=== PATIENT | male | born 1990 | race African-American/Black ===

== ENCOUNTER 2021-04-12 15:28 | Inpatient (IN) | payer MEDICAID ==
[~2021-04-12] VITALS: Ht 182.9 cm; Wt 77.6 kg
[2021-04-12 18:19] LABS: Basophils # (auto) 0.1 10 ^3/uL (0-0.2); Basophils % (auto) 1.3 % (0.0-2.0); Eosinophils # (auto) 0 10 ^3/uL (0-0.8); Eosinophils % (auto) 0.5 % (0.0-7.0); Hematocrit 35.6 % (41.0-53.0); Hemoglobin 11.5 g/dL (13.5-17.5); Lymphocytes # (auto) 0.5 10 ^3/uL (0.4-5.4); Lymphocytes % (auto) 9.1 % (10.0-50.0); Mean Corpuscular Hemoglobin 26.3 pg (28.0-32.0); Mean Corpuscular Hgb Conc. 32.3 g/dL (32.0-36.0); Mean Corpuscular Volume 81.3 fL (80.0-100.0); Monocytes # (auto) 0.3 10 ^3/uL (0-1.3); Monocytes % (auto) 5.3 % (0.0-12.0); Neutrophils # (auto) 4.4 10 ^3/uL (1.6-8.6); Neutrophils % (auto) 83.8 % (37.0-80.0); Nucleated Red Blood Cells % 0.2 %; Red Blood Cells 4.38 10^6/uL (4.5-5.90); Red Cell Distribution Width 19.1 % (11.8-14.3); White Blood Cell 5.2 10^3/uL (4.4-10.8)
[2021-04-12 18:34] LABS: Chloride 92 mmol/L (98-107); Potassium 5.2 mmol/L (3.5-5.1); Sodium 131 mmol/L (136-145)
[2021-04-12 18:40] LABS: Alanine Aminotransferase 14 U/L (16-61); Albumin 3.9 g/dL (3.4-5.0); Alkaline Phosphatase 420 U/L (45-117); Anion Gap 8 (5-15); Aspartate Aminotransferase 17 U/L (15-37); BUN/Creatinine Ratio 4.3; Bilirubin, Total 0.7 mg/dL (0.2-1.0); Blood Urea Nitrogen 20 mg/dL (7-18); Calcium 10.3 mg/dL (8.5-10.1); Carbon Dioxide 31 mmol/L (21-32); GFR African American 19 mL/min; GFR Non-African American 16 mL/min; Glucose 126 mg/dL (74-106); Magnesium 2.8 mg/dL (1.6-2.6)
[2021-04-12] MEDS ORDERED: MORPHINE SULFATE INJECTION 2 MG/ML SYRG IV PRN (21:15)
[2021-04-12] MEDS ORDERED: NITROGLYCERIN 0.4 MG SL TAB SL PRN (21:15)
[2021-04-12] MEDS ORDERED: DEXTROSE (50%) 50ML SYRG IV SCH (21:15)
[2021-04-12] MEDS: ACCU-CHEK COMFORT CURVE STRIP VI SCH (22:15)
[2021-04-12] MEDS: InsuLIN REG 1unit/0.01ml Soln (100units/ml) SC SCH (22:19)
[2021-04-12] MEDS: MORPHINE SULFATE INJECTION 2 MG/ML SYRG IV PRN (23:00)
[2021-04-12] MEDS: ONDANSETRON HCL 4 MG/2 ML VIAL IV PRN (23:00)
[2021-04-12] MEDS: HEPARIN SODIUM (PORCINE) 5000 UNITS/ML 1ML VIAL SC SCH (23:22)
[2021-04-13 05:03] LABS: Basophils # (auto) 0.1 10 ^3/uL (0-0.2); Hemoglobin 10.3 g/dL (13.5-17.5); Neutrophils # (auto) 2.8 10 ^3/uL (1.6-8.6)
[2021-04-13 05:05] LABS: Eosinophils # (auto) 0.1 10 ^3/uL (0-0.8); Eosinophils % (auto) 1.3 % (0.0-7.0); Hematocrit 31.2 % (41.0-53.0); Lymphocytes % (auto) 22.1 % (10.0-50.0); Mean Corpuscular Hemoglobin 26.4 pg (28.0-32.0); Mean Corpuscular Hgb Conc. 32.9 g/dL (32.0-36.0); Mean Corpuscular Volume 80.3 fL (80.0-100.0); Monocytes # (auto) 0.5 10 ^3/uL (0-1.3); Monocytes % (auto) 11.7 % (0.0-12.0); Neutrophils % (auto) 61.9 % (37.0-80.0); Nucleated Red Blood Cells % 0.1 %; Red Blood Cells 3.89 10^6/uL (4.5-5.90); Red Cell Distribution Width 18.9 % (11.8-14.3); White Blood Cell 4.6 10^3/uL (4.4-10.8)
[2021-04-13 05:21] LABS: Albumin 2.9 g/dL (3.4-5.0); Calcium 8.3 mg/dL (8.5-10.1); Potassium 4.9 mmol/L (3.5-5.1)
[2021-04-13 05:25] LABS: BUN/Creatinine Ratio 4.7; Bilirubin, Total 0.5 mg/dL (0.2-1.0); Total Protein 7.8 g/dL (6.4-8.2)
[2021-04-13] MEDS: HEPARIN SODIUM (PORCINE) 5000 UNITS/ML 1ML VIAL SC SCH ×3 (06:06→22:07)
[2021-04-13] MEDS ORDERED: ALPRAZolam 0.25 MG TAB PO PRN (06:30)
[2021-04-13] MEDS ORDERED: diphenhdrAMINE HCL 50 MG/1 ML VL ONE (06:39)
[2021-04-13] MEDS: ACCU-CHEK COMFORT CURVE STRIP VI SCH ×4 (06:45→22:06)
[2021-04-13] MEDS: InsuLIN REG 1unit/0.01ml Soln (100units/ml) SC SCH ×4 (06:45→22:00)
[2021-04-13] MEDS: diphenhdrAMINE HCL 50 MG/1 ML VL IV PRN ×3 (07:00→23:35)
[2021-04-13] MEDS ORDERED: SERT50TA19 PO (10:46)
[2021-04-13] MEDS ORDERED: ALPR0.25 PO (10:46)
[2021-04-13] MEDS ORDERED: HYDR-4072 PO (10:46)
[2021-04-13] MEDS ORDERED: NIFE20CA PO (10:46)
[2021-04-13] MEDS ORDERED: B-COTAB10 OR (10:46)
[2021-04-13] MEDS ORDERED: CARV25TA55 PO (10:46)
[2021-04-13] MEDS ORDERED: CLON-818 PO (10:46)
[2021-04-13] MEDS: cloNIDine HCL 0.1 MG TAB PO SCH ×2 (11:02→21:58)
[2021-04-13] MEDS: CARVEDILOL 12.5 MG TAB PO SCH ×2 (11:03→21:59)
[2021-04-13] MEDS: NIFEdipine ER 30 MG TAB PO SCH (11:03)
[2021-04-13] MEDS: ONDANSETRON HCL 4 MG/2 ML VIAL IV PRN (11:04)
[2021-04-13] MEDS: MORPHINE SULFATE INJECTION 2 MG/ML SYRG IV PRN ×2 (11:05→20:19)
[2021-04-13 13:00] VITALS: BP 166/101
[2021-04-13 15:10] VITALS: BP 108/57
[2021-04-13 17:00] VITALS: BP 123/74
[2021-04-13] MEDS ORDERED: hydrALAZINE HCL 20 MG/ML VL IV PRN (17:15)
[2021-04-13] MEDS ORDERED: NIFE1TAB31 PO (18:08)
[2021-04-13] MEDS ORDERED: CAR125T PO (18:08)
[2021-04-13] MEDS ORDERED: CLON0.1T PO (18:08)
[2021-04-13] MEDS ORDERED: HYDR10TA26 PO (18:08)
[2021-04-13] MEDS ORDERED: POLYETHYLENE GLYCOL 17 GM PWDR PO ONE (21:30)
[2021-04-13] MEDS: DOCUSATE SOD 100 MG CAP PO SCH (21:58)
[2021-04-13 22:00] VITALS: BP 135/85
[2021-04-14 05:00] VITALS: BP 140/89
[2021-04-14] MEDS: MORPHINE SULFATE INJECTION 2 MG/ML SYRG IV PRN ×2 (05:43→13:08)
[2021-04-14] MEDS: DOCUSATE SOD 100 MG CAP PO SCH ×2 (05:43→14:00)
[2021-04-14] MEDS: HEPARIN SODIUM (PORCINE) 5000 UNITS/ML 1ML VIAL SC SCH ×2 (05:44→14:00)
[2021-04-14] MEDS: ACCU-CHEK COMFORT CURVE STRIP VI SCH ×2 (05:55→11:20)
[2021-04-14] MEDS: InsuLIN REG 1unit/0.01ml Soln (100units/ml) SC SCH ×2 (05:57→11:20)
[2021-04-14] MEDS ORDERED: SODIUM CHL 0.9% 1000 ML BAG XX ONE (07:00)
[2021-04-14 09:03] VITALS: BP 150/97
[2021-04-14] MEDS: diphenhdrAMINE HCL 50 MG/1 ML VL IV PRN (09:59)
[2021-04-14] MEDS ORDERED: DOCU-94 PO (11:53)
[2021-04-14] MEDS: NIFEdipine ER 30 MG TAB PO SCH (11:55)
[2021-04-14] MEDS: cloNIDine HCL 0.1 MG TAB PO SCH (11:56)
[2021-04-14] MEDS: CARVEDILOL 12.5 MG TAB PO SCH (11:56)
[2021-04-14 13:00] VITALS: BP 177/114
[2021-04-14 13:15] VITALS: BP 181/118
== END 2021-04-14 16:20 | disposition home or self-care (01) | DRG 199 ==
LOC: EDBD 15:28 → ER 15:28 → TELE 21:02 → TELE-WESTW 04-13 08:36
PROVIDERS: ADMIT Hospitalist; ATTEND Hospitalist
PROC: 5A1D70Z Performance of Urinary Filtration, Intermittent, Less than 6 Hours Per Day (ICD-10-PCS; principal; 2021-04-14)
DX: I16.0 Hypertensive urgency (principal); G93.40 Encephalopathy, unspecified; N18.6 End stage renal disease; S32.599A Other specified fracture of unspecified pubis, initial encounter for closed fracture; D63.1 Anemia in chronic kidney disease; E11.22 Type 2 diabetes mellitus with diabetic chronic kidney disease; I12.0 Hypertensive chronic kidney disease with stage 5 chronic kidney disease or end stage renal disease; F41.9 Anxiety disorder, unspecified; F32.9 Major depressive disorder, single episode, unspecified; E21.2 Other hyperparathyroidism; F17.210 Nicotine dependence, cigarettes, uncomplicated; Z20.822 Contact with and (suspected) exposure to COVID-19; K59.00 Constipation, unspecified; Z83.3 Family history of diabetes mellitus; Z99.2 Dependence on renal dialysis; Z91.81 History of falling; Z88.8 Allergy status to other drugs, medicaments and biological substances
CPT/HCPCS: 36415; 70450; 71045; 74176; 80053; 82962; 83735; 84484; 85025; 87081; 87426; 90935; 93005; 96365; 96375; 99291; G0378; J1815; J2405

== ENCOUNTER 2021-07-26 13:01 | Inpatient (IN) | payer MEDICAID ==
[~2021-07-26] VITALS: Ht 182.9 cm; Wt 76.5 kg
[~2021-07-26 13:01] MED LIST: ALPR0.25 PO; B-COTAB10 OR; CAR125T PO; CLON0.1T PO; DOCU-94 PO; GABA800T87; HYDR-4072 PO; HYDR10TA26 PO; INSUPOW; LISI-708; NIFE1TAB31 PO; SERT50TA19 PO
[2021-07-26] MEDS ORDERED: ONDANSETRON HCL 4 MG/2 ML VIAL IV ONE ×2 (14:00→22:45)
[2021-07-26 14:05] LABS: Basophils # (auto) 0 10 ^3/uL (0-0.2); Basophils % (auto) 0.9 % (0.0-2.0); Eosinophils # (auto) 0.1 10 ^3/uL (0-0.8); Hemoglobin 11.5 g/dL (13.5-17.5); Lymphocytes # (auto) 0.5 10 ^3/uL (0.4-5.4); Lymphocytes % (auto) 10.5 % (10.0-50.0); Mean Corpuscular Hemoglobin 26.5 pg (28.0-32.0); Mean Corpuscular Hgb Conc. 32.8 g/dL (32.0-36.0); Mean Corpuscular Volume 80.9 fL (80.0-100.0); Monocytes # (auto) 0.4 10 ^3/uL (0-1.3); Monocytes % (auto) 6.9 % (0.0-12.0); Neutrophils # (auto) 4.1 10 ^3/uL (1.6-8.6); Neutrophils % (auto) 80.7 % (37.0-80.0); Nucleated Red Blood Cells % 0.2 %; Red Blood Cells 4.33 10^6/uL (4.5-5.90); White Blood Cell 5.1 10^3/uL (4.4-10.8)
[2021-07-26] MEDS ORDERED: HYDROmorphone HCL 2 MG/ML VL IV ONE (14:15)
[2021-07-26 14:18] LABS: Potassium 3.6 mmol/L (3.5-5.1)
[2021-07-26 14:23] LABS: Albumin 3.4 g/dL (3.4-5.0); BUN/Creatinine Ratio 6.1; Calcium 9.1 mg/dL (8.5-10.1); Total Protein 9.5 g/dL (6.4-8.2)
[2021-07-26 15:26] LABS: Bilirubin, Total 0.6 mg/dL (0.2-1.0)
[2021-07-26] MEDS: METOCLOPRAMIDE HCL 5MG/ml INJ 2ml VIAL IV ONE ×2 (16:50→17:10)
[2021-07-26] MEDS ORDERED: ACETAMINOPHEN 325 MG TAB PO PRN (22:45)
[2021-07-26] MEDS ORDERED: SODIUM CHLORIDE 0.9% 1,000 ML IV ONE (22:45)
[2021-07-26] MEDS: MORPHINE SULFATE INJECTION 2 MG/ML SYRG IV PRN (23:06)
[2021-07-26] MEDS: HYDROcodone-ACET 5/325MG TAB PO PRN (23:07)
[2021-07-27] MEDS: PANTOPRAZOLE 40 MG/10 ML VIAL INJ IV SCH ×2 (00:07→09:42)
[2021-07-27] MEDS: MORPHINE SULFATE INJECTION 2 MG/ML SYRG IV PRN ×2 (07:56→20:06)
[2021-07-27 08:27] LABS: Potassium 3.9 mmol/L (3.5-5.1)
[2021-07-27 08:30] LABS: BUN/Creatinine Ratio 6.4
[2021-07-27] MEDS ORDERED: diphenhdrAMINE HCL 25 MG CAP PO PRN (10:30)
[2021-07-27] MEDS ORDERED: DEXTROSE (50%) 50ML SYRG IV PRN (10:30)
[2021-07-27] MEDS: ONDANSETRON HCL 4 MG/2 ML VIAL IV PRN (10:40)
[2021-07-27] MEDS: ACCU-CHEK COMFORT CURVE STRIP VI SCH ×3 (11:19→22:00)
[2021-07-27] MEDS: InsuLIN REG 1unit/0.01ml Soln (100units/ml) SC SCH ×3 (11:20→22:00)
[2021-07-27] MEDS: HYDROcodone-ACET 5/325MG TAB PO PRN (13:22)
[2021-07-28] MEDS ORDERED: diphenhdrAMINE HCL 50 MG/1 ML VL IV ONE (02:45)
[2021-07-28] MEDS: ACCU-CHEK COMFORT CURVE STRIP VI SCH ×4 (06:54→21:26)
[2021-07-28] MEDS: InsuLIN REG 1unit/0.01ml Soln (100units/ml) SC SCH ×4 (06:55→21:26)
[2021-07-28 08:38] VITALS: BP_SYST 113; BP_SYST 169; BP_DIAS 81; BP_DIAS 86
[2021-07-28] MEDS: PANTOPRAZOLE 40 MG/10 ML VIAL INJ IV SCH (09:32)
[2021-07-28] MEDS: HYDROcodone-ACET 5/325MG TAB PO PRN ×2 (12:09→20:29)
[2021-07-28 12:43] VITALS: BP 170/98
[2021-07-28] MEDS: MORPHINE SULFATE INJECTION 2 MG/ML SYRG IV PRN (15:56)
[2021-07-28] MEDS: hydrALAZINE HCL 10 MG TAB PO PRN (17:28)
[2021-07-28 17:30] VITALS: BP 199/67
[2021-07-28] MEDS: ONDANSETRON HCL 4 MG/2 ML VIAL IV PRN (20:28)
[2021-07-28 22:00] VITALS: BP 188/77
[2021-07-29] MEDS: MORPHINE SULFATE INJECTION 2 MG/ML SYRG IV PRN (00:57)
[2021-07-29 05:00] VITALS: BP 139/90
[2021-07-29] MEDS: ACCU-CHEK COMFORT CURVE STRIP VI SCH ×4 (06:16→22:13)
[2021-07-29] MEDS: InsuLIN REG 1unit/0.01ml Soln (100units/ml) SC SCH ×4 (06:16→22:12)
[2021-07-29 07:44] LABS: Potassium 4.8 mmol/L (3.5-5.1)
[2021-07-29 07:51] LABS: Basophils # (auto) 0.2 10 ^3/uL (0-0.2); Basophils % (auto) 3.8 % (0.0-2.0); Eosinophils # (auto) 0.1 10 ^3/uL (0-0.8); Eosinophils % (auto) 2.3 % (0.0-7.0); Hematocrit 31.9 % (41.0-53.0); Hemoglobin 10.4 g/dL (13.5-17.5); Lymphocytes # (auto) 0.8 10 ^3/uL (0.4-5.4); Lymphocytes % (auto) 20.4 % (10.0-50.0); Mean Corpuscular Hemoglobin 26.1 pg (28.0-32.0); Mean Corpuscular Hgb Conc. 32.6 g/dL (32.0-36.0); Mean Corpuscular Volume 80.1 fL (80.0-100.0); Monocytes # (auto) 0.4 10 ^3/uL (0-1.3); Monocytes % (auto) 10.5 % (0.0-12.0); Neutrophils # (auto) 2.5 10 ^3/uL (1.6-8.6); Nucleated Red Blood Cells % 0.1 %; Red Blood Cells 3.99 10^6/uL (4.5-5.90); Red Cell Distribution Width 16.8 % (11.8-14.3)
[2021-07-29 08:06] LABS: BUN/Creatinine Ratio 6.1; Calcium 7.8 mg/dL (8.5-10.1); Magnesium 3.9 mg/dL (1.6-2.6)
[2021-07-29 09:48] VITALS: BP 148/91
[2021-07-29] MEDS: PANTOPRAZOLE 40 MG/10 ML VIAL INJ IV SCH (10:06)
[2021-07-29] MEDS: HYDROcodone-ACET 5/325MG TAB PO PRN ×2 (11:02→12:11)
[2021-07-29 14:14] VITALS: BP 145/104
[2021-07-29] MEDS ORDERED: diphenhdrAMINE HCL 50 MG/1 ML VL ONE (14:37)
[2021-07-29] MEDS ORDERED: SODIUM CHL 0.9% 1000 ML BAG XX ONE (14:45)
[2021-07-29] MEDS ORDERED: diphenhdrAMINE HCL 50 MG/1 ML VL IV ONE (14:45)
[2021-07-29 17:05] VITALS: BP 140/89
[2021-07-29 21:43] VITALS: BP 150/87
[2021-07-30] MEDS: HYDROcodone-ACET 5/325MG TAB PO PRN ×2 (04:33→10:55)
[2021-07-30] MEDS: ACCU-CHEK COMFORT CURVE STRIP VI SCH ×2 (04:38→11:05)
[2021-07-30] MEDS: InsuLIN REG 1unit/0.01ml Soln (100units/ml) SC SCH ×2 (04:38→11:05)
[2021-07-30 05:00] VITALS: BP 158/81
[2021-07-30] MEDS: hydrALAZINE HCL 10 MG TAB PO PRN (07:56)
[2021-07-30 08:00] VITALS: BP 157/104
[2021-07-30 09:00] VITALS: BP 157/104
[2021-07-30] MEDS: PANTOPRAZOLE 40 MG/10 ML VIAL INJ IV SCH (10:00)
[2021-07-30] MEDS ORDERED: ONDANSETRON ODT 4 MG TAB PO PRN (11:00)
== END 2021-07-30 15:31 | disposition home health service (06) | DRG 251 ==
LOC: ER 13:01 → EDBD 13:01 → TELE 22:44 → TELE-WESTW 07-27 18:01 → OBSVTOIN 07-28 11:24
PROVIDERS: ADMIT Internal Medicine; ATTEND Internal Medicine
PROC: 5A1D70Z Performance of Urinary Filtration, Intermittent, Less than 6 Hours Per Day (ICD-10-PCS; principal; 2021-07-29)
DX: R10.9 Unspecified abdominal pain (principal); I12.0 Hypertensive chronic kidney disease with stage 5 chronic kidney disease or end stage renal disease; D63.1 Anemia in chronic kidney disease; E11.22 Type 2 diabetes mellitus with diabetic chronic kidney disease; N18.6 End stage renal disease; F12.90 Cannabis use, unspecified, uncomplicated; Z20.822 Contact with and (suspected) exposure to COVID-19; F17.210 Nicotine dependence, cigarettes, uncomplicated; M25.552 Pain in left hip; W18.39XA Other fall on same level, initial encounter; G89.4 Chronic pain syndrome; M89.8X9 Other specified disorders of bone, unspecified site; Z83.3 Family history of diabetes mellitus; Z89.411 Acquired absence of right great toe; Z88.5 Allergy status to narcotic agent; Z99.2 Dependence on renal dialysis; Z91.018 Allergy to other foods; Y93.89 Activity, other specified; Y92.89 Other specified places as the place of occurrence of the external cause; Y99.8 Other external cause status; Z87.81 Personal history of (healed) traumatic fracture
CPT/HCPCS: 36415; 71045; 73502; 73700; 74176; 80048; 80053; 82962; 83690; 83735; 83880; 84484; 85025; 87426; 90935; 93005; 96374; 96375; 97163; C9113; G0378; J1815; J2405; Q0162

== ENCOUNTER 2021-10-10 11:01 | Inpatient (IN) | payer MEDICAID ==
[~2021-10-10] VITALS: Ht 182.9 cm; Wt 80.4 kg
[2021-10-10] MEDS ORDERED: ONDANSETRON HCL 4 MG/2 ML VIAL IV ONE (13:30)
[2021-10-10 13:32] LABS: Eosinophils # (auto) 0.1 10 ^3/uL (0-0.8); Lymphocytes # (auto) 0.4 10 ^3/uL (0.4-5.4); Mean Corpuscular Hemoglobin 26.4 pg (28.0-32.0); Monocytes # (auto) 0.4 10 ^3/uL (0-1.3); Neutrophils # (auto) 4.7 10 ^3/uL (1.6-8.6)
[2021-10-10 13:35] LABS: Basophils # (auto) 0 10 ^3/uL (0-0.2); Basophils % (auto) 0.4 % (0.0-2.0); Eosinophils % (auto) 1.2 % (0.0-7.0); Hematocrit 30.3 % (41.0-53.0); Hemoglobin 9.8 g/dL (13.5-17.5); Lymphocytes % (auto) 7.6 % (10.0-50.0); Mean Corpuscular Hgb Conc. 32.4 g/dL (32.0-36.0); Mean Corpuscular Volume 81.3 fL (80.0-100.0); Monocytes % (auto) 7.1 % (0.0-12.0); Neutrophils % (auto) 83.7 % (37.0-80.0); Red Blood Cells 3.72 10^6/uL (4.5-5.90); Red Cell Distribution Width 16.6 % (11.8-14.3); White Blood Cell 5.6 10^3/uL (4.4-10.8)
[2021-10-10 13:56] LABS: Albumin 3.1 g/dL (3.4-5.0); BUN/Creatinine Ratio 5.8; Calcium 8.7 mg/dL (8.5-10.1)
[2021-10-10 14:01] LABS: Bilirubin, Total 0.6 mg/dL (0.2-1.0); Total Protein 7.9 g/dL (6.4-8.2)
[2021-10-10 14:20] LABS: Potassium 5.8 mmol/L (3.5-5.1)
[2021-10-10] MEDS ORDERED: FUROSEMIDE 20 MG/2 ML VIAL IV ONE (14:30)
[2021-10-10] MEDS ORDERED: CALCIUM GLUC 1,000mg/50ml-NS 50 ML IV ONE (14:30)
[2021-10-10] MEDS ORDERED: ALBUTEROL SULF 2.5 MG/0.5ML(0.5%) NEB SOLN NEB ONE (14:30)
[2021-10-10] MEDS ORDERED: LABETALOL HCL 5 MG/ML 4ML SYRINGE IV ONE ×2 (14:30→16:30)
[2021-10-10] MEDS ORDERED: MORPHINE SULFATE INJECTION 2 MG/ML SYRG IV PRN (17:45)
[2021-10-10] MEDS ORDERED: ALPRAZolam 0.25 MG TAB PO PRN (17:45)
[2021-10-10] MEDS ORDERED: ACETAMINOPHEN 325 MG TAB PO PRN (17:45)
[2021-10-10] MEDS ORDERED: NITROGLYCERIN 0.4 MG SL TAB SL PRN (17:45)
[2021-10-10 19:30] LABS: Calcium 8.3 mg/dL (8.5-10.1)
[2021-10-10 19:37] LABS: Potassium 5.7 mmol/L (3.5-5.1)
[2021-10-10] MEDS ORDERED: SODIUM ZIRCONIUM CYCL 10 GM PAK PO ONE (20:15)
[2021-10-10] MEDS: ONDANSETRON HCL 4 MG/2 ML VIAL IV PRN (20:44)
[2021-10-10] MEDS: HYDROcodone-ACET 5/325MG TAB PO PRN (21:07)
[2021-10-10] MEDS: CARVEDILOL 12.5 MG TAB PO SCH (21:35)
[2021-10-10] MEDS: cloNIDine HCL 0.1 MG TAB PO SCH (21:35)
[2021-10-10] MEDS: NIFEdipine ER 30 MG TAB PO SCH (22:00)
[2021-10-10 23:00] VITALS: BP 162/81
[2021-10-10 23:30] VITALS: BP 157/83
[2021-10-11] VITALS (41 sets, daily range): BP systolic 113–182; BP diastolic 56–93
[2021-10-11 01:13] LABS: Albumin 2.9 g/dL (3.4-5.0)
[2021-10-11 01:16] LABS: BUN/Creatinine Ratio 5.8
[2021-10-11 01:18] LABS: Bilirubin, Total 0.5 mg/dL (0.2-1.0); Total Protein 7.2 g/dL (6.4-8.2)
[2021-10-11 01:26] LABS: Potassium 5.7 mmol/L (3.5-5.1)
[2021-10-11 05:07] LABS: Basophils # (auto) 0.1 10 ^3/uL (0-0.2); Eosinophils # (auto) 0.1 10 ^3/uL (0-0.8); Lymphocytes # (auto) 0.7 10 ^3/uL (0.4-5.4)
[2021-10-11 05:09] LABS: Basophils % (auto) 1.2 % (0.0-2.0); Eosinophils % (auto) 1.4 % (0.0-7.0); Hematocrit 25.4 % (41.0-53.0); Hemoglobin 8.6 g/dL (13.5-17.5); Lymphocytes % (auto) 18.4 % (10.0-50.0); Mean Corpuscular Hgb Conc. 33.8 g/dL (32.0-36.0); Monocytes # (auto) 0.4 10 ^3/uL (0-1.3); Monocytes % (auto) 8.8 % (0.0-12.0); Neutrophils # (auto) 2.9 10 ^3/uL (1.6-8.6); Neutrophils % (auto) 70.2 % (37.0-80.0); Red Blood Cells 3.18 10^6/uL (4.5-5.90); Red Cell Distribution Width 17.1 % (11.8-14.3); White Blood Cell 4.1 10^3/uL (4.4-10.8)
[2021-10-11 05:35] LABS: Albumin 2.7 g/dL (3.4-5.0); Calcium 7.8 mg/dL (8.5-10.1); Potassium 4.6 mmol/L (3.5-5.1)
[2021-10-11 05:37] LABS: % Iron Saturation 32.6 % (20-55)
[2021-10-11 05:38] LABS: BUN/Creatinine Ratio 5.9; Bilirubin, Total 0.5 mg/dL (0.2-1.0); Total Protein 6.7 g/dL (6.4-8.2)
[2021-10-11 05:49] LABS: Phosphorus 8.8 mg/dL (2.5-4.90)
[2021-10-11] MEDS ORDERED: SODIUM CHL 0.9% 1000 ML BAG XX ONE (07:00)
[2021-10-11] MEDS: NIFEdipine ER 30 MG TAB PO SCH ×2 (09:51→21:32)
[2021-10-11] MEDS: cloNIDine HCL 0.1 MG TAB PO SCH ×2 (09:52→21:30)
[2021-10-11] MEDS ORDERED: NIFEdipine ER 30 MG TAB PO SCH (10:00)
[2021-10-11] MEDS ORDERED: CLON0.1T PO (11:42)
[2021-10-11] MEDS ORDERED: CAR125T PO (11:42)
[2021-10-11] MEDS ORDERED: NIFE1TAB31 PO (11:42)
[2021-10-11] MEDS: CARVEDILOL 12.5 MG TAB PO SCH ×2 (12:01→21:31)
[2021-10-11] MEDS: SERTRALINE HCL 50 MG TAB PO SCH (12:01)
[2021-10-11] MEDS ORDERED: diphenhdrAMINE HCL 50 MG/1 ML VL ONE (14:11)
[2021-10-11] MEDS ORDERED: diphenhdrAMINE HCL 50 MG/1 ML VL IV ONE (14:15)
[2021-10-11] MEDS: HYDROcodone-ACET 5/325MG TAB PO PRN ×2 (16:15→21:31)
[2021-10-11] MEDS ORDERED: EPOETIN ALFA-EPBX 4,000 UNIT/ML VIAL SC ONE (21:00)
[2021-10-11] MEDS: ONDANSETRON HCL 4 MG/2 ML VIAL IV PRN (21:32)
[2021-10-12 05:00] VITALS: BP 144/56
[2021-10-12] MEDS: MORPHINE SULFATE INJECTION 2 MG/ML SYRG IV PRN ×4 (08:27→23:59)
[2021-10-12] MEDS: SERTRALINE HCL 50 MG TAB PO SCH (08:29)
[2021-10-12] MEDS: NIFEdipine ER 30 MG TAB PO SCH ×2 (08:33→22:05)
[2021-10-12 09:15] VITALS: BP 131/54
[2021-10-12 10:04] LABS: Basophils # (auto) 0.1 10 ^3/uL (0-0.2); Hematocrit 28.4 % (41.0-53.0); Hemoglobin 9.3 g/dL (13.5-17.5); Lymphocytes # (auto) 0.5 10 ^3/uL (0.4-5.4); Mean Corpuscular Hemoglobin 26.4 pg (28.0-32.0); Mean Corpuscular Hgb Conc. 32.7 g/dL (32.0-36.0); Monocytes # (auto) 0.4 10 ^3/uL (0-1.3); Neutrophils # (auto) 2.9 10 ^3/uL (1.6-8.6); White Blood Cell 4.1 10^3/uL (4.4-10.8)
[2021-10-12 10:07] LABS: Basophils % (auto) 3.2 % (0.0-2.0); Eosinophils # (auto) 0.2 10 ^3/uL (0-0.8); Eosinophils % (auto) 4.4 % (0.0-7.0); Lymphocytes % (auto) 11.1 % (10.0-50.0); Mean Corpuscular Volume 80.8 fL (80.0-100.0); Monocytes % (auto) 9.6 % (0.0-12.0); Neutrophils % (auto) 71.7 % (37.0-80.0); Nucleated Red Blood Cells % 0.2 %; Red Blood Cells 3.51 10^6/uL (4.5-5.90); Red Cell Distribution Width 16.8 % (11.8-14.3)
[2021-10-12 10:23] LABS: Calcium 8.3 mg/dL (8.5-10.1); Potassium 5.2 mmol/L (3.5-5.1)
[2021-10-12 10:26] LABS: BUN/Creatinine Ratio 4.9; Bilirubin, Total 0.6 mg/dL (0.2-1.0); Total Protein 7.7 g/dL (6.4-8.2)
[2021-10-12 13:00] VITALS: BP 141/69
[2021-10-12] MEDS: cloNIDine HCL 0.1 MG TAB PO SCH ×2 (13:05→22:03)
[2021-10-12] MEDS: CARVEDILOL 12.5 MG TAB PO SCH ×2 (13:06→22:04)
[2021-10-12 17:00] VITALS: BP 156/80
[2021-10-12] MEDS ORDERED: diphenhdrAMINE HCL 25 MG CAP PO PRN (18:30)
[2021-10-12 22:00] VITALS: BP 144/77
[2021-10-12] MEDS: HYDROcodone-ACET 5/325MG TAB PO PRN (22:25)
[2021-10-13] MEDS: diphenhdrAMINE HCL 50 MG/1 ML VL IV PRN ×3 (00:27→15:53)
[2021-10-13 05:00] VITALS: BP 157/104
[2021-10-13] MEDS: hydrALAZINE HCL 20 MG/ML VL IV PRN ×2 (05:27→18:45)
[2021-10-13 07:06] LABS: Immunoglobulin G, Serum 1555 mg/dL (603-1613)
[2021-10-13 08:00] VITALS: BP 146/90
[2021-10-13] MEDS: NIFEdipine ER 30 MG TAB PO SCH ×2 (10:00→22:16)
[2021-10-13] MEDS: SERTRALINE HCL 50 MG TAB PO SCH (10:37)
[2021-10-13] MEDS: cloNIDine HCL 0.1 MG TAB PO SCH ×2 (10:38→22:14)
[2021-10-13] MEDS: CARVEDILOL 12.5 MG TAB PO SCH ×2 (10:39→22:14)
[2021-10-13] MEDS: MORPHINE SULFATE INJECTION 2 MG/ML SYRG IV PRN ×2 (10:42→19:05)
[2021-10-13] MEDS: ONDANSETRON HCL 4 MG/2 ML VIAL IV PRN (11:30)
[2021-10-13 11:39] LABS: INR 1.13 (0.9-1.15); Partial Thromboplastin Time 28.6 sec (23.6-33.0)
[2021-10-13 12:00] VITALS: BP 125/78
[2021-10-13 16:00] VITALS: BP 158/92
[2021-10-13 21:31] VITALS: BP 149/90
[2021-10-14] VITALS (17 sets, daily range): BP systolic 134–176; BP diastolic 79–100
[2021-10-14] MEDS: NIFEdipine ER 30 MG TAB PO SCH (10:00)
[2021-10-14] MEDS: SERTRALINE HCL 50 MG TAB PO SCH (10:00)
[2021-10-14] MEDS: cloNIDine HCL 0.1 MG TAB PO SCH (10:00)
[2021-10-14] MEDS: CARVEDILOL 12.5 MG TAB PO SCH (10:00)
[2021-10-14] MEDS: hydrALAZINE HCL 20 MG/ML VL IV PRN (10:03)
[2021-10-14] MEDS: MORPHINE SULFATE INJECTION 2 MG/ML SYRG IV PRN (10:13)
[2021-10-14] MEDS ORDERED: fentaNYL CITRATE 100 MCG/2 ML VL ONE (11:12)
[2021-10-14] MEDS ORDERED: MIDAZOLAM HCL 2MG/2ML 2ml VIAL (1mg/ml) ONE (11:12)
[2021-10-14] MEDS ORDERED: LIDOCAINE 2%HCL (LOCAL ANESTH.) INJ 10ml MDV ONE (11:38)
[2021-10-14] MEDS: HYDROcodone-ACET 5/325MG TAB PO PRN (13:04)
== END 2021-10-14 16:18 | disposition home or self-care (01) | DRG 282 ==
LOC: ER 11:01 → TELE 17:35 → ICU WEST 22:54 → TELE-CENTR 10-11 18:56
PROVIDERS: ADMIT Internal Medicine; ATTEND Internal Medicine
PROC: 05HA33Z Insertion of Infusion Device into Left Brachial Vein, Percutaneous Approach (ICD-10-PCS; principal; 2021-10-10)
PROC: B54NZZA Ultrasonography of Left Upper Extremity Veins, Guidance (ICD-10-PCS; 2021-10-10)
PROC: 5A1D70Z Performance of Urinary Filtration, Intermittent, Less than 6 Hours Per Day (ICD-10-PCS; 2021-10-11)
PROC: 5A1D70Z Performance of Urinary Filtration, Intermittent, Less than 6 Hours Per Day (ICD-10-PCS; 2021-10-13)
DX: K85.90 Acute pancreatitis without necrosis or infection, unspecified (principal); I12.0 Hypertensive chronic kidney disease with stage 5 chronic kidney disease or end stage renal disease; E11.649 Type 2 diabetes mellitus with hypoglycemia without coma; E44.0 Moderate protein-calorie malnutrition; D63.1 Anemia in chronic kidney disease; E88.09 Other disorders of plasma-protein metabolism, not elsewhere classified; I31.3 Pericardial effusion (noninflammatory); N18.6 End stage renal disease; E11.22 Type 2 diabetes mellitus with diabetic chronic kidney disease; E87.5 Hyperkalemia; F12.90 Cannabis use, unspecified, uncomplicated; R79.89 Other specified abnormal findings of blood chemistry; F17.210 Nicotine dependence, cigarettes, uncomplicated; R19.7 Diarrhea, unspecified; Z20.822 Contact with and (suspected) exposure to COVID-19; H54.61 Unqualified visual loss, right eye, normal vision left eye; Z91.15 Patient's noncompliance with renal dialysis; Z83.3 Family history of diabetes mellitus; Z99.2 Dependence on renal dialysis; Z88.8 Allergy status to other drugs, medicaments and biological substances; Z79.84 Long term (current) use of oral hypoglycemic drugs
CPT/HCPCS: 10005; 36415; 36600; 71045; 72192; 74176; 77012; 78306; 80048; 80053; 82010; 82784; 82805; 83540; 83550; 83615; 83690; 83880; 83883; 84100; 84484; 85025; 85610; 85730; 86334; 86335; 87081; 90935; 93005; 94640; 96365; 96375; 96376; 99291; G0378; J2001; J2250; J2405; J3490

== ENCOUNTER 2021-11-23 17:58 | Emergency (ER) | payer MEDICAID ==
[~2021-11-23] VITALS: Ht 182.9 cm; Wt 79.4 kg
[~2021-11-23 17:58] MED LIST changes: -LISI-708
[2021-11-24] MEDS ORDERED: SULF400T11 PO (02:23)
[2021-11-24] MEDS ORDERED: CEPH-509 PO (02:23)
[2021-11-24] MEDS ORDERED: HYDROcodone-ACET 10/325MG TAB PO ONE (02:30)
[2021-11-24] MEDS ORDERED: KETOROLAC TROMETH 60MG/2ML VIAL IM ONE (02:30)
[2021-11-24 04:46] VITALS: BP 149/99
== END 2021-11-24 05:47 | disposition home or self-care (01) ==
LOC: ER 17:58
DX: L02.416 Cutaneous abscess of left lower limb (principal); I12.0 Hypertensive chronic kidney disease with stage 5 chronic kidney disease or end stage renal disease; E11.22 Type 2 diabetes mellitus with diabetic chronic kidney disease; N18.6 End stage renal disease; F17.210 Nicotine dependence, cigarettes, uncomplicated; Z79.4 Long term (current) use of insulin; Z79.899 Other long term (current) drug therapy; Z88.8 Allergy status to other drugs, medicaments and biological substances
CPT/HCPCS: 96372; 99283; J1885

== ENCOUNTER 2023-08-01 06:13 | Inpatient (IN) | payer MEDICAID ==
[~2023-08-01] VITALS: Ht 182.9 cm; Wt 77.3 kg
[2023-08-01] VITALS (7 sets, daily range): BP systolic 155–190; BP diastolic 84–97; PULSE 84–97; RESP 14–23; TEMP 98–98.7; O2SAT 95–100
[~2023-08-01 06:13] MED LIST changes: +CEPH-509 PO; +HYDR-4227 PO; -HYDR10TA26 PO; +SERT-206 PO; -SERT50TA19 PO; +SULF400T11 PO
[2023-08-01] MEDS ORDERED: SODIUM CHLORIDE 0.9% 1,000 ML IV ONE (07:15)
[2023-08-01 08:01] LABS: Basophils # (auto) 0.1 10 ^3/uL (0-0.2); Basophils % (auto) 1.4 % (0.0-2.0); Eosinophils # (auto) 0.2 10 ^3/uL (0-0.8); Monocytes # (auto) 0.6 10 ^3/uL (0-1.3); Neutrophils # (auto) 3.5 10 ^3/uL (1.6-8.6); Nucleated Red Blood Cells % 0.1 %
[2023-08-01 08:03] LABS: Eosinophils % (auto) 4.7 % (0.0-7.0); Hematocrit 16.4 % (41.0-53.0); Lymphocytes # (auto) 0.6 10 ^3/uL (0.4-5.4); Lymphocytes % (auto) 11.5 % (10.0-50.0); Mean Corpuscular Hemoglobin 26.9 pg (28.0-32.0); Mean Corpuscular Hgb Conc. 32.8 g/dL (32.0-36.0); Mean Corpuscular Volume 82.1 fL (80.0-100.0); Monocytes % (auto) 12.8 % (0.0-12.0); Neutrophils % (auto) 69.6 % (37.0-80.0)
[2023-08-01 08:08] LABS: Alanine Aminotransferase 26 U/L (7-40); Albumin 4.1 g/dL (3.2-4.8); Alkaline Phosphatase 112 U/L (46-116); Anion Gap 15 (5-15); Aspartate Aminotransferase 43 U/L (13-40); BUN/Creatinine Ratio 5.3 (10.0-20.0); Bilirubin, Total 0.3 mg/dL (0.2-1.0); Blood Urea Nitrogen 62 mg/dL (9-23); Calcium 8.8 mg/dL (8.5-10.1); Carbon Dioxide 27 mmol/L (20-30); Chloride 94 mmol/L (98-107); Glucose 104 mg/dL (74-106); Potassium 4.9 mmol/L (3.5-5.1); Sodium 136 mmol/L (136-145); Total Protein 7.3 g/dL (5.7-8.2)
[2023-08-01 08:16] LABS: Hemoglobin 5.4 g/dL (13.5-17.5)
[2023-08-01] MEDS ORDERED: cefTRIAXone 1GM/50ML D5W 50 ML IV ONE (10:15)
[2023-08-01] MEDS ORDERED: HYDROcodone-ACET 5/325MG TAB PO ONE (10:45)
[2023-08-01] MEDS ORDERED: ONDANSETRON HCL 4 MG/2 ML VIAL IV ONE (10:45)
[2023-08-01] MEDS ORDERED: LACTULOSE 20Gm/30ML SOLN PO ONE (10:45)
[2023-08-01] MEDS ORDERED: diphenhdrAMINE HCL 50 MG/1 ML VL IV ONE ×2 (10:45)
[2023-08-01] MEDS ORDERED: HYDROcodone-ACET 5/325MG TAB PO PRN (11:00)
[2023-08-01] MEDS ORDERED: ONDANSETRON HCL 4 MG/2 ML VIAL IV PRN (11:00)
[2023-08-01] MEDS ORDERED: DOCUSATE SOD 100 MG CAP PO PRN (11:00)
[2023-08-01] MEDS ORDERED: NITROGLYCERIN 0.4 MG SL TAB SL PRN (11:00)
[2023-08-01] MEDS ORDERED: MORPHINE SULFATE INJ 2 MG/ml SYRG IV PRN (11:00)
[2023-08-01] MEDS ORDERED: hydrALAZINE HCL 20 MG/ML VL IV PRN (11:15)
[2023-08-01] MEDS ORDERED: hydrALAZINE HCL 20 MG/ML VL IV ONE (11:15)
[2023-08-01] MEDS ORDERED: LORazepam 2MG/ML-1ML VIAL IV PRN ×2 (11:15)
[2023-08-01] MEDS ORDERED: SODIUM CHL 0.9% 1000 ML BAG XX ONE (13:30)
[2023-08-01] MEDS: SODIUM CHLOR 0.9% PF (SALINE LOCK) 10ML VIAL/SYR IV SCH ×2 (15:46→22:50)
[2023-08-01] MEDS ORDERED: LORazepam MDV 2MG/ML 10 ML IV ONE (16:06)
[2023-08-01] MEDS ORDERED: CARVEDILOL 12.5 MG TAB PO SCH (22:00)
[2023-08-01] MEDS ORDERED: BENAZEPRIL HCL 10 MG TAB PO ONE (23:00)
[2023-08-01] MEDS: diphenhdrAMINE HCL 25 MG CAP PO ONE ×2 (23:15→23:30)
[2023-08-02] VITALS: BP 155/85; PULSE 89; RESP 18; O2SAT 94
[2023-08-02] MEDS ORDERED: cefTRIAXone 1GM/50ML D5W 50 ML IV SCH (09:00)
[2023-08-02 09:48] LABS: Hepatitis B Surface Antigen Negative (Negative)
[2023-08-02] MEDS ORDERED: AZITHROMYCIN 500MG/ 250ML 250 ML IV SCH (10:00)
[2023-08-02] MEDS ORDERED: NIFEdipine ER 30 MG TAB PO SCH (10:00)
[2023-08-02] MEDS ORDERED: PANTOPRAZOLE 40 MG TAB PO SCH (10:00)
[2023-08-02 10:09] LABS: Hepatitis A Ab IgM Negative; Hepatitis B Core IgM Negative
[2023-08-02 10:10] LABS: Hepatitis C Antibody Negative (Negative)
== END 2023-08-02 00:52 | disposition left against medical advice (07) | DRG 425 ==
LOC: EDBD 06:13 → ER 06:13 → TELE-CENTR 11:15 → TELE 11:15 → TELE-CENTR 08-02 00:08
PROVIDERS: ADMIT Internal Medicine Geriatric Medicine; ATTEND Internal Medicine Geriatric Medicine
PROC: 30233N1 Transfusion of Nonautologous Red Blood Cells into Peripheral Vein, Percutaneous Approach (ICD-10-PCS; principal; 2023-08-01)
PROC: 5A1D70Z Performance of Urinary Filtration, Intermittent, Less than 6 Hours Per Day (ICD-10-PCS; 2023-08-01)
DX: E87.70 Fluid overload, unspecified (principal); J96.01 Acute respiratory failure with hypoxia; J15.69 Pneumonia due to other Gram-negative bacteria; I12.0 Hypertensive chronic kidney disease with stage 5 chronic kidney disease or end stage renal disease; J81.1 Chronic pulmonary edema; N18.6 End stage renal disease; E11.22 Type 2 diabetes mellitus with diabetic chronic kidney disease; D64.9 Anemia, unspecified; F17.210 Nicotine dependence, cigarettes, uncomplicated; F41.9 Anxiety disorder, unspecified; I16.1 Hypertensive emergency; Z53.29 Procedure and treatment not carried out because of patient's decision for other reasons; Z88.5 Allergy status to narcotic agent; Z91.158 Patient's noncompliance with renal dialysis for other reason; Z99.2 Dependence on renal dialysis
CPT/HCPCS: 36415; 71045; 80053; 80074; 83735; 83880; 84484; 85025; 86850; 86900; 86901; 86920; 87040; 90935; 93005; 99291; G0378; J2405

== ENCOUNTER 2025-01-14 09:26 | Inpatient (IN) | payer MEDICAID ==
[~2025-01-14] VITALS: Ht 177.8 cm; Wt 70.0 kg
[~2025-01-14 09:26] MED LIST changes: +B-CO-6 PO; -B-COTAB10 OR; +BENA40TA71 PO; -CAR125T PO; +CARV25TA55 PO; -CEPH-509 PO; -CLON0.1T PO; +CLON0.3T PO; -DOCU-94 PO; -HYDR-4227 PO; +HYDR100T10 PO; +METR-344 PO; +NIFE1TAB30 PO; -NIFE1TAB31 PO; +SEVE800T10 PO; -SULF400T11 PO
[2025-01-14 10:30] VITALS: PULSE 87; RESP 17; O2SAT 97
--- NOTE | 2025-01-14 10:54 | ED.PDOC ---
History of Present Illness HPI Comments This is a 34-year-old male who comes in with chief complaint of right upper quadrant pain. The patient states that the pain is a 10/10. The patient missed dialysis on Sunday and . The patient states that his is in the hospital so he did not have any transportation. Upon arrival to the emergency department's, the patient had a bowel movements and seems to have minimal relief. There has been no nausea, vomiting or fever. The patient came by paramedics and EN route the patient had an Accu-Chek of 102. Chief Complaint: Abdominal Pain Time Seen by MD: 10:14 Primary Care Provider: SOTO Reviewed Notes: Nurses Notes, Palliative Medicine Physician Notes, Medications, Allergies (Allergies to tramadol) Allergies: Coded Allergies: Tramadol (Verified Allergy, Unknown, 07/26/21) Uncoded Allergies: peaches (Allergy, Intermediate, rash, 04/13/21) Home Meds Active Scripts Metronidazole (Flagyl) 500 Mg Tab, 1 TAB PO TID for 7 Days, #21 TAB Prov:KAROLINA HOSKINS DO 09/09/23 Reported Medications Clonidine Hydrochloride (Clonidine Hcl) 0.3 Mg Tab, 1 TAB PO TID 09/06/23 Sevelamer Carbonate (Sevelamer Carbonate) 800 Mg Tab, 2 TAB PO TID 09/06/23 Nifedipine (Nifedipine Er) 60 Mg Tab, 60 MG PO BID 09/06/23 Hydralazine Hcl (Hydralazine Hcl) 100 Mg Tab, 1 TAB PO BID 09/06/23 Benazepril Hcl (Benazepril Hcl) 40 Mg Tab, 1 TAB PO DAILY 09/06/23 Carvedilol (Carvedilol) 25 Mg Tab, 1 TAB PO BID 09/06/23 B-Complex W/ C & Folic Acid ([facility] Rx) Tab, 1 TAB PO DAILY 09/06/23 Hydrocodone-Acetaminophen (Hydrocodone/Acetaminophen 10-325 mg) 1 Tab Tab, 1 TAB PO Q6HPRN PRN for PAIN SCALE 1 THRU 6, TAB 04/13/21 Alprazolam (Xanax) 0.25 Mg Tb, 1 TAB PO DAILY PRN for ANXIETY, #30 TAB 04/13/21 Sertraline Hcl (Sertraline Hcl) 50 Mg Tab, 150 MG PO DAILY for 30 Days, MG 04/13/21 Gabapentin (Neurontin) 800 Mg Tab 03/12/10 Insulin (Insulin Human) Human Pow 03/12/10 Information Source: Patient, Emergency Med Personnel Mode of Arrival: EMS Severity: Moderate Timing: Days Duration: Since onset Prehospital treatment: 12 Lead EKG, Accucheck (102), Health Program Manager Location: Right upper quadrant abdominal pain Associated signs and symptoms No associated nausea or vomiting Past Medical History PAST MEDICAL HISTORY: DM, ESRD, HTN Surgical History (Other): Fistula to the right arm for dialysis, bilateral toes that have been amputated Family History Family History: No family hx of Cancer, No family hx of Heart thompson, Family hx of DM Social History Smoker: Non-Smoker Alcohol: Denies ETOH Use Drugs: Marijuana Lives In: Home Constitutional: denies: chills, diaphoresis, fatigue, fever, malaise, sweats, weakness, others EENTM: denies: blurred vision, double vision, ear bleeding, ear discharge, ear drainage, ear pain, ear ringing, eye pain, eye redness, hearing loss, mouth pain, mouth swelling, nasal discharge, nose bleeding, nose congestion, nose pain, photophobia, tearing, throat pain, throat swelling, voice changes, others Respiratory: denies: cough, hemoptysis, orthopnea, SOB at rest, shortness of breath, SOB with excertion, stridor, wheezing, others Cardiovascular: denies: chest pain, dizzy spells, diaphoresis, Dyspnea on exertion, edema, irregular heart beat, left arm pain, lightheadedness, palpitations, PND, syncope, others Gastrointestinal: reports: abdominal pain; denies: abdomen distended, blood streaked bowels, constipated, diarrhea, dysphagia, difficulty swallowing, hematemesis, melena, nausea, poor appetite, poor fluid intake, rectal bleeding, rectal pain, vomiting, others Genitourinary: denies: burning, dysuria, flank pain, frequency, hematuria, incontinence, penile discharge, penile sore, pain, testicle pain, testicle swelling, urgency, others Neurological: denies: dizziness, fainting, headache, left sided numbness, left sided weakness, numbness, paresthesia, pre-existing deficit, right sided numbness, right sided weakness, seizure, speech problems, tingling, tremors, weakness, others Musculoskeletal: denies: back pain, gout, joint pain, joint swelling, muscle pain, muscle stiffness, neck pain, others Integumetry: denies: bruises, change in color, change in hair/nails, dryness, laceration, lesions, lumps, rash, wounds, others Allergic/Immunocompromised: denies: Difficulty Healing, Frequent Infections, Hives, Itching, others Hematologic/Lymphatic: denies: anemia, blood clots, easy bleeding, easy bruising, swollen glands, others Endocrine: denies: excessive hunger, excessive sweating, excessive thirst, excessive urination, flushing, intolerance to cold, intolerance to heat, unexplained weight gain, unexplained weight loss, others Psychiatric: denies: anxiety, bipolar disorder, depression, hopeless, panic disorder, schizophrenia, sleepless, suicidal, others Physical Exam General Appearance: Moderate Distress HEENT: Normal ENT Inspection, Pharynx Normal, TMs Normal Neck: Full Range of Motion, Non-Tender, Normal, Normal Inspection Respiratory: Chest Non-Tender, Lungs Clear, No Accessory Muscle Use, No Respiratory Distress, Normal Breath Sounds Cardiovascular: No Edema, No JVD, No Murmur, No Gallop, Normal Peripheral Pulses, Regular Rate/Rhythm Breast Exam: Deferred Gastrointestinal: No Organomegaly, No Pulsatile Mass, Normal Bowel Sounds, RUQ, Soft, Tenderness Genitalia: Deferred Pelvic: Deferred Rectal: Deferred Extremities: No calf tenderness, Normal capillary refill, No pedal edema, Other (Fistula to the right upper extremity) Musculoskeletal : Apperance: Normal Neurologic: Alert, lanolin plant operator II-XII nml as Tested, Motor Weakness, Normal Affect, Normal Mood, No Sensory Deficits Cerebellar Function: Normal Reflexes: Normal Skin: Dry, Normal Color, Warm Lymphatic: No Adenopathy Was a procedure done? Was a procedure done?: No EKG EKG : Pulse Rate (adult): 88 [place]: RAD Cardiac Rhythm: NSR Hypertrophy: LAE ST: Nonsp (Poor R-wave progression) Differential Dx Considerations may include: Generalized weakness, gallstones, appendicitis, bowel obstruction X-Ray, Labs, Meds, VS Vital Signs Date Time Temp Pulse Resp B/P (MAP) Pulse Ox O2 Delivery O2 Flow Rate FiO2 01/14/25 13:00 90 13 191/113 (139) 94 01/14/25 13:00 90 13 191/113 01/14/25 12:19 95 21 207/98 (134) 94 01/14/25 12:17 96 24 207/98 01/14/25 10:54 88 01/14/25 10:47 98.7 83 18 187/109 (135) 96 98.7 01/14/25 10:08 89 15 194/117 (142) 97 01/14/25 09:29 88 Lab Test 01/14/25 13:15 01/14/25 12:24 Range/Units Sodium Level 139 136-145 mmol/L Potassium Level 6.3 *H 3.5-5.1 mmol/L Chloride Level 99 98-107 mmol/L Carbon Dioxide Level 24 20-31 mmol/L Anion Gap 16 H 5-15 Blood Urea Nitrogen 97 *H 9-23 mg/dL Creatinine 13.05 *H 0.700-1.30 mg/dL Glomerular Filtration Rate Calc 5 >90 mL/min BUN/Creatinine Ratio 7.4 L 10.0-20.0 Serum Glucose 113 H 74-106 mg/dL Calcium Level 9.2 8.7-10.4 mg/dL Total Bilirubin 0.5 0.2-1.0 mg/dL Aspartate Amino Transferase (AST) 46 H 13-40 U/L Alanine Aminotransferase (ALT) 72 H 7-40 U/L Alkaline Phosphatase 104 46-116 U/L Total Protein 8.6 H 5.7-8.2 g/dL Albumin 4.4 3.2-4.8 g/dL Lipase 32 12-53 U/L White Blood Count 5.8 4.4-10.8 10^3/uL Red Blood Count 4.26 L 4.5-5.90 10^6/uL Hemoglobin 10.9 L 13.5-17.5 g/dL Hematocrit 33.3 L 41.0-53.0 % Mean Corpuscular Volume 78.1 L 80.0-100.0 fL Mean Corpuscular Hemoglobin 25.5 L 28.0-32.0 pg Mean Corpuscular Hemoglobin Concent 32.6 32.0-36.0 g/dL Red Cell Distribution Width 19.0 H 11.8-14.3 % Platelet Count 160 140-450 10^3/uL Mean Platelet Volume 7.9 6.9-10.8 fL Neutrophils (%) (Auto) 75.7 37.0-80.0 % Lymphocytes (%) (Auto) 11.3 10.0-50.0 % Monocytes (%) (Auto) 8.6 0.0-12.0 % Eosinophils (%) (Auto) 3.6 0.0-7.0 % Basophils (%) (Auto) 0.8 0.0-2.0 % Neutrophils # (Auto) 4.4 1.6-8.6 10 ^3/uL Lymphocytes # (Auto) 0.7 0.4-5.4 10 ^3/uL Monocytes # (Auto) 0.5 0-1.3 10 ^3/uL Eosinophils # (Auto) 0.2 0-0.8 10 ^3/uL Basophils # (Auto) 0 0-0.2 10 ^3/uL Nucleated Red Blood Cells 0.1 % Current Medications Medications (Trade) Dose Ordered Sig/Kevin Route Start Time Stop Time Status Last Admin Morphine Sulfate 4 mg ONCE ONCE IV 01/14/25 11:00 01/14/25 11:01 DC 01/14/25 12:17 Ondansetron HCl (Zofran) 4 mg ONCE ONCE IV 01/14/25 11:00 01/14/25 11:01 DC 01/14/25 12:[address] AB PEL WO CON-NO ORAL OR IV IMPRESSION: Small kidneys with multiple bilateral small cystic lesions can be seen with kidney disease. Anasarca. Diffuse atherosclerosis can be seen with diabetes. Diffusely sclerotic bones with multiple Schmorl nodes. Severe L5-S1 degenerative endplate/disc disease. Severe degenerative changes of the SI joints. Additional lucent/lytic lesions of the sacrum and pelvis. Findings can be seen with renal osteodystrophy. IV Hep-Lock is being established The patient is being given morphine 4 mg IV push The patient is also being given Zofran 4 mg IV push The patient's CBC shows anemia with a hemoglobin of 10.9 and hematocrit of 30.3 The chemistry panel shows a potassium of 6.3 The BUN is 97 the creatinine is 13.05 The patient has not been dialyzed for several days We are contacting the systems analysis manager to arrange for stat dialysis The patient is being admitted at this time The patient is also being given medication to reverse his hyperkalemia Images Reviewed?: Images reviewed and evaluated by me Time of 1ST Reevaluation: 10:54 Reevaluation 1ST: Unchanged Patient Education/Counseling: Diagnosis, Treatment, Prognosis Family Education/Counseling: No Family Present SEPSIS Sepsis Screen Physician Orders Electrocardigram (01/14/25 09:32) Ct Ab Pel Wo Con-No Oral Or Iv (01/14/25 10:38) Heplock Iv (01/14/25 10:38) Health Program Manager (01/14/25 10:38) Blood Pressure (01/14/25 10:38) Pulse Oximetry (01/14/25 10:38) Vital Signs Date Time Temp Pulse Resp B/P (MAP) Pulse Ox O2 Delivery O2 Flow Rate FiO2 01/14/25 13:00 90 13 191/113 (139) 94 01/14/25 13:00 90 13 191/113 01/14/25 12:19 95 21 207/98 (134) 94 01/14/25 12:17 96 24 207/98 01/14/25 10:54 88 01/14/25 10:47 98.7 83 18 187/109 (135) 96 98.7 01/14/25 10:08 89 15 194/117 (142) 97 01/14/25 09:29 88 Laboratory Tests Test 01/14/25 12:24 White Blood Count 5.8 10^3/uL (4.4-10.8) Medications Medications Dose Ordered Sig/Kevin Route Start Time Stop Time Status Last Admin Dose Admin Morphine Sulfate 4 mg ONCE ONCE IV 01/14/25 11:00 01/14/25 11:01 DC 01/14/25 12:17 Ondansetron HCl 4 mg ONCE ONCE IV 01/14/25 11:00 01/14/25 11:01 DC 01/14/25 12:15 Departure 1 Departure Time of Disposition: 14:06 Impression: Primary Impression: Hyperkalemia Additional Impression: ESRD needing dialysis Disposition: ADMITTED INPATIENT Admit to: [facility] Condition: Guarded Critical Care Note Critical Care Time?: Yes (55 min-critical care time only) Stability Stability form required: Yes Unstable for transfer: ICU, CCU, PCU, [facility] (Intensive VS monitoring), May require CPR (possible rapid decline), ED Physician Assesment (Clinical assesment) Heart Score Heart Score: Heart Score Response (Comments) Value History N/A 0 EKG N/A 0 Age N/A 0 Risk Factors N/A 0 Troponin N/A 0 Total 0 I personally scribed for CHAMP REYES MD ([email or web address]) on 01/14/25 at 11:46. Electronically submitted by Luciana Escobar ([email or web address]). CHAMP REYES MD Jan 14, 2025 10:54
--- NOTE | 2025-01-14 11:40 | DVH ---
CT CT AB PEL WO CON-NO ORAL OR IV INDICATION: abd pain EXAM DATE: 01/14/2025 10:57 AM COMPARISON: CT CT AB PEL WO CON-NO ORAL OR IV on DOS: 09/08/23, PL2CT on DOS: 10/14/21, CT ABD PELVIS WO CONTRAST on DOS: 10/10/21 RADIATION DOSE: CTDIvol: mGy, DLP: mGy*cm PROCEDURE: Helical CT images were obtained of the abdomen and pelvis without IV contrast Sagittal and coronal reconstructions are provided. ORAL CONTRAST: None. ADDITIONAL IMAGES / REFORMATS: None All C T scans at this medical facility are performed using dose modulation techniques as appropriate to a p erformed exam including the following: Automated exposure control was utilized; adjustment of the MA and/or KV according to patient size; and use of iterative reconstruction technique. FINDINGS: LUNG BASE: Mosaic lung attenuation. LIVER: Normal. GALLBLADDER AND BILIARY TREE: No calcified gallstones. Normal caliber wall. No intra- or extrahepatic biliary ductal dilation. PANCREAS: Normal. SPLEEN: Normal. BOWEL: Normal. Normal appendix. ADRENALS: Normal. KIDNEYS AND URETER: Small kidneys with multiple bilateral small cystic lesions. BLADDER: Decompressed with thickened [place]. REPRODUCTIVE ORGANS: Normal. LYMPH NODES:Prominent bilateral inguinal lymph nodes, nonspecific. PERITONEUM: No ascites or free air. No other fluid collection. VESSELS: Scattered atherosclerotic calcifications are noted. RETROPERITONEUM: Normal. ABDOMINAL WALL: Anasarca. BONES: Scattered osseous degenerative changes are noted. Diffusely sclerotic bones with multiple Schm orl nodes. Severe L5-S1 degenerative endplate/disc disease. Severe degenerative changes of the SI diann nts. Additional lucent/lytic lesions of the sacrum and pelvis. IMPRESSION: Small kidneys with multiple bilateral small cystic lesions can be seen with kidney disease. Anasarca. Diffuse atherosclerosis can be seen with diabetes. Diffusely sclerotic bones with multiple Schmorl nodes. Severe L5-S1 degenerative endplate/disc diseas e. Severe degenerative changes of the SI joints. Additional lucent/lytic lesions of the sacrum and pe lvis. Findings can be seen with renal osteodystrophy.
[2025-01-14] MEDS: ONDANSETRON HCL 4 MG/2 ML VIAL IV ONE (12:15)
[2025-01-14] MEDS: MORPHINE SULFATE 4 MG/ML SYR/VIAL IV ONE (12:17)
[2025-01-14 12:34] LABS: Hematocrit 33.3 % (41.0-53.0); Hemoglobin 10.9 g/dL (13.5-17.5); Mean Corpuscular Hemoglobin 25.5 pg (28.0-32.0); Mean Corpuscular Volume 78.1 fL (80.0-100.0); Nucleated Red Blood Cells % 0.1 %
[2025-01-14 13:42] LABS: Albumin 4.4 g/dL (3.2-4.8); Alkaline Phosphatase 104 U/L (46-116); Anion Gap 16 (5-15); BUN/Creatinine Ratio 7.4 (10.0-20.0); Bilirubin, Total 0.5 mg/dL (0.2-1.0); Calcium 9.2 mg/dL (8.7-10.4); Carbon Dioxide 24 mmol/L (20-31); Chloride 99 mmol/L (98-107); Lipase 32 U/L (12-53); Sodium 139 mmol/L (136-145)
[2025-01-14 13:43] LABS: Alanine Aminotransferase 72 U/L (7-40); Glucose 113 mg/dL (74-106); Total Protein 8.6 g/dL (5.7-8.2)
[2025-01-14 13:48] LABS: Blood Urea Nitrogen 97 mg/dL (9-23); Potassium 6.3 mmol/L (3.5-5.1)
[2025-01-14] MEDS: InsuLIN REG 1unit/0.01ml Soln (100units/ml) IV ONE (14:32)
[2025-01-14] MEDS: DEXTROSE (50%) 50ML SYRG IV ONE (14:32)
[2025-01-14] MEDS: SODIUM BICARB 8.4% 50Meq/50ml SYR Vial IV ONE (14:32)
[2025-01-14] MEDS: CALCIUM GLUC 1,000mg/50ml-NS 50 ML IV ONE (14:32)
[2025-01-14] MEDS: hydrALAZINE HCL 20 MG/ML VL IV ONE (14:59)
--- NOTE | 2025-01-14 18:17 | DVHINCON2 ---
Date of service: Jan 14, [address] Carpio Reason for Consultation End-stage kidney disease, hyperkalemia History of Present Illness This is a 34-year-old male with history of end-stage kidney disease on hemodialysis presenting to the emergency room because of missed dialysis ses sions and abdominal pain. His last dialysis was on . Was having some transportation issues. Also with some abdominal pain . Attributes it to where she can salad that he ate yesterday. Initial labs showed a potassium of 6.3. Nephrology consulted for dialysis. Patient seen and examined at bedside Past Medical History End-stage kidney disease on hemodialysis Hypertension Secondary hyperparathyroidism of renal origin Anemia in Chronic kidney disease Past Surgical History Dialysis access placement Family History: Diabetes mellitus G8 MOTHER G8 FATHER G8 BROTHER Social History No active history of smoking alcohol or drug abuse Allergies: Coded Allergies: Tramadol (Verified Allergy, Unknown, 07/26/21) Uncoded Allergies: peaches (Allergy, Intermediate, rash, 04/13/21) Home Meds Active Scripts Metronidazole (Flagyl) 500 Mg Tab, 1 TAB PO TID for 7 Days, #21 TAB Prov:HOSKINS,KAROLINA Agustin DO 09/09/23 Reported Medications Clonidine Hydrochloride (Clonidine Hcl) 0.3 Mg Tab, 1 TAB PO TID 09/06/23 Sevelamer Carbonate (Sevelamer Carbonate) 800 Mg Tab, 2 TAB PO TID 09/06/23 Nifedipine (Nifedipine Er) 60 Mg Tab, 60 MG PO BID 09/06/23 Hydralazine Hcl (Hydralazine Hcl) 100 Mg Tab, 1 TAB PO BID 09/06/23 Benazepril Hcl (Benazepril Hcl) 40 Mg Tab, 1 TAB PO DAILY 09/06/23 Carvedilol (Carvedilol) 25 Mg Tab, 1 TAB PO BID 09/06/23 B-Complex W/ C & Folic Acid ([facility] Rx) Tab, 1 TAB PO DAILY 09/06/23 Hydrocodone-Acetaminophen (Hydrocodone/Acetaminophen 10-325 mg) 1 Tab Tab, 1 TAB PO Q6HPRN PRN for PAIN SCALE 1 THRU 6, TAB 04/13/21 Alprazolam (Xanax) 0.25 Mg Tb, 1 TAB PO DAILY PRN for ANXIETY, #30 TAB 04/13/21 Sertraline Hcl (Sertraline Hcl) 50 Mg Tab, 150 MG PO DAILY for 30 Days, MG 04/13/21 Gabapentin (Neurontin) 800 Mg Tab 03/12/10 Insulin (Insulin Human) Human Pow 03/12/10 Review of Systems 12 point review of systems negative except as stated in the HPI Vital Signs Vital Signs Date Time Temp Pulse Resp B/P (MAP) Pulse Ox O2 Delivery O2 Flow Rate FiO2 01/14/25 16:00 99 01/14/25 14:59 186/115 01/14/25 13:00 13 94 01/14/25 10:47 98.7 98.7 01/14/25 10:30 Room Air* 0 21 Physical Exam Awake alert oriented x3 HEENT: Normocephalic Lungs: Bilateral good air entry CVS: S1-S2 tachycardic Abdomen: Soft, bowel sounds present AUTOMOTIVE CONSULTANT no 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 Extremities: No edema Labs/Diagnostic Data Labs Test 01/14/25 13:15 01/14/25 12:24 Range/Units Sodium Level 139 136-145 mmol/L Potassium Level 6.3 *H 3.5-5.1 mmol/L Chloride Level 99 98-107 mmol/L Carbon Dioxide Level 24 20-31 mmol/L Anion Gap 16 H 5-15 Blood Urea Nitrogen 97 *H 9-23 mg/dL Creatinine 13.05 *H 0.700-1.30 mg/dL Glomerular Filtration Rate Calc 5 >90 mL/min BUN/Creatinine Ratio 7.4 L 10.0-20.0 Serum Glucose 113 H 74-106 mg/dL Calcium Level 9.2 8.7-10.4 mg/dL Total Bilirubin 0.5 0.2-1.0 mg/dL Aspartate Amino Transferase (AST) 46 H 13-40 U/L Alanine Aminotransferase (ALT) 72 H 7-40 U/L Alkaline Phosphatase 104 46-116 U/L Total Protein 8.6 H 5.7-8.2 g/dL Albumin 4.4 3.2-4.8 g/dL Lipase 32 12-53 U/L White Blood Count 5.8 4.4-10.8 10^3/uL Red Blood Count 4.26 L 4.5-5.90 10^6/uL Hemoglobin 10.9 L 13.5-17.5 g/dL Hematocrit 33.3 L 41.0-53.0 % Mean Corpuscular Volume 78.1 L 80.0-100.0 fL Mean Corpuscular Hemoglobin 25.5 L 28.0-32.0 pg Mean Corpuscular Hemoglobin Concent 32.6 32.0-36.0 g/dL Red Cell Distribution Width 19.0 H 11.8-14.3 % Platelet Count 160 140-450 10^3/uL Mean Platelet Volume 7.9 6.9-10.8 fL Neutrophils (%) (Auto) 75.7 37.0-80.0 % Lymphocytes (%) (Auto) 11.3 10.0-50.0 % Monocytes (%) (Auto) 8.6 0.0-12.0 % Eosinophils (%) (Auto) 3.6 0.0-7.0 % Basophils (%) (Auto) 0.8 0.0-2.0 % Neutrophils # (Auto) 4.4 1.6-8.6 10 ^3/uL Lymphocytes # (Auto) 0.7 0.4-5.4 10 ^3/uL Monocytes # (Auto) 0.5 0-1.3 10 ^3/uL Eosinophils # (Auto) 0.2 0-0.8 10 ^3/uL Basophils # (Auto) 0 0-0.2 10 ^3/uL Nucleated Red Blood Cells 0.1 % Assessment End-stage kidney disease on hemodialysis Hyperkalemia Accelerated hypertension Abdominal pain Secondary hyperparathyroidism of renal origin Plan/Recommendation Hemodialysis today with a one K bath Ultrafiltration of up to 2.5 L as tolerated We will schedule another session of hemodialysis tomorrow. Blood pressure control. Plan discussed with: Patient AMELIA SAENZ MD Jan 14, 2025 18:17
[2025-01-14] MEDS ORDERED: NITROGLYCERIN 0.4 MG SL TAB SL PRN (19:15)
[2025-01-14] MEDS ORDERED: MORPHINE SULFATE INJ 2 MG/ml SYRG IV PRN (19:15)
[2025-01-14] MEDS ORDERED: DEXTROSE (50%) 50ML SYRG IV PRN (19:15)
[2025-01-14 20:00] VITALS: PULSE 102; RESP 24; O2SAT 95
[2025-01-14] MEDS: InsuLIN REG 1unit/0.01ml Soln (100units/ml) SC SCH (22:00)
[2025-01-14] MEDS: ACETAMINOPHEN 325 MG TAB PO PRN (22:11)
[2025-01-14] MEDS: CARVEDILOL 12.5 MG TAB PO SCH (22:12)
[2025-01-14] MEDS: ACCU-CHEK COMFORT CURVE STRIP VI SCH (22:19)
[2025-01-15] VITALS (10 sets, daily range): BP systolic 123–172; BP diastolic 76–103; PULSE 77–93; RESP 16–18; TEMP 98–98.6; O2SAT 95–99
--- NOTE | 2025-01-15 00:39 | DVHHP2 ---
History of Present Illness Reason for Visit: Nausea History of Present Illness 34-year-old male presents for evaluation of nausea. Patient reports a two day history of nausea with right upper quadrant abdominal pain. He states missing his last two dialysis sessions. Reports generalized weakness. No chest pain or palpitations. 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 No other acute complaints. Past Medical History Hypertension, end-stage renal disease, diabetes mellitus Past Surgical History Dialysis access Family History Noncontributory Smoke: No ALCOHOL: none Drugs: Marijuana Review of Systems Review of Systems Review of systems are currently negative otherwise addressed in HPI. Allergies: Coded Allergies: Tramadol (Verified Allergy, Unknown, 07/26/21) Uncoded Allergies: peaches (Allergy, Intermediate, rash, 04/13/21) Medications Current Medications Medications Dose Ordered Sig/Kevin Route Start Time Stop Time Status Last Admin Dose Admin Benazepril HCl 40 mg DAILY PO 01/15/25 10:00 Carvedilol 25 mg Q12HR PO 01/14/25 22:00 01/14/25 22:12 25 MG Clonidine HCl 0.3 mg BID PO 01/14/25 22:00 Hydralazine HCl 100 mg BID PO 01/14/25 22:00 Nifedipine 60 mg DAILY PO 01/15/25 10:00 Sevelamer HCl 1,600 mg TIDWM PO 01/15/25 08:00 Diagnostic Test (Pha) 1 strip ACHS 01/14/25 22:00 01/14/25 22:19 1 STRIP Insulin Human Regular ACHS SC 01/14/25 22:00 Dextrose 50 ml UD PRN IV 01/14/25 19:15 Ondansetron HCl 4 mg Q4HP PRN IV 01/14/25 19:15 Acetaminophen 650 mg Q6HP PRN PO 01/14/25 19:15 01/14/25 22:11 650 MG Nitroglycerin 0.4 mg Q5MINP PRN SL 01/14/25 19:15 Morphine Sulfate 2 mg Q30M PRN IV 01/14/25 19:15 Exam Vital Signs Vital Signs Date Time Temp Pulse Resp B/P (MAP) Pulse Ox O2 Delivery O2 Flow Rate FiO2 01/15/25 00:00 91 01/14/25 23:21 128/62 01/14/25 22:11 99.9 7/2/25 17:00 21 93 01/14/25 10:30 Room Air* 0 21 Exam Gen: 34-year-old male in no apparent distress Skin: Warm, dry, normal color and texture, abscess draining purulent discharge on coccyx HEENT: Normocephalic atraumatic, mucous membranes moist and pink. Neck: Cervical and supraclavicular nodes normal without enlargement, trachea is midline, thyroid gland is normal without masses. Pulmonary: Clear to auscultation and percussion bilaterally. Cardiac: Regular rate and rhythm. No murmur Abdomen: Soft, nontender, nondistended, bowel sounds present all 4 quadrants, no guarding, no rigidity, no organomegaly. Extremities: No cyanosis, clubbing, no edema Neuro: Cranial nerves II through XII grossly intact, normal affect and speech, no focal motor deficits. Labs/Xrays ORDERING PHYSICIAN: CHAMP REYES MD PROCEDURE(s): ABPL - CT AB PEL WO CON-NO ORAL OR IV REASON: abd pain ORDER NUMBER(s): [id number], ACCESSION NUMBER(s): [id number] CT CT AB PEL WO CON-NO ORAL OR IV INDICATION: abd pain EXAM DATE: 01/14/2025 10:57 AM COMPARISON: CT CT AB PEL WO CON-NO ORAL OR IV on DOS: 09/08/23, PL2CT on DOS: 10/14/21, CT ABD PELVIS WO CONTRAST on DOS: 10/10/21 RADIATION DOSE: CTDIvol: mGy, DLP: mGy*cm PROCEDURE: Helical CT images were obtained of the abdomen and pelvis without IV contrast Sagittal and coronal reconstructions are provided. ORAL CONTRAST: None. ADDITIONAL IMAGES / REFORMATS: None All CT scans at this medical facility are performed using dose modulation techniques as appropriate to a performed exam including the following: Automated exposure control was utilized; adjustment of the MA and/or KV according to patient size; and use of iterative reconstruction technique. FINDINGS: LUNG BASE: Mosaic lung attenuation. LIVER: Normal. GALLBLADDER AND BILIARY TREE: No calcified gallstones. Normal caliber wall. No intra- or extrahepatic biliary ductal dilation. PANCREAS: Normal. SPLEEN: Normal. BOWEL: Normal. Normal appendix. ADRENALS: Normal. KIDNEYS AND URETER: Small kidneys with multiple bilateral small cystic lesions. BLADDER: Decompressed with thickened everett. REPRODUCTIVE ORGANS: Normal. LYMPH NODES:Prominent bilateral inguinal lymph nodes, nonspecific. PERITONEUM: No ascites or free air. No other fluid collection. VESSELS: Scattered atherosclerotic calcifications are noted. RETROPERITONEUM: Normal. ABDOMINAL WALL: Anasarca. BONES: Scattered osseous degenerative changes are noted. Diffusely sclerotic bones with multiple Schmorl nodes. Severe L5-S1 degenerative endplate/disc disease. Severe degenerative changes of the SI joints. Additional lucent/lytic lesions of the sacrum and pelvis. IMPRESSION: Small kidneys with multiple bilateral small cystic lesions can be seen with kidney disease. Anasarca. Diffuse atherosclerosis can be seen with diabetes. Diffusely sclerotic bones with multiple Schmorl nodes. Severe L5-S1 degenerative endplate/disc disease. Severe degenerative changes of the SI joints. Additional lucent/lytic lesions of the sacrum and pelvis. Findings can be seen with renal osteodystrophy. Labs Test 01/14/25 22:40 01/14/25 22:15 01/14/25 18:58 01/14/25 13:15 Range/Units Potassium Level 3.9 # 3.5-5.1 mmol/L POC Glucose 91 70-106 mg/dl Sodium Level 139 136-145 mmol/L Chloride Level 99 98-107 mmol/L Carbon Dioxide Level 24 20-31 mmol/L Anion Gap 16 H 5-15 Blood Urea Nitrogen 97 *H 9-23 mg/dL Creatinine 13.05 *H 0.700-1.30 mg/dL Glomerular Filtration Rate Calc 5 >90 mL/min BUN/Creatinine Ratio 7.4 L 10.0-20.0 Serum Glucose 113 H 74-106 mg/dL Calcium Level 9.2 8.7-10.4 mg/dL Total Bilirubin 0.5 0.2-1.0 mg/dL Aspartate Amino Transferase (AST) 46 H 13-40 U/L Alanine Aminotransferase (ALT) 72 H 7-40 U/L Alkaline Phosphatase 104 46-116 U/L Total Protein 8.6 H 5.7-8.2 g/dL Albumin 4.4 3.2-4.8 g/dL Lipase 32 12-53 U/L Test 01/14/25 12:24 Range/Units White Blood Count 5.8 4.4-10.8 10^3/uL Red Blood Count 4.26 L 4.5-5.90 10^6/uL Hemoglobin 10.9 L 13.5-17.5 g/dL Hematocrit 33.3 L 41.0-53.0 % Mean Corpuscular Volume 78.1 L 80.0-100.0 fL Mean Corpuscular Hemoglobin 25.5 L 28.0-32.0 pg Mean Corpuscular Hemoglobin Concent 32.6 32.0-36.0 g/dL Red Cell Distribution Width 19.0 H 11.8-14.3 % Platelet Count 160 140-450 10^3/uL Mean Platelet Volume 7.9 6.9-10.8 fL Neutrophils (%) (Auto) 75.7 37.0-80.0 % Lymphocytes (%) (Auto) 11.3 10.0-50.0 % Monocytes (%) (Auto) 8.6 0.0-12.0 % Eosinophils (%) (Auto) 3.6 0.0-7.0 % Basophils (%) (Auto) 0.8 0.0-2.0 % Neutrophils # (Auto) 4.4 1.6-8.6 10 ^3/uL Lymphocytes # (Auto) 0.7 0.4-5.4 10 ^3/uL Monocytes # (Auto) 0.5 0-1.3 10 ^3/uL Eosinophils # (Auto) 0.2 0-0.8 10 ^3/uL Basophils # (Auto) 0 0-0.2 10 ^3/uL Nucleated Red Blood Cells 0.1 % Assessment/Plan Assessment/Plan Assessment End-stage renal disease with hyperkalemia Hypertension Diabetes mellitus Chronic abscess Plan Admit the patient to telemetry to the hospitalist Nephrology consultation Resume home medications Clindamycin Wound culture pending Continue treatment per orders. Plan discussed with: Patient My Orders Orders - SPRING GILBERT AGACNP Procedure Category Date Status Time Benazepril Hcl Tablet PHA 7/10/07 In Process (Lotensin Tablet) 10:00 Carvedilol Tablet PHA 7/25 In Process (Coreg Tablet) 22:00 Clonidine Hcl Tablet PHA 7/09/09 In Process (Catapres Tablet) 22:00 Hydralazine Hcl PHA 7/09/09 In Process Tablet (Apresoline 22:00 Nifedipine Er PHA 01/15/25 In Process (Procardia Xl 10:00 Sevelamer (Renagel) PHA 01/15/25 In Process 08:00 Consistent DIET 01/15/25 Transmitted Carb(Ccho)Diabetes Breakfast Basic Metabolic Panel LAB 01/15/25 Logged 04:00 Glucose Blood PHA 01/14/25 In Process (Accu-Chek Comfort 22:00 Insulin R (Human) PHA 01/14/25 In Process (Insulin R) 22:00 Dextrose 50% Syringe PHA 01/14/25 In Process 19:15 Admit ADMIT 01/14/25 Transmitted 19:12 Ondansetron Hcl PHA 01/14/25 In Process (Zofran) 19:15 Condition: Fair NEEL 01/14/25 In Process 19:12 Acetaminophen Tablet PHA 01/14/25 In Process (Tylenol Tablet) 19:15 Bedrest With Bathroom NEEL 01/14/25 In Process Privileg 19:12 Nitroglycerin PHA 01/14/25 In Process Sublingual (Ntrostat 19:15 Morphine Sulfate PHA 01/14/25 In Process Injection 19:15 Stat Ekg For Chest NEEL 01/14/25 In Process Pain 19:12 Notify Md Of Changes NEEL 01/14/25 In Process From Base 19:12 Charger For NEEL 01/14/25 In Process 24 Hours 19:12 Emergency Dysrhythmia NEEL 01/14/25 In Process Protocol 19:12 Rhythm Strips Once NEEL 01/14/25 In Process Every Shift 19:12 Oxygen By Nasal RT 01/14/25 Transmitted Cannula 19:12 Wound Culture W/ Gs SUMMER 01/14/25 In Process 20:58 Clindamycin Ivpb PHA 01/15/25 Verified Cleocin 06:00 Date of Service: Jan 14, 2025 Billing Provider: SPRING GILBERT Common Visit Codes: [id number] INP/OBS CARE (MOD) SPRING GILBERT Jan 15, 2025 00:39
[2025-01-15] MEDS: CLINDAMYCIN 600MG IV 50 ML IV ONE (02:43)
[2025-01-15] MEDS: CLINDAMYCIN 600MG IV 50 ML IV SCH (05:08)
[2025-01-15] MEDS ORDERED: SODIUM CHL 0.9% 1000 ML BAG XX ONE (07:00)
[2025-01-15] MEDS: SEVELAMER 800 MG TAB PO SCH (08:33)
[2025-01-15 08:36] LABS: Anion Gap 13 (5-15); Calcium 9.9 mg/dL (8.7-10.4); Carbon Dioxide 28 mmol/L (20-31); Chloride 99 mmol/L (98-107); Potassium 4.7 mmol/L (3.5-5.1); Sodium 140 mmol/L (136-145)
[2025-01-15 08:42] LABS: BUN/Creatinine Ratio 5.9 (10.0-20.0)
[2025-01-15 08:45] LABS: Blood Urea Nitrogen 54 mg/dL (9-23); Glucose 114 mg/dL (74-106)
[2025-01-15] MEDS: BENAZEPRIL HCL 10 MG TAB PO SCH (10:00)
[2025-01-15 10:17] LABS: Triglycerides 92 mg/dL (< 150)
[2025-01-15 10:19] LABS: Cholesterol 121 mg/dL (< 200)
[2025-01-15 10:38] LABS: HDL Cholesterol 35 mg/dL (40-59)
--- NOTE | 2025-01-15 13:05 | ECG ---
[facility] Test Date: 2025-01-14 Test Time: 09:29:40 Pat Name: RUPAL GALVEZ Department: ED Room: 0223T A Gender: M Cleat Blanker: gp : 1990 Requested By: MEHDI FITZPATRICK Order Number: [id number] Reading MD: Jono Keating Measurements Intervals [place] Rate: 88 P: 70 WI: 188 QRS: 119 QRSD: 102 T: 60 QT: 369 QTc: 447 Interpretive Statements Sinus rhythm Probable left atrial enlargement Right axis deviation Abnormal R-wave progression, late transition Electronically Signed On 01-16-2025 10:21:48 PDT by Jono Keating Please click the below link to view image of tracing.
[2025-01-15] MEDS: MAALOX PLUS or MAALOX 30 ML GT PRN (14:15)
[2025-01-15] MEDS: ONDANSETRON HCL 4 MG/2 ML VIAL IV PRN (14:15)
--- NOTE | 2025-01-15 17:46 | DVHPN2 ---
Progress Note - Dictate Date Seen: Jan 15, 2025 Medical Necessity Reason Pt with a Central, PICC or Fol: No Subjective Patient undergoing dialysis Abdominal pain has improved vital signs Vital Sign Date Time Temp Pulse Resp B/P (MAP) Pulse Ox O2 Delivery O2 Flow Rate FiO2 01/15/25 17:00 98.6 81 16 171/86 (114) 99 98.6 01/15/25 01:09 Room Air* 0 21 Total Intake and Output 01/14/25 01/14/25 01/15/25 15:00 23:00 07:00 Intake Total 100 ml Balance 100 ml medications Current Medications Medications Dose Ordered Sig/Kevin Route Start Time Stop Time Status Last Admin Dose Admin Benazepril HCl 40 mg DAILY PO 01/15/25 10:00 Carvedilol 25 mg Q12HR PO 01/14/25 22:00 01/15/25 12:24 25 MG Clonidine HCl 0.3 mg BID PO 01/14/25 22:00 01/15/25 12:24 0.3 MG Hydralazine HCl 100 mg BID PO 01/14/25 22:00 Nifedipine 60 mg DAILY PO 01/15/25 10:00 Sevelamer HCl 1,600 mg TIDWM PO 01/15/25 08:00 01/15/25 12:21 1,600 MG Diagnostic Test (Pha) 1 strip ACHS 01/14/25 22:00 01/15/25 11:30 1 STRIP Insulin Human Regular ACHS SC 01/14/25 22:00 Dextrose 50 ml UD PRN IV 01/14/25 19:15 Ondansetron HCl 4 mg Q4HP PRN IV 01/14/25 19:15 01/15/25 14:15 4 MG Acetaminophen 650 mg Q6HP PRN PO 01/14/25 19:15 01/15/25 05:04 650 MG Nitroglycerin 0.4 mg Q5MINP PRN SL 01/14/25 19:15 Morphine Sulfate 2 mg Q30M PRN IV 01/14/25 19:15 Clindamycin Phosphate 50 ml @ 50 mls/hr Q8HR IV 01/15/25 06:00 01/15/25 05:08 50 MLS/HR Pantoprazole Sodium 40 mg DAILY@0600 PO 01/16/25 06:00 Al Hydrox/Mg Hydrox/Simethicone 30 ml Q8HP PRN GT 01/15/25 13:15 objective Awake alert oriented x3 HEENT: Normocephalic Lungs: Bilateral good air entry CVS: S1-S2 regular rate rhythm Abdomen: Soft, bowel sounds present [employer] no 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 Extremities: No edema laboratory and microbiology Laboratory Tests 01/15/25 07:55 01/14/25 12:24 Test 01/15/25 07:55 Range/Units Serum Glucose 114 H 74-106 mg/dL Problem List End-stage kidney disease on hemodialysis Hyperkalemia Accelerated hypertension Abdominal pain Secondary hyperparathyroidism of renal origin Assessment/Plan Hemodialysis today. Potassium levels have improved. Patient is stable for discharge from renal standpoint Dietary Evaluation Review Comments: Continue CCHO-60 Renal Standard Diet Promote wound healing with good blood glucose control Try Isaac BID orange flavor BID Expected Outcomes/Goals: gradually healed wounds. Plan discussed with: Patient AMELIA SAENZ MD Jan 15, 2025 17:46
--- NOTE | 2025-01-15 19:21 | DVHPNRES ---
Progress Note Date Seen: Jan 15, 2025 Resident Creating Document: SHRUTHI PRADO RESIDENT Has the PT tested + for MRSA If YES, has PT been informed?: Yes Medical Necessity Reason Pt with a Central, PICC or Fol: No Subjective Review of Systems Patient is a 34-year-old male prior medical history of hypertension, type 2 diabetes, peripheral neuropathy, ESRD on dialysis, and diabetic Charcot foot presented to the ED via ambulance with chief complaint of abdominal pain described as sharp, epigastric pain, with an intensity of 10/10, with no relieving nor aggravating factors, associated with nausea and vomiting after consumption of a meal. Denies diarrhea, chills, and body aches. The patient was treated with morphine which resolved the pain and Zofran for nausea and vomiting. On evaluation patient found hyperkalemic with potassium at 6.8, creatinine at 13.05, and BUN at 97. Stated that due to lack of transportation, he has missed his last 2 dialysis appointments. Patient admitted for emergency dialysis and treatment of hyperkalemia. Patient seen at bedside. Patient refers headache, abdominal pain, dizziness with movement, reduced appetite, and constipation. Currently denies nausea and vomiting. Patient underwent dialysis last night was brought down potassium from 6.3 to 3.9. Throughout the day potassium began to increase up to 5.8, for which patient underwent his 2nd scheduled dialysis treatment this afternoon. He was seen by his highway technician, , who stated that potassium levels have improved and patient is stable for discharge from a Nephrology standpoint. Review of systems Constitutional: Refers reduced appetite HEENT: Denies changes in vision and hearing. Respiratory: Denies shortness of breath and cough Cardiovascular: Denies chest discomfort or palpitations GI: Refers abdominal discomfort, refers constipation : Denies dysuria and urinary frequency. Musculoskeletal: Denies myalgias and joint pain Skin: Patient currently has lesions on his left and right ankle secondary to ma from a heater at home Neurological: For his dizziness with movement and headache Objective vital signs Vital Sign Date Time Temp Pulse Resp B/P (MAP) Pulse Ox O2 Delivery O2 Flow Rate FiO2 01/15/25 17:00 98.6 81 16 171/86 (114) 99 98.6 01/15/25 01:09 Room Air* 0 21 Total Intake and Output 01/14/25 01/14/25 01/15/25 15:00 23:00 07:00 Intake Total 100 ml Balance 100 ml medications Current Medications Medications Dose Ordered Sig/Kevin Route Start Time Stop Time Status Last Admin Dose Admin Benazepril HCl 40 mg DAILY PO 01/15/25 10:00 Carvedilol 25 mg Q12HR PO 01/14/25 22:00 01/15/25 12:24 25 MG Clonidine HCl 0.3 mg BID PO 01/14/25 22:00 01/15/25 12:24 0.3 MG Hydralazine HCl 100 mg BID PO 01/14/25 22:00 Nifedipine 60 mg DAILY PO 01/15/25 10:00 Sevelamer HCl 1,600 mg TIDWM PO 01/15/25 08:00 01/15/25 18:17 1,600 MG Diagnostic Test (Pha) 1 strip ACHS 01/14/25 22:00 01/15/25 17:00 1 STRIP Insulin Human Regular ACHS SC 01/14/25 22:00 Dextrose 50 ml UD PRN IV 01/14/25 19:15 Ondansetron HCl 4 mg Q4HP PRN IV 01/14/25 19:15 01/15/25 14:15 4 MG Acetaminophen 650 mg Q6HP PRN PO 01/14/25 19:15 01/15/25 05:04 650 MG Nitroglycerin 0.4 mg Q5MINP PRN SL 01/14/25 19:15 Morphine Sulfate 2 mg Q30M PRN IV 01/14/25 19:15 Clindamycin Phosphate 50 ml @ 50 mls/hr Q8HR IV 01/15/25 06:00 01/15/25 18:17 50 MLS/HR Pantoprazole Sodium 40 mg DAILY@0600 PO 01/16/25 06:00 Al Hydrox/Mg Hydrox/Simethicone 30 ml Q8HP PRN GT 01/15/25 13:15 Examination General: The patient alert and oriented in person place and time. Patient following commands HEENT: Normocephalic a, atraumatic, moist mucous membrane Respiratory/pulmonary: Clear lungs bilaterally, vesicular murmurs present in almost all lung hayden, no associated crackles or wheezes. Abdomen: Abdomen nondistended, pain palpation in epigasterium, no palpable masses. Extremities: Right foot deformaties due to charcot foot, misssing R. first and second toe, missing L first toe, presence of AV fistula for dialysis on right upper arm Peripheral pulses 3+ radial right, 3+ radials soft. decreased dorsalis pedis right and dorsalis pedis left Skin: No rashes or pruritus, sacral wound Neurological: Intact cranial nerves with no focal neurologic deficits, decreased sensation in bilateral feet laboratory and microbiology Laboratory Tests 01/15/25 07:55 01/14/25 12:24 Test 01/15/25 07:55 Range/Units Serum Glucose 114 H 74-106 mg/dL Microbiology Date/Time Source Procedure Growth Status 01/15/25 06:55 Nose MRSA Screen - Final Complete Problem List/Assessment/Plan Problem List/Assessment/Plan Hyperkalemia secondary to missed dialysis -2 sessions of dialysis -sevelamer p.o. ESRD, on dialysis for the last 10 years -pending appointment at [place] for evaluation for renal transplant Hypertension Resume home medications Type 2 diabetes Regular insulin Possible peripheral artery disease, status post bilateral amputation of toes. Abdominal pain likely due to noninfectious gastroenteritis Stage I sacral ulcer -started on clindamycin -pending results of culture Consulting social work for confirmation of patient's chair time for future dialysis. Case discussed with Dr. Olivarez. Case discussed with the patient, states he understands diagnosis and treatment. Plan discussed with: Patient Dietary Evaluation Review Comments: Continue CCHO-60 Renal Standard Diet Promote wound healing with good blood glucose control Try Isaac BID orange flavor BID Expected Outcomes/Goals: gradually healed wounds. Date of Service: Jan 15, 2025 Billing Provider: DANYELL OLIVAREZ MD Common Visit Codes: [id number] INP/OBS CARE(HIGH) SHRUTHI PRADO RESIDENT Jan 15, 2025 19:21 DANYELL OLIVAREZ MD Jan 16, 2025 12:30
[2025-01-16] VITALS (8 sets, daily range): BP systolic 138–169; BP diastolic 89–96; PULSE 71–86; RESP 16–18; TEMP 97–98.2; O2SAT 96–100
[2025-01-16] MEDS: PANTOPRAZOLE 40 MG TAB PO SCH (05:14)
[2025-01-16 08:42] LABS: Anion Gap 12 (5-15); Calcium 9.7 mg/dL (8.7-10.4); Carbon Dioxide 27 mmol/L (20-31); Chloride 99 mmol/L (98-107); Potassium 4.7 mmol/L (3.5-5.1); Sodium 138 mmol/L (136-145)
[2025-01-16 08:48] LABS: BUN/Creatinine Ratio 4.4 (10.0-20.0)
[2025-01-16 09:00] LABS: Blood Urea Nitrogen 30 mg/dL (9-23); Glucose 121 mg/dL (74-106)
[2025-01-16 09:54] LABS: Hemoglobin 10.9 g/dL (13.5-17.5); Nucleated Red Blood Cells % 0.1 %
[2025-01-16 09:56] LABS: Hematocrit 33.6 % (41.0-53.0); Mean Corpuscular Hemoglobin 25.3 pg (28.0-32.0); Mean Corpuscular Volume 78.3 fL (80.0-100.0)
[2025-01-16 10:32] LABS: Hepatitis B Surface Antigen Negative (Negative)
--- NOTE | 2025-01-16 12:45 | DVHPNRES ---
Progress Note Date Seen: Jan 16, 2025 Resident Creating Document: SHRUTHI PRADO RESIDENT Has the PT tested + for MRSA If YES, has PT been informed?: Yes Medical Necessity Reason Pt with a Central, PICC or Fol: No Subjective Review of Systems Patient is a 34-year-old male prior medical history of hypertension, type 2 diabetes, peripheral neuropathy, ESRD on dialysis, and diabetic Charcot foot presented to the ED via ambulance with chief complaint of abdominal pain described as sharp, epigastric pain, with an intensity of 10/10, with no relieving nor aggravating factors, associated with nausea and vomiting after consumption of a meal. Denies diarrhea, chills, and body aches. The patient was treated with morphine which resolved the pain and Zofran for nausea and vomiting. On evaluation patient found hyperkalemic with potassium at 6.8, creatinine at 13.05, and BUN at 97. Stated that due to lack of transportation, he has missed his last 2 dialysis appointments. Patient admitted for emergency dialysis and treatment of hyperkalemia. Patient seen at bedside. Patient states he is feeling better, improved appetite, sleeping well, and started to have bowel movements. He refers intermittent abdominal pain that on chewing on peppermint gum. Denies nausea, vomiting, diarrhea, dizziness, chills, and fever. Potassium today was at 4.7, remaining stable since dialysis yesterday. For his nephrologists, patient is clear for discharge from a renal standpoint. Due to wounds on both feet, patient has requested home wound care. Currently pending social work consult for this. Review of systems: Constitutional: Denies weight loss, fever and chills. HEENT: Denies changes in vision and hearing. Respiratory: Denies shortness of breath and cough Cardiovascular: Denies chest discomfort or palpitations GI: Refers abdominal discomfort, denies constipation, diarrhea, vomiting, nausea : Denies dysuria and urinary frequency. Musculoskeletal: Denies myalgias and joint pain Skin: Patient currently has lesions on his left and right ankle secondary to ma from a heater at home Neurological: For his dizziness with movement and headache Objective vital signs Vital Sign Date Time Temp Pulse Resp B/P (MAP) Pulse Ox O2 Delivery O2 Flow Rate FiO2 01/16/25 10:03 82 160/95 01/16/25 09:00 98.1 17 96 98.1 01/15/25 20:00 Room Air* 0 21 Total Intake and Output 01/15/25 01/15/25 01/16/25 15:00 23:00 07:00 Intake Total 475 ml 270 ml Output Total 200 ml Balance 475 ml 70 ml medications Current Medications Medications Dose Ordered Sig/Kevin Route Start Time Stop Time Status Last Admin Dose Admin Benazepril HCl 40 mg DAILY PO 01/15/25 10:00 01/16/25 10:02 40 MG Carvedilol 25 mg Q12HR PO 01/14/25 22:00 01/16/25 10:03 25 MG Clonidine HCl 0.3 mg BID PO 01/14/25 22:00 01/16/25 10:02 0.3 MG Hydralazine HCl 100 mg BID PO 01/14/25 22:00 Nifedipine 60 mg DAILY PO 01/15/25 10:00 01/16/25 10:02 60 MG Sevelamer HCl 1,600 mg TIDWM PO 01/15/25 08:00 01/16/25 12:12 1,600 MG Diagnostic Test (Pha) 1 strip ACHS 01/14/25 22:00 01/16/25 11:30 1 STRIP Insulin Human Regular ACHS SC 01/14/25 22:00 01/16/25 12:13 3 UNITS Dextrose 50 ml UD PRN IV 01/14/25 19:15 Ondansetron HCl 4 mg Q4HP PRN IV 01/14/25 19:15 01/15/25 14:15 4 MG Acetaminophen 650 mg Q6HP PRN PO 01/14/25 19:15 01/15/25 05:04 650 MG Nitroglycerin 0.4 mg Q5MINP PRN SL 01/14/25 19:15 Morphine Sulfate 2 mg Q30M PRN IV 01/14/25 19:15 Clindamycin Phosphate 50 ml @ 50 mls/hr Q8HR IV 01/15/25 06:00 01/16/25 05:15 50 MLS/HR Pantoprazole Sodium 40 mg DAILY@0600 PO 01/16/25 06:00 01/16/25 05:14 40 MG Al Hydrox/Mg Hydrox/Simethicone 30 ml Q8HP PRN GT 01/15/25 13:15 Examination General: The patient alert and oriented in person place and time. Patient following commands HEENT: Normocephalic a, atraumatic, moist mucous membrane Respiratory/pulmonary: Clear lungs bilaterally, vesicular murmurs present in almost all lung hayden, no associated crackles or wheezes. Abdomen: Abdomen nondistended, no pain to palpation, no palpable masses. Extremities: Right foot deformaties due to charcot foot, missing R. first and second toe, missing L first toe, presence of AV fistula for dialysis on right upper arm Peripheral pulses 3+ radial right, 3+ radials soft. decreased dorsalis pedis right and dorsalis pedis left Skin: No rashes or pruritus, sacral wound, wound on left ankle, wound on right foot as a result of ma from space heater Neurological: Intact cranial nerves with no focal neurologic deficits, decreased sensation in bilateral feet laboratory and microbiology Laboratory Tests 01/16/25 09:25 01/16/25 08:20 Test 01/16/25 08:20 Range/Units Serum Glucose 121 H 74-106 mg/dL Microbiology Date/Time Source Procedure Growth Status 01/15/25 06:55 Nose MRSA Screen - Final Complete Problem List/Assessment/Plan Problem List/Assessment/Plan Assessment and plan: Hyperkalemia secondary to missed dialysis -2 sessions of dialysis -Sevelamer p.o. 1600 mg ESRD, on dialysis for the last 10 years -Pending appointment at [place] for evaluation for renal transplant Hypertension -Resume home medications Type 2 diabetes -SSI Possible peripheral artery disease, status post bilateral amputation of toes. -Recommended outpatient follow-up with vascular surgery Abdominal pain likely due to noninfectious gastroenteritis Stage I sacral ulcer -tarted on clindamycin -Wound cultures: Preliminary: Rare growth of coagulase-negative Staphylococcus Consulting social work to set up home wound care for wounds on both feet. Case discussed with Dr. Olivarez. Goals of care discussed with the patient for 25 minutes, states he understands diagnosis and treatment. Plan discussed with: Patient Dietary Evaluation Review Comments: Continue CCHO-60 Renal Standard Diet Promote wound healing with good blood glucose control Try Isaac BID orange flavor BID Expected Outcomes/Goals: gradually healed wounds. Date of Service: Jan 16, 2025 Billing Provider: DANYELL OLIVAREZ MD Common Visit Codes: [id number] INP/OBS CARE(HIGH) SHRUTHI PRADO RESIDENT Jan 16, 2025 12:45 DANYELL OLIVAREZ MD Jan 17, 2025 16:54
--- NOTE | 2025-01-16 15:10 | DVHPN2 ---
Progress Note - Dictate Date Seen: Jan 16, 2025 Has the PT tested + for MRSA If YES, has PT been informed?: Yes Medical Necessity Reason Pt with a Central, PICC or Fol: No Subjective No acute issues overnight. vital signs Vital Sign Date Time Temp Pulse Resp B/P (MAP) Pulse Ox O2 Delivery O2 Flow Rate FiO2 01/16/25 10:03 82 160/95 01/16/25 09:00 98.1 17 96 98.1 01/16/25 08:00 Room Air* 0 21 Total Intake and Output 01/15/25 01/15/25 01/16/25 15:00 23:00 07:00 Intake Total 475 ml 270 ml Output Total 200 ml Balance 475 ml 70 ml medications Current Medications Medications Dose Ordered Sig/Kevin Route Start Time Stop Time Status Last Admin Dose Admin Benazepril HCl 40 mg DAILY PO 01/15/25 10:00 01/16/25 10:02 40 MG Carvedilol 25 mg Q12HR PO 01/14/25 22:00 01/16/25 10:03 25 MG Clonidine HCl 0.3 mg BID PO 01/14/25 22:00 01/16/25 10:02 0.3 MG Hydralazine HCl 100 mg BID PO 01/14/25 22:00 Nifedipine 60 mg DAILY PO 01/15/25 10:00 01/16/25 10:02 60 MG Sevelamer HCl 1,600 mg TIDWM PO 01/15/25 08:00 01/16/25 12:12 1,600 MG Diagnostic Test (Pha) 1 strip ACHS 01/14/25 22:00 01/16/25 11:30 1 STRIP Insulin Human Regular ACHS SC 01/14/25 22:00 01/16/25 12:13 3 UNITS Dextrose 50 ml UD PRN IV 01/14/25 19:15 Ondansetron HCl 4 mg Q4HP PRN IV 01/14/25 19:15 01/15/25 14:15 4 MG Acetaminophen 650 mg Q6HP PRN PO 01/14/25 19:15 01/15/25 05:04 650 MG Nitroglycerin 0.4 mg Q5MINP PRN SL 01/14/25 19:15 Morphine Sulfate 2 mg Q30M PRN IV 01/14/25 19:15 Clindamycin Phosphate 50 ml @ 50 mls/hr Q8HR IV 01/15/25 06:00 01/16/25 13:58 50 MLS/HR Pantoprazole Sodium 40 mg DAILY@0600 PO 01/16/25 06:00 01/16/25 05:14 40 MG Al Hydrox/Mg Hydrox/Simethicone 30 ml Q8HP PRN GT 01/15/25 13:15 objective Awake alert oriented x3 HEENT: Normocephalic Lungs: Bilateral good air entry CVS: S1-S2 regular rate rhythm Abdomen: Soft, 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 Patient with wounds in bilateral lower extremities laboratory and microbiology Laboratory Tests 01/16/25 09:25 01/16/25 08:20 Test 01/16/25 08:20 Range/Units Serum Glucose 121 H 74-106 mg/dL Problem List End-stage kidney disease on hemodialysis Hyperkalemia Accelerated hypertension Abdominal pain Secondary hyperparathyroidism of renal origin Assessment/Plan Hemodialysis on TTS schedule Awaiting home health arrangements for the wound Patient is stable for discharge from renal standpoint Dietary Evaluation Review Comments: Continue CCHO-60 Renal Standard Diet Promote wound healing with good blood glucose control Try Isaac BID orange flavor BID Expected Outcomes/Goals: gradually healed wounds. Plan discussed with: Patient AMELIA SAENZ MD Jan 16, 2025 15:10
[2025-01-16] MEDS: HYDROcodone-ACET 5/325MG TAB PO ONE (22:25)
[2025-01-17] VITALS (8 sets, daily range): BP systolic 135–163; BP diastolic 85–114; PULSE 71–77; RESP 17–18; TEMP 97.7–98.4; O2SAT 97–98
[2025-01-17] MEDS ORDERED: SODIUM CHL 0.9% 1000 ML BAG XX ONE (07:00)
--- NOTE | 2025-01-17 08:50 | DVHPNRES ---
Progress Note Date Seen: Jan 17, 2025 Resident Creating Document: SHRUTHI PRADO RESIDENT Has the PT tested + for MRSA If YES, has PT been informed?: Yes Medical Necessity Reason Pt with a Central, PICC or Fol: No Subjective Review of Systems Patient is a 34-year-old male prior medical history of hypertension, type 2 diabetes, peripheral neuropathy, ESRD on dialysis, and diabetic Charcot foot presented to the ED via ambulance with chief complaint of abdominal pain described as sharp, epigastric pain, with an intensity of 10/10, with no relieving nor aggravating factors, associated with nausea and vomiting after consumption of a meal. Denies diarrhea, chills, and body aches. The patient was treated with morphine which resolved the pain and Zofran for nausea and vomiting. On evaluation patient found hyperkalemic with potassium at 6.8, creatinine at 13.05, and BUN at 97. Stated that due to lack of transportation, he has missed his last 2 dialysis appointments. Patient admitted for emergency dialysis and treatment of hyperkalemia. Patient seen at bedside. He states that he is feeling well, sleeping well, states that he is not eating well due to not liking the food, and having a bowel movements. States that overnight he had abdominal pain, hip pain, and foot pain which were relieved by placing hot packs and 1 dose of Talco 5 mg p.o.. Currently denies dizziness, headache, and abdominal pain. Patient states that yesterday upon being given insulin his blood sugar went to 53 and that he wishes to no longer receiving insulin given that he does not use it at home. Patient later refused blood pressure medications and subsequent insulin. Potassium level increased to 5.2, patient will be receiving dialysis today in the evening. 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 Review of systems: Constitutional: Denies weight loss, fever and chills. HEENT: Denies changes in vision and hearing. Respiratory: Denies shortness of breath and cough Cardiovascular: Denies chest discomfort or palpitations GI: Denies abdominal discomfort, constipation, diarrhea, vomiting, nausea : Denies dysuria and urinary frequency. Musculoskeletal: Refers pain and his hip feet Skin: Patient currently has lesions on his left and right ankle secondary to ma from a heater at home Neurological: Denies dizziness and headache Objective vital signs Vital Sign Date Time Temp Pulse Resp B/P (MAP) Pulse Ox O2 Delivery O2 Flow Rate FiO2 01/17/25 08:00 18 Room Air* 0 21 01/17/25 05:00 97.7 73 143/89 (107) 97 97.7 Total Intake and Output 01/16/25 01/16/25 01/17/25 15:00 23:00 07:00 Intake Total 50 ml 125 ml 600 ml Output Total 1 ml Balance 50 ml 125 ml 599 ml medications Current Medications Medications Dose Ordered Sig/Kevin Route Start Time Stop Time Status Last Admin Dose Admin Benazepril HCl 40 mg DAILY PO 01/15/25 10:00 01/16/25 10:02 40 MG Carvedilol 25 mg Q12HR PO 01/14/25 22:00 01/16/25 22:01 25 MG Clonidine HCl 0.3 mg BID PO 01/14/25 22:00 01/16/25 10:02 0.3 MG Hydralazine HCl 100 mg BID PO 01/14/25 22:00 Nifedipine 60 mg DAILY PO 01/15/25 10:00 01/16/25 10:02 60 MG Sevelamer HCl 1,600 mg TIDWM PO 01/15/25 08:00 01/16/25 18:37 1,600 MG Diagnostic Test (Pha) 1 strip ACHS 01/14/25 22:00 01/17/25 06:21 1 STRIP Insulin Human Regular ACHS SC 01/14/25 22:00 01/16/25 12:13 3 UNITS Dextrose 50 ml UD PRN IV 01/14/25 19:15 Ondansetron HCl 4 mg Q4HP PRN IV 01/14/25 19:15 01/15/25 14:15 4 MG Acetaminophen 650 mg Q6HP PRN PO 01/14/25 19:15 01/15/25 05:04 650 MG Clindamycin Phosphate 50 ml @ 50 mls/hr Q8HR IV 01/15/25 06:00 01/17/25 06:21 50 MLS/HR Pantoprazole Sodium 40 mg DAILY@0600 PO 01/16/25 06:00 01/17/25 06:21 40 MG Al Hydrox/Mg Hydrox/Simethicone 30 ml Q8HP PRN GT 01/15/25 13:15 Examination General: The patient alert and oriented in person place and time. Patient following commands HEENT: Normocephalic, atraumatic, moist mucous membrane Respiratory/pulmonary: Clear lungs bilaterally, vesicular murmurs present in almost all lung hayden, no associated crackles or wheezes. Abdomen: Abdomen nondistended, no pain to palpation, no palpable masses. Extremities: Right foot deformaties due to charcot foot, missing R. first and second toe, missing L first toe, presence of AV fistula for dialysis on right upper arm Peripheral pulses 3+ radial right, 3+ radials soft. decreased dorsalis pedis right and dorsalis pedis left Skin: No rashes or pruritus, sacral wound, wound on left ankle, wound on right foot as a result of ma from space heater Neurological: Intact cranial nerves with no focal neurologic deficits, decreased sensation in bilateral feet laboratory and microbiology Laboratory Tests 01/16/25 09:25 01/16/25 08:20 Test 01/16/25 08:20 Range/Units Serum Glucose 121 H 74-106 mg/dL Microbiology Date/Time Source Procedure Growth Status 01/15/25 06:55 Nose MRSA Screen - Final Complete Problem List/Assessment/Plan Problem List/Assessment/Plan Assessment and plan: Hyperkalemia secondary to missed dialysis -2 sessions of dialysis -Sevelamer p.o. 1600 mg -Will be having dialysis today ESRD, on dialysis for the last 10 years -Pending appointment at [place] for evaluation for renal transplant Hypertension -Resume home medications Type 2 diabetes -mild SSI Possible peripheral artery disease, status post bilateral amputation of toes. -Recommended outpatient follow-up with vascular surgery Abdominal pain likely due to noninfectious gastroenteritis Stage I sacral ulcer -Started on clindamycin -Wound cultures: Preliminary: Rare growth of coagulase-negative Staphylococcus Patient has been approved for home wound care. Will have dialysis tonight and will be discharged tomorrow. Case discussed with Dr. Olivarez. Goals of care discussed with the patient for 25 minutes, states he understands diagnosis and treatment. Plan discussed with: Patient My Orders My Orders Orders - SHRUTHI PRADO RESIDENT Procedure Category Date Status Time Basic Metabolic Panel LAB 01/17/25 Logged 04:00 Dietary Evaluation Review Comments: Continue CCHO-60 Renal Standard Diet Promote wound healing with good blood glucose control Try Isaac BID orange flavor BID Expected Outcomes/Goals: gradually healed wounds. Date of Service: Jan 17, 2025 Billing Provider: DANYELL OLIVAREZ MD Common Visit Codes: [id number] INP/OBS CARE(HIGH) SHRUTHI PRADO RESIDENT Jan 17, 2025 08:50 DANYELL OLIVAREZ MD Jan 18, 2025 21:11
--- NOTE | 2025-01-17 09:50 | DVHPN2 ---
Progress Note - Dictate Date Seen: Jan 17, 2025 Has the PT tested + for MRSA If YES, has PT been informed?: Yes Medical Necessity Reason Pt with a Central, PICC or Fol: No Subjective No acute issues overnight. vital signs Vital Sign Date Time Temp Pulse Resp B/P (MAP) Pulse Ox O2 Delivery O2 Flow Rate FiO2 01/17/25 08:00 18 Room Air* 0 21 01/17/25 05:00 97.7 73 143/89 (107) 97 97.7 Total Intake and Output 01/16/25 01/16/25 01/17/25 14:59 22:59 06:59 Intake Total 50 ml 125 ml 600 ml Output Total 1 ml Balance 50 ml 125 ml 599 ml medications Current Medications Medications Dose Ordered Sig/Kevin Route Start Time Stop Time Status Last Admin Dose Admin Benazepril HCl 40 mg DAILY PO 01/15/25 10:00 01/16/25 10:02 40 MG Carvedilol 25 mg Q12HR PO 01/14/25 22:00 01/16/25 22:01 25 MG Clonidine HCl 0.3 mg BID PO 01/14/25 22:00 01/16/25 10:02 0.3 MG Hydralazine HCl 100 mg BID PO 01/14/25 22:00 Nifedipine 60 mg DAILY PO 01/15/25 10:00 01/16/25 10:02 60 MG Sevelamer HCl 1,600 mg TIDWM PO 01/15/25 08:00 01/17/25 09:04 1,600 MG Diagnostic Test (Pha) 1 strip ACHS 01/14/25 22:00 01/17/25 06:21 1 STRIP Insulin Human Regular ACHS SC 01/14/25 22:00 01/16/25 12:13 3 UNITS Dextrose 50 ml UD PRN IV 01/14/25 19:15 Ondansetron HCl 4 mg Q4HP PRN IV 01/14/25 19:15 01/15/25 14:15 4 MG Acetaminophen 650 mg Q6HP PRN PO 01/14/25 19:15 01/15/25 05:04 650 MG Clindamycin Phosphate 50 ml @ 50 mls/hr Q8HR IV 01/15/25 06:00 01/17/25 06:21 50 MLS/HR Pantoprazole Sodium 40 mg DAILY@0600 PO 01/16/25 06:00 01/17/25 06:21 40 MG Al Hydrox/Mg Hydrox/Simethicone 30 ml Q8HP PRN GT 01/15/25 13:15 objective Awake alert oriented x3 HEENT: Normocephalic Lungs: Bilateral good air entry CVS: S1-S2 regular rate rhythm 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 Patient with wounds in bilateral lower extremities laboratory and microbiology Laboratory Tests 01/16/25 09:25 01/16/25 08:20 Test 01/16/25 08:20 Range/Units Serum Glucose 121 H 74-106 mg/dL Problem List End-stage kidney disease on hemodialysis Hyperkalemia Accelerated hypertension Abdominal pain Secondary hyperparathyroidism of renal origin Assessment/Plan Hemodialysis today Patient is stable for discharge from renal standpoint Encourage compliance with outpatient dialysis treatments. Patient has a chair time at [facility]. 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 Plan discussed with: Patient AMELIA SAENZ MD Jan 17, 2025 09:50
[2025-01-17 10:10] LABS: Sodium 138 mmol/L (136-145)
[2025-01-17 10:11] LABS: Anion Gap 13 (5-15); Carbon Dioxide 29 mmol/L (20-31)
[2025-01-17 10:12] LABS: Calcium 9.8 mg/dL (8.7-10.4)
[2025-01-17 10:17] LABS: BUN/Creatinine Ratio 4.9 (10.0-20.0)
[2025-01-17 10:56] LABS: Blood Urea Nitrogen 42 mg/dL (9-23); Chloride 96 mmol/L (98-107); Glucose 140 mg/dL (74-106); Potassium 5.2 mmol/L (3.5-5.1)
[2025-01-18 01:00] VITALS: BP 159/95; PULSE 80; RESP 18; TEMP 98; O2SAT 95
[2025-01-18 05:00] VITALS: BP 114/69; PULSE 76; RESP 18; TEMP 98.4; O2SAT 100
[2025-01-18 08:00] VITALS: RESP 18
[2025-01-18 09:00] VITALS: BP 123/82; PULSE 81; RESP 18; TEMP 98.2; O2SAT 97
[2025-01-18] MEDS ORDERED: CEPH500C PO (09:30)
[2025-01-18 11:28] VITALS: BP 123/82; PULSE 81; RESP 18; TEMP 97.2; O2SAT 97
--- NOTE | 2025-01-18 15:22 | DVHDSRES ---
Discharge Summary Date of Admission Resident Creating Document: JAMIA LOREDO Jan 14, 2025 at 19:12 Date of Discharge: Jan 18, 2025 Admitting Diagnosis Hyperkalemia secondary to missed dialysis Labs/Diagnostic Data: Laboratory Results Test 01/18/25 05:51 01/17/25 09:15 01/16/25 09:25 01/15/25 07:55 POC Glucose 143 mg/dl (70-106) Sodium Level 138 mmol/L (136-145) Potassium Level 5.2 mmol/L (3.5-5.1) Chloride Level 96 mmol/L (98-107) Carbon Dioxide Level 29 mmol/L (20-31) Anion Gap 13 (5-15) Blood Urea Nitrogen 42 mg/dL (9-23) Creatinine 8.55 mg/dL (0.700-1.30) Glomerular Filtration Rate Calc 8 mL/min (>90) BUN/Creatinine Ratio 4.9 (10.0-20.0) Serum Glucose 140 mg/dL (74-106) Calcium Level 9.8 mg/dL (8.7-10.4) White Blood Count 4.1 10^3/uL (4.4-10.8) Red Blood Count 4.29 10^6/uL (4.5-5.90) Hemoglobin 10.9 g/dL (13.5-17.5) Hematocrit 33.6 % (41.0-53.0) Mean Corpuscular Volume 78.3 fL (80.0-100.0) Mean Corpuscular Hemoglobin 25.3 pg (28.0-32.0) Mean Corpuscular Hemoglobin Concent 32.4 g/dL (32.0-36.0) Red Cell Distribution Width 18.5 % (11.8-14.3) Platelet Count 115 10^3/uL (140-450) Mean Platelet Volume 7.7 fL (6.9-10.8) Neutrophils (%) (Auto) 69.8 % (37.0-80.0) Lymphocytes (%) (Auto) 10.8 % (10.0-50.0) Monocytes (%) (Auto) 14.6 % (0.0-12.0) Eosinophils (%) (Auto) 3.7 % (0.0-7.0) Basophils (%) (Auto) 1.1 % (0.0-2.0) Neutrophils # (Auto) 2.8 10 ^3/uL (1.6-8.6) Lymphocytes # (Auto) 0.4 10 ^3/uL (0.4-5.4) Monocytes # (Auto) 0.6 10 ^3/uL (0-1.3) Eosinophils # (Auto) 0.2 10 ^3/uL (0-0.8) Basophils # (Auto) 0 10 ^3/uL (0-0.2) Nucleated Red Blood Cells 0.1 % Hemoglobin A1c 5.7 % A1C (<5.7) Triglycerides Level 92 mg/dL (< 150) Cholesterol Level 121 mg/dL (< 200) LDL Cholesterol 70 mg/dL (< 100) HDL Cholesterol 35 mg/dL (40-59) Test 01/14/25 18:58 01/14/25 13:15 Hepatitis B Surface Antigen Negative (Negative) Hepatitis B Surface Antibody Positive (Negative) Total Bilirubin 0.5 mg/dL (0.2-1.0) Aspartate Amino Transferase (AST) 46 U/L (13-40) Alanine Aminotransferase (ALT) 72 U/L (7-40) Alkaline Phosphatase 104 U/L (46-116) Total Protein 8.6 g/dL (5.7-8.2) Albumin 4.4 g/dL (3.2-4.8) Lipase 32 U/L (12-53) Other Laboratory Tests 01/17/25 09:15 01/16/25 09:25 Brief Hx & Hospital Course: Patient is a 34-year-old male prior medical history of hypertension, type 2 diabetes, peripheral neuropathy, ESRD on dialysis, and diabetic Charcot foot presented to the ED via ambulance with chief complaint of abdominal pain described as sharp, epigastric pain, with an intensity of 10/10, with no relieving nor aggravating factors, associated with nausea and vomiting after consumption of a meal. Denies diarrhea, chills, and body aches. The patient was treated with morphine which resolved the pain and Zofran for nausea and vomiting. On evaluation patient found hyperkalemic with potassium at 6.8, creatinine at 13.05, and BUN at 97. Stated that due to lack of transportation, he has missed his last 2 dialysis appointments. Patient admitted for emergency dialysis and treatment of hyperkalemia. Patient had hyperkalemia secondary to missed dialysis fluids 2 sessions of dialysis was done. Sevelamer p.o. 1600 mg was given. For ESRD (on dialysis for the last 10 years) Patient was pending appointment at [place] for evaluation for renal transplant. For Hypertension home medications was resumed. For Type 2 diabetes mild Sliding scale insulin administered. Patient had Possible peripheral artery disease, status post bilateral amputation of toes and has been recommended outpatient follow-up with vascular surgery. For Stage I sacral ulcer, we ordered clindamycin. Patient was stable and has been approved for home wound care. Patient was recommended to continue home meds which are alprazolam, B complex, benzaprine, carvedilol, cephalexin, clonidine, gabapentin, hydralazine, hydrocodone acetaminophen, insulin, nifedipine, sertraline, sevelamer. Patient counseled on taking low-salt diet, diabetic diet, continue his sessions of dialysis. On Ct scan it showed Small kidneys with multiple bilateral small cystic lesions can be seen with kidney disease., Anasarca, Diffuse atherosclerosis can be seen with diabetes, Diffusely sclerotic bones with multiple Schmorl nodes, Severe L5-S1 degenerative endplate/disc disease. Severe degenerative changes of the SI joints. Additional lucent/lytic lesions of the sacrum and pelvis. Findings can be seen with renal osteodystrophy. Wound culture was positive for Enterococcus Faecalis. Patient's condition was stable for discharge and tolerating oral intake. Patient was recommended to follow-up with regular scheduled dialysis. Patient was advised to follow up with vascular surgery for evaluation of PAD. Patient was discharged home in stable condition with no new complaints. General: The patient alert and oriented in person place and time. Patient following commands HEENT: Normocephalic, atraumatic, moist mucous membrane Respiratory/pulmonary: Clear lungs bilaterally, vesicular murmurs present in almost all lung hayden, no associated crackles or wheezes. Abdomen: Abdomen nondistended, no pain to palpation, no palpable masses. Extremities: Right foot deformaties due to charcot foot, missing R. first and second toe, missing L first toe, presence of AV fistula for dialysis on right upper arm Peripheral pulses 3+ radial right, 3+ radials soft. decreased dorsalis pedis right and dorsalis pedis left Skin: No rashes or pruritus, sacral wound, wound on left ankle, wound on right foot as a result of ma from space heater Neurological: Intact cranial nerves with no focal neurologic deficits, decreased sensation in bilateral feet Condition at Discharge: Stable Final Diagnosis/Problems List Hyperkalemia secondary to missed dialysis ESRD, on dialysis for the last 10 years Hypertension Type 2 diabetes Stage I sacral ulcer Discharge Disposition: Home Discharge Instruct/Medications Diet: Consistent carbohydrate, Cardiac 2g Na,low cholest Activity: No Restrictions, As Tolerated Follow Up/Referral: Follow up with PCP in 1 -2 weeks Medications: As per EMR Scheduled B-Complex W/ C & Folic Acid ([facility] Rx), 1 TAB PO DAILY, (Reported) Benazepril Hcl (Benazepril Hcl), 1 TAB PO DAILY, (Reported) Carvedilol (Carvedilol), 1 TAB PO BID, (Reported) Cephalexin Monohydrate (Cephalexin), 1 CAP PO BID Clonidine Hydrochloride (Clonidine Hcl), 1 TAB PO TID, (Reported) Hydralazine Hcl (Hydralazine Hcl), 1 TAB PO BID, (Reported) Nifedipine (Nifedipine Er), 60 MG PO BID, (Reported) Sertraline Hcl (Sertraline Hcl), 150 MG PO DAILY, (Reported) Sevelamer Carbonate (Sevelamer Carbonate), 2 TAB PO TID, (Reported) Scheduled PRN Alprazolam (Xanax), 1 TAB PO DAILY PRN for ANXIETY, (Reported) Hydrocodone-Acetaminophen (Hydrocodone/Acetaminophen 10-325 mg), 1 TAB PO Q6HPRN PRN for PAIN SCALE 1 THRU 6, (Reported) Miscellaneous Medications Gabapentin (Neurontin), (Reported) Insulin (Insulin Human), (Reported) Discontinued Medications Metronidazole (Flagyl), 1 TAB PO TID Discharge Statement: "Patient was advised to return to the ER or call 911 if any headaches, dizziness, shortness of breath, chest pain, abdominal pain, bleeding, fevers, or worsening of medical condition. Patient was counseled about treatment plan, medications, possible side effects, patientverbalized understanding. All questions were answered to the best of my ability. This discharge took greater then 30 minutes in planning, reviewing documentation, counseling the patient, and discussing with other team members." ASSESSMENT ASSESSMENT Assessment Hyperkalemia ESRD Hypertension Type 2 Diabetes Date of Service: Jan 18, 2025 Billing Provider: DANYELL HARO MD Common Visit Codes: 98572-DSB/OBS DISCH DAY >30min JAMIA LOREDO RESIDENT Jan 18, 2025 15:22 DANYELL HARO MD Jan 18, 2025 21:20
== END 2025-01-18 12:30 | disposition home health service (06) | DRG 425 ==
LOC: EDBD 09:26 → ER 09:26 → OVERFLOW 19:12 → TELE-CENTR 23:26
PROVIDERS: ADMIT Student in an Organized Health Care Education/Training Program; ATTEND Student in an Organized Health Care Education/Training Program
PROC: 5A1D70Z Performance of Urinary Filtration, Intermittent, Less than 6 Hours Per Day (ICD-10-PCS; principal; 2025-01-14)
PROC: 5A1D70Z Performance of Urinary Filtration, Intermittent, Less than 6 Hours Per Day (ICD-10-PCS; 2025-01-15)
PROC: 5A1D70Z Performance of Urinary Filtration, Intermittent, Less than 6 Hours Per Day (ICD-10-PCS; 2025-01-17)
DX: E87.5 Hyperkalemia (principal); L89.151 Pressure ulcer of sacral region, stage 1; N18.6 End stage renal disease; I12.0 Hypertensive chronic kidney disease with stage 5 chronic kidney disease or end stage renal disease; D63.1 Anemia in chronic kidney disease; E11.22 Type 2 diabetes mellitus with diabetic chronic kidney disease; E11.42 Type 2 diabetes mellitus with diabetic polyneuropathy; Z83.3 Family history of diabetes mellitus; Z91.158 Patient's noncompliance with renal dialysis for other reason; Z99.2 Dependence on renal dialysis; Z88.8 Allergy status to other drugs, medicaments and biological substances; Z91.018 Allergy to other foods; Z79.4 Long term (current) use of insulin; Z79.899 Other long term (current) drug therapy; K52.9 Noninfective gastroenteritis and colitis, unspecified; I16.0 Hypertensive urgency
CPT/HCPCS: 36415; 74176; 80048; 80053; 80061; 82962; 83036; 83690; 84132; 85025; 86706; 87077; 87081; 87186; 87205; 87340; 90935; 93005; 96374; 96375; 99291; G0378; J1815; J2405; J3490

== ENCOUNTER 2025-03-13 21:30 | Inpatient (IN) | payer MEDICAID ==
[~2025-03-13] VITALS: Ht 182.9 cm; Wt 71.4 kg
[~2025-03-13 21:30] MED LIST changes: +CEPH500C PO; -METR-344 PO
--- NOTE | 2025-03-13 22:00 | ED.PDOC ---
History of Present Illness HPI Comments 34 Year old male who came to ER via EMS for low blood pressure. Per EMS, patient picked up at home, has a history of hypertension, diabetes, and end- stage renal disease. Patient finishes dialysis session at around 12 noon, replacing 4 L of fluids, patient states since then he has been feeling generally weak. Denies any pain. Upon arrival of paramedics, noted to be hypotensive at 43/36 mm Hg. 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 Allergies: Coded Allergies: Lactose Intolerance (GI) (Verified Allergy, Unknown, 01/17/25) Tramadol (Verified Allergy, Unknown, 07/26/21) Uncoded Allergies: peaches (Allergy, Intermediate, rash, 04/13/21) Home Meds Active Scripts Cephalexin Monohydrate (Cephalexin) 500 Mg Cap, 1 CAP PO BID for 10 Days, #20 CAP Prov:VESTA GOODRICH RESIDENT 01/18/25 Reported Medications Clonidine Hydrochloride (Clonidine Hcl) 0.3 Mg Tab, 1 TAB PO TID 09/06/23 Sevelamer Carbonate (Sevelamer Carbonate) 800 Mg Tab, 2 TAB PO TID 09/06/23 Nifedipine (Nifedipine Er) 60 Mg Tab, 60 MG PO BID 09/06/23 Hydralazine Hcl (Hydralazine Hcl) 100 Mg Tab, 1 TAB PO BID 09/06/23 Benazepril Hcl (Benazepril Hcl) 40 Mg Tab, 1 TAB PO DAILY 09/06/23 Carvedilol (Carvedilol) 25 Mg Tab, 1 TAB PO BID 09/06/23 B-Complex W/ C & Folic Acid (Maricruz-Meena Rx) Tab, 1 TAB PO DAILY 09/06/23 Hydrocodone-Acetaminophen (Hydrocodone/Acetaminophen 10-325 mg) 1 Tab Tab, 1 TAB PO Q6HPRN PRN for PAIN SCALE 1 THRU 6, TAB 04/13/21 Alprazolam (Xanax) 0.25 Mg Tb, 1 TAB PO DAILY PRN for ANXIETY, #30 TAB 04/13/21 Sertraline Hcl (Sertraline Hcl) 50 Mg Tab, 150 MG PO DAILY for 30 Days, MG 04/13/21 Gabapentin (Neurontin) 800 Mg Tab 03/12/10 Insulin (Insulin Human) Human Pow 03/12/10 Information Source: Patient, Emergency Med Personnel Mode of Arrival: EMS Severity: Moderate Timing: Hours Duration: Since onset Prehospital treatment: IVF Past Medical History PAST MEDICAL HISTORY: DM, ESRD, HTN Surgical History (Other): Dialysis Family History Family History: No family hx of Cancer, No family hx of Heart thompson, Family hx of DM Social History Smoker: Non-Smoker Alcohol: Denies ETOH Use Drugs: Marijuana Lives In: Home Constitutional: reports: weakness; denies: chills, diaphoresis, fatigue, fever, malaise, sweats, others EENTM: denies: blurred vision, double vision, ear bleeding, ear discharge, ear drainage, ear pain, ear ringing, eye pain, eye redness, hearing loss, mouth pain, mouth swelling, nasal discharge, nose bleeding, nose congestion, nose pain, photophobia, tearing, throat pain, throat swelling, voice changes, others Respiratory: denies: cough, hemoptysis, orthopnea, SOB at rest, shortness of breath, SOB with excertion, stridor, wheezing, others Cardiovascular: denies: chest pain, dizzy spells, diaphoresis, Dyspnea on exertion, edema, irregular heart beat, left arm pain, lightheadedness, palpitations, PND, syncope, others Gastrointestinal: denies: abdomen distended, abdominal pain, blood streaked bowels, constipated, diarrhea, dysphagia, difficulty swallowing, hematemesis, melena, nausea, poor appetite, poor fluid intake, rectal bleeding, rectal pain, vomiting, others Genitourinary: denies: burning, dysuria, flank pain, frequency, hematuria, incontinence, penile discharge, penile sore, pain, testicle pain, testicle swelling, urgency, others Neurological: denies: dizziness, fainting, headache, left sided numbness, left sided weakness, numbness, paresthesia, pre-existing deficit, right sided numbness, right sided weakness, seizure, speech problems, tingling, tremors, weakness, others Musculoskeletal: denies: back pain, gout, joint pain, joint swelling, muscle pain, muscle stiffness, neck pain, others Integumetry: denies: bruises, change in color, change in hair/nails, dryness, laceration, lesions, lumps, rash, wounds, others Allergic/Immunocompromised: denies: Difficulty Healing, Frequent Infections, Hives, Itching, others Hematologic/Lymphatic: denies: anemia, blood clots, easy bleeding, easy bruising, swollen glands, others Endocrine: denies: excessive hunger, excessive sweating, excessive thirst, excessive urination, flushing, intolerance to cold, intolerance to heat, unexplained weight gain, unexplained weight loss, others Psychiatric: denies: anxiety, bipolar disorder, depression, hopeless, panic disorder, schizophrenia, sleepless, suicidal, others Physical Exam General Appearance: No Apparent Distress, Normal HEENT: Normal ENT Inspection, Pharynx Normal, TMs Normal Neck: Full Range of Motion, Non-Tender, Normal, Normal Inspection Respiratory: Chest Non-Tender, Lungs Clear, No Accessory Muscle Use, No Respiratory Distress, Normal Breath Sounds Cardiovascular: No Edema, No JVD, No Murmur, No Gallop, Normal Peripheral Pulses, Regular Rate/Rhythm Breast Exam: Deferred Gastrointestinal: No Organomegaly, Non Tender, No Pulsatile Mass, Normal Bowel Sounds, Soft Genitalia: Deferred Pelvic: Deferred Rectal: Deferred Extremities: No calf tenderness, Normal capillary refill, Normal inspection, Normal range of motion, Non-tender, No pedal edema Musculoskeletal : Apperance: Normal Neurologic: Alert, adjustment clerk II-XII nml as Tested, No Motor Deficits, Normal Affect, Normal Mood, No Sensory Deficits Cerebellar Function: Normal Reflexes: Normal Skin: Dry, Normal Color, Warm Lymphatic: No Adenopathy Was a procedure done? Was a procedure done?: No Differential Dx Considerations may include: Anemia, electrolyte imbalance, dehydration, hypotension, sepsis, end-stage renal disease, dialysis X-Ray, Labs, Meds, VS Vital Signs Date Time Temp Pulse Resp B/P (MAP) Pulse Ox O2 Delivery O2 Flow Rate FiO2 03/13/25 21:45 98.5 74 16 72/48 99 98.5 03/13/25 21:44 77 Lab Test 03/13/25 22:00 Range/Units White Blood Count 4.0 L 4.4-10.8 10^3/uL Red Blood Count 4.68 4.5-5.90 10^6/uL Hemoglobin 11.8 L 13.5-17.5 g/dL Hematocrit 36.7 L 41.0-53.0 % Mean Corpuscular Volume 78.3 L 80.0-100.0 fL Mean Corpuscular Hemoglobin 25.2 L 28.0-32.0 pg Mean Corpuscular Hemoglobin Concent 32.1 32.0-36.0 g/dL Red Cell Distribution Width 20.4 H 11.8-14.3 % Platelet Count 109 L 140-450 10^3/uL Mean Platelet Volume 7.5 6.9-10.8 fL Neutrophils (%) (Auto) 64.2 37.0-80.0 % Lymphocytes (%) (Auto) 14.7 10.0-50.0 % Monocytes (%) (Auto) 14.7 H 0.0-12.0 % Eosinophils (%) (Auto) 3.8 0.0-7.0 % Basophils (%) (Auto) 2.6 H 0.0-2.0 % Neutrophils # (Auto) 2.6 1.6-8.6 10 ^3/uL Lymphocytes # (Auto) 0.6 0.4-5.4 10 ^3/uL Monocytes # (Auto) 0.6 0-1.3 10 ^3/uL Eosinophils # (Auto) 0.2 0-0.8 10 ^3/uL Basophils # (Auto) 0.1 0-0.2 10 ^3/uL Nucleated Red Blood Cells 4.0 % Sodium Level 137 136-145 mmol/L Potassium Level 4.5 3.5-5.1 mmol/L Chloride Level 95 L 98-107 mmol/L Carbon Dioxide Level 33 H 20-31 mmol/L Anion Gap 9 5-15 Blood Urea Nitrogen 18 9-23 mg/dL Creatinine 5.09 H 0.700-1.30 mg/dL Glomerular Filtration Rate Calc 14 >90 mL/min BUN/Creatinine Ratio 3.5 L 10.0-20.0 Serum Glucose 186 H 74-106 mg/dL Lactic Acid Level 1.6 0.4-2.0 mmol/L Calcium Level 8.8 8.7-10.4 mg/dL Magnesium Level 2.3 1.6-2.6 mg/dL Total Bilirubin 0.3 0.2-1.0 mg/dL Aspartate Amino Transferase (AST) 15 13-40 U/L Alanine Aminotransferase (ALT) 15 7-40 U/L Alkaline Phosphatase 86 46-116 U/L Total Protein 7.9 5.7-8.2 g/dL Albumin 3.9 3.2-4.8 g/dL Time of 1ST Reevaluation: 21:54 Reevaluation 1ST: Unchanged Patient Education/Counseling: Diagnosis, Treatment Family Education/Counseling: No Family Present SEPSIS Sepsis Screen Physician Orders Blood Culture (03/13/25 21:50) Chest Portable (03/13/25 21:50) Vital Signs Date Time Temp Pulse Resp B/P (MAP) Pulse Ox O2 Delivery O2 Flow Rate FiO2 03/13/25 21:45 98.5 74 16 72/48 99 98.5 03/13/25 21:44 77 Laboratory Tests Test 03/13/25 22:00 Lactic Acid Level 1.6 mmol/L (0.4-2.0) White Blood Count 4.0 10^3/uL (4.4-10.8) L Departure 1 Departure Time of Disposition: 23:47 Impression: Primary Impression: ESRD on dialysis Additional Impressions: Hypotension Dialysis complication Disposition: ADMITTED INPATIENT Condition: Guarded Comments 34-year-old male with a history of renal failure on dialysis Sunday and Sunday. Patient did receive dialysis today. Patient states that he has been feeling generalized weakness and dizziness since dialysis today. Blood pressure noted to be low per EMS. Patient has had hypotension here in the emergency department. It seems to be slowly improving with some IV fluids. Lab review shows borderline anemia with H and H of 12 and 37, platelets slightly low at 109. Chronic renal failure noted with BUN of 18 and creatinine high at 5.0. Patient still a bit hypotensive on re-evaluation. Patient will need to be admitted for supportive care and further workup. Critical Care Note Critical Care Time?: Yes (35 min-critical care time only) Critical care comment: Total critical care time: Approximately 36 minutes Due to a high probability of clinically significant, life threatening deterioration, the patient required my highest level of preparedness to intervene emergently and I personally spent this critical care time directly and personally managing the patient. This critical care time included obtaining a history; examining the patient; pulse oximetry; ordering and review of studies; arranging urgent treatment with development of a management plan; evaluation of patient's response to treatment; frequent reassessment; and, discussions with other providers. This critical care time was performed to assess and manage the high probability of imminent, life-threatening deterioration that could result in multi-organ failure. It was exclusive of separately billable procedures and treating other patients. Stability Stability form required: No Heart Score Heart Score: Heart Score Response (Comments) Value History N/A 0 EKG N/A 0 Age N/A 0 Risk Factors N/A 0 Troponin N/A 0 Total 0 I personally scribed for SHELTON ALVAREZ MD ([email or web address]) on 03/13/25 at 22:00. Electronically submitted by Sukhwinder Law ([email or web address]). SHELTON ALVAREZ MD Mar 13, 2025 22:00
[2025-03-13 22:30] LABS: Hematocrit 36.7 % (41.0-53.0); Hemoglobin 11.8 g/dL (13.5-17.5); Mean Corpuscular Hemoglobin 25.2 pg (28.0-32.0); Mean Corpuscular Volume 78.3 fL (80.0-100.0)
[2025-03-13 22:33] LABS: Nucleated Red Blood Cells % 4.0 %
[2025-03-13 22:41] LABS: Alanine Aminotransferase 15 U/L (7-40); Alkaline Phosphatase 86 U/L (46-116); Anion Gap 9 (5-15); BUN/Creatinine Ratio 3.5 (10.0-20.0); Blood Urea Nitrogen 18 mg/dL (9-23); Calcium 8.8 mg/dL (8.7-10.4); Magnesium 2.3 mg/dL (1.6-2.6); Potassium 4.5 mmol/L (3.5-5.1); Sodium 137 mmol/L (136-145); Total Protein 7.9 g/dL (5.7-8.2)
[2025-03-13 22:42] LABS: Albumin 3.9 g/dL (3.2-4.8); Bilirubin, Total 0.3 mg/dL (0.2-1.0)
[2025-03-13 22:44] LABS: Carbon Dioxide 33 mmol/L (20-31); Chloride 95 mmol/L (98-107); Glucose 186 mg/dL (74-106)
--- NOTE | 2025-03-13 23:15 | DVH ---
EXAM: XY CHEST PORTABLE CLINICAL HISTORY: SOB TECHNIQUE: Single AP view of the chest WID: COMPARISON: XY CHEST XRAY 1 VIEW on DOS: 09/06/23, XY CHEST PORTABLE on DOS: 08/01/23, CHEST PORTABLE o n DOS: 10/10/21 FINDINGS: Lines and tubes: None Chest: The heart size and pulmonary vasculature is within normal limits. No pleural effusion, pneumothorax, or consolidation. Left costophrenic angle is not entirely included in the field of view. Linear scarring in the right mid lung. The osseous structures are grossly intact. IMPRESSION: 1. No acute cardiopulmonary abnormality.
--- NOTE | 2025-03-13 23:18 | ECG ---
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
[2025-03-13 23:50] VITALS: PULSE 87; RESP 20
[2025-03-14] MEDS: SODIUM CHLORIDE 0.9% 1,000 ML IVB ONE (01:13)
[2025-03-14] MEDS ORDERED: NITROGLYCERIN 0.4 MG SL TAB SL PRN (01:45)
[2025-03-14] MEDS ORDERED: DOCUSATE SOD 100 MG CAP PO PRN (01:45)
[2025-03-14] MEDS ORDERED: DEXTROSE (50%) 50ML SYRG IV PRN (01:45)
[2025-03-14] MEDS ORDERED: MORPHINE SULFATE INJ 2 MG/ml SYRG IV PRN (01:45)
[2025-03-14] MEDS ORDERED: ACETAMINOPHEN 325 MG TAB PO PRN (01:45)
[2025-03-14] MEDS ORDERED: ONDANSETRON HCL 4 MG/2 ML VIAL IV PRN (01:45)
--- NOTE | 2025-03-14 01:58 | DVHHP2 ---
History of Present Illness Reason for Visit: Hypotension History of Present Illness The patient is a 34-year-old male with past medical history of diabetes mellitus, end-stage renal disease on hemodialysis, and hypertension who presented to [facility] ED for evaluation of low blood pressure. As reported by EMS, patient was picked up at home for dialysis session replacing 4 L of fluid, patient report feeling generalized weakness, blood pressure noted to be at 43/36 mm Hg and was given 1 L IV fluids. Patient was seen and evaluated in the ED, laboratory data shows WBC 4.0, platelets 109, sodium 137, potassium 4.5, BUN 15, creatinine 5.09, glucose 186, calcium 8.8, blood pressure trending up to 122/62, heart rate 74, temperature 98.5 F, O2 saturation 99% on room air. Chest x-ray show no acute cardiopulmonary abnormality. Please see medication orders section in the computer. On my assessment, patient denied chest pain, no headache, no dizziness, no diaphoresis, no shortness of breaths, no nausea, no vomiting, no fever, no chills. Patient was admitted for further evaluation and medical management. Past Medical History DM, ESRD, HTN Past Surgical History Dialysis access Family History Reviewed, noncontributory to the management of this case. Past Social History The patient lives at home, denies smoking, alcohol or illicit drugs abuse. Review of Systems Constitutional: Yes: Weakness; No: Fever, Chills, Sweats, Malaise, Other Eyes: No: Pain, Vision change, Conjunctivae inflammation, Eyelid inflammation, Other, Redness ENT: No: Ear pain, Ear discharge, Nose pain, Nose discharge, Nose congestion, Mouth pain, Mouth swelling, Throat pain, Throat swelling, Other Respiratory: No: Cough, Dry, Shortness of breath, SOB with excertion, Wheezing, Hemoptysis, Pleuritic Pain, Sputum, Wheezing, Other Cardiovascular: Other (Hypotension); No: Chest Pain, Palpitations, Orthopnea, Paroxysmal Noc. Dyspnea, Edema, Lt Headedness Gastrointestinal: No: Nausea, Vomiting, Abdominal Pain, Diarrhea, Constipation, Melena, Hematochezia, Other Genitourinary: No Dysuria, No Frequency, No Incontinence, No Hematuria, No Retention; Other (On hemodialysis) Musculoskeletal: No: other, neck pain, shoulder pain, arm pain, back pain, hand pain, leg pain, foot pain Skin: Other (Open wound left leg); No: Rash, Lesions, Jaundice, Bruising Neurological: No: Weakness, Numbness, Incoordination, Change in speech, Confusion, Seizures, Other Allergies: Coded Allergies: Lactose Intolerance (GI) (Verified Allergy, Unknown, 01/17/25) Tramadol (Verified Allergy, Unknown, 07/26/21) Uncoded Allergies: peaches (Allergy, Intermediate, rash, 04/13/21) Medications Current Medications Medications Dose Ordered Sig/Kevin Route Start Time Stop Time Status Last Admin Dose Admin Sevelamer HCl 800 mg TIDWM PO 03/14/25 08:00 UNV Multivit/Ca Carb/ B Cmplx/FA/Prenat 1 tab DAILY PO 03/14/25 10:00 UNV Sertraline HCl 50 mg DAILY PO 03/14/25 10:00 UNV Diagnostic Test (Pha) 1 strip ACHS 03/14/25 07:00 UNV Insulin Human Regular HS SC 03/14/25 22:00 UNV Insulin Human Regular AC SC 03/14/25 07:00 UNV Dextrose 50 ml UD PRN IV 03/14/25 01:45 UNV Sodium Chloride 10 ml Q8HR IV 03/14/25 06:00 UNV Acetaminophen/ Hydrocodone Bitart 1 tab Q4HP PRN PO 03/14/25 01:45 UNV Ondansetron HCl 4 mg Q4HP PRN IV 03/14/25 01:45 UNV Docusate Sodium 100 mg BIDPRN PRN PO 03/14/25 01:45 UNV Acetaminophen 650 mg Q6HP PRN PO 03/14/25 01:45 UNV Nitroglycerin 0.4 mg Q5MINP PRN SL 03/14/25 01:45 UNV Morphine Sulfate 2 mg Q30M PRN IV 03/14/25 01:45 UNV Exam Vital Signs Vital Signs Date Time Temp Pulse Resp B/P (MAP) Pulse Ox O2 Delivery O2 Flow Rate FiO2 03/13/25 23:50 87 20 Room Air* 0 21 03/13/25 23:50 98.3 104/71 (82) 98.3 03/13/25 21:45 99 General Appearance: Alert, Oriented X3, Cooperative, No acute distress HEENT: Atraumatic, PERRLA, EOMI, Mucous membr. moist/pink Respiratory: Normal air movement Cardiovascular: Regular rate, Normal S1, Normal S2, No murmurs Abdominal: Normal bowel sounds, Soft, No tenderness, No hepatospenomegaly, No masses Extremities: No clubbing, No cyanosis, No edema, Normal pulses, No tenderness/swelling Skin: No rashes, No significant lesion Neuro: Normal speech, Normal tone, Sensation intact, Cranial nerves 3-12 NL, Reflexes 2+, Other (Generalized weakness) Psych/Mental Status: Mental status NL, Mood NL Labs/Xrays Labs Test 03/13/25 22:00 Range/Units White Blood Count 4.0 L 4.4-10.8 10^3/uL Red Blood Count 4.68 4.5-5.90 10^6/uL Hemoglobin 11.8 L 13.5-17.5 g/dL Hematocrit 36.7 L 41.0-53.0 % Mean Corpuscular Volume 78.3 L 80.0-100.0 fL Mean Corpuscular Hemoglobin 25.2 L 28.0-32.0 pg Mean Corpuscular Hemoglobin Concent 32.1 32.0-36.0 g/dL Red Cell Distribution Width 20.4 H 11.8-14.3 % Platelet Count 109 L 140-450 10^3/uL Mean Platelet Volume 7.5 6.9-10.8 fL Neutrophils (%) (Auto) 64.2 37.0-80.0 % Lymphocytes (%) (Auto) 14.7 10.0-50.0 % Monocytes (%) (Auto) 14.7 H 0.0-12.0 % Eosinophils (%) (Auto) 3.8 0.0-7.0 % Basophils (%) (Auto) 2.6 H 0.0-2.0 % Neutrophils # (Auto) 2.6 1.6-8.6 10 ^3/uL Lymphocytes # (Auto) 0.6 0.4-5.4 10 ^3/uL Monocytes # (Auto) 0.6 0-1.3 10 ^3/uL Eosinophils # (Auto) 0.2 0-0.8 10 ^3/uL Basophils # (Auto) 0.1 0-0.2 10 ^3/uL Nucleated Red Blood Cells 4.0 % Sodium Level 137 136-145 mmol/L Potassium Level 4.5 3.5-5.1 mmol/L Chloride Level 95 L 98-107 mmol/L Carbon Dioxide Level 33 H 20-31 mmol/L Anion Gap 9 5-15 Blood Urea Nitrogen 18 9-23 mg/dL Creatinine 5.09 H 0.700-1.30 mg/dL Glomerular Filtration Rate Calc 14 >90 mL/min BUN/Creatinine Ratio 3.5 L 10.0-20.0 Serum Glucose 186 H 74-106 mg/dL Lactic Acid Level 1.6 0.4-2.0 mmol/L Calcium Level 8.8 8.7-10.4 mg/dL Magnesium Level 2.3 1.6-2.6 mg/dL Total Bilirubin 0.3 0.2-1.0 mg/dL Aspartate Amino Transferase (AST) 15 13-40 U/L Alanine Aminotransferase (ALT) 15 7-40 U/L Alkaline Phosphatase 86 46-116 U/L Total Protein 7.9 5.7-8.2 g/dL Albumin 3.9 3.2-4.8 g/dL PATIENT: RUPAL GALVEZ ACCT: [id number] UNIT: [id number] : 1990 LOC: ER ROOM / BED: / AGE / SEX: 34 / M ADM STATUS: REG ER SERVICE 49 ORDERING PHYSICIAN: SHELTON ALVAREZ MD PROCEDURE(s): CXRP - CHEST PORTABLE REASON: SOB ORDER NUMBER(s): [id number], ACCESSION NUMBER(s): [id number] EXAM: XY CHEST PORTABLE CLINICAL HISTORY: SOB TECHNIQUE: Single AP view of the chest WID: COMPARISON: XY CHEST XRAY 1 VIEW on DOS: 09/06/23, XY CHEST PORTABLE on DOS: 08/01/23, CHEST PORTABLE on DOS: 10/10/21 FINDINGS: Lines and tubes: None Chest: The heart size and pulmonary vasculature is within normal limits. No pleural effusion, pneumothorax, or consolidation. Left costophrenic angle is not entirely included in the field of view. Linear scarring in the right mid lung. The osseous structures are grossly intact. IMPRESSION: 1. No acute cardiopulmonary abnormality. SEPSIS Sepsis Screen Date sepsis recognized/suspect: Mar 13, 2025 Time Sepsis recognized/suspect: 2144 Recent Procedure: No On Antibiotic Therapy: No Respiratory Rate >20: No Heart Rate >90: No Temp<36 C (96.8 F) or >38.3 C: No SBP <90 or MAP <65 mmHG: No New Acute Mental Status Change: No Is the patient on CPAP, BIPAP,: No Physician Orders Blood Culture (03/13/25 21:50) Chest Portable (03/13/25 21:50) Complete Blood Count (03/14/25 04:00) Comprehensive Metabolic Panel (03/14/25 04:00) Sevelamer (Renagel) (03/14/25 08:00) B-Complex W/ C & Folic Tablet (Nephro-Vi (03/14/25 10:00) Sertraline Hcl (Zoloft) (03/14/25 10:00) *[facility] (03/14/25 01:32) Glucose Blood (Accu-Chek Comfort Curve T (03/14/25 07:00) Insulin R (Human) (Insulin R) (03/14/25 22:00) Insulin R (Human) (Insulin R) (03/14/25 07:00) Dextrose 50% Syringe (03/14/25 01:45) Admit (03/14/25 01:32) Allergies (03/14/25 01:32) Code Status (03/14/25:32) Renal Standard(2gna,3gk,Lopho) (03/14/25 Breakfast) Sodium Chloride Lock (Saline Lock Ns) (03/14/25 06:00) Oxygen Per Hour (03/14/25 01:32) Hydrocodone-Acet 5/325mg Tab (Alpine (03/14/25 01:45) Ondansetron Hcl (Zofran) (03/14/25 01:45) Docusate Sodium Capsule (Colace Capsule) (03/14/25 01:45) Complete Blood Count (03/15/25 04:00) Comprehensive Metabolic Panel (03/15/25 04:00) Condition: Serious (03/14/25 01:32) Acetaminophen Tablet (Tylenol Tablet) (03/14/25 01:45) Bedrest With Bathroom Privileg (03/14/25 01:32) Sequential Compression Device (03/14/25 ) Nitroglycerin Sublingual (Ntrostat Subli (03/14/25 01:45) Morphine Sulfate Injection (03/14/25 01:45) Stat Ekg For Chest Pain (03/14/25 01:32) Notify Of Changes From Base (03/14/25 01:32) Spanish Literature Professor For 24 Hours (03/14/25 01:32) Emergency Dysrhythmia Protocol (03/14/25 01:32) Rhythm Strips Once Every Shift (03/14/25 01:32) Oxygen By Nasal Cannula (03/14/25 01:32) Vital Signs Date Time Temp Pulse Resp B/P (MAP) Pulse Ox O2 Delivery O2 Flow Rate FiO2 03/13/25 23:50 87 20 Room Air* 0 21 03/13/25 23:50 98.3 87 15 104/71 (82) 98.3 03/13/25 21:45 98.5 74 16 72/48 99 98.5 03/13/25 21:44 77 Laboratory Tests Test 03/13/25 22:00 Lactic Acid Level 1.6 mmol/L (0.4-2.0) White Blood Count 4.0 10^3/uL (4.4-10.8) L Medications Medications Dose Ordered Sig/Kevin Route Start Time Stop Time Status Last Admin Dose Admin Sodium Chloride 1,000 ml @ 1,000 mls/hr Q1H ONCE IVB 03/13/25 22:00 03/13/25 22:59 DC 03/14/25 01:13 1,000 MLS/HR Assessment/Plan Assessment/Plan Generalized weakness End-stage renal disease on hemodialysis Plan 1. Admit to telemetry unit 2. Breathing treatment 3. Pain control management 4. Management of fluids and electrolytes 5. Consultation for Nephrology 6. Diagnostic tests chest x-ray 7. DVT prophylaxis on SCDs 8. Repeat labs CBC, CMP in a.m. 9. Continue with current medical management 10. Treatment plan discussed with patient and RN. Patient verbalized understanding. Plan discussed with: Patient, Other (RN) My Orders Orders - MARILYN LIANG DNP Procedure Category Date Status Time Complete Blood Count LAB 03/14/25 Logged 04:00 Comprehensive LAB 03/14/25 Logged Metabolic Panel 04:00 Sevelamer (Renagel) PHA 03/14/25 Logged 08:00 B-Complex W/ C & PHA 03/14/25 Logged Folic Tablet 10:00 Sertraline Hcl PHA 03/14/25 Logged (Zoloft) 10:00 *[facility] CONS 03/14/25 Transmitted -[place] 01:32 Glucose Blood PHA 03/14/25 Logged (Accu-Chek Comfort 07:00 Insulin R (Human) PHA 03/14/25 Logged (Insulin R) 22:00 Insulin R (Human) PHA 03/14/25 Logged (Insulin R) 07:00 Dextrose 50% Syringe PHA 03/14/25 Logged 01:45 Admit ADMIT 03/14/25 Transmitted 01:32 Allergies NEEL 03/14/25 In Process 01:32 Code Status CODE 03/14/25 Transmitted 01:32 Renal DIET 03/14/25 Transmitted Standard(2gna,3gk,Lopho) Breakfast Sodium Chloride Lock PHA 03/14/25 Logged (Saline Lock Ns) 06:00 Oxygen Per Hour RT 03/14/25 Transmitted 01:32 Hydrocodone-Acet PHA 03/14/25 Logged 5/325mg Tab (Alpine 01:45 Ondansetron Hcl PHA 03/14/25 Logged (Zofran) 01:45 Docusate Sodium [facility] 03/14/25 Logged Capsule (Colace 01:45 Complete Blood Count LAB 03/15/25 Verified 04:00 Comprehensive LAB 03/15/25 Verified Metabolic Panel 04:00 Condition: Serious [facility] 03/14/25 In Process 01:32 Acetaminophen Tablet PHA 03/14/25 Logged (Tylenol Tablet) 01:45 Bedrest With Bathroom [facility] 03/14/25 In Process Privileg 01:32 Sequential [facility] 03/14/25 In Process Compression Device Nitroglycerin [facility] 03/14/25 Logged Sublingual (Ntrostat 01:45 Morphine Sulfate PHA 03/14/25 Logged Injection 01:45 Stat Ekg For Chest [facility] 03/14/25 In Process Pain 01:32 Notify Of Changes [facility] 03/14/25 In Process From Base 01:32 Spanish Literature Professor For [facility] 03/14/25 In Process 24 Hours 01:32 Emergency Dysrhythmia [facility] 03/14/25 In Process Protocol 01:32 Rhythm Strips Once [facility] 03/14/25 In Process Every Shift 01:32 Oxygen By Nasal RT 03/14/25 Transmitted Cannula 01:32 Problem List: (1) Generalized weakness (2) End-stage renal disease on hemodialysis Date of Service: Mar 14, 2025 Billing Provider: MARILYN LIANG DNP Common Visit Codes: [id number] INP/OBS CARE (HIGH) MARILYN LIANG DNP Mar 14, 2025 01:58
[2025-03-14 04:46] LABS: Hematocrit 37.1 % (41.0-53.0); Hemoglobin 12.2 g/dL (13.5-17.5); Mean Corpuscular Hemoglobin 25.5 pg (28.0-32.0); Mean Corpuscular Volume 77.4 fL (80.0-100.0); Nucleated Red Blood Cells % 0.2 %
[2025-03-14 04:53] LABS: Alanine Aminotransferase 16 U/L (7-40); Albumin 4.3 g/dL (3.2-4.8); Alkaline Phosphatase 97 U/L (46-116); Anion Gap 10 (5-15); BUN/Creatinine Ratio 4.4 (10.0-20.0); Bilirubin, Total 0.3 mg/dL (0.2-1.0); Potassium 4.7 mmol/L (3.5-5.1)
[2025-03-14 05:00] LABS: Blood Urea Nitrogen 25 mg/dL (9-23); Calcium 8.6 mg/dL (8.7-10.4); Carbon Dioxide 31 mmol/L (20-31); Chloride 95 mmol/L (98-107); Glucose 126 mg/dL (74-106); Sodium 136 mmol/L (136-145); Total Protein 8.4 g/dL (5.7-8.2)
[2025-03-14] MEDS: SODIUM CHLOR 0.9% PF (SALINE LOCK) 10ML VIAL/SYR IV SCH (06:01)
[2025-03-14 08:00] VITALS: PULSE 89; RESP 15; O2SAT 94
[2025-03-14] MEDS: SEVELAMER 800 MG TAB PO SCH (08:00)
[2025-03-14] MEDS: ACCU-CHEK COMFORT CURVE STRIP VI SCH (08:22)
[2025-03-14] MEDS: InsuLIN REG 1unit/0.01ml Soln (100units/ml) SC SCH ×2 (08:22→21:25)
--- NOTE | 2025-03-14 10:22 | DVHPN2 ---
Eyes: No Pain, No Vision change, No Conjunctivae inflammation, No Eyelid inflammation, No Other, No Redness ENT: No Ear pain, No Ear discharge, No Nose pain, No Nose discharge, No Nose congestion, No Mouth pain, No Mouth swelling, No Throat pain, No Throat swelling, No Other Cardiovascular: No Chest Pain, No Palpitations, No Orthopnea, No Paroxysmal Noc. Dyspnea, No Edema, No Lt Headedness; Other (Hypotension) Respiratory: No Cough, No Dry, No Shortness of breath, No SOB with excertion, No Wheezing, No Hemoptysis, No Pleuritic Pain, No Sputum, No Other Gastrointestinal: No Nausea, No Vomiting, No Abdominal Pain, No Diarrhea, No Constipation, No Melena, No Hematochezia, No Other Genitourinary: No Dysuria, No Frequency, No Incontinence, No Hematuria, No Retention; Other (On hemodialysis) Musculoskeletal: No other, No neck pain, No shoulder pain, No arm pain, No back pain, No hand pain, No leg pain, No foot pain Skin: No Rash, No Lesions, No Jaundice, No Bruising; Other (Open wound left leg) Objective Vitals Vital Signs Date Time Temp Pulse Resp B/P (MAP) Pulse Ox O2 Delivery O2 Flow Rate FiO2 03/14/25 04:05 56 12 140/88 (105) 03/13/25 23:50 Room Air* 0 21 03/13/25 23:50 98.3 98.3 03/13/25 21:45 99 Medications Current Medications Medications Dose Ordered Sig/Kevin Route Start Time Stop Time Status Last Admin Dose Admin Sevelamer HCl 800 mg TIDWM PO 03/14/25 08:00 Multivit/Ca Carb/ B Cmplx/FA/Prenat 1 tab DAILY PO 03/14/25 10:00 Sertraline HCl 50 mg DAILY PO 03/14/25 10:00 Diagnostic Test (Pha) 1 strip ACHS 03/14/25 07:00 03/14/25 08:22 1 STRIP Insulin Human Regular HS SC 03/14/25 22:00 Insulin Human Regular AC SC 03/14/25 07:00 Dextrose 50 ml UD PRN IV 03/14/25 01:45 Sodium Chloride 10 ml Q8HR IV 03/14/25 06:00 03/14/25 06:01 10 ML Acetaminophen/ Hydrocodone Bitart 1 tab Q4HP PRN PO 03/14/25 01:45 Ondansetron HCl 4 mg Q4HP PRN IV 03/14/25 01:45 Docusate Sodium 100 mg BIDPRN PRN PO 03/14/25 01:45 Acetaminophen 650 mg Q6HP PRN PO 03/14/25 01:45 Nitroglycerin 0.4 mg Q5MINP PRN SL 03/14/25 01:45 Morphine Sulfate 2 mg Q30M PRN IV 03/14/25 01:45 Laboratory Results Laboratory Tests 03/14/25 03:26 Chemistry Test 03/13/25 22:00 03/14/25 03:26 Albumin 3.9 g/dL (3.2-4.8) 4.3 g/dL (3.2-4.8) Calcium Level 8.8 mg/dL (8.7-10.4) 8.6 mg/dL (8.7-10.4) L Magnesium Level 2.3 mg/dL (1.6-2.6) Total Protein 7.9 g/dL (5.7-8.2) 8.4 g/dL (5.7-8.2) H LFT Test 03/13/25 22:00 03/14/25 03:26 Alanine Aminotransferase (ALT) 15 U/L (7-40) 16 U/L (7-40) Alkaline Phosphatase 86 U/L (46-116) 97 U/L (46-116) Aspartate Amino Transferase (AST) 15 U/L (13-40) 18 U/L (13-40) Total Bilirubin 0.3 mg/dL (0.2-1.0) 0.3 mg/dL (0.2-1.0) ROBINSON STEARNS MD Mar 14, 2025 10:22
--- NOTE | 2025-03-14 11:27 | DVHINCON2 ---
Date of service: Mar 14, 2025 Referring Physician Rebecca Garcia NP Reason for Consultation END-STAGE KIDNEY DISEASE ON HEMODIALYSIS History of Present Illness This is a 34-year-old male with history of end-stage kidney disease on hemodialysis brought into the emergency room as he was noted to be hypotensive. As per the history obtained from the patient he had his dialysis on Sunday at which time 4 L was removed from him. Post dialysis patient felt very weak. Noted to be hypotensive and hence brought into the emergency room where he has been admitted for observation. Nephrology has been consulted for continuation of dialysis. Patient is seen and examined at bedside. Says he has been feeling much better. Past Medical History End-stage kidney disease on hemodialysis Hypertension Type 2 diabetes Past Surgical History Dialysis access Family History: Diabetes mellitus G8 MOTHER G8 FATHER G8 BROTHER Family History No family history of renal disease Social History Patient denies active history of smoking, alcohol or drug abuse Allergies: Coded Allergies: Lactose Intolerance (GI) (Verified Allergy, Unknown, 01/17/25) Tramadol (Verified Allergy, Unknown, 07/26/21) Uncoded Allergies: peaches (Allergy, Intermediate, rash, 04/13/21) Home Meds Active Scripts Cephalexin Monohydrate (Cephalexin) 500 Mg Cap, 1 CAP PO BID for 10 Days, #20 CAP Prov:VESTA GOODRICH RESIDENT 01/18/25 Reported Medications Clonidine Hydrochloride (Clonidine Hcl) 0.3 Mg Tab, 1 TAB PO TID 09/06/23 Sevelamer Carbonate (Sevelamer Carbonate) 800 Mg Tab, 2 TAB PO TID 09/06/23 Nifedipine (Nifedipine Er) 60 Mg Tab, 60 MG PO BID 09/06/23 Hydralazine Hcl (Hydralazine Hcl) 100 Mg Tab, 1 TAB PO BID 09/06/23 Benazepril Hcl (Benazepril Hcl) 40 Mg Tab, 1 TAB PO DAILY 09/06/23 Carvedilol (Carvedilol) 25 Mg Tab, 1 TAB PO BID 09/06/23 B-Complex W/ C & Folic Acid (Maricruz-Meena Rx) Tab, 1 TAB PO DAILY 09/06/23 Hydrocodone-Acetaminophen (Hydrocodone/Acetaminophen 10-325 mg) 1 Tab Tab, 1 TAB PO Q6HPRN PRN for PAIN SCALE 1 THRU 6, TAB 04/13/21 Alprazolam (Xanax) 0.25 Mg Tb, 1 TAB PO DAILY PRN for ANXIETY, #30 TAB 04/13/21 Sertraline Hcl (Sertraline Hcl) 50 Mg Tab, 150 MG PO DAILY for 30 Days, MG 04/13/21 Gabapentin (Neurontin) 800 Mg Tab 03/12/10 Insulin (Insulin Human) Human Pow 03/12/10 Current Medications Current Medications Medications (Trade) Dose Ordered Sig/Kevin Route PRN Reason Start Time Stop Time Status Last Admin Sevelamer HCl (Renagel) 800 mg TIDWM PO 03/14/25 08:00 Multivit/Ca Carb/ B Cmplx/FA/Prenat (Nephro-Meena Tablet) 1 tab DAILY PO 03/14/25 10:00 Sertraline HCl (Zoloft) 50 mg DAILY PO 03/14/25 10:00 Diagnostic Test (Pha) (Accu-Chek Comfort Curve T) 1 strip ACHS 03/14/25 07:00 03/14/25 08:22 Insulin Human Regular (InsuLIN R) HS SC 03/14/25 22:00 Insulin Human Regular (InsuLIN R) AC SC 03/14/25 07:00 Dextrose 50 ml UD PRN IV Blood Sugar LESS THAN 60 03/14/25 01:45 Sodium Chloride (Saline Lock Ns) 10 ml Q8HR IV 03/14/25 06:00 03/14/25 06:01 Acetaminophen/ Hydrocodone Bitart (Descanso 5/325MG Tab) 1 tab Q4HP PRN PO MODERATE PAIN (4-6 PAIN SCALE) 03/14/25 01:45 Ondansetron HCl (Zofran) 4 mg Q4HP PRN IV NAUSEA / VOMITING 03/14/25 01:45 Docusate Sodium (Colace Capsule) 100 mg BIDPRN PRN PO FOR CONSTIPATION 03/14/25 01:45 Acetaminophen (Tylenol Tablet) 650 mg Q6HP PRN PO PAIN SCALE 1-3 OR TEMP>100.4 03/14/25 01:45 Nitroglycerin (Ntrostat Sublingual) 0.4 mg Q5MINP PRN SL FOR CHEST PAIN 03/14/25 01:45 Morphine Sulfate 2 mg Q30M PRN IV FOR CHEST PAIN 03/14/25 01:45 Review of Systems Twelve point review of system negative except as stated in the HPI Vital Signs Vital Signs Date Time Temp Pulse Resp B/P (MAP) Pulse Ox O2 Delivery O2 Flow Rate FiO2 03/14/25 10:00 88 15 143/90 (107) 94 03/14/25 08:00 98.7 98.7 03/14/25 08:00 Room Air* 0 21 Physical Exam Awake alert oriented x3 HEENT: Normocephalic, no JVD Lungs: Bilateral good air entry CVS: S1, S2 regular rate rhythm Abdomen: Soft, bowel sounds present 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 Labs/Diagnostic Data Labs Test 03/14/25 08:19 03/14/25 03:26 03/13/25 22:00 Range/Units POC Glucose 120 H 70-106 mg/dl White Blood Count 4.8 4.4-10.8 10^3/uL Red Blood Count 4.79 4.5-5.90 10^6/uL Hemoglobin 12.2 L 13.5-17.5 g/dL Hematocrit 37.1 L 41.0-53.0 % Mean Corpuscular Volume 77.4 L 80.0-100.0 fL Mean Corpuscular Hemoglobin 25.5 L 28.0-32.0 pg Mean Corpuscular Hemoglobin Concent 32.9 32.0-36.0 g/dL Red Cell Distribution Width 20.1 H 11.8-14.3 % Platelet Count 114 L 140-450 10^3/uL Mean Platelet Volume 7.3 6.9-10.8 fL Neutrophils (%) (Auto) 69.2 37.0-80.0 % Lymphocytes (%) (Auto) 13.9 10.0-50.0 % Monocytes (%) (Auto) 12.6 H 0.0-12.0 % Eosinophils (%) (Auto) 3.2 0.0-7.0 % Basophils (%) (Auto) 1.1 0.0-2.0 % Neutrophils # (Auto) 3.3 1.6-8.6 10 ^3/uL Lymphocytes # (Auto) 0.7 0.4-5.4 10 ^3/uL Monocytes # (Auto) 0.6 0-1.3 10 ^3/uL Eosinophils # (Auto) 0.2 0-0.8 10 ^3/uL Basophils # (Auto) 0.1 0-0.2 10 ^3/uL Nucleated Red Blood Cells 0.2 % Sodium Level 136 136-145 mmol/L Potassium Level 4.7 3.5-5.1 mmol/L Chloride Level 95 L 98-107 mmol/L Carbon Dioxide Level 31 20-31 mmol/L Anion Gap 10 5-15 Blood Urea Nitrogen 25 H 9-23 mg/dL Creatinine 5.66 H 0.700-1.30 mg/dL Glomerular Filtration Rate Calc 13 >90 mL/min BUN/Creatinine Ratio 4.4 L 10.0-20.0 Serum Glucose 126 H 74-106 mg/dL Calcium Level 8.6 L 8.7-10.4 mg/dL Total Bilirubin 0.3 0.2-1.0 mg/dL Aspartate Amino Transferase (AST) 18 13-40 U/L Alanine Aminotransferase (ALT) 16 7-40 U/L Alkaline Phosphatase 97 46-116 U/L Total Protein 8.4 H 5.7-8.2 g/dL Albumin 4.3 3.2-4.8 g/dL Lactic Acid Level 1.6 0.4-2.0 mmol/L Magnesium Level 2.3 1.6-2.6 mg/dL Assessment End-stage kidney disease on hemodialysis Hypotension Generalized weakness History of hypertension Plan/Recommendation Blood pressure improving. Patient is symptomatically feeling better. Continue to observe overnight. Next dialysis for Sunday. Plan discussed with: Patient AMELIA SAENZ MD Mar 14, 2025 11:27
[2025-03-14] MEDS: B-COMPLEX W/ C & FOLIC ACID(NEPHROVITE TAB) PO SCH (11:30)
[2025-03-14] MEDS: SERTRALINE HCL 50 MG TAB PO SCH (11:30)
[2025-03-14] MEDS: LOSARTAN POTASSIUM 25 MG TAB PO ONE (14:15)
[2025-03-14 15:52] VITALS: BP 172/101; PULSE 85; RESP 18; TEMP 98.3; O2SAT 100
[2025-03-14] MEDS: CARVEDILOL 12.5 MG TAB PO ONE (16:37)
[2025-03-14 17:00] VITALS: BP 172/101; PULSE 85; RESP 16; TEMP 97.8; O2SAT 100
[2025-03-14 20:00] VITALS: PULSE 81; PULSE 84
[2025-03-14] MEDS: HYDROcodone-ACET 5/325MG TAB PO PRN (20:16)
[2025-03-14 21:00] VITALS: BP 155/93; PULSE 84; RESP 19; TEMP 98.1; O2SAT 100
[2025-03-14] MEDS: CARVEDILOL 12.5 MG TAB PO SCH (21:47)
[2025-03-15 01:00] VITALS: BP 161/95; PULSE 80; RESP 18; TEMP 97.6; O2SAT 97
[2025-03-15 05:00] VITALS: BP 165/83; PULSE 79; RESP 19; TEMP 97.5; O2SAT 99
[2025-03-15 06:38] LABS: Hemoglobin 11.5 g/dL (13.5-17.5); Mean Corpuscular Hemoglobin 25.7 pg (28.0-32.0)
[2025-03-15 06:40] LABS: Hematocrit 35.0 % (41.0-53.0); Mean Corpuscular Volume 77.9 fL (80.0-100.0); Nucleated Red Blood Cells % 0.1 %
[2025-03-15 07:01] LABS: Alanine Aminotransferase 15 U/L (7-40); Albumin 3.9 g/dL (3.2-4.8); Alkaline Phosphatase 82 U/L (46-116); Anion Gap 13 (5-15); BUN/Creatinine Ratio 5.0 (10.0-20.0); Bilirubin, Total 0.5 mg/dL (0.2-1.0); Carbon Dioxide 29 mmol/L (20-31); Glucose 92 mg/dL (74-106); Potassium 5.0 mmol/L (3.5-5.1); Sodium 138 mmol/L (136-145); Total Protein 7.8 g/dL (5.7-8.2)
[2025-03-15 07:06] LABS: Blood Urea Nitrogen 36 mg/dL (9-23); Calcium 8.5 mg/dL (8.7-10.4); Chloride 96 mmol/L (98-107)
[2025-03-15 07:56] LABS: Anisocytosis Moderate
[2025-03-15 07:59] VITALS: PULSE 78
[2025-03-15 09:00] VITALS: BP 172/104; PULSE 82; RESP 18; TEMP 98.3; O2SAT 100
[2025-03-15] MEDS ORDERED: LOSARTAN POTASSIUM 25 MG TAB PO SCH (10:00)
--- NOTE | 2025-03-15 11:10 | DVHPN2 ---
Eyes: No Pain, No Vision change, No Conjunctivae inflammation, No Eyelid inflammation, No Other, No Redness ENT: No Ear pain, No Ear discharge, No Nose pain, No Nose discharge, No Nose congestion, No Mouth pain, No Mouth swelling, No Throat pain, No Throat swelling, No Other Cardiovascular: No Chest Pain, No Palpitations, No Orthopnea, No Paroxysmal Noc. Dyspnea, No Edema, No Lt Headedness; Other (Hypotension) Respiratory: No Cough, No Dry, No Shortness of breath, No SOB with excertion, No Wheezing, No Hemoptysis, No Pleuritic Pain, No Sputum, No Other Gastrointestinal: No Nausea, No Vomiting, No Abdominal Pain, No Diarrhea, No Constipation, No Melena, No Hematochezia, No Other Genitourinary: No Dysuria, No Frequency, No Incontinence, No Hematuria, No Retention; Other (On hemodialysis) Musculoskeletal: No other, No neck pain, No shoulder pain, No arm pain, No back pain, No hand pain, No leg pain, No foot pain Skin: No Rash, No Lesions, No Jaundice, No Bruising; Other (Open wound left leg) Objective Vitals Vital Signs Date Time Temp Pulse Resp B/P (MAP) Pulse Ox O2 Delivery O2 Flow Rate FiO2 03/15/25 10:56 82 171/108 03/15/25 08:00 Room Air* 0 21 03/15/25 05:00 97.5 19 99 97.5 Intake/Output Intake and Output 03/15/25 07:00 Intake Total 400 ml Balance 400 ml Intake Oral 400 ml # Voids 2 # Bowel Movements 1 Medications Current Medications Medications Dose Ordered Sig/Kevin Route Start Time Stop Time Status Last Admin Dose Admin Sevelamer HCl 800 mg TIDWM PO 03/14/25 08:00 03/15/25 08:21 800 MG Multivit/Ca Carb/ B Cmplx/FA/Prenat 1 tab DAILY PO 03/14/25 10:00 03/15/25 10:55 1 TAB Sertraline HCl 50 mg DAILY PO 03/14/25 10:00 03/15/25 10:55 50 MG Diagnostic Test (Pha) 1 strip ACHS 03/14/25 07:00 03/15/25 10:58 1 STRIP Insulin Human Regular HS SC 03/14/25 22:00 Insulin Human Regular AC SC 03/14/25 07:00 Dextrose 50 ml UD PRN IV 03/14/25 01:45 Sodium Chloride 10 ml Q8HR IV 03/14/25 06:00 03/14/25 21:47 10 ML Acetaminophen/ Hydrocodone Bitart 1 tab Q4HP PRN PO 03/14/25 01:45 03/15/25 10:58 1 TAB Ondansetron HCl 4 mg Q4HP PRN IV 03/14/25 01:45 Docusate Sodium 100 mg BIDPRN PRN PO 03/14/25 01:45 Acetaminophen 650 mg Q6HP PRN PO 03/14/25 01:45 Nitroglycerin 0.4 mg Q5MINP PRN SL 03/14/25 01:45 Morphine Sulfate 2 mg Q30M PRN IV 03/14/25 01:45 Losartan Potassium 25 mg DAILY PO 03/15/25 10:00 Cancel Carvedilol 25 mg BID PO 03/14/25 22:00 03/15/25 10:56 25 MG Laboratory Results Laboratory Tests 03/15/25 05:29 Chemistry Test 03/15/25 05:29 Albumin 3.9 g/dL (3.2-4.8) Calcium Level 8.5 mg/dL (8.7-10.4) L Total Protein 7.8 g/dL (5.7-8.2) LFT Test 03/15/25 05:29 Alanine Aminotransferase (ALT) 15 U/L (7-40) Alkaline Phosphatase 82 U/L (46-116) Aspartate Amino Transferase (AST) 21 U/L (13-40) Total Bilirubin 0.5 mg/dL (0.2-1.0) Microbiology Microbiology Date/Time Source Procedure Growth Status 03/13/25 22:00 Blood Blood Culture - Preliminary NO GROWTH AFTER 24 HOURS OF INCUBATION. Resulted Assessment/Plan My Orders Orders - ROBINSON STEARNS MD Procedure Category Date Status Time Carvedilol Tablet PHA 03/14/25 In Process (Coreg Tablet) 22:00 Cover Wound With Dry NEEL 03/15/25 In Process Dressing 10:20 Cover Wound With Foam NEEL 03/15/25 In Process Dressing 10:20 ROBINSON STEARNS MD Mar 15, 2025 11:10
[2025-03-15] MEDS ORDERED: hydrALAZINE HCL 20 MG/ML VL IV PRN (11:15)
--- NOTE | 2025-03-15 11:49 | DVHDS2 ---
Discharge Summary Date of Admission Mar 14, 2025 at 01:32 Labs/Diagnostic Data: Laboratory Results Test 03/15/25 10:56 03/15/25 05:29 03/13/25 22:00 POC Glucose 131 mg/dl (70-106) White Blood Count 3.9 10^3/uL (4.4-10.8) Red Blood Count 4.49 10^6/uL (4.5-5.90) Hemoglobin 11.5 g/dL (13.5-17.5) Hematocrit 35.0 % (41.0-53.0) Mean Corpuscular Volume 77.9 fL (80.0-100.0) Mean Corpuscular Hemoglobin 25.7 pg (28.0-32.0) Mean Corpuscular Hemoglobin Concent 33.0 g/dL (32.0-36.0) Red Cell Distribution Width 20.4 % (11.8-14.3) Platelet Count 119 10^3/uL (140-450) Mean Platelet Volume 7.7 fL (6.9-10.8) Neutrophils (%) (Auto) 59.5 % (37.0-80.0) Lymphocytes (%) (Auto) 17.6 % (10.0-50.0) Monocytes (%) (Auto) 16.1 % (0.0-12.0) Eosinophils (%) (Auto) 5.0 % (0.0-7.0) Basophils (%) (Auto) 1.8 % (0.0-2.0) Neutrophils # (Auto) 2.3 10 ^3/uL (1.6-8.6) Lymphocytes # (Auto) 0.7 10 ^3/uL (0.4-5.4) Monocytes # (Auto) 0.6 10 ^3/uL (0-1.3) Eosinophils # (Auto) 0.2 10 ^3/uL (0-0.8) Basophils # (Auto) 0.1 10 ^3/uL (0-0.2) Nucleated Red Blood Cells 0.1 % Platelet Estimate Decreased Anisocytosis (manual) Moderate Microcytosis Slight Sodium Level 138 mmol/L (136-145) Potassium Level 5.0 mmol/L (3.5-5.1) Chloride Level 96 mmol/L (98-107) Carbon Dioxide Level 29 mmol/L (20-31) Anion Gap 13 (5-15) Blood Urea Nitrogen 36 mg/dL (9-23) Creatinine 7.22 mg/dL (0.700-1.30) Glomerular Filtration Rate Calc 9 mL/min (>90) BUN/Creatinine Ratio 5.0 (10.0-20.0) Serum Glucose 92 mg/dL (74-106) Calcium Level 8.5 mg/dL (8.7-10.4) Total Bilirubin 0.5 mg/dL (0.2-1.0) Aspartate Amino Transferase (AST) 21 U/L (13-40) Alanine Aminotransferase (ALT) 15 U/L (7-40) Alkaline Phosphatase 82 U/L (46-116) Total Protein 7.8 g/dL (5.7-8.2) Albumin 3.9 g/dL (3.2-4.8) Lactic Acid Level 1.6 mmol/L (0.4-2.0) Magnesium Level 2.3 mg/dL (1.6-2.6) Other Laboratory Tests 03/15/25 05:29 Discharge Instruct/Medications Scheduled B-Complex W/ C & Folic Acid (Maricruz-Meena Rx), 1 TAB PO DAILY, (Reported) Benazepril Hcl (Benazepril Hcl), 1 TAB PO DAILY, (Reported) Carvedilol (Carvedilol), 1 TAB PO BID, (Reported) Cephalexin Monohydrate (Cephalexin), 1 CAP PO BID Clonidine Hydrochloride (Clonidine Hcl), 1 TAB PO TID, (Reported) Hydralazine Hcl (Hydralazine Hcl), 1 TAB PO BID, (Reported) Nifedipine (Nifedipine Er), 60 MG PO BID, (Reported) Sertraline Hcl (Sertraline Hcl), 150 MG PO DAILY, (Reported) Sevelamer Carbonate (Sevelamer Carbonate), 2 TAB PO TID, (Reported) Scheduled PRN Alprazolam (Xanax), 1 TAB PO DAILY PRN for ANXIETY, (Reported) Hydrocodone-Acetaminophen (Hydrocodone/Acetaminophen 10-325 mg), 1 TAB PO Q6HPRN PRN for PAIN SCALE 1 THRU 6, (Reported) Miscellaneous Medications Gabapentin (Neurontin), (Reported) Insulin (Insulin Human), (Reported) Discharge Statement: "Patient was advised to return to the ER or call 911 if any headaches, dizziness, shortness of breath, chest pain, abdominal pain, bleeding, fevers, or worsening of medical condition. Patient was counseled about treatment plan, medications, possible side effects, patientverbalized understanding. All questions were answered to the best of my ability. This discharge took greater then 30 minutes in planning, reviewing documentation, counseling the patient, and discussing with other team members." ASSESSMENT ASSESSMENT Assessment ROBINSON STEARNS MD Mar 15, 2025 11:49
--- NOTE | 2025-03-15 11:53 | DVHDS2 ---
Discharge Summary Date of Admission Mar 14, 2025 at 01:32 Date of Discharge: Mar 15, 2025 Admitting Diagnosis Generalized weakness End-stage renal disease on hemodialysis Hypotension Diabetes type 2 Labs/Diagnostic Data: Laboratory Results Test 03/15/25 10:56 03/15/25 05:29 03/13/25 22:00 POC Glucose 131 mg/dl (70-106) White Blood Count 3.9 10^3/uL (4.4-10.8) Red Blood Count 4.49 10^6/uL (4.5-5.90) Hemoglobin 11.5 g/dL (13.5-17.5) Hematocrit 35.0 % (41.0-53.0) Mean Corpuscular Volume 77.9 fL (80.0-100.0) Mean Corpuscular Hemoglobin 25.7 pg (28.0-32.0) Mean Corpuscular Hemoglobin Concent 33.0 g/dL (32.0-36.0) Red Cell Distribution Width 20.4 % (11.8-14.3) Platelet Count 119 10^3/uL (140-450) Mean Platelet Volume 7.7 fL (6.9-10.8) Neutrophils (%) (Auto) 59.5 % (37.0-80.0) Lymphocytes (%) (Auto) 17.6 % (10.0-50.0) Monocytes (%) (Auto) 16.1 % (0.0-12.0) Eosinophils (%) (Auto) 5.0 % (0.0-7.0) Basophils (%) (Auto) 1.8 % (0.0-2.0) Neutrophils # (Auto) 2.3 10 ^3/uL (1.6-8.6) Lymphocytes # (Auto) 0.7 10 ^3/uL (0.4-5.4) Monocytes # (Auto) 0.6 10 ^3/uL (0-1.3) Eosinophils # (Auto) 0.2 10 ^3/uL (0-0.8) Basophils # (Auto) 0.1 10 ^3/uL (0-0.2) Nucleated Red Blood Cells 0.1 % Platelet Estimate Decreased Anisocytosis (manual) Moderate Microcytosis Slight Sodium Level 138 mmol/L (136-145) Potassium Level 5.0 mmol/L (3.5-5.1) Chloride Level 96 mmol/L (98-107) Carbon Dioxide Level 29 mmol/L (20-31) Anion Gap 13 (5-15) Blood Urea Nitrogen 36 mg/dL (9-23) Creatinine 7.22 mg/dL (0.700-1.30) Glomerular Filtration Rate Calc 9 mL/min (>90) BUN/Creatinine Ratio 5.0 (10.0-20.0) Serum Glucose 92 mg/dL (74-106) Calcium Level 8.5 mg/dL (8.7-10.4) Total Bilirubin 0.5 mg/dL (0.2-1.0) Aspartate Amino Transferase (AST) 21 U/L (13-40) Alanine Aminotransferase (ALT) 15 U/L (7-40) Alkaline Phosphatase 82 U/L (46-116) Total Protein 7.8 g/dL (5.7-8.2) Albumin 3.9 g/dL (3.2-4.8) Lactic Acid Level 1.6 mmol/L (0.4-2.0) Magnesium Level 2.3 mg/dL (1.6-2.6) Other Laboratory Tests 03/15/25 05:29 Brief Hx & Hospital Course: This is a 34 years old male with past medical history diabetes, end-stage renal disease on hemodialysis, hypertension come to [facility] because of low blood pressure. Patient was on dialysis in 4 L of fluid was removed. Patient reports he feel weak, dizzy, blood pressure was noted 40/36. EMS gave him 1 L of IV fluid. The patient was evaluated in the emergency department blood pressure trending of 122/62. Overnight, his blood pressure back to his baseline and even go up high because his dialysis patient. Blood pressure medication was restarted and the patient tolerated without dropping blood pressure. So I am going to discharge him home. Advised him to follow up with primary care physician 1-2 weeks. Follow up with independent insurance adjuster per schedule. Activity as tolerated. Diet per home diet. Recommend renal diet. Physical exam: HEENT: Normocephalic atraumatic pupils equal react to light and accommodation. Extraocular muscles intact, conjunctiva pink, oropharynx moist, no thrush, no exudate. Lymphatic: No lymphadenopathy Cardiovascular exam: S1, S2 was heard. No murmurs, rubs, gallops Lung: Clear on auscultation bilaterally, no wheeze, rale, rhonchi. GI: Abdominal soft, nondistended, nontenderness, positive bowel sounds. Extremity: No crepitus, cyanosis, edema. Pedal pulses present bilateral. Full range of motion. Skin: Normal turgor, no rash. Psych: Alert, oriented x3. Neurology: No 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, cranial nerve II to XII grossly intact. This medical document was created using an electronic medical record system with [employer] direct computerized dictation system. Although this document has been carefully reviewed, there may still be some phonetic and typographical errors. These areas are purely typographical due to imperfections of the software programs, and do not reflect any compromise in the patient's medical care. 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 Scheduled B-Complex W/ C & Folic Acid (Maricruz-Meena Rx), 1 TAB PO DAILY, (Reported) Benazepril Hcl (Benazepril Hcl), 1 TAB PO DAILY, (Reported) Carvedilol (Carvedilol), 1 TAB PO BID, (Reported) Cephalexin Monohydrate (Cephalexin), 1 CAP PO BID Clonidine Hydrochloride (Clonidine Hcl), 1 TAB PO TID, (Reported) Hydralazine Hcl (Hydralazine Hcl), 1 TAB PO BID, (Reported) Nifedipine (Nifedipine Er), 60 MG PO BID, (Reported) Sertraline Hcl (Sertraline Hcl), 150 MG PO DAILY, (Reported) Sevelamer Carbonate (Sevelamer Carbonate), 2 TAB PO TID, (Reported) Scheduled PRN Alprazolam (Xanax), 1 TAB PO DAILY PRN for ANXIETY, (Reported) Hydrocodone-Acetaminophen (Hydrocodone/Acetaminophen 10-325 mg), 1 TAB PO Q6HPRN PRN for PAIN SCALE 1 THRU 6, (Reported) Miscellaneous Medications Gabapentin (Neurontin), (Reported) Insulin (Insulin Human), (Reported) Discharge Statement: "Patient was advised to return to the ER or call 911 if any headaches, dizziness, shortness of breath, chest pain, abdominal pain, bleeding, fevers, or worsening of medical condition. Patient was counseled about treatment plan, medications, possible side effects, patientverbalized understanding. All questions were answered to the best of my ability. This discharge took greater then 30 minutes in planning, reviewing documentation, counseling the patient, and discussing with other team members." ASSESSMENT ASSESSMENT Assessment ESRD on HD Hypotension Date of Service: Mar 15, 2025 Billing Provider: ROBINSON STEARNS MD Common Visit Codes: 93047-VQH/OBS DISCH DAY >30min ROBINSON STEARNS MD Mar 15, 2025 11:53
[2025-03-15 13:00] VITALS: BP 190/117; PULSE 75; RESP 18; TEMP 98; O2SAT 100
[2025-03-15 13:44] VITALS: BP 185/107; PULSE 75; RESP 18; TEMP 98; O2SAT 100
== END 2025-03-15 14:23 | disposition home or self-care (01) | DRG 422 ==
LOC: EDBD 21:30 → ER 21:30 → OVERFLOW 03-14 01:32 → TELE-CENTR 03-14 15:48
PROVIDERS: ADMIT Nurse Practitioner Family; ATTEND Nurse Practitioner Family
DX: E86.0 Dehydration (principal); I12.0 Hypertensive chronic kidney disease with stage 5 chronic kidney disease or end stage renal disease; I95.9 Hypotension, unspecified; N18.6 End stage renal disease; E11.22 Type 2 diabetes mellitus with diabetic chronic kidney disease; Z99.2 Dependence on renal dialysis; Z79.2 Long term (current) use of antibiotics; Z79.899 Other long term (current) drug therapy; Z79.4 Long term (current) use of insulin; Z83.3 Family history of diabetes mellitus
CPT/HCPCS: 36415; 71045; 80053; 82962; 83605; 83735; 85025; 87040; 93005; 99291; G0378

== ENCOUNTER 2025-04-15 04:03 | Inpatient (IN) | payer MEDICAID ==
[~2025-04-15] VITALS: Ht 170.2 cm; Wt 64.9 kg
--- NOTE | 2025-04-15 04:29 | ED.PDOC ---
History of Present Illness HPI Comments 34-year-old male who came to ER for wound check. Has history of ESRD, on dialysis every Sunday, Hypertension, Type 2 diabetes, Sacral ulcer. Has been unable to get his dialysis session last Sunday. States for the past week, has been experiencing lower back pains, which she attributes to a possible spider bite. For the past 2 days noted worsening of lower back wound/ cyst/ abscess radiating down his buttocks Chief Complaint: Wound Check Time Seen by MD: 04:29 Primary Care Provider: BRITTANY Reviewed Notes: Nurses Notes Allergies: Coded Allergies: Lactose Intolerance (GI) (Verified Allergy, Unknown, 01/17/25) Tramadol (Verified Allergy, Unknown, 07/26/21) Uncoded Allergies: peaches (Allergy, Intermediate, rash, 04/13/21) Home Meds Active Scripts Hydrocodone-Acetaminophen (Hydrocodone Bitartrate/AC 5-325 mg) 1 Tab Tab, 1 TAB PO QID PRN, #30 TAB Prov:JAMIL JURADO MD 04/21/25 Ciprofloxacin Hcl (Cipro) 500 Mg Tab, 1 TAB PO BID, #20 TAB Prov:JAMIL JURADO MD 04/21/25 Cephalexin Monohydrate (Cephalexin) 500 Mg Cap, 1 CAP PO BID for 10 Days, #20 CAP Prov:VESTA GOODRICH 01/18/25 Reported Medications Clonidine Hydrochloride (Clonidine Hcl) 0.3 Mg Tab, 1 TAB PO TID 09/06/23 Sevelamer Carbonate (Sevelamer Carbonate) 800 Mg Tab, 2 TAB PO TID 09/06/23 Nifedipine (Nifedipine Er) 60 Mg Tab, 60 MG PO BID 09/06/23 Hydralazine Hcl (Hydralazine Hcl) 100 Mg Tab, 1 TAB PO BID 09/06/23 Benazepril Hcl (Benazepril Hcl) 40 Mg Tab, 1 TAB PO DAILY 09/06/23 Carvedilol (Carvedilol) 25 Mg Tab, 1 TAB PO BID 09/06/23 B-Complex W/ C & Folic Acid ([facility]) Tab, 1 TAB PO DAILY 09/06/23 Hydrocodone-Acetaminophen (Hydrocodone/Acetaminophen 10-325 mg) 1 Tab Tab, 1 TAB PO Q6HPRN PRN for PAIN SCALE 1 THRU 6, TAB 04/13/21 Alprazolam (Xanax) 0.25 Mg Tb, 1 TAB PO DAILY PRN for ANXIETY, #30 TAB 04/13/21 Sertraline Hcl (Sertraline Hcl) 50 Mg Tab, 150 MG PO DAILY for 30 Days, MG 04/13/21 Gabapentin (Neurontin) 800 Mg Tab 03/12/10 Insulin (Insulin Human) Human Pow 03/12/10 Information Source: Patient, Emergency Med Personnel Mode of Arrival: Ambulatory Past Medical History PAST MEDICAL HISTORY: DM, ESRD, HTN, Denies Surgical History (Other): Dialysis Sunday Family History Family History: No family hx of Cancer, No family hx of Heart thompson, Family hx of DM Social History Smoker: Non-Smoker Alcohol: Denies ETOH Use Drugs: Denies Drug Use Lives In: Home Constitutional: reports: weakness; denies: chills, diaphoresis, fatigue, fever, malaise, sweats, others EENTM: denies: blurred vision, double vision, ear bleeding, ear discharge, ear drainage, ear pain, ear ringing, eye pain, eye redness, hearing loss, mouth pain, mouth swelling, nasal discharge, nose bleeding, nose congestion, nose pain, photophobia, tearing, throat pain, throat swelling, voice changes, others Respiratory: denies: cough, hemoptysis, orthopnea, SOB at rest, shortness of breath, SOB with excertion, stridor, wheezing, others Cardiovascular: denies: chest pain, dizzy spells, diaphoresis, Dyspnea on exertion, edema, irregular heart beat, left arm pain, lightheadedness, palpitations, PND, syncope, others Gastrointestinal: denies: abdomen distended, abdominal pain, blood streaked bowels, constipated, diarrhea, dysphagia, difficulty swallowing, hematemesis, melena, nausea, poor appetite, poor fluid intake, rectal bleeding, rectal pain, vomiting, others Genitourinary: denies: burning, dysuria, flank pain, frequency, hematuria, incontinence, penile discharge, penile sore, pain, testicle pain, testicle swelling, urgency, others Neurological: denies: dizziness, fainting, headache, left sided numbness, left sided weakness, numbness, paresthesia, pre-existing deficit, right sided numbness, right sided weakness, seizure, speech problems, tingling, tremors, weakness, others Musculoskeletal: reports: back pain; denies: gout, joint pain, joint swelling, muscle pain, muscle stiffness, neck pain, others Integumetry: reports: others (Abscess/cyst lower back); denies: bruises, change in color, change in hair/nails, dryness, laceration, lesions, lumps, rash, wounds Allergic/Immunocompromised: denies: Difficulty Healing, Frequent Infections, Hives, Itching, others Hematologic/Lymphatic: denies: anemia, blood clots, easy bleeding, easy bruising, swollen glands, others Endocrine: denies: excessive hunger, excessive sweating, excessive thirst, excessive urination, flushing, intolerance to cold, intolerance to heat, unexplained weight gain, unexplained weight loss, others Psychiatric: denies: anxiety, bipolar disorder, depression, hopeless, panic disorder, schizophrenia, sleepless, suicidal, others Physical Exam General Appearance: No Apparent Distress, Normal HEENT: Normal ENT Inspection, Pharynx Normal, TMs Normal Neck: Full Range of Motion, Non-Tender, Normal, Normal Inspection Respiratory: Chest Non-Tender, Lungs Clear, No Accessory Muscle Use, No Respiratory Distress, Normal Breath Sounds Cardiovascular: No Edema, No JVD, No Murmur, No Gallop, Normal Peripheral Pulses, Regular Rate/Rhythm Breast Exam: Deferred Gastrointestinal: No Organomegaly, Non Tender, No Pulsatile Mass, Normal Bowel Sounds, Soft Genitalia: Deferred Pelvic: Deferred Rectal: Deferred Extremities: No calf tenderness, Normal capillary refill, Normal inspection, Normal range of motion, Non-tender, No pedal edema Musculoskeletal : Apperance: Normal Neurologic: Alert, kiln cleaner II-XII nml as Tested, No Motor Deficits, Normal Affect, Normal Mood, No Sensory Deficits Cerebellar Function: Normal Reflexes: Normal Skin: Dry, Normal Color, Warm Lymphatic: No Adenopathy Was a procedure done? Was a procedure done?: Yes Sedation Sedation?: No Incision and Drainage Incision and Drainage: Abscess Location buttocks Anesthetic: Lidocaine Preparation: Betadine Incision and Wound: Pus, Blood Informed consent obtained: Yes Risks/benefits/alt described: Yes Differential Dx Considerations may include: Anemia, electrolyte imbalance, end-stage renal disease, cellulitis, abscess, hypertensive urgency X-Ray, Labs, Meds, VS Vital Signs Date Time Temp Pulse Resp B/P (MAP) Pulse Ox O2 Delivery O2 Flow Rate FiO2 04/15/25 10:00 98.1 113 14 93/72 (79) 98 98.1 04/15/25 09:02 Room Air* 0 21 04/15/25 09:02 114 04/15/25 08:00 98.9 114 16 156/104 (121) 100 98.9 04/15/25 07:23 98.1 78 18 110/72 (85) 97 98.1 04/15/25 07:23 78 97 Room Air* 0 21 04/15/25 05:40 101 17 97 Room Air* 0 21 04/15/25 05:28 80 20 104/72 04/15/25 04:58 101 17 157/88 04/15/25 04:08 97.6 101 17 157/88 (111) 97 97.6 04/15/25 04:08 97.6 101 17 157/88 97 97.6 Lab Test 04/15/25 07:36 Range/Units White Blood Count 11.1 H 4.4-10.8 10^3/uL Red Blood Count 4.70 4.5-5.90 10^6/uL Hemoglobin 11.4 L 13.5-17.5 g/dL Hematocrit 34.8 L 41.0-53.0 % Mean Corpuscular Volume 74.0 L 80.0-100.0 fL Mean Corpuscular Hemoglobin 24.2 L 28.0-32.0 pg Mean Corpuscular Hemoglobin Concent 32.7 32.0-36.0 g/dL Red Cell Distribution Width 19.1 H 11.8-14.3 % Platelet Count 184 140-450 10^3/uL Mean Platelet Volume 7.8 6.9-10.8 fL Neutrophils (%) (Auto) 89.3 H 37.0-80.0 % Lymphocytes (%) (Auto) 3.8 L 10.0-50.0 % Monocytes (%) (Auto) 6.0 0.0-12.0 % Eosinophils (%) (Auto) 0.2 0.0-7.0 % Basophils (%) (Auto) 0.7 0.0-2.0 % Neutrophils # (Auto) 10.0 H 1.6-8.6 10 ^3/uL Lymphocytes # (Auto) 0.4 0.4-5.4 10 ^3/uL Monocytes # (Auto) 0.7 0-1.3 10 ^3/uL Eosinophils # (Auto) 0 0-0.8 10 ^3/uL Basophils # (Auto) 0.1 0-0.2 10 ^3/uL Nucleated Red Blood Cells 0.0 % Sodium Level 136 136-145 mmol/L Potassium Level 5.3 H 3.5-5.1 mmol/L Chloride Level 92 L 98-107 mmol/L Carbon Dioxide Level 25 20-31 mmol/L Anion Gap 19 H 5-15 Blood Urea Nitrogen 76 H 9-23 mg/dL Creatinine 12.31 *H 0.700-1.30 mg/dL Glomerular Filtration Rate Calc 5 >90 mL/min BUN/Creatinine Ratio 6.2 L 10.0-20.0 Serum Glucose 106 74-106 mg/dL Lactic Acid Level 1.2 0.4-2.0 mmol/L Calcium Level 8.8 8.7-10.4 mg/dL Total Bilirubin 0.4 0.2-1.0 mg/dL Aspartate Amino Transferase (AST) 19 13-40 U/L Alanine Aminotransferase (ALT) 10 7-40 U/L Alkaline Phosphatase 89 46-116 U/L B-Type Natriuretic Peptide 1787.34 0-100 pg/mL Total Protein 8.9 H 5.7-8.2 g/dL Albumin 4.4 3.2-4.8 g/dL Hepatitis B Surface Antigen Negative Negative Microbiology Date/Time Source Procedure Growth Status 04/15/25 07:36 Blood Blood Culture - Preliminary Resulted 04/15/25 07:36 Blood Blood Culture - Final Staph hominis subsp homins Complete Time of 1ST Reevaluation: 04:22 Reevaluation 1ST: Unchanged Patient Education/Counseling: Diagnosis, Treatment Family Education/Counseling: No Family Present SEPSIS Sepsis Screen Date sepsis recognized/suspect: Apr 15, 2025 Time Sepsis recognized/suspect: 409 Recent Procedure: No On Antibiotic Therapy: No Respiratory Rate >20: No Heart Rate >90: No Temp<36 C (96.8 F) or >38.3 C: No SBP <90 or MAP <65 mmHG: No New Acute Mental Status Change: No Is the patient on CPAP, BIPAP,: No Physician Orders Chest Portable (04/15/25 04:19) Electrocardigram (04/15/25 04:19) Blood Culture (04/15/25 04:19) Incision And Drainage (04/15/25 ) *Dr. Christina Triana (04/15/25 08:56) * Wound Consult (04/15/25 ) Vital Signs Date Time Temp Pulse Resp B/P (MAP) Pulse Ox O2 Delivery O2 Flow Rate FiO2 04/15/25 10:00 98.1 113 14 93/72 (79) 98 98.1 04/15/25 09:02 Room Air* 0 21 04/15/25 09:02 114 04/15/25 08:00 98.9 114 16 156/104 (121) 100 98.9 04/15/25 07:23 98.1 78 18 110/72 (85) 97 98.1 04/15/25 07:23 78 97 Room Air* 0 21 04/15/25 05:40 101 17 97 Room Air* 0 21 04/15/25 05:28 80 20 104/72 04/15/25 04:58 101 17 157/88 04/15/25 04:08 97.6 101 17 157/88 (111) 97 97.6 04/15/25 04:08 97.6 101 17 157/88 97 97.6 Laboratory Tests Test 04/15/25 07:36 Lactic Acid Level 1.2 mmol/L (0.4-2.0) White Blood Count 11.1 10^3/uL (4.4-10.8) H Departure 1 Departure Time of Disposition: 09:05 Impression: Primary Impression: End-stage renal disease on hemodialysis Additional Impression: Abscess Disposition: 09 ADMITTED INPATIENT Admit to: Tele Condition: Guarded e-Prescriptions Hydrocodone-Acetaminophen (Hydrocodone Bitartrate/AC 5-325 mg) 1 Tab Tab 1 TAB PO QID PRN, #30 TAB Prov: JAMIL JURADO MD 04/21/25 Ciprofloxacin Hcl (Cipro) 500 Mg Tab 1 TAB PO BID, #20 TAB Prov: JAMIL JURADO MD 04/21/25 Discharged With: Self Comments Patient is 34-year-old male with end-stage renal disease on dialysis Sunday W sunday and missed it on Sunday now presents with left buttock abscess. I was able to perform incision and drainage of the abscess. Patient also has some shortness of breath and fluid overload and will need to be admitted for dialysis and supportive care and further workup. Critical Care Note Critical Care Time?: No Stability Stability form required: No Heart Score Heart Score: Heart Score Response (Comments) Value History N/A 0 EKG N/A 0 Age N/A 0 Risk Factors N/A 0 Troponin N/A 0 Total 0 I personally scribed for SHELTON ALVAREZ MD ([email or web address]) on 04/15/25 at 04:29. Electronically submitted by Sukhwinder Law ([email or web address]). I personally scribed for SHELTON ALVAREZ MD ([email or web address]) on 04/15/25 at 06:00. Electronically submitted by Sukhwinder Law ([email or web address]). SHELTON ALVAREZ MD Apr 15, 2025 04:29 MITCHELL SALEEM DO Apr 15, 2025 09:07
[2025-04-15] MEDS: LIDOCAINE 1% HCL (LOCAL ANESTH.) INJ 20ML MDV ID ONE (04:30)
[2025-04-15] MEDS: HYDROmorphone HCL 2 MG/ML VL/or syr IM ONE (04:58)
[2025-04-15 05:40] VITALS: PULSE 101; RESP 17; O2SAT 97
--- NOTE | 2025-04-15 06:46 | DVH ---
EXAM: XY CHEST PORTABLE HISTORY: SOB on dialysis COMPARISON: XY CHEST PORTABLE on DOS: 03/13/25, XY CHEST XRAY 1 VIEW on DOS: 09/06/23, XY CHEST PORTABL E on DOS: 08/01/23, CHEST PORTABLE on DOS: 10/10/21, CXRP on DOS: 10/10/21 TECHNIQUE: Portable AP view of the chest was performed. FINDINGS: Hazy opacities overlie the right hemithorax, likely due to something outside of the patient. There is mild interstitial prominence in the left lung. No pneumothorax. The heart is not enlarged. There are postoperative changes of bilateral distal clavicle resection. IMPRESSION: 1. Left lung interstitial prominence may be due to mild CHF and/or reactive airways disease. 2. Hazy opacities overlying the right hemithorax are likely due to something outside of the patient. Recommend repeat portable chest x-ray.
[2025-04-15 07:23] VITALS: PULSE 78; O2SAT 97
[2025-04-15 08:28] LABS: Nucleated Red Blood Cells % 0.0 %
[2025-04-15 08:32] LABS: Hematocrit 34.8 % (41.0-53.0); Hemoglobin 11.4 g/dL (13.5-17.5); Mean Corpuscular Hemoglobin 24.2 pg (28.0-32.0); Mean Corpuscular Volume 74.0 fL (80.0-100.0)
[2025-04-15 08:45] LABS: Anion Gap 19 (5-15); Calcium 8.8 mg/dL (8.7-10.4); Carbon Dioxide 25 mmol/L (20-31); Chloride 92 mmol/L (98-107); Potassium 5.3 mmol/L (3.5-5.1)
[2025-04-15 08:48] LABS: Alanine Aminotransferase 10 U/L (7-40); Albumin 4.4 g/dL (3.2-4.8); Alkaline Phosphatase 89 U/L (46-116); BUN/Creatinine Ratio 6.2 (10.0-20.0); Bilirubin, Total 0.4 mg/dL (0.2-1.0); Sodium 136 mmol/L (136-145)
[2025-04-15 08:49] LABS: Blood Urea Nitrogen 76 mg/dL (9-23); Glucose 106 mg/dL (74-106); Total Protein 8.9 g/dL (5.7-8.2)
--- NOTE | 2025-04-15 09:03 | ECG ---
[facility] Test Date: 2025-04-15 Test Time: 09:02:15 Pat Name: RUPAL GALVEZ Department: [facility] ED Patient ID: [id number] Room: 0247 Gender: M Quality Assurance Director: gp : 1990 Requested By: SHELTON ALVAREZ Order Number: [id number] Reading MD: Jono Keating Measurements Intervals [place] Rate: 114 P: 85 WA: 177 QRS: 119 QRSD: 104 T: 7 QT: 331 QTc: 456 Interpretive Statements Sinus tachycardia Probable right ventricular hypertrophy Abnormal T, consider ischemia, anterior leads Electronically Signed On 04-16-2025 22:16:17 PDT by Jono Keating Please click the below link to view image of tracing.
[2025-04-15] MEDS: PIPERACILLIN-TAZOB 3.375GM 100 ML IV ONE (10:08)
--- NOTE | 2025-04-15 10:29 | DVHHP2 ---
History of Present Illness Reason for Visit: Back pain History of Present Illness Kahlil Da Silva is a 34-year-old male with past medical history of ESRD on HD (M/W/F), diabetes, sacral ulcer, right and left toe amputations, and hypertension who presents to the ED with back pain due to a wound x2 days. Patient reports that initially it started with a spider bite in 2022 and he had gone to [facility] to get it treated. He then reports that a week ago it was a cyst and noticed that it was draining pus. He reports that he did not have it evaluated and was trying to take care of it by allowing it to drain as well as placing gauze. Patient reports that he does not use home oxygen. Patient also reports missing his dialysis on Sunday. Patient reports that he lives at home alone and uses a front wheel walker. Patient denies any recent trauma or injury, recent sick contacts, recent ingestion of spoiled food, recent travels, chest pain, shortness of breath, fever, chills, lightheadedness, weakness, dizziness, abdominal pain, nausea, vomiting, diarrhea, urinary symptoms. Cardiovascular: HTN Renal/: Chronic renal failure Endocrine: Diabetes Past Medical History Sacral ulcer Past Surgical History: Other (Right and left toe amputations) Family History: DM, Other (Mom and dad with diabetes) Smoke: No ALCOHOL: none Drugs: Marijuana Lives: Alone Domestic Violence: Neg Review of Systems Musculoskeletal: back pain Allergies: Coded Allergies: Lactose Intolerance (GI) (Verified Allergy, Unknown, 01/17/25) Tramadol (Verified Allergy, Unknown, 07/26/21) Uncoded Allergies: peaches (Allergy, Intermediate, rash, 04/13/21) Medications Current Medications Medications Dose Ordered Sig/Ekvin Route Start Time Stop Time Status Last Admin Dose Admin Clindamycin Phosphate 50 ml @ 50 mls/hr Q8HR IV 04/15/25 10:30 UNV Acetaminophen/ Hydrocodone Bitart 1 tab Q4HP PRN PO 04/15/25 10:30 UNV Ondansetron HCl 4 mg Q4HP PRN IV 04/15/25 10:30 UNV Acetaminophen 650 mg Q6HP PRN PO 04/15/25 10:30 UNV Morphine Sulfate 2 mg Q4HPRN PRN IV 04/15/25 10:30 UNV Exam Vital Signs Vital Signs Date Time Temp Pulse Resp B/P (MAP) Pulse Ox O2 Delivery O2 Flow Rate FiO2 04/15/25 09:02 Room Air* 0 21 04/15/25 09:02 114 04/15/25 08:00 98.9 16 156/104 (121) 100 98.9 General Appearance: Alert, Oriented X3, Cooperative, No acute distress HEENT: Atraumatic, EOMI Respiratory: Normal air movement Cardiovascular: Normal S1, Normal S2 Abdominal: Soft Extremities: Other (Right and left toe amputations also dry skin) Neuro: Normal speech, Sensation intact Psych/Mental Status: Mental status NL, Mood NL Labs/Xrays Labs Test 04/15/25 07:36 Range/Units White Blood Count 11.1 H 4.4-10.8 10^3/uL Red Blood Count 4.70 4.5-5.90 10^6/uL Hemoglobin 11.4 L 13.5-17.5 g/dL Hematocrit 34.8 L 41.0-53.0 % Mean Corpuscular Volume 74.0 L 80.0-100.0 fL Mean Corpuscular Hemoglobin 24.2 L 28.0-32.0 pg Mean Corpuscular Hemoglobin Concent 32.7 32.0-36.0 g/dL Red Cell Distribution Width 19.1 H 11.8-14.3 % Platelet Count 184 140-450 10^3/uL Mean Platelet Volume 7.8 6.9-10.8 fL Neutrophils (%) (Auto) 89.3 H 37.0-80.0 % Lymphocytes (%) (Auto) 3.8 L 10.0-50.0 % Monocytes (%) (Auto) 6.0 0.0-12.0 % Eosinophils (%) (Auto) 0.2 0.0-7.0 % Basophils (%) (Auto) 0.7 0.0-2.0 % Neutrophils # (Auto) 10.0 H 1.6-8.6 10 ^3/uL Lymphocytes # (Auto) 0.4 0.4-5.4 10 ^3/uL Monocytes # (Auto) 0.7 0-1.3 10 ^3/uL Eosinophils # (Auto) 0 0-0.8 10 ^3/uL Basophils # (Auto) 0.1 0-0.2 10 ^3/uL Nucleated Red Blood Cells 0.0 % Sodium Level 136 136-145 mmol/L Potassium Level 5.3 H 3.5-5.1 mmol/L Chloride Level 92 L 98-107 mmol/L Carbon Dioxide Level 25 20-31 mmol/L Anion Gap 19 H 5-15 Blood Urea Nitrogen 76 H 9-23 mg/dL Creatinine 12.31 *H 0.700-1.30 mg/dL Glomerular Filtration Rate Calc 5 >90 mL/min BUN/Creatinine Ratio 6.2 L 10.0-20.0 Serum Glucose 106 74-106 mg/dL Lactic Acid Level 1.2 0.4-2.0 mmol/L Calcium Level 8.8 8.7-10.4 mg/dL Total Bilirubin 0.4 0.2-1.0 mg/dL Aspartate Amino Transferase (AST) 19 13-40 U/L Alanine Aminotransferase (ALT) 10 7-40 U/L Alkaline Phosphatase 89 46-116 U/L B-Type Natriuretic Peptide 1787.34 0-100 pg/mL Total Protein 8.9 H 5.7-8.2 g/dL Albumin 4.4 3.2-4.8 g/dL CHEST RADIOGRAPH Indication: repeat cxr Technique: Single frontal view of the chest was obtained Comparison: XY CHEST PORTABLE on DOS: 04/15/25, XY CHEST PORTABLE on DOS: 03/13/25, XY CHEST XRAY 1 VIEW on DOS: 09/06/23 FINDINGS: Lines and Tubes: None Lungs: Airspace disease in the perihilar region bilaterally throughout the right chest in the left lower lobe Pleura: No effusion. No pneumothorax. Cardiomediastinal contours: Cardiomegaly Bones: No acute osseous abnormality. IMPRESSION: 1. Findings may represent congestive failure correlate clinically. EXAM: XY CHEST PORTABLE HISTORY: SOB on dialysis COMPARISON: XY CHEST PORTABLE on DOS: 03/13/25, XY CHEST XRAY 1 VIEW on DOS: 09/06/23, XY CHEST PORTABLE on DOS: 08/01/23, CHEST PORTABLE on DOS: 10/10/21, CXRP on DOS: 10/10/21 TECHNIQUE: Portable AP view of the chest was performed. FINDINGS: Hazy opacities overlie the right hemithorax, likely due to something outside of the patient. There is mild interstitial prominence in the left lung. No pneumothorax. The heart is not enlarged. There are postoperative changes of bilateral distal clavicle resection. IMPRESSION: 1. Left lung interstitial prominence may be due to mild CHF and/or reactive airways disease. 2. Hazy opacities overlying the right hemithorax are likely due to something outside of the patient. Recommend repeat portable chest x-ray. SEPSIS Sepsis Screen Date sepsis recognized/suspect: Apr 15, 2025 Time Sepsis recognized/suspect: 900 Recent Procedure: No On Antibiotic Therapy: Yes Respiratory Rate >20: No Heart Rate >90: Yes Temp<36 C (96.8 F) or >38.3 C: No SBP <90 or MAP <65 mmHG: No New Acute Mental Status Change: No Is the patient on CPAP, BIPAP,: No Physician Orders Chest Portable (04/15/25 04:19) Blood Culture (04/15/25 04:19) Incision And Drainage (04/15/25 ) *Dr. Christina Triana (04/15/25 08:56) * Wound Consult (04/15/25 ) Clindamycin 600mg Iv (Cleocin Iv) (04/15/25 10:30) Sodium Zirconium Cyclosilicate (Lokelma) (04/15/25 10:30) Admit (04/15/25 10:19) Allergies (04/15/25 10:19) Code Status (04/15/25 10:19) Hydrocodone-Acet 5/325mg Tab ([place] 5/32 (04/15/25 10:30) Ondansetron Hcl (Zofran) (04/15/25 10:30) Complete Blood Count (04/16/25 04:00) Comprehensive Metabolic Panel (04/16/25 04:00) Cardiac Diet-2gna,Lofat,Lochol (04/15/25 Lunch) Acetaminophen Tablet (Tylenol Tablet) (04/15/25 10:30) Morphine Sulfate Injection (04/15/25 10:30) Chest Xray 1 View (04/15/25 10:19) Alprazolam Tablet (Xanax Tablet) (04/15/25 10:30) B-Complex W/ C & Folic Tablet (Nephro-Vi (04/16/25 10:00) Sertraline Hcl (Zoloft) (04/16/25 10:00) (Nf) Benazepril Hcl (04/16/25 10:00) (Nf) Carvedilol (04/15/25 22:00) (Nf) Clonidine Hydrochloride (Clonidine (04/15/25 14:00) (Nf) Hydralazine Hcl (04/15/25 22:00) (Nf) Nifedipine (Nifedipine Er) (04/15/25 22:00) (Nf) Sevelamer Carbonate (04/15/25 14:00) Vital Signs Date Time Temp Pulse Resp B/P (MAP) Pulse Ox O2 Delivery O2 Flow Rate FiO2 04/15/25 09:02 Room Air* 0 21 04/15/25 09:02 114 04/15/25 08:00 98.9 114 16 156/104 (121) 100 98.9 04/15/25 07:23 98.1 78 18 110/72 (85) 97 98.1 04/15/25 07:23 78 97 Room Air* 0 21 04/15/25 05:40 101 17 97 Room Air* 0 21 04/15/25 05:28 80 20 104/72 04/15/25 04:58 101 17 157/88 04/15/25 04:08 97.6 101 17 157/88 (111) 97 97.6 04/15/25 04:08 97.6 101 17 157/88 97 97.6 Laboratory Tests Test 04/15/25 07:36 Lactic Acid Level 1.2 mmol/L (0.4-2.0) White Blood Count 11.1 10^3/uL (4.4-10.8) H Medications Medications Dose Ordered Sig/Kevin Route Start Time Stop Time Status Last Admin Dose Admin Hydromorphone HCl 1 mg ONCE ONCE IM 04/15/25 04:30 04/15/25 04:31 DC 04/15/25 04:58 1 MG Piperacillin Sod/ Tazobactam Sod 100 ml @ 100 mls/hr ONCE ONCE IV 04/15/25 06:15 04/15/25 07:14 DC 04/15/25 10:08 100 MLS/HR Assessment/Plan Assessment/Plan Assessment Intractable back pain likely due to abscess versus cyst Leukocytosis likely due to back wound versus cyst versus abscess Acute hypoxic respiratory failure on oxygen Hyperkalemia CHF Marijuana use History of ESRD on HD (M/W/F) History of diabetes History of sacral ulcer History of hypertension History of right and left toe amputations Medical noncompliance Plan Admit to med surge Supportive oxygen Antibiotics-clindamycin Zosyn given in ED [facility] Antiemetics Pain management I&D Blood cultures Lactic level BNP Diurese EKG Chest x-ray Repeat chest x-ray Diet Home medications reconciled DVT prophylaxis-not indicated patient ambulating PUD prophylaxis-PPIs Discussed plan of care with patient and nurse Counseled patient on cessation of marijuana use [id number] Behavior change smoking greater than 10 minutes about use of other options also gave option of nicotine patch [id number] Preventive counseling healthy eating habits, physical activity, and regular checkups Plan discussed with: Patient My Orders Orders - RAMIREZMARIMAR CARDENAS BILLIARD [employer]LOR MANAGER Procedure Category Date Status Time Clindamycin 600mg Iv PHA 04/15/25 Logged (Cleocin Iv) 10:30 Sodium Zirconium PHA 04/15/25 Logged Cyclosilicate 10:30 Admit ADMIT 04/15/25 Transmitted 10:19 Allergies NEEL 04/15/25 In Process 10:19 Code Status CODE 04/15/25 Transmitted 10:19 Hydrocodone-Acet PHA 04/15/25 Logged 5/325mg Tab ([place] 10:30 Ondansetron Hcl PHA 04/15/25 Logged (Zofran) 10:30 Complete Blood Count LAB 04/16/25 Verified 04:00 Comprehensive LAB 04/16/25 Verified Metabolic Panel 04:00 Cardiac DIET 04/15/25 Transmitted Diet-2gna,Lofat,Lochol Lunch Acetaminophen Tablet PHA 04/15/25 Logged (Tylenol Tablet) 10:30 Morphine Sulfate PHA 04/15/25 Logged Injection 10:30 Chest Xray 1 View XY 04/15/25 Logged 10:19 Alprazolam Tablet PHA 04/15/25 Transmitted (Xanax Tablet) 10:30 B-Complex W/ C & PHA 04/16/25 Transmitted Folic Tablet 10:00 Sertraline Hcl PHA 04/16/25 Transmitted (Zoloft) 10:00 (Nf) Benazepril Hcl PHA 04/16/25 Transmitted 10:00 (Nf) Carvedilol PHA 04/15/25 Transmitted 22:00 (Nf) Clonidine PHA 04/15/25 Verified Hydrochloride 14:00 (Nf) Hydralazine Hcl PHA 04/15/25 Verified 22:00 (Nf) Nifedipine PHA 04/15/25 Verified (Nifedipine Er) 22:00 (Nf) Sevelamer PHA 04/15/25 Verified Carbonate 14:00 Date of Service: Apr 15, 2025 Billing Provider: MARIMAR PALAFOX Common Visit Codes: 22814-[id number] INP/OBS CARE (HIGH) Secondary Visit Codes: 64263-[id number] COUNSELING IND, 30326-APPLJ CHNG SMOKING >10MIN MARIMAR PALAFOX Apr 15, 2025 10:29
--- NOTE | 2025-04-15 11:08 | DVH ---
CHEST RADIOGRAPH Indication: repeat cxr Technique: Single frontal view of the chest was obtained Comparison: XY CHEST PORTABLE on DOS: 04/15/25, XY CHEST PORTABLE on DOS: 03/13/25, XY CHEST XRAY 1 VIE W on DOS: 09/06/23 FINDINGS: Lines and Tubes: None Lungs: Airspace disease in the perihilar region bilaterally throughout the right chest in the left lo wer lobe Pleura: No effusion. No pneumothorax. Cardiomediastinal contours: Cardiomegaly Bones: No acute osseous abnormality. IMPRESSION: 1. Findings may represent congestive failure correlate clinically. HS:Y
[2025-04-15] MEDS: ACETAMINOPHEN 325 MG TAB PO PRN (11:53)
[2025-04-15] MEDS: SODIUM ZIRCONIUM CYCL 10 GM PAK PO ONE (11:53)
[2025-04-15] MEDS: CLINDAMYCIN 600MG IV 50 ML IV SCH (12:02)
[2025-04-15] MEDS: SODIUM CHL 0.9% 1000 ML BAG XX ONE (14:30)
[2025-04-15] MEDS: SEVELAMER 800 MG TAB PO SCH (18:00)
[2025-04-15 20:45] VITALS: BP 128/82; PULSE 51; PULSE 55; RESP 18; TEMP 98; O2SAT 100
[2025-04-15] MEDS: MORPHINE SULFATE 4 MG/ML SYR/VIAL IV PRN (20:47)
[2025-04-15 21:00] VITALS: BP 128/82; PULSE 51; RESP 18; TEMP 98; O2SAT 100
[2025-04-15] MEDS: CARVEDILOL 12.5 MG TAB PO SCH (22:00)
--- NOTE | 2025-04-15 23:20 | DVHINCON2 ---
DATE OF CONSULTATION: 04/15/2025 CONSULTING PHYSICIAN: Dr. King. REASON FOR CONSULTATION: Management of dialysis. HISTORY OF PRESENT ILLNESS: The patient is a 34-year-old -[place] gentleman who is well known to me. He is one of our chronic dialysis patients ____ hypertension. Apparently, he also has a sacral ulcer. He came to the hospital complaining of worsening pain and some drainage from the area. He has been admitted for further management. Today, ____, so I was consulted to handle his treatment. REVIEW OF SYSTEMS: Otherwise unremarkable. PAST MEDICAL HISTORY: Significant for diabetes, hypertension, end-stage renal disease, anemia, hyperparathyroidism, hyperlipidemia, decubitus sacral ulcer. SOCIAL HISTORY: He denies smoking cigarettes or drinking alcohol. FAMILY HISTORY: Noncontributory. MEDICATIONS IN THE HOSPITAL: Include nifedipine, benazepril, sertraline, hydralazine, carvedilol, sevelamer, clonidine, alprazolam, acetaminophen, and Zofran. PHYSICAL EXAMINATION: VITAL SIGNS: Blood pressure is 110/85, heart rate 106, respirations 14, temperature 103. GENERAL: The patient is an adult -[place] gentleman who appears to be chronically ill. He is in visible pain. HEENT: Unremarkable. Oral mucosa is pale and dry. LUNGS: Diminished air entry at the bases but no crackles. CARDIOVASCULAR: Regular rate, tachycardia, 2/6 systolic murmur. ABDOMEN: Obese, soft, nontender. No organomegaly. EXTREMITIES: No clubbing, cyanosis, or edema. SKIN: The sacral area was not examined. LABORATORY FINDINGS: Sodium 136, potassium 5.3, bicarbonate 25, BUN 76, creatinine 12, hemoglobin 11.4. ASSESSMENT AND PLAN: * End-stage renal disease. * Mild hyperkalemia. * Anemia of renal disease at target range. * Hypertension. * Diabetes. * Sacral ulcer with associated infection. The patient will be scheduled to have dialysis today. We will carefully remove 2 liters of fluid. Use a low-potassium bath. He should continue his home medications, monitor his blood pressure, resume antihypertensives carefully, and obtain Infectious Disease consultation, imaging of the sacral area to determine if there is osteomyelitis and continue with empiric antibiotics. I will follow him during the hospitalization. Thank you for the consult. MD KELVIN Riggs/STEVE/SANDRINE TID: [id number] RECEIPT: [id number]
[2025-04-16] VITALS (8 sets, daily range): BP systolic 103–156; BP diastolic 40–86; PULSE 77–96; RESP 16–18; TEMP 97.7–98.3; O2SAT 91–100
[2025-04-16] MEDS: HYDROcodone-ACET 5/325MG TAB PO PRN (01:53)
[2025-04-16] MEDS: ONDANSETRON HCL 4 MG/2 ML VIAL IV PRN (09:11)
[2025-04-16] MEDS: FUROSEMIDE 40 MG/4 ML VIAL IV SCH (10:39)
[2025-04-16] MEDS: B-COMPLEX W/ C & FOLIC ACID(NEPHROVITE TAB) PO SCH (10:39)
[2025-04-16] MEDS: SERTRALINE HCL 50 MG TAB PO SCH (10:40)
[2025-04-16] MEDS: BENAZEPRIL HCL 10 MG TAB PO SCH (10:45)
[2025-04-16 11:02] LABS: Alanine Aminotransferase 13 U/L (7-40); Albumin 3.3 g/dL (3.2-4.8); Alkaline Phosphatase 80 U/L (46-116); Anion Gap 14 (5-15); BUN/Creatinine Ratio 5.9 (10.0-20.0); Calcium 8.8 mg/dL (8.7-10.4); Carbon Dioxide 30 mmol/L (20-31); Potassium 4.4 mmol/L (3.5-5.1); Sodium 140 mmol/L (136-145); Total Protein 6.9 g/dL (5.7-8.2)
[2025-04-16 11:03] LABS: Bilirubin, Total 0.5 mg/dL (0.2-1.0); Blood Urea Nitrogen 54 mg/dL (9-23); Chloride 96 mmol/L (98-107); Glucose 109 mg/dL (74-106)
--- NOTE | 2025-04-16 12:29 | DVHPN2 ---
Reviewed: Care Plan Changes from previous H/P or p: No Changes Musculoskeletal: back pain Objective Vitals Vital Signs Date Time Temp Pulse Resp B/P (MAP) Pulse Ox O2 Delivery O2 Flow Rate FiO2 04/16/25 10:45 103/54 04/16/25 10:44 80 04/16/25 09:12 16 04/16/25 09:00 98.3 100 98.3 04/16/25 08:15 Nasal Cannula* 3 32 Intake/Output Intake and Output 04/16/25 07:00 Intake Total 800 ml Balance 800 ml Intake Oral 700 ml IV Total 100 ml # Bowel Movements 1 Medications Current Medications Medications Dose Ordered Sig/Kevin Route Start Time Stop Time Status Last Admin Dose Admin Clindamycin Phosphate 50 ml @ 50 mls/hr Q8HR IV 04/15/25 10:30 04/16/25 06:35 50 MLS/HR Acetaminophen/ Hydrocodone Bitart 1 tab Q4HP PRN PO 04/15/25 10:30 04/16/25 01:53 1 TAB Ondansetron HCl 4 mg Q4HP PRN IV 04/15/25 10:30 04/16/25 09:11 4 MG Acetaminophen 650 mg Q6HP PRN PO 04/15/25 10:30 04/15/25 11:53 650 MG Morphine Sulfate 2 mg Q4HPRN PRN IV 04/15/25 11:15 04/16/25 09:12 2 MG Alprazolam 0.25 mg DAILY PRN PO 04/15/25 10:30 Multivit/Ca Carb/ B Cmplx/FA/Prenat 1 tab DAILY PO 04/16/25 10:00 04/16/25 10:39 1 TAB Sertraline HCl 150 mg DAILY PO 04/16/25 10:00 04/16/25 10:40 150 MG Benazepril HCl 40 mg DAILY PO 04/16/25 10:00 Carvedilol 25 mg BID PO 04/15/25 22:00 Clonidine HCl 0.3 mg TID PO 04/15/25 14:00 04/16/25 06:34 0.3 MG Hydralazine HCl 100 mg BID PO 04/15/25 22:00 Nifedipine 60 mg BID PO 04/16/25 10:00 Sevelamer HCl 1,600 mg TIDWM PO 04/15/25 18:00 Furosemide 40 mg DAILY IV 04/16/25 10:00 04/16/25 10:39 40 MG Laboratory Results Laboratory Tests 04/15/25 07:36 04/16/25 10:12 Chemistry Test 04/16/25 10:12 Albumin 3.3 g/dL (3.2-4.8) Calcium Level 8.8 mg/dL (8.7-10.4) Total Protein 6.9 g/dL (5.7-8.2) LFT Test 04/16/25 10:12 Alanine Aminotransferase (ALT) 13 U/L (7-40) Alkaline Phosphatase 80 U/L (46-116) Aspartate Amino Transferase (AST) 11 U/L (13-40) L Total Bilirubin 0.5 mg/dL (0.2-1.0) Microbiology Microbiology Date/Time Source Procedure Growth Status 04/15/25 07:36 Blood Blood Culture - Preliminary NO GROWTH AFTER 24 HOURS OF INCUBATION. Resulted Labs and/or images reviewed: Labs reviewed by me, Image(s) reviewed by me Assessment/Plan Assessment/Plan Intractable back pain likely due to abscess versus cyst wound consult, surgical consult for Dr. Ferguson for possible incision and drainage Leukocytosis likely due to back wound versus cyst versus abscess Bacteremia with Gram-positive cocci in clusters: Clindamycin Acute hypoxic respiratory failure on oxygen Hyperkalemia CHF Marijuana use Diabetes Hypertension History of right and left toe amputation ESRD on hemodialysis Sunday, consult by Dr. Vasquez appreciated Time spent 65 minutes Advanced care planning time 20 minutes Patient is full code Plan discussed with: Patient Date of Service: Apr 16, 2025 Billing Provider: JAMIL JURADO MD Common Visit Codes: [id number] INP/OBS CARE(HIGH) JAMIL JURADO MD Apr 16, 2025 12:29
[2025-04-16 16:32] LABS: Hematocrit 32.4 % (41.0-53.0); Hemoglobin 10.7 g/dL (13.5-17.5); Mean Corpuscular Hemoglobin 24.5 pg (28.0-32.0); Mean Corpuscular Volume 74.2 fL (80.0-100.0); Nucleated Red Blood Cells % 0.0 %
--- NOTE | 2025-04-16 17:41 | DVHPN2 ---
Progress Note - Dictate Date Seen: Apr 16, 2025 Has the PT tested + for MRSA If YES, has PT been informed?: No Medical Necessity Reason Pt with a Central, PICC or Fol: No Subjective No new complaints vital signs Vital Sign Date Time Temp Pulse Resp B/P (MAP) Pulse Ox O2 Delivery O2 Flow Rate FiO2 04/16/25 17:00 98.3 96 18 156/86 (109) 95 98.3 04/16/25 08:15 Nasal Cannula* 3 32 Total Intake and Output 04/15/25 04/15/25 04/16/25 15:00 23:00 07:00 Intake Total 100 ml 700 ml Balance 100 ml 700 ml medications Current Medications Medications Dose Ordered Sig/Kevin Route Start Time Stop Time Status Last Admin Dose Admin Clindamycin Phosphate 50 ml @ 50 mls/hr Q8HR IV 04/15/25 10:30 04/16/25 14:25 50 MLS/HR Acetaminophen/ Hydrocodone Bitart 1 tab Q4HP PRN PO 04/15/25 10:30 04/16/25 01:53 1 TAB Ondansetron HCl 4 mg Q4HP PRN IV 04/15/25 10:30 04/16/25 13:32 4 MG Acetaminophen 650 mg Q6HP PRN PO 04/15/25 10:30 04/15/25 11:53 650 MG Morphine Sulfate 2 mg Q4HPRN PRN IV 04/15/25 11:15 04/16/25 13:32 2 MG Alprazolam 0.25 mg DAILY PRN PO 04/15/25 10:30 Multivit/Ca Carb/ B Cmplx/FA/Prenat 1 tab DAILY PO 04/16/25 10:00 04/16/25 10:39 1 TAB Sertraline HCl 150 mg DAILY PO 04/16/25 10:00 04/16/25 10:40 150 MG Benazepril HCl 40 mg DAILY PO 04/16/25 10:00 Carvedilol 25 mg BID PO 04/15/25 22:00 Clonidine HCl 0.3 mg TID PO 04/15/25 14:00 04/16/25 06:34 0.3 MG Hydralazine HCl 100 mg BID PO 04/15/25 22:00 Nifedipine 60 mg BID PO 04/16/25 10:00 Sevelamer HCl 1,600 mg TIDWM PO 04/15/25 18:00 Furosemide 40 mg DAILY IV 04/16/25 10:00 04/16/25 10:39 40 MG objective GENERAL: The patient is an adult -[place] gentleman who appears to be chronically ill. He is in visible pain. HEENT: Unremarkable. Oral mucosa is pale and dry. LUNGS: Diminished air entry at the bases but no crackles. CARDIOVASCULAR: Regular rate, tachycardia, 2/6 systolic murmur. ABDOMEN: Obese, soft, nontender. No organomegaly. EXTREMITIES: No clubbing, cyanosis, or edema. SKIN: The sacral area was not examined. laboratory and microbiology Laboratory Tests 04/16/25 16:24 04/16/25 10:12 Test 04/16/25 10:12 Range/Units Serum Glucose 109 H 74-106 mg/dL Assessment/Plan ASSESSMENT AND PLAN: * End-stage renal disease. * Mild hyperkalemia. * Anemia of renal disease at target range. * Hypertension. * Diabetes. * Sacral ulcer with associated infection. HD scheduled for tomorrow IV antibiotics Wound care/I.D. and surgical evaluation Increase Epogen dose Continue phosphate binders Dietary Evaluation Review Recommendations by RD: Protein Supplementation Comments: 1) Initiate Isaac @ 1 pk bid 2) Initiate vitamin C @ 500 mg bid and zinc sulfate @ 220 mg qd for 7 days 3) If patient remains NPO > 7 days, consider EN/TPN to meet at least 75% of estimated daily needs 4) Advance to 60g CCHO renal diet when medically feasible 5) Follow-up with cardiology 6) Continue to monitor I&O, labs, and skin integrity Expected Outcomes/Goals: 1) patient to receive nutritional support within 7 days of NPO status 2) labs and wounds to improve 3) diet to advance 4) f/u in 3-5 days Plan discussed with: ELLE Hernandez MD Apr 16, 2025 17:41
--- NOTE | 2025-04-16 23:05 | DVHINCON2 ---
Consultation - Surgical Date Seen: Apr 16, 2025 Referring Physician Reason for Consultation Left gluteal abscess History of Present Illness History of Present Illness Mr. Da Silva is a 34-year-old male who presented to the hospital due to left gluteal abscess that has been going on for the last 2-3 days. States the the area has become more painful, swollen and indurated. He experienced fevers at home and decided to come to the ED. At the ED there was a partial I and D done, and patient states he is still draining pus out of the wound Past Medical/Surgical History Past Medical/Surgical History PMH ESRD on HD (M/W/F), diabetes, sacral ulcer, right and left toe amputations, and hypertension Allergies and medications Allergies: Coded Allergies: Lactose Intolerance (GI) (Verified Allergy, Unknown, 01/17/25) Tramadol (Verified Allergy, Unknown, 07/26/21) Uncoded Allergies: peaches (Allergy, Intermediate, rash, 04/13/21) Home Meds Active Scripts Cephalexin Monohydrate (Cephalexin) 500 Mg Cap, 1 CAP PO BID for 10 Days, #20 CAP Prov:VESTA GOODRICH RESIDENT 01/18/25 Reported Medications Clonidine Hydrochloride (Clonidine Hcl) 0.3 Mg Tab, 1 TAB PO TID 09/06/23 Sevelamer Carbonate (Sevelamer Carbonate) 800 Mg Tab, 2 TAB PO TID 09/06/23 Nifedipine (Nifedipine Er) 60 Mg Tab, 60 MG PO BID 09/06/23 Hydralazine Hcl (Hydralazine Hcl) 100 Mg Tab, 1 TAB PO BID 09/06/23 Benazepril Hcl (Benazepril Hcl) 40 Mg Tab, 1 TAB PO DAILY 09/06/23 Carvedilol (Carvedilol) 25 Mg Tab, 1 TAB PO BID 09/06/23 B-Complex W/ C & Folic Acid (Maricruz-Meena Rx) Tab, 1 TAB PO DAILY 09/06/23 Hydrocodone-Acetaminophen (Hydrocodone/Acetaminophen 10-325 mg) 1 Tab Tab, 1 TAB PO Q6HPRN PRN for PAIN SCALE 1 THRU 6, TAB 04/13/21 Alprazolam (Xanax) 0.25 Mg Tb, 1 TAB PO DAILY PRN for ANXIETY, #30 TAB 04/13/21 Sertraline Hcl (Sertraline Hcl) 50 Mg Tab, 150 MG PO DAILY for 30 Days, MG 04/13/21 Gabapentin (Neurontin) 800 Mg Tab 03/12/10 Insulin (Insulin Human) Human Pow 03/12/10 Review of systems Review of Systems: Deferred Examination Vital signs Vital Signs Date Time Temp Pulse Resp B/P (MAP) Pulse Ox O2 Delivery O2 Flow Rate FiO2 04/16/25 21:00 97.8 93 18 138/81 (100) 91 97.8 04/16/25 08:15 Nasal Cannula* 3 32 Medications Current Medications Medications (Trade) Dose Ordered Sig/Kevin Route PRN Reason Start Time Stop Time Status Last Admin Multivit/Ca Carb/ B Cmplx/FA/Prenat (Nephro-Meena Tablet) 1 tab DAILY PO 04/16/25 10:00 04/16/25 10:39 Sertraline HCl (Zoloft) 150 mg DAILY PO 04/16/25 10:00 04/16/25 10:40 Benazepril HCl (Lotensin Tablet) 40 mg DAILY PO 04/16/25 10:00 Nifedipine (Procardia Xl (Time-Release)) 60 mg BID PO 04/16/25 10:00 Furosemide (Lasix Injection) 40 mg DAILY IV 04/16/25 10:00 04/16/25 10:39 Laboratory Labs Test 04/16/25 16:24 04/16/25 10:12 04/15/25 22:57 04/15/25 07:36 Range/Units White Blood Count 9.8 4.4-10.8 10^3/uL Red Blood Count 4.36 L 4.5-5.90 10^6/uL Hemoglobin 10.7 L 13.5-17.5 g/dL Hematocrit 32.4 L 41.0-53.0 % Mean Corpuscular Volume 74.2 L 80.0-100.0 fL Mean Corpuscular Hemoglobin 24.5 L 28.0-32.0 pg Mean Corpuscular Hemoglobin Concent 33.0 32.0-36.0 g/dL Red Cell Distribution Width 19.0 H 11.8-14.3 % Platelet Count 190 140-450 10^3/uL Mean Platelet Volume 7.6 6.9-10.8 fL Neutrophils (%) (Auto) 82.9 H 37.0-80.0 % Lymphocytes (%) (Auto) 3.7 L 10.0-50.0 % Monocytes (%) (Auto) 11.4 0.0-12.0 % Eosinophils (%) (Auto) 1.3 0.0-7.0 % Basophils (%) (Auto) 0.7 0.0-2.0 % Neutrophils # (Auto) 8.2 1.6-8.6 10 ^3/uL Lymphocytes # (Auto) 0.4 0.4-5.4 10 ^3/uL Monocytes # (Auto) 1.1 0-1.3 10 ^3/uL Eosinophils # (Auto) 0.1 0-0.8 10 ^3/uL Basophils # (Auto) 0.1 0-0.2 10 ^3/uL Nucleated Red Blood Cells 0.0 % Sodium Level 140 136-145 mmol/L Potassium Level 4.4 3.5-5.1 mmol/L Chloride Level 96 L 98-107 mmol/L Carbon Dioxide Level 30 20-31 mmol/L Anion Gap 14 5-15 Blood Urea Nitrogen 54 #H 9-23 mg/dL Creatinine 9.12 #H 0.700-1.30 mg/dL Glomerular Filtration Rate Calc 7 >90 mL/min BUN/Creatinine Ratio 5.9 L 10.0-20.0 Serum Glucose 109 H 74-106 mg/dL Calcium Level 8.8 8.7-10.4 mg/dL Total Bilirubin 0.5 0.2-1.0 mg/dL Aspartate Amino Transferase (AST) 11 L 13-40 U/L Alanine Aminotransferase (ALT) 13 7-40 U/L Alkaline Phosphatase 80 46-116 U/L Total Protein 6.9 5.7-8.2 g/dL Albumin 3.3 3.2-4.8 g/dL POC Glucose 84 70-106 mg/dl Lactic Acid Level 1.2 0.4-2.0 mmol/L B-Type Natriuretic Peptide 1787.34 0-100 pg/mL Microbiology Date/Time Source Procedure Growth Status 04/15/25 07:36 Blood Blood Culture - Preliminary Resulted Examination: SKIN:Abnormal (Left gluteal induration, with small puncture wound currently draining pus, tender, no surrounding erythema, no necrosis, no crepitus) Problem List/Assessment/Plan Problems: (1) Abscess Assessment and Plan Mr. Da Silva is a 34-year-old male that presented to the ED and was hospitalized due to left gluteal abscess, there was a partial I and D done in the ED but wound is still draining pus. Patient will benefit from completion incision and drainage. Procedure is going to be done in the operating given that the patient has too much pain in the area and does not want to go through a traumatic experience again at bedside. Procedure, risks, benefits, complications, and alternatives were discussed with the patient. 1. Scheduled for incision and drainage of the left gluteus in the OR 2. NPO at midnight Plan discussed with Plan discussed with: Patient Visit Coding Surgery Date of Service if different f: Apr 16, 2025 Billing Provider: CRISTOPHER SHAW MD Surgery Visit Codes: [id number] - INP CONSULT <110 MIN CRISTOPHER SHAW MD Apr 16, 2025 23:05
[2025-04-17] VITALS (10 sets, daily range): BP systolic 107–139; BP diastolic 50–70; PULSE 64–91; RESP 11–18; TEMP 97.6–98.3; O2SAT 91–100
[2025-04-17] MEDS: ALPRAZolam 0.25 MG TAB PO PRN (00:54)
[2025-04-17] MEDS: SODIUM CHL 0.9% 1000 ML BAG XX ONE (07:09)
--- NOTE | 2025-04-17 10:50 | DVHPN2 ---
Reviewed: Care Plan Changes from previous H/P or p: No Changes Musculoskeletal: back pain Objective Vitals Vital Signs Date Time Temp Pulse Resp B/P (MAP) Pulse Ox O2 Delivery O2 Flow Rate FiO2 04/17/25 09:59 72 16 107/53 04/17/25 09:00 97.6 100 97.6 04/16/25 20:00 Room Air* 0 21 Intake/Output Intake and Output 04/17/25 07:00 Intake Total 1250 ml Balance 1250 ml Intake Oral 1050 ml IV Total 200 ml # Voids 2 Medications Current Medications Medications Dose Ordered Sig/Kevin Route Start Time Stop Time Status Last Admin Dose Admin Clindamycin Phosphate 50 ml @ 50 mls/hr Q8HR IV 04/15/25 10:30 04/17/25 05:38 50 MLS/HR Acetaminophen/ Hydrocodone Bitart 1 tab Q4HP PRN PO 04/15/25 10:30 04/16/25 23:47 1 TAB Ondansetron HCl 4 mg Q4HP PRN IV 04/15/25 10:30 04/16/25 13:32 4 MG Acetaminophen 650 mg Q6HP PRN PO 04/15/25 10:30 04/15/25 11:53 650 MG Morphine Sulfate 2 mg Q4HPRN PRN IV 04/15/25 11:15 04/17/25 09:59 2 MG Alprazolam 0.25 mg DAILY PRN PO 04/15/25 10:30 04/17/25 00:54 0.25 MG Multivit/Ca Carb/ B Cmplx/FA/Prenat 1 tab DAILY PO 04/16/25 10:00 04/16/25 10:39 1 TAB Sertraline HCl 150 mg DAILY PO 04/16/25 10:00 04/17/25 09:45 150 MG Benazepril HCl 40 mg DAILY PO 04/16/25 10:00 Carvedilol 25 mg BID PO 04/15/25 22:00 04/16/25 23:29 25 MG Clonidine HCl 0.3 mg TID PO 04/15/25 14:00 04/16/25 23:29 0.3 MG Hydralazine HCl 100 mg BID PO 04/15/25 22:00 Nifedipine 60 mg BID PO 04/16/25 10:00 04/16/25 23:29 60 MG Sevelamer HCl 1,600 mg TIDWM PO 04/15/25 18:00 Furosemide 40 mg DAILY IV 04/16/25 10:00 04/16/25 10:39 40 MG Laboratory Results Laboratory Tests 04/16/25 10:12 04/16/25 16:24 Microbiology Microbiology Date/Time Source Procedure Growth Status 04/15/25 07:36 Blood Blood Culture - Preliminary Resulted Labs and/or images reviewed: Labs reviewed by me, Image(s) reviewed by me Assessment/Plan Assessment/Plan Intractable back pain likely due to abscess versus cyst wound consult, surgical consult for Dr. Ferguson for possible incision and drainage today Leukocytosis likely due to back wound versus cyst versus abscess Bacteremia with Gram-positive cocci in clusters: Final sensitivity pending, continue Clindamycin Acute hypoxic respiratory failure on oxygen Hyperkalemia CHF Marijuana use Diabetes Hypertension History of right and left toe amputation ESRD on hemodialysis Sunday, consult by Dr. Vasquez appreciated Time spent 65 minutes Advanced care planning time 20 minutes Patient is full code Use of THC Plan discussed with: Patient My Orders Orders - JAMIL JURADO MD Procedure Category Date Status Time Mrsa Screen SUMMER 04/16/25 In Process 12:22 Cleanse Wound With NEEL 04/16/25 In Process Wound Clean 09:50 * Surgical Consult CONS 04/16/25 Transmitted Notify Provider NOTICE 04/16/25 Transmitted Malnutrition 17:38 Nutritional NOURISH 04/16/25 Transmitted Supplements 17:38 Dietary NOTICE 04/16/25 Transmitted Recommendations 17:38 Date of Service: Apr 17, 2025 Billing Provider: JAMIL JURADO MD Common Visit Codes: [id number] INP/OBS CARE(HIGH) JAMIL JURADO MD Apr 17, 2025 10:50
--- NOTE | 2025-04-17 10:56 | DVHPN2 ---
Progress Note - Dictate Date Seen: Apr 17, 2025 Has the PT tested + for MRSA If YES, has PT been informed?: No Medical Necessity Reason Pt with a Central, PICC or Fol: No Subjective No new complaints vital signs Vital Sign Date Time Temp Pulse Resp B/P (MAP) Pulse Ox O2 Delivery O2 Flow Rate FiO2 04/17/25 09:59 72 16 107/53 04/17/25 09:00 97.6 100 97.6 04/16/25 20:00 Room Air* 0 21 Total Intake and Output 04/16/25 04/16/25 04/17/25 15:00 23:00 07:00 Intake Total 50 ml 900 ml 300 ml Balance 50 ml 900 ml 300 ml medications Current Medications Medications Dose Ordered Sig/Kevin Route Start Time Stop Time Status Last Admin Dose Admin Clindamycin Phosphate 50 ml @ 50 mls/hr Q8HR IV 04/15/25 10:30 04/17/25 05:38 50 MLS/HR Acetaminophen/ Hydrocodone Bitart 1 tab Q4HP PRN PO 04/15/25 10:30 04/16/25 23:47 1 TAB Ondansetron HCl 4 mg Q4HP PRN IV 04/15/25 10:30 04/16/25 13:32 4 MG Acetaminophen 650 mg Q6HP PRN PO 04/15/25 10:30 04/15/25 11:53 650 MG Morphine Sulfate 2 mg Q4HPRN PRN IV 04/15/25 11:15 04/17/25 09:59 2 MG Alprazolam 0.25 mg DAILY PRN PO 04/15/25 10:30 04/17/25 00:54 0.25 MG Multivit/Ca Carb/ B Cmplx/FA/Prenat 1 tab DAILY PO 04/16/25 10:00 04/16/25 10:39 1 TAB Sertraline HCl 150 mg DAILY PO 04/16/25 10:00 04/17/25 09:45 150 MG Benazepril HCl 40 mg DAILY PO 04/16/25 10:00 Carvedilol 25 mg BID PO 04/15/25 22:00 04/16/25 23:29 25 MG Clonidine HCl 0.3 mg TID PO 04/15/25 14:00 04/16/25 23:29 0.3 MG Hydralazine HCl 100 mg BID PO 04/15/25 22:00 Nifedipine 60 mg BID PO 04/16/25 10:00 04/16/25 23:29 60 MG Sevelamer HCl 1,600 mg TIDWM PO 04/15/25 18:00 Furosemide 40 mg DAILY IV 04/16/25 10:00 04/16/25 10:39 40 MG objective GENERAL: The patient is an adult -[place] gentleman who appears to be chronically ill. He is in visible pain. HEENT: Unremarkable. Oral mucosa is pale and dry. LUNGS: Diminished air entry at the bases but no crackles. CARDIOVASCULAR: Regular rate, tachycardia, 2/6 systolic murmur. ABDOMEN: Obese, soft, nontender. No organomegaly. EXTREMITIES: No clubbing, cyanosis, or edema. SKIN: The sacral area was not examined. laboratory and microbiology Laboratory Tests 04/16/25 16:24 04/16/25 10:12 Test 04/16/25 10:12 Range/Units Serum Glucose 109 H 74-106 mg/dL Assessment/Plan ASSESSMENT AND PLAN: * End-stage renal disease. * Anemia of renal disease at target range. * Hypertension. * Diabetes. * Sacral ulcer with associated infection. HD today IV antibiotics Wound care/I.D. and surgical evaluation Increase Epogen dose Continue phosphate binders Dietary Evaluation Review Recommendations by RD: Protein Supplementation Comments: 1) Initiate Isaac @ 1 pk bid 2) Initiate vitamin C @ 500 mg bid and zinc sulfate @ 220 mg qd for 7 days 3) If patient remains NPO > 7 days, consider EN/TPN to meet at least 75% of estimated daily needs 4) Advance to 60g CCHO renal diet when medically feasible 5) Follow-up with cardiology 6) Continue to monitor I&O, labs, and skin integrity Expected Outcomes/Goals: 1) patient to receive nutritional support within 7 days of NPO status 2) labs and wounds to improve 3) diet to advance 4) f/u in 3-5 days Plan discussed with: Patient ELLE COON MD Apr 17, 2025 10:56
[2025-04-17] MEDS ORDERED: MORPHINE SULFATE INJ 2 MG/ml SYRG IV PRN (17:30)
[2025-04-17] MEDS ORDERED: HYDROmorphone HCL 2 MG/ML VL/or syr IV PRN (17:30)
[2025-04-17] MEDS ORDERED: METOCLOPRAMIDE HCL 5MG/ml INJ 2ml VIAL IV PRN (17:30)
[2025-04-17] MEDS: ACCU-CHEK COMFORT CURVE STRIP VI ONE (17:30)
[2025-04-17] MEDS ORDERED: MORPHINE SULFATE 4 MG/ML SYR/VIAL IV PRN (17:30)
[2025-04-17] MEDS ORDERED: LIDOCAINE 1% INJ PF 5ML AMP ONE (18:01)
[2025-04-17] MEDS ORDERED: SODIUM CHLORIDE LOCK 10 ML ONE (18:01)
[2025-04-17] MEDS ORDERED: MIDAZOLAM HCL 2MG/2ML 2ml VIAL (1mg/ml) ONE (18:01)
[2025-04-17] MEDS ORDERED: ONDANSETRON HCL 4 MG/2 ML VIAL ONE (18:01)
[2025-04-17] MEDS ORDERED: KETAMINE 50mg/ML 10ml Vial 10 ML ONE (18:01)
[2025-04-17] MEDS ORDERED: fentaNYL CITRATE 100 MCG/2 ML VL ONE (18:01)
[2025-04-17] MEDS ORDERED: PROPOFOL 10 MG/ML 20 ML IV ONE (18:01)
[2025-04-17] MEDS: BUPIVACAINE HCL 0.25% P/F 10 ML VIAL ONE (20:00)
[2025-04-17] MEDS: HYDROmorphone HCL 2 MG/ML VL/or syr IV PRN (20:38)
[2025-04-17] MEDS: HYDROmorphone HCL 2 MG/ML VL/or syr ONE (20:40)
[2025-04-17] MEDS: KETOROLAC TROMETH 30 MG/ML 1ML VIAL IV ONE (21:22)
--- NOTE | 2025-04-17 23:03 | DVHOP2 ---
Operative Report - 2 Report Details Date: 04/17/25 Preop Diagnosis: Left buttock abscess Postop Diagnosis: Same Surgeon: Adebayo Lemus MD Anesthesiologist: Dr. Dumont Anesthesia: Mac Consent: The patient was informed of the risks and benefits of the procedure. These include but are not limited to complications of anesthesia, postoperative infection, incomplete relief of symptoms, recurrence of symptoms, damage to blood vessels, nerves and tendons, deep venous thrombosis, pulmonary embolism and possible need for repeat surgery in the future. Complications: None Estimated Blood Loss: 5 mL Findings: Left upper buttock abscess with surrounding induration Indications for Surgery: Left buttock abscess that was inappropriately drain at the emergency department Name of Procedure Performed Incision and drainage of the left buttock abscess Procedure Details Procedure Details: Upon arrival to the operating room patient was transferred to the operating table and placed in the right lateral decubitus position. Monitored anesthesia care was established and time-out was observed. Patient was prepped and draped in the standard sterile surgical fashion with Betadine-Betadine. I then proceed ed to inject 0.25% Marcaine as local anesthetic around the upper left buttock wound with draining pus. I then proceeded to extend the previous incision to InCompass the surrounding fluctuant area. Pus immediately started drain from the wound and cultures were taken. I then broke loculations digitally and proceeded to expressed all the pus out of the wound. Once pus was completely evacuated I proceeded to irrigate the wound. I then obtained hemostasis with cautery. I then irrigated the wound. Given that the wound was very oozy despite cautery I decided pack the wound with Surgicel she and dressed with a pressure dressing composed of folded 4 x 4 with overlying ABD pad and tape. All counts complete and correct at the end the procedure. Patient tolerated the procedure well and was transferred to PACU in stable condition. Specimen: Cultures from wound Condition Stable Disposition Still a Patient ADEBAYO SHAW MD Apr 17, 2025 23:03
[2025-04-18] VITALS (8 sets, daily range): BP systolic 117–146; BP diastolic 31–120; PULSE 70–90; RESP 12–17; TEMP 97.5–98.9; O2SAT 95–100
--- NOTE | 2025-04-18 09:43 | DVHPN2 ---
Progress Note - Surgical Date Seen: Apr 18, 2025 Post op day Post op day: 1 Subjective Patient reports: Feels better (Patient feeling better today, some tenderness and soreness to the area) Review of Systems: Deferred Objective Vital signs Vital Sign Date Time Temp Pulse Resp B/P (MAP) Pulse Ox O2 Delivery O2 Flow Rate FiO2 04/18/25 09:00 97.8 75 12 126/78 (94) 100 97.8 04/17/25 20:45 Nasal Cannula 4.0 95 Total Intake and Output 04/17/25 04/17/25 04/18/25 15:00 23:00 07:00 Intake Total 0 ml 0 ml 450 ml Output Total 0 ml Balance 0 ml 0 ml 450 ml Medications Current Medications Medications Dose Ordered Sig/Kevin Route Start Time Stop Time Status Last Admin Dose Admin Clindamycin Phosphate 50 ml @ 50 mls/hr Q8HR IV 04/15/25 10:30 04/18/25 05:41 50 MLS/HR Acetaminophen/ Hydrocodone Bitart 1 tab Q4HP PRN PO 04/15/25 10:30 04/17/25 22:16 1 TAB Ondansetron HCl 4 mg Q4HP PRN IV 04/15/25 10:30 04/16/25 13:32 4 MG Acetaminophen 650 mg Q6HP PRN PO 04/15/25 10:30 04/15/25 11:53 650 MG Morphine Sulfate 2 mg Q4HPRN PRN IV 04/15/25 11:15 04/18/25 01:17 2 MG Alprazolam 0.25 mg DAILY PRN PO 04/15/25 10:30 04/17/25 00:54 0.25 MG Multivit/Ca Carb/ B Cmplx/FA/Prenat 1 tab DAILY PO 04/16/25 10:00 04/16/25 10:39 1 TAB Sertraline HCl 150 mg DAILY PO 04/16/25 10:00 04/17/25 09:45 150 MG Benazepril HCl 40 mg DAILY PO 04/16/25 10:00 Carvedilol 25 mg BID PO 04/15/25 22:00 04/16/25 23:29 25 MG Clonidine HCl 0.3 mg TID PO 04/15/25 14:00 04/16/25 23:29 0.3 MG Hydralazine HCl 100 mg BID PO 04/15/25 22:00 Nifedipine 60 mg BID PO 04/16/25 10:00 04/17/25 22:14 60 MG Sevelamer HCl 1,600 mg TIDWM PO 04/15/25 18:00 Furosemide 40 mg DAILY IV 04/16/25 10:00 04/16/25 10:39 40 MG Laboratory Laboratory Tests 04/16/25 16:24 04/16/25 10:12 Test 04/16/25 10:12 Range/Units Serum Glucose 109 H 74-106 mg/dL Microbiology Date/Time Source Procedure Growth Status 04/16/25 12:22 Nose MRSA Screen - Final Complete 04/15/25 07:36 Blood Blood Culture - Preliminary Resulted Examination: GENERAL:Normal, SKIN:Normal (Left buttock wound approximately 4 cm in length and down to subcutaneous tissue, no necrosis, no crepitus, no pus, no drainage) Labs and/or images reviewed: Labs reviewed by me Problem List/Assessment/Plan Assessment and Plan Mr. Da Silva is a 34-year-old male who presented with a left buttock abscess, he is currently postop day 1 from abscess I and D. patient is doing well today, wound looks good: No necrosis/no crepitus/no pus/no drainage. Patient will not need b.i.d. packing changes. 1. B.i.d. packing changes with 1/4 inch iodoform gauze 2. Dress wound with 4 x 4 gauze ABD pad and tape 3. Patient can shower soap and water is okay to run over wound 4. I will sign off please call with any questions or concerns My Orders My Orders Orders - CRISTOPHER SHAW MD Procedure Category Date Status Time Gram Stain SUMMER 04/17/25 In Process 20:05 Anaerobic Culture SUMMER 04/17/25 In Process 20:05 Routine Bacterial SUMMER 04/17/25 In Process Culture 20:05 Renal DIET 04/17/25 Transmitted Standard(2gna,3gk,Lopho) Dinner Plan discussed with Plan discussed with: Patient Visit Coding Surgery Date of Service if different f: Apr 18, 2025 Billing Provider: CRISTOPHER SHAW MD Surgery Visit Codes: [id number] INP/OBS CARE(HIGH) CRISTOPHER SHAW MD Apr 18, 2025 09:43
[2025-04-18] MEDS: diphenhdrAMINE HCL 50 MG/1 ML VL IV ONE (09:53)
--- NOTE | 2025-04-18 10:04 | DVHPN2 ---
Reviewed: Care Plan Changes from previous H/P or p: No Changes Musculoskeletal: back pain Objective Vitals Vital Signs Date Time Temp Pulse Resp B/P (MAP) Pulse Ox O2 Delivery O2 Flow Rate FiO2 04/18/25 09:00 97.8 75 12 126/78 (94) 100 97.8 04/17/25 20:45 Nasal Cannula 4.0 95 Intake/Output Intake and Output 04/18/25 07:00 Intake Total 450 ml Output Total 0 ml Balance 450 ml Intake Oral 400 ml IV Total 50 ml Output Urine Total 0 ml Medications Current Medications Medications Dose Ordered Sig/Kevin Route Start Time Stop Time Status Last Admin Dose Admin Clindamycin Phosphate 50 ml @ 50 mls/hr Q8HR IV 04/15/25 10:30 04/18/25 05:41 50 MLS/HR Acetaminophen/ Hydrocodone Bitart 1 tab Q4HP PRN PO 04/15/25 10:30 04/17/25 22:16 1 TAB Ondansetron HCl 4 mg Q4HP PRN IV 04/15/25 10:30 04/16/25 13:32 4 MG Acetaminophen 650 mg Q6HP PRN PO 04/15/25 10:30 04/15/25 11:53 650 MG Morphine Sulfate 2 mg Q4HPRN PRN IV 04/15/25 11:15 04/18/25 01:17 2 MG Alprazolam 0.25 mg DAILY PRN PO 04/15/25 10:30 04/17/25 00:54 0.25 MG Multivit/Ca Carb/ B Cmplx/FA/Prenat 1 tab DAILY PO 04/16/25 10:00 04/16/25 10:39 1 TAB Sertraline HCl 150 mg DAILY PO 04/16/25 10:00 04/17/25 09:45 150 MG Benazepril HCl 40 mg DAILY PO 04/16/25 10:00 Carvedilol 25 mg BID PO 04/15/25 22:00 04/16/25 23:29 25 MG Clonidine HCl 0.3 mg TID PO 04/15/25 14:00 04/16/25 23:29 0.3 MG Hydralazine HCl 100 mg BID PO 04/15/25 22:00 Nifedipine 60 mg BID PO 04/16/25 10:00 04/17/25 22:14 60 MG Sevelamer HCl 1,600 mg TIDWM PO 04/15/25 18:00 Furosemide 40 mg DAILY IV 04/16/25 10:00 04/16/25 10:39 40 MG Laboratory Results Laboratory Tests 04/16/25 10:12 04/16/25 16:24 Microbiology Microbiology Date/Time Source Procedure Growth Status 04/16/25 12:22 Nose MRSA Screen - Final Complete 04/15/25 07:36 Blood Blood Culture - Preliminary Resulted Labs and/or images reviewed: Labs reviewed by me, Image(s) reviewed by me Assessment/Plan Assessment/Plan Sepsis secondary to left buttock abscess Status post Incision and drainage of the left buttock abscess by Dr. Ferguson on 04-17-25 Bacteremia with Gram-positive cocci in clusters: Final sensitivity pending, continue Clindamycin Acute hypoxic respiratory failure on oxygen Hyperkalemia CHF Marijuana use Diabetes Hypertension History of right and left toe amputation ESRD on hemodialysis Sunday, consult by Dr. Vasquez appreciated Time spent 65 minutes Advanced care planning time 20 minutes Patient is full code Use of THC Plan discussed with: Patient Date of Service: Apr 18, 2025 Billing Provider: JAMIL JURADO MD Common Visit Codes: [id number] DISCH DAY <30MIN JAMIL JURADO MD Apr 18, 2025 10:04
--- NOTE | 2025-04-18 12:08 | DVHPN2 ---
Progress Note - Dictate Date Seen: Apr 18, 2025 Has the PT tested + for MRSA If YES, has PT been informed?: No Medical Necessity Reason Pt with a Central, PICC or Fol: No Subjective No new complaints vital signs Vital Sign Date Time Temp Pulse Resp B/P (MAP) Pulse Ox O2 Delivery O2 Flow Rate FiO2 04/18/25 11:43 89 19 111/82 04/18/25 09:00 97.8 100 97.8 04/17/25 20:45 Nasal Cannula 4.0 95 Total Intake and Output 04/17/25 04/17/25 04/18/25 15:00 23:00 07:00 Intake Total 0 ml 0 ml 450 ml Output Total 0 ml Balance 0 ml 0 ml 450 ml medications Current Medications Medications Dose Ordered Sig/Kevin Route Start Time Stop Time Status Last Admin Dose Admin Clindamycin Phosphate 50 ml @ 50 mls/hr Q8HR IV 04/15/25 10:30 04/18/25 05:41 50 MLS/HR Acetaminophen/ Hydrocodone Bitart 1 tab Q4HP PRN PO 04/15/25 10:30 04/17/25 22:16 1 TAB Ondansetron HCl 4 mg Q4HP PRN IV 04/15/25 10:30 04/16/25 13:32 4 MG Acetaminophen 650 mg Q6HP PRN PO 04/15/25 10:30 04/15/25 11:53 650 MG Morphine Sulfate 2 mg Q4HPRN PRN IV 04/15/25 11:15 04/18/25 11:43 2 MG Alprazolam 0.25 mg DAILY PRN PO 04/15/25 10:30 04/17/25 00:54 0.25 MG Multivit/Ca Carb/ B Cmplx/FA/Prenat 1 tab DAILY PO 04/16/25 10:00 04/16/25 10:39 1 TAB Sertraline HCl 150 mg DAILY PO 04/16/25 10:00 04/17/25 09:45 150 MG Benazepril HCl 40 mg DAILY PO 04/16/25 10:00 Carvedilol 25 mg BID PO 04/15/25 22:00 04/16/25 23:29 25 MG Clonidine HCl 0.3 mg TID PO 04/15/25 14:00 04/16/25 23:29 0.3 MG Hydralazine HCl 100 mg BID PO 04/15/25 22:00 Nifedipine 60 mg BID PO 04/16/25 10:00 04/17/25 22:14 60 MG Sevelamer HCl 1,600 mg TIDWM PO 04/15/25 18:00 Furosemide 40 mg DAILY IV 04/16/25 10:00 04/16/25 10:39 40 MG objective GENERAL: The patient is an adult -Emir[place] gentleman who appears to be chronically ill. He is in visible pain. HEENT: Unremarkable. Oral mucosa is pale and dry. LUNGS: Diminished air entry at the bases but no crackles. CARDIOVASCULAR: Regular rate, tachycardia, 2/6 systolic murmur. ABDOMEN: Obese, soft, nontender. No organomegaly. EXTREMITIES: No clubbing, cyanosis, or edema. SKIN: The sacral area was not examined. He has a left buttock abscess laboratory and microbiology Laboratory Tests 04/16/25 16:24 04/16/25 10:12 Test 04/16/25 10:12 Range/Units Serum Glucose 109 H 74-106 mg/dL Assessment/Plan ASSESSMENT AND PLAN: * End-stage renal disease. * Anemia of renal disease at target range. * Hypertension. * Diabetes. * Left buttock abscess s/p drainage. HD on MWF schedule IV antibiotics Wound care/I.D. and surgical evaluation Increase Epogen dose Continue phosphate binders Dietary Evaluation Review Recommendations by RD: Protein Supplementation Comments: 1) Initiate Isaac @ 1 pk bid 2) Initiate vitamin C @ 500 mg bid and zinc sulfate @ 220 mg qd for 7 days 3) If patient remains NPO > 7 days, consider EN/TPN to meet at least 75% of estimated daily needs 4) Advance to 60g CCHO renal diet when medically feasible 5) Follow-up with cardiology 6) Continue to monitor I&O, labs, and skin integrity Expected Outcomes/Goals: 1) patient to receive nutritional support within 7 days of NPO status 2) labs and wounds to improve 3) diet to advance 4) f/u in 3-5 days Plan discussed with: Patient ELLE COON MD Apr 18, 2025 12:08
[2025-04-18] MEDS: EPOETIN ALFA-EPBX 4,000 UNIT/ML VIAL SC ONE (14:34)
--- NOTE | 2025-04-18 15:11 | DVHINCON2 ---
Date of Service if different f: Apr 18, 2025 Consultation ([facility]) Consulting Physician: SUSHILA LOAIZA MD Progress: Somewhat better Labs Laboratory Tests Test 04/15/25 07:36 04/16/25 10:12 04/16/25 16:24 04/17/25 17:07 Lactic Acid Level 1.2 mmol/L (0.4-2.0) B-Type Natriuretic Peptide 1787.34 pg/mL (0-100) Hepatitis B Surface Antigen Negative (Negative) Sodium Level 140 mmol/L (136-145) Potassium Level 4.4 mmol/L (3.5-5.1) Chloride Level 96 mmol/L (98-107) Carbon Dioxide Level 30 mmol/L (20-31) Anion Gap 14 (5-15) Blood Urea Nitrogen 54 mg/dL (9-23) Creatinine 9.12 mg/dL (0.700-1.30) Glomerular Filtration Rate Calc 7 mL/min (>90) BUN/Creatinine Ratio 5.9 (10.0-20.0) Serum Glucose 109 mg/dL (74-106) Calcium Level 8.8 mg/dL (8.7-10.4) Total Bilirubin 0.5 mg/dL (0.2-1.0) Aspartate Amino Transf (AST/SGOT) 11 U/L (13-40) Alanine Aminotransferase (ALT/SGPT) 13 U/L (7-40) Alkaline Phosphatase 80 U/L (46-116) Total Protein 6.9 g/dL (5.7-8.2) Albumin 3.3 g/dL (3.2-4.8) White Blood Count 9.8 10^3/uL (4.4-10.8) Red Blood Count 4.36 10^6/uL (4.5-5.90) Hemoglobin 10.7 g/dL (13.5-17.5) Hematocrit 32.4 % (41.0-53.0) Mean Corpuscular Volume 74.2 fL (80.0-100.0) Mean Corpuscular Hemoglobin 24.5 pg (28.0-32.0) Mean Corpuscular Hemoglobin Concent 33.0 g/dL (32.0-36.0) Red Cell Distribution Width 19.0 % (11.8-14.3) Platelet Count 190 10^3/uL (140-450) Mean Platelet Volume 7.6 fL (6.9-10.8) Neutrophils (%) (Auto) 82.9 % (37.0-80.0) Lymphocytes (%) (Auto) 3.7 % (10.0-50.0) Monocytes (%) (Auto) 11.4 % (0.0-12.0) Eosinophils (%) (Auto) 1.3 % (0.0-7.0) Basophils (%) (Auto) 0.7 % (0.0-2.0) Neutrophils # (Auto) 8.2 10 ^3/uL (1.6-8.6) Lymphocytes # (Auto) 0.4 10 ^3/uL (0.4-5.4) Monocytes # (Auto) 1.1 10 ^3/uL (0-1.3) Eosinophils # (Auto) 0.1 10 ^3/uL (0-0.8) Basophils # (Auto) 0.1 10 ^3/uL (0-0.2) Nucleated Red Blood Cells 0.0 % Bedside Glucose 86 mg/dl (70-106) Microbiology Date/Time Source Procedure Growth Status 04/17/25 20:36 Buttock Left Gram Stain Pending Resulted 04/17/25 20:36 Buttock Left Anaerobic Culture Pending Resulted 04/17/25 20:36 Buttock Left Aerobic Culture - Preliminary Resulted 04/15/25 07:36 Blood Blood Culture - Preliminary Resulted Appetite: Fair Appearance: Older than stated age Psychomotor activity: WNL Behavioral: Cooperative Eye contact: Appropriate Speech: WNL Affect: Mood Congruent Mood: Depressed Thought processes: Linear/Goal-directed Thought content: WNL Suicidal ideations: Absent Homicidal ideations: Absent Orientation: Person, Place, Time, Situation Memory intact: Recent Intellect: Average Abstractability: WNL Concentration: Adequate Attention: Adequate Judgement: WNL Insight: Good Vitals Vital Signs Date Time Temp Pulse Resp B/P (MAP) Pulse Ox O2 Delivery O2 Flow Rate FiO2 04/18/25 12:51 98.5 85 12 141/58 (85) 100 98.5 04/17/25 20:45 Nasal Cannula 4.0 95 Current medications Current Medications Medications Dose Ordered Sig/Kevin Route Start Time Stop Time Status Last Admin Dose Admin Clindamycin Phosphate 50 ml @ 50 mls/hr Q8HR IV 04/15/25 10:30 04/18/25 13:29 50 MLS/HR Acetaminophen/ Hydrocodone Bitart 1 tab Q4HP PRN PO 04/15/25 10:30 04/18/25 12:27 1 TAB Ondansetron HCl 4 mg Q4HP PRN IV 04/15/25 10:30 04/16/25 13:32 4 MG Acetaminophen 650 mg Q6HP PRN PO 04/15/25 10:30 04/15/25 11:53 650 MG Morphine Sulfate 2 mg Q4HPRN PRN IV 04/15/25 11:15 04/18/25 11:43 2 MG Alprazolam 0.25 mg DAILY PRN PO 04/15/25 10:30 04/17/25 00:54 0.25 MG Multivit/Ca Carb/ B Cmplx/FA/Prenat 1 tab DAILY PO 04/16/25 10:00 04/18/25 12:14 1 TAB Sertraline HCl 150 mg DAILY PO 04/16/25 10:00 04/18/25 12:14 150 MG Benazepril HCl 40 mg DAILY PO 04/16/25 10:00 Carvedilol 25 mg BID PO 04/15/25 22:00 04/16/25 23:29 25 MG Clonidine HCl 0.3 mg TID PO 04/15/25 14:00 04/16/25 23:29 0.3 MG Hydralazine HCl 100 mg BID PO 04/15/25 22:00 Nifedipine 60 mg BID PO 04/16/25 10:00 04/17/25 22:14 60 MG Sevelamer HCl 1,600 mg TIDWM PO 04/15/25 18:00 04/18/25 12:13 1,600 MG Furosemide 40 mg DAILY IV 04/16/25 10:00 04/16/25 10:39 40 MG Treatment plan discussed: Family Medication adjusted: Yes Labs ordered: No Psychotherapy provided: Yes Type: Voluntary Diagnosis: F33.2 Plan : Pt has history of MDD when he was younger and his loved ones but that resolved. The pt has been having health problems for a very long time now and this has caused him to feel depressed again. Zoloft helped in the past and pt is agreeable to starting it again. Regarding feeling suicidal, pt denies SI, HI or AVH and asserts that he said that he wanted to in the moment b/c everything seemed hopeless for a bit. He felt better after a few hours. Pt cites protection factors as family connections (Father who was by his bed-side) and children. Pt has very few physical supports at home, but brother helps out. Pt otherwise lives by himself. Please consider starting Zoloft at 25 mg q am and titrating with renal dosing recommendations per automotive glass specialist. Pt is a low risk for DTS and does not seem to require ongoing sitter. Pt also does not seem to require inpatient psychiatric treatment nor 5150. History of Present Illness Reason for Consult : SI. HPI : Pt is admitted for missed dialysis and sacral ulcer along with left gluteal abscess. Pt said he wanted to because his was cheating on him 2 nights ago. Right now, the pt says that he has much to live for, he has kids and people who love him. Pt has T1D, has been this way since age 12. Pt has a walker and has difficulty ambulating. Pt's kidney failure is elated to his HTN, stopped taking his HTN meds despite doctor's advice. Pt stopped taking his meds when his mother and grandfather in 2006. He became depressed. Pt says that 2 nights ago he was ruminating about all his health issues, his GF likely cheating on him was causing him to feel that way but he does not feel that way anymore. He felt that way temporarily. Pt feels depressed and wants an antidepressant. Past Psychiatric History : Pt was on zoloft 100 mg years ago when he was 17 y/o. It helped with the depression. Past Medical History : Multiple med problems including HTN, ESRD, Diabetes, sacral ulcer and an abscess on his buttock from a spider bite. Social History : Kids live with their mother in [place]. Pt lives by himself and his little brother stays with him to help out. Pt gets SSI. Pt uses cannabis - smoked, denies any other drug or alcohol use. Assessment/Diagnosis/Plan Reviewed: Care Plan SUSHILA LOAIZA MD Apr 18, 2025 15:11
[2025-04-18] MEDS: HYDROmorphone HCL 2 MG/ML VL/or syr IV PRN (16:19)
[2025-04-19] VITALS (8 sets, daily range): BP systolic 126–159; BP diastolic 80–108; PULSE 69–87; RESP 14–20; TEMP 97.6–98.9; O2SAT 93–99
--- NOTE | 2025-04-19 10:49 | DVHPN2 ---
Reviewed: Care Plan Changes from previous H/P or p: No Changes Musculoskeletal: back pain Objective Vitals Vital Signs Date Time Temp Pulse Resp B/P (MAP) Pulse Ox O2 Delivery O2 Flow Rate FiO2 04/19/25 08:30 97.8 83 19 159/89 (112) 97 97.8 04/18/25 20:00 Room Air* 0 21 Intake/Output Intake and Output 04/19/25 07:00 Intake Total 2000 ml Output Total 0 ml Balance 2000 ml Intake Oral 1900 ml IV Total 100 ml Output Urine Total 0 ml Medications Current Medications Medications Dose Ordered Sig/Kevin Route Start Time Stop Time Status Last Admin Dose Admin Clindamycin Phosphate 50 ml @ 50 mls/hr Q8HR IV 04/15/25 10:30 04/19/25 06:56 50 MLS/HR Acetaminophen/ Hydrocodone Bitart 1 tab Q4HP PRN PO 04/15/25 10:30 04/18/25 12:27 1 TAB Ondansetron HCl 4 mg Q4HP PRN IV 04/15/25 10:30 04/19/25 09:54 4 MG Acetaminophen 650 mg Q6HP PRN PO 04/15/25 10:30 04/15/25 11:53 650 MG Alprazolam 0.25 mg DAILY PRN PO 04/15/25 10:30 04/18/25 17:46 0.25 MG Multivit/Ca Carb/ B Cmplx/FA/Prenat 1 tab DAILY PO 04/16/25 10:00 04/19/25 09:20 1 TAB Sertraline HCl 150 mg DAILY PO 04/16/25 10:00 04/19/25 09:21 150 MG Benazepril HCl 40 mg DAILY PO 04/16/25 10:00 Carvedilol 25 mg BID PO 04/15/25 22:00 04/16/25 23:29 25 MG Clonidine HCl 0.3 mg TID PO 04/15/25 14:00 04/16/25 23:29 0.3 MG Hydralazine HCl 100 mg BID PO 04/15/25 22:00 Nifedipine 60 mg BID PO 04/16/25 10:00 04/17/25 22:14 60 MG Sevelamer HCl 1,600 mg TIDWM PO 04/15/25 18:00 04/19/25 09:21 1,600 MG Furosemide 40 mg DAILY IV 04/16/25 10:00 04/16/25 10:39 40 MG Hydromorphone HCl 0.5 mg Q4HPRN PRN IV 04/18/25 16:00 04/19/25 06:22 0.5 MG Laboratory Results Laboratory Tests 04/16/25 10:12 04/16/25 16:24 Microbiology Microbiology Date/Time Source Procedure Growth Status 04/17/25 20:36 Buttock Left Gram Stain Pending Resulted 04/17/25 20:36 Buttock Left Anaerobic Culture Pending Resulted 04/17/25 20:36 Buttock Left Aerobic Culture - Preliminary Resulted 04/15/25 07:36 Blood Blood Culture - Preliminary Resulted Labs and/or images reviewed: Labs reviewed by me, Image(s) reviewed by me Assessment/Plan Assessment/Plan Sepsis secondary to left buttock abscess Status post Incision and drainage of the left buttock abscess by Dr. Ferguson on 04-17-25 Bacteremia with Gram-positive cocci in clusters: Final sensitivity pending, continue Clindamycin Acute hypoxic respiratory failure on oxygen Hyperkalemia CHF Marijuana use Diabetes Hypertension History of right and left toe amputation ESRD on hemodialysis Sunday, consult by Dr. Vasquez appreciated Major depressive disorder: Tele psych consult by Dr. Gorman appreciated, no [id number] advised Zoloft , the patient already on Zoloft Time spent 65 minutes Advanced care planning time 20 minutes Patient is full code Use of THC Father Danial [phone] bedside Patient lives in an apartment. Plan discussed with: Patient My Orders Orders - JAMIL JURADO MD Procedure Category Date Status Time Hydromorphone PHA 04/18/25 In Process Injection (Dilaudid 16:00 Date of Service: Apr 19, 2025 Billing Provider: JAMIL JURADO MD Common Visit Codes: [id number] INP/OBS CARE(HIGH) JAMIL JURADO MD Apr 19, 2025 10:49
--- NOTE | 2025-04-19 11:19 | DVHPN2 ---
Progress Note - Dictate Date Seen: Apr 19, 2025 Has the PT tested + for MRSA If YES, has PT been informed?: No Medical Necessity Reason Pt with a Central, PICC or Fol: No Subjective No new complaints vital signs Vital Sign Date Time Temp Pulse Resp B/P (MAP) Pulse Ox O2 Delivery O2 Flow Rate FiO2 04/19/25 08:30 97.8 83 19 159/89 (112) 97 97.8 04/18/25 20:00 Room Air* 0 21 Total Intake and Output 04/18/25 04/18/25 04/19/25 15:00 23:00 07:00 Intake Total 500 ml 1000 ml 500 ml Output Total 0 ml Balance 500 ml 1000 ml 500 ml medications Current Medications Medications Dose Ordered Sig/Kevin Route Start Time Stop Time Status Last Admin Dose Admin Clindamycin Phosphate 50 ml @ 50 mls/hr Q8HR IV 04/15/25 10:30 04/19/25 06:56 50 MLS/HR Acetaminophen/ Hydrocodone Bitart 1 tab Q4HP PRN PO 04/15/25 10:30 04/18/25 12:27 1 TAB Ondansetron HCl 4 mg Q4HP PRN IV 04/15/25 10:30 04/19/25 09:54 4 MG Acetaminophen 650 mg Q6HP PRN PO 04/15/25 10:30 04/15/25 11:53 650 MG Alprazolam 0.25 mg DAILY PRN PO 04/15/25 10:30 04/18/25 17:46 0.25 MG Multivit/Ca Carb/ B Cmplx/FA/Prenat 1 tab DAILY PO 04/16/25 10:00 04/19/25 09:20 1 TAB Sertraline HCl 150 mg DAILY PO 04/16/25 10:00 04/19/25 09:21 150 MG Benazepril HCl 40 mg DAILY PO 04/16/25 10:00 Carvedilol 25 mg BID PO 04/15/25 22:00 04/16/25 23:29 25 MG Clonidine HCl 0.3 mg TID PO 04/15/25 14:00 04/16/25 23:29 0.3 MG Hydralazine HCl 100 mg BID PO 04/15/25 22:00 Nifedipine 60 mg BID PO 04/16/25 10:00 04/17/25 22:14 60 MG Sevelamer HCl 1,600 mg TIDWM PO 04/15/25 18:00 04/19/25 09:21 1,600 MG Furosemide 40 mg DAILY IV 04/16/25 10:00 04/16/25 10:39 40 MG Hydromorphone HCl 0.5 mg Q4HPRN PRN IV 04/18/25 16:00 04/19/25 06:22 0.5 MG Diphenhydramine HCl 25 mg Q8HR IV 04/19/25 14:00 objective GENERAL: The patient is an adult -[place] Island[place] gentleman who appears to be chronically ill. He is in visible pain. HEENT: Unremarkable. Oral mucosa is pale and dry. LUNGS: Diminished air entry at the bases but no crackles. CARDIOVASCULAR: Regular rate, tachycardia, 2/6 systolic murmur. ABDOMEN: Obese, soft, nontender. No organomegaly. EXTREMITIES: No clubbing, cyanosis, or edema. SKIN: The sacral area was not examined. He has a left buttock abscess laboratory and microbiology Laboratory Tests 04/16/25 16:24 04/16/25 10:12 Test 04/16/25 10:12 Range/Units Serum Glucose 109 H 74-106 mg/dL Assessment/Plan ASSESSMENT AND PLAN: * End-stage renal disease. * Anemia of renal disease, Hb at target range. * Hypertension. * Diabetes. * Left buttock abscess s/p drainage. HD on MWF schedule IV antibiotics Wound care/I.D. and surgical evaluation Increase Epogen dose Continue phosphate binders Dietary Evaluation Review Recommendations by RD: Protein Supplementation Comments: 1) Initiate Isaac @ 1 pk bid 2) Initiate vitamin C @ 500 mg bid and zinc sulfate @ 220 mg qd for 7 days 3) If patient remains NPO > 7 days, consider EN/TPN to meet at least 75% of estimated daily needs 4) Advance to 60g CCHO renal diet when medically feasible 5) Follow-up with cardiology 6) Continue to monitor I&O, labs, and skin integrity Expected Outcomes/Goals: 1) patient to receive nutritional support within 7 days of NPO status 2) labs and wounds to improve 3) diet to advance 4) f/u in 3-5 days Plan discussed with: Patient ELLE COON MD Apr 19, 2025 11:19
[2025-04-19] MEDS: diphenhdrAMINE HCL 50 MG/1 ML VL IV SCH (12:54)
[2025-04-20] VITALS (10 sets, daily range): BP systolic 113–178; BP diastolic 67–102; PULSE 73–89; RESP 16–20; TEMP 97.9–98.6; O2SAT 93–100
[2025-04-20] MEDS: hydrALAZINE HCL 20 MG/ML VL IV PRN (02:15)
[2025-04-20] MEDS: SODIUM CHL 0.9% 1000 ML BAG XX ONE (07:00)
--- NOTE | 2025-04-20 10:35 | MEDREC ---
[facility] Intervention Section I [facility] Intervention: Review courses of therapy (PLEASE CONSIDER REVIEWING COURSE OF THERAPY ACCORDING TO CULTURE RESULTS ) KOKO THIBODEAUX PHARMACIST Apr 20, 2025 10:35
--- NOTE | 2025-04-20 12:00 | DVHPN2 ---
Reviewed: Care Plan Changes from previous H/P or p: No Changes Musculoskeletal: back pain Objective Vitals Vital Signs Date Time Temp Pulse Resp B/P (MAP) Pulse Ox O2 Delivery O2 Flow Rate FiO2 04/20/25 11:11 144/80 04/20/25 10:57 80 17 04/20/25 09:17 97 04/20/25 05:00 98.6 98.6 04/19/25 20:00 Room Air* 0 21 Intake/Output Intake and Output 04/20/25 07:00 Intake Total 1000 ml Balance 1000 ml Intake Oral 850 ml IV Total 150 ml Medications Current Medications Medications Dose Ordered Sig/Kevin Route Start Time Stop Time Status Last Admin Dose Admin Clindamycin Phosphate 50 ml @ 50 mls/hr Q8HR IV 04/15/25 10:30 04/19/25 21:20 50 MLS/HR Acetaminophen/ Hydrocodone Bitart 1 tab Q4HP PRN PO 04/15/25 10:30 04/18/25 12:27 1 TAB Ondansetron HCl 4 mg Q4HP PRN IV 04/15/25 10:30 04/20/25 10:55 4 MG Acetaminophen 650 mg Q6HP PRN PO 04/15/25 10:30 04/15/25 11:53 650 MG Alprazolam 0.25 mg DAILY PRN PO 04/15/25 10:30 04/18/25 17:46 0.25 MG Multivit/Ca Carb/ B Cmplx/FA/Prenat 1 tab DAILY PO 04/16/25 10:00 04/19/25 09:20 1 TAB Sertraline HCl 150 mg DAILY PO 04/16/25 10:00 04/20/25 11:02 150 MG Benazepril HCl 40 mg DAILY PO 04/16/25 10:00 Carvedilol 25 mg BID PO 04/15/25 22:00 04/16/25 23:29 25 MG Clonidine HCl 0.3 mg TID PO 04/15/25 14:00 04/16/25 23:29 0.3 MG Hydralazine HCl 100 mg BID PO 04/15/25 22:00 Nifedipine 60 mg BID PO 04/16/25 10:00 04/17/25 22:14 60 MG Sevelamer HCl 1,600 mg TIDWM PO 04/15/25 18:00 04/19/25 17:50 1,600 MG Furosemide 40 mg DAILY IV 04/16/25 10:00 04/20/25 11:11 40 MG Hydromorphone HCl 0.5 mg Q4HPRN PRN IV 04/18/25 16:00 04/20/25 10:57 0.5 MG Diphenhydramine HCl 25 mg Q8HR IV 04/19/25 14:00 04/20/25 05:27 25 MG Hydralazine HCl 10 mg Q6HP PRN IV 04/20/25 02:00 04/20/25 02:15 10 MG Laboratory Results Laboratory Tests 04/16/25 10:12 04/16/25 16:24 Microbiology Microbiology Date/Time Source Procedure Growth Status 04/17/25 20:36 Buttock Left Gram Stain Pending Resulted 04/17/25 20:36 Buttock Left Anaerobic Culture - Preliminary Resulted 04/17/25 20:36 Buttock Left Aerobic Culture - Preliminary Resulted 04/15/25 07:36 Blood Blood Culture - Preliminary Resulted Labs and/or images reviewed: Labs reviewed by me, Image(s) reviewed by me Assessment/Plan Assessment/Plan Sepsis secondary to left buttock abscess Status post Incision and drainage of the left buttock abscess by Dr. Ferguson on 04-17-25; wound cultures growing E coli: Clindamycin discontinued started on Rocephin Acute hypoxic respiratory failure on oxygen Hyperkalemia CHF Marijuana use Diabetes Hypertension History of right and left toe amputation ESRD on hemodialysis Sunday, consult by Dr. Vasquez appreciated Major depressive disorder: Tele psych consult by Dr. Gorman appreciated, no [phone] advised Zoloft , the patient already on Zoloft Time spent 65 minutes Advanced care planning time 20 minutes Patient is full code Use of THC Father Rezinald [phone] bedside Patient lives in an apartment. Plan discussed with: Patient Date of Service: Apr 20, 2025 Billing Provider: JAMIL JURADO MD Common Visit Codes: [id number] INP/OBS CARE(HIGH) JAMIL JURADO MD Apr 20, 2025 12:00
--- NOTE | 2025-04-20 17:43 | DVHPN2 ---
Progress Note - Dictate Date Seen: Apr 20, 2025 Has the PT tested + for MRSA If YES, has PT been informed?: No Medical Necessity Reason Pt with a Central, PICC or Fol: No Subjective Complains of pain vital signs Vital Sign Date Time Temp Pulse Resp B/P (MAP) Pulse Ox O2 Delivery O2 Flow Rate FiO2 04/20/25 17:06 89 18 161/101 04/20/25 17:00 98.3 96 98.3 04/20/25 08:00 Room Air* 0 21 Total Intake and Output 04/19/25 04/19/25 04/20/25 15:00 23:00 07:00 Intake Total 100 ml 900 ml 0 ml Balance 100 ml 900 ml 0 ml medications Current Medications Medications Dose Ordered Sig/Kevin Route Start Time Stop Time Status Last Admin Dose Admin Acetaminophen/ Hydrocodone Bitart 1 tab Q4HP PRN PO 04/15/25 10:30 04/18/25 12:27 1 TAB Ondansetron HCl 4 mg Q4HP PRN IV 04/15/25 10:30 04/20/25 17:06 4 MG Acetaminophen 650 mg Q6HP PRN PO 04/15/25 10:30 04/15/25 11:53 650 MG Alprazolam 0.25 mg DAILY PRN PO 04/15/25 10:30 04/20/25 17:14 0.25 MG Multivit/Ca Carb/ B Cmplx/FA/Prenat 1 tab DAILY PO 04/16/25 10:00 04/19/25 09:20 1 TAB Sertraline HCl 150 mg DAILY PO 04/16/25 10:00 04/20/25 11:02 150 MG Benazepril HCl 40 mg DAILY PO 04/16/25 10:00 Carvedilol 25 mg BID PO 04/15/25 22:00 04/16/25 23:29 25 MG Clonidine HCl 0.3 mg TID PO 04/15/25 14:00 04/20/25 12:40 0.3 MG Hydralazine HCl 100 mg BID PO 04/15/25 22:00 Nifedipine 60 mg BID PO 04/16/25 10:00 04/17/25 22:14 60 MG Sevelamer HCl 1,600 mg TIDWM PO 04/15/25 18:00 04/20/25 12:40 1,600 MG Furosemide 40 mg DAILY IV 04/16/25 10:00 04/20/25 11:11 40 MG Hydromorphone HCl 0.5 mg Q4HPRN PRN IV 04/18/25 16:00 04/20/25 17:06 0.5 MG Diphenhydramine HCl 25 mg Q8HR IV 04/19/25 14:00 04/20/25 13:02 25 MG Hydralazine HCl 10 mg Q6HP PRN IV 04/20/25 02:00 04/20/25 02:15 10 MG Ceftriaxone Sodium 50 ml @ 100 mls/hr DAILY@09 IV 04/21/25 09:00 objective GENERAL: The patient is an adult -[place] gentleman who appears to be chronically ill. He is in visible pain. HEENT: Unremarkable. Oral mucosa is pale and dry. LUNGS: Diminished air entry at the bases but no crackles. CARDIOVASCULAR: Regular rate, tachycardia, 2/6 systolic murmur. ABDOMEN: Obese, soft, nontender. No organomegaly. EXTREMITIES: No clubbing, cyanosis, or edema. SKIN: The sacral area was not examined. He has a left buttock abscess laboratory and microbiology Laboratory Tests 04/16/25 16:24 04/16/25 10:12 Test 04/16/25 10:12 Range/Units Serum Glucose 109 H 74-106 mg/dL Assessment/Plan ASSESSMENT: End-stage renal disease. Anemia of renal disease Hypertension. Diabetes. Left buttock abscess s/p drainage. Hyperphosphatemia Secondary hyperparathyroidism Plan: s/p HD today (net UF 2L) Next HD Sunday Continue HD on MWF schedule Pain control IV antibiotics Wound care/I.D. and surgical evaluation Epogen post HD as needed. goal Hb: 10-11 g/dl Continue phosphate binders Dietary Evaluation Review Recommendations by RD: Protein Supplementation Comments: 1) Initiate Isaac @ 1 pk bid 2) Initiate vitamin C @ 500 mg bid and zinc sulfate @ 220 mg qd for 7 days 3) If patient remains NPO > 7 days, consider EN/TPN to meet at least 75% of estimated daily needs 4) Advance to 60g CCHO renal diet when medically feasible 5) Follow-up with cardiology 6) Continue to monitor I&O, labs, and skin integrity Expected Outcomes/Goals: 1) patient to receive nutritional support within 7 days of NPO status 2) labs and wounds to improve 3) diet to advance 4) f/u in 3-5 days Plan discussed with: Patient KERRY FORD MD Apr 20, 2025 17:43
[2025-04-21] VITALS (9 sets, daily range): BP systolic 110–161; BP diastolic 73–102; PULSE 76–95; RESP 17–19; TEMP 97.3–99.1; O2SAT 93–100
--- NOTE | 2025-04-21 10:25 | DVHPN2 ---
Reviewed: Care Plan Changes from previous H/P or p: No Changes Musculoskeletal: back pain Objective Vitals Vital Signs Date Time Temp Pulse Resp B/P (MAP) Pulse Ox O2 Delivery O2 Flow Rate FiO2 04/21/25 08:42 94 18 161/102 04/21/25 05:00 97.3 100 97.3 04/20/25 20:00 Room Air* 0 21 Intake/Output Intake and Output 04/21/25 07:00 Intake Total 1500 ml Output Total 0 ml Balance 1500 ml Intake Oral 1500 ml Output Urine Total 0 ml Medications Current Medications Medications Dose Ordered Sig/Kevin Route Start Time Stop Time Status Last Admin Dose Admin Acetaminophen/ Hydrocodone Bitart 1 tab Q4HP PRN PO 04/15/25 10:30 04/18/25 12:27 1 TAB Ondansetron HCl 4 mg Q4HP PRN IV 04/15/25 10:30 04/21/25 08:42 4 MG Acetaminophen 650 mg Q6HP PRN PO 04/15/25 10:30 04/15/25 11:53 650 MG Alprazolam 0.25 mg DAILY PRN PO 04/15/25 10:30 04/20/25 17:14 0.25 MG Multivit/Ca Carb/ B Cmplx/FA/Prenat 1 tab DAILY PO 04/16/25 10:00 04/19/25 09:20 1 TAB Sertraline HCl 150 mg DAILY PO 04/16/25 10:00 04/20/25 11:02 150 MG Benazepril HCl 40 mg DAILY PO 04/16/25 10:00 Carvedilol 25 mg BID PO 04/15/25 22:00 04/16/25 23:29 25 MG Clonidine HCl 0.3 mg TID PO 04/15/25 14:00 04/20/25 12:40 0.3 MG Hydralazine HCl 100 mg BID PO 04/15/25 22:00 Nifedipine 60 mg BID PO 04/16/25 10:00 04/17/25 22:14 60 MG Sevelamer HCl 1,600 mg TIDWM PO 04/15/25 18:00 04/21/25 08:41 1,600 MG Furosemide 40 mg DAILY IV 04/16/25 10:00 04/20/25 11:11 40 MG Hydromorphone HCl 0.5 mg Q4HPRN PRN IV 10/4/25 16:00 04/21/25 08:42 0.5 MG Diphenhydramine HCl 25 mg Q8HR IV 04/19/25 14:00 04/21/25 05:36 25 MG Hydralazine HCl 10 mg Q6HP PRN IV 04/20/25 02:00 04/20/25 02:15 10 MG Ceftriaxone Sodium 50 ml @ 100 mls/hr DAILY@09 IV 04/21/25 09:00 04/21/25 08:41 100 MLS/HR Laboratory Results Laboratory Tests 04/16/25 10:12 04/16/25 16:24 Microbiology Microbiology Date/Time Source Procedure Growth Status 04/17/25 20:36 Buttock Left Gram Stain - Final Resulted 04/17/25 20:36 Buttock Left Anaerobic Culture - Preliminary Resulted 04/17/25 20:36 Buttock Left Aerobic Culture - Preliminary Resulted 04/15/25 07:36 Blood Blood Culture - Preliminary Resulted Labs and/or images reviewed: Labs reviewed by me, Image(s) reviewed by me Assessment/Plan Assessment/Plan Sepsis secondary to left buttock abscess Status post Incision and drainage of the left buttock abscess by Dr. Ferguson on 04-17-25; wound cultures growing E coli: Clindamycin discontinued started on Rocephin Acute hypoxic respiratory failure on oxygen Hyperkalemia CHF Marijuana use Diabetes Hypertension History of right and left toe amputation ESRD on hemodialysis Sunday, consult by Dr. Vasquez appreciated Major depressive disorder: Tele psych consult by Dr. Gorman appreciated, no [id number] advised Zoloft , the patient already on Zoloft Time spent 65 minutes Advanced care planning time 20 minutes Patient is full code Use of THC Father Lynnnald [phone] bedside Patient lives in an apartment. RN Nigel bedside, patient refused home health for wound care Plan discussed with: Patient My Orders Orders - JAMIL JURADO MD Procedure Category Date Status Time Ceftriaxone 1gm/50ml PHA 04/21/25 In Process (Rocephin) 09:00 Date of Service: Apr 21, 2025 Billing Provider: JAMIL JURADO MD Common Visit Codes: [id number] INP/OBS CARE(HIGH) JAMIL JURADO MD Apr 21, 2025 10:25
[2025-04-21] MEDS ORDERED: HYDR-4902 PO (10:37)
[2025-04-21] MEDS ORDERED: CIPR-173 PO (10:37)
--- NOTE | 2025-04-21 10:50 | DVHDS2 ---
Discharge Summary Date of Admission Apr 15, 2025 at 10:19 Date of Discharge: Apr 21, 2025 Admitting Diagnosis Pain in the left buttock Wounds: Left buttock abscess Labs/Diagnostic Data: Laboratory Results Test 04/17/25 17:07 04/16/25 16:24 04/16/25 10:12 04/15/25 07:36 POC Glucose 86 mg/dl (70-106) White Blood Count 9.8 10^3/uL (4.4-10.8) Red Blood Count 4.36 10^6/uL (4.5-5.90) Hemoglobin 10.7 g/dL (13.5-17.5) Hematocrit 32.4 % (41.0-53.0) Mean Corpuscular Volume 74.2 fL (80.0-100.0) Mean Corpuscular Hemoglobin 24.5 pg (28.0-32.0) Mean Corpuscular Hemoglobin Concent 33.0 g/dL (32.0-36.0) Red Cell Distribution Width 19.0 % (11.8-14.3) Platelet Count 190 10^3/uL (140-450) Mean Platelet Volume 7.6 fL (6.9-10.8) Neutrophils (%) (Auto) 82.9 % (37.0-80.0) Lymphocytes (%) (Auto) 3.7 % (10.0-50.0) Monocytes (%) (Auto) 11.4 % (0.0-12.0) Eosinophils (%) (Auto) 1.3 % (0.0-7.0) Basophils (%) (Auto) 0.7 % (0.0-2.0) Neutrophils # (Auto) 8.2 10 ^3/uL (1.6-8.6) Lymphocytes # (Auto) 0.4 10 ^3/uL (0.4-5.4) Monocytes # (Auto) 1.1 10 ^3/uL (0-1.3) Eosinophils # (Auto) 0.1 10 ^3/uL (0-0.8) Basophils # (Auto) 0.1 10 ^3/uL (0-0.2) Nucleated Red Blood Cells 0.0 % Sodium Level 140 mmol/L (136-145) Potassium Level 4.4 mmol/L (3.5-5.1) Chloride Level 96 mmol/L (98-107) Carbon Dioxide Level 30 mmol/L (20-31) Anion Gap 14 (5-15) Blood Urea Nitrogen 54 mg/dL (9-23) Creatinine 9.12 mg/dL (0.700-1.30) Glomerular Filtration Rate Calc 7 mL/min (>90) BUN/Creatinine Ratio 5.9 (10.0-20.0) Serum Glucose 109 mg/dL (74-106) Calcium Level 8.8 mg/dL (8.7-10.4) Total Bilirubin 0.5 mg/dL (0.2-1.0) Aspartate Amino Transferase (AST) 11 U/L (13-40) Alanine Aminotransferase (ALT) 13 U/L (7-40) Alkaline Phosphatase 80 U/L (46-116) Total Protein 6.9 g/dL (5.7-8.2) Albumin 3.3 g/dL (3.2-4.8) Lactic Acid Level 1.2 mmol/L (0.4-2.0) B-Type Natriuretic Peptide 1787.34 pg/mL (0-100) Hepatitis B Surface Antigen Negative (Negative) Other Laboratory Tests 04/16/25 16:24 04/16/25 10:12 Brief Hx & Hospital Course: 54-year-old male with a history of diabetes hypertension chronic marijuana abuse CHF chronic respiratory failure on home oxygen ESRD on hemodialysis major depression came in complaining of pain in the left buttock found to have abscess drained by Dr. Ferguson wound cultures grew E coli started on Rocephin and patient will be discharged home on Cipro received hemodialysis by Dr. Vasquez . Patient has major depression tele psych consult by Dr. Gorman who advised no [id number] and placed him on Zoloft which he was already taking. Patient feels better and being discharged home prescription for Cipro and Butler transmitted to the pharmacy he will follow up with his primary billing and accounting staff assistant and Dr. Ferguson Consults/Reason for consult Surgeon Dr. Marty Vasquez for dialysis Operations or Procedures Incision drainage of left buttock abscess Hemodialysis Condition at Discharge: Fair Final Diagnosis/Problems List Sepsis secondary to left buttock abscess Status post Incision and drainage of the left buttock abscess by Dr. Ferguson on 04-17-25; wound cultures growing E coli: Clindamycin discontinued started on Rocephin Acute hypoxic respiratory failure on oxygen Hyperkalemia CHF Marijuana use Diabetes Hypertension History of right and left toe amputation ESRD on hemodialysis Sunday, consult by Dr. Vasquez appreciated Major depressive disorder: Tele psych consult by Dr. Groman appreciated, no [phone] advised Zoloft , the patient already on Zolo Discharge Disposition: Home Discharge Instruct/Medications Diet: Renal Activity: Light activity Follow Up/Referral: Follow up with the Dr. Vasquez for regular dialysis Follow up with the primary Dr Follow up with surgeon Dr. Ferguson in one week Resume all previous home medications Medications: Cipro Butler Transmitted to pharmacy Scheduled B-Complex W/ C & Folic Acid ([facility]), 1 TAB PO DAILY, (Reported) Benazepril Hcl (Benazepril Hcl), 1 TAB PO DAILY, (Reported) Carvedilol (Carvedilol), 1 TAB PO BID, (Reported) Cephalexin Monohydrate (Cephalexin), 1 CAP PO BID Ciprofloxacin Hcl (Cipro), 1 TAB PO BID Clonidine Hydrochloride (Clonidine Hcl), 1 TAB PO TID, (Reported) Hydralazine Hcl (Hydralazine Hcl), 1 TAB PO BID, (Reported) Nifedipine (Nifedipine Er), 60 MG PO BID, (Reported) Sertraline Hcl (Sertraline Hcl), 150 MG PO DAILY, (Reported) Sevelamer Carbonate (Sevelamer Carbonate), 2 TAB PO TID, (Reported) Scheduled PRN Alprazolam (Xanax), 1 TAB PO DAILY PRN for ANXIETY, (Reported) Hydrocodone-Acetaminophen (Hydrocodone/Acetaminophen 10-325 mg), 1 TAB PO Q6HPRN PRN for PAIN SCALE 1 THRU 6, (Reported) Hydrocodone-Acetaminophen (Hydrocodone Bitartrate/AC 5-325 mg), 1 TAB PO QID PRN Miscellaneous Medications Gabapentin (Neurontin), (Reported) Insulin (Insulin Human), (Reported) 39 (Taken for discharge summary 39 minutes) Discharge Statement: "Patient was advised to return to the ER or call 911 if any headaches, dizziness, shortness of breath, chest pain, abdominal pain, bleeding, fevers, or worsening of medical condition. Patient was counseled about treatment plan, medications, possible side effects, patientverbalized understanding. All questions were answered to the best of my ability. This discharge took greater then 30 minutes in planning, reviewing documentation, counseling the patient, and discussing with other team members." ASSESSMENT ASSESSMENT Hospital Course Uneventful Assessment Sepsis secondary to left buttock abscess Status post Incision and drainage of the left buttock abscess by Dr. Ferguson on 04-17-25; wound cultures growing E coli: Clindamycin discontinued started on Rocephin Acute hypoxic respiratory failure on oxygen Hyperkalemia CHF Marijuana use Diabetes Hypertension History of right and left toe amputation ESRD on hemodialysis Sunday, consult by Dr. Vasquez appreciated Major depressive disorder: Tele psych consult by Dr. Gorman appreciated, no [phone] advised Zoloft , the patient already on Zolo Date of Service: Apr 21, 2025 Billing Provider: JAMIL JURADO MD Common Visit Codes: [id number] DISCH DAY >30min JAMIL JURADO MD Apr 21, 2025 10:50
--- NOTE | 2025-04-21 18:28 | DVHPN2 ---
Progress Note - Dictate Date Seen: Apr 21, 2025 Has the PT tested + for MRSA If YES, has PT been informed?: No Medical Necessity Reason Pt with a Central, PICC or Fol: No Subjective Complains of pain vital signs Vital Sign Date Time Temp Pulse Resp B/P (MAP) Pulse Ox O2 Delivery O2 Flow Rate FiO2 04/21/25 17:00 97.9 82 18 140/83 (102) 95 97.9 04/21/25 08:00 Room Air* 0 21 Total Intake and Output 04/20/25 04/20/25 04/21/25 15:00 23:00 07:00 Intake Total 1050 ml 450 ml Output Total 0 ml 0 ml Balance 1050 ml 450 ml medications Current Medications Medications Dose Ordered Sig/Kevin Route Start Time Stop Time Status Last Admin Dose Admin Acetaminophen/ Hydrocodone Bitart 1 tab Q4HP PRN PO 04/15/25 10:30 04/18/25 12:27 1 TAB Ondansetron HCl 4 mg Q4HP PRN IV 04/15/25 10:30 04/21/25 16:24 4 MG Acetaminophen 650 mg Q6HP PRN PO 04/15/25 10:30 04/15/25 11:53 650 MG Alprazolam 0.25 mg DAILY PRN PO 04/15/25 10:30 04/21/25 17:36 0.25 MG Multivit/Ca Carb/ B Cmplx/FA/Prenat 1 tab DAILY PO 04/16/25 10:00 04/19/25 09:20 1 TAB Sertraline HCl 150 mg DAILY PO 04/16/25 10:00 04/20/25 11:02 150 MG Benazepril HCl 40 mg DAILY PO 04/16/25 10:00 Carvedilol 25 mg BID PO 04/15/25 22:00 04/16/25 23:29 25 MG Clonidine HCl 0.3 mg TID PO 04/15/25 14:00 04/20/25 12:40 0.3 MG Hydralazine HCl 100 mg BID PO 04/15/25 22:00 Nifedipine 60 mg BID PO 04/16/25 10:00 04/17/25 22:14 60 MG Sevelamer HCl 1,600 mg TIDWM PO 04/15/25 18:00 04/21/25 17:36 1,600 MG Furosemide 40 mg DAILY IV 04/16/25 10:00 04/20/25 11:11 40 MG Hydromorphone HCl 0.5 mg Q4HPRN PRN IV 04/18/25 16:00 04/21/25 16:25 0.5 MG Diphenhydramine HCl 25 mg Q8HR IV 04/19/25 14:00 04/21/25 13:14 25 MG Hydralazine HCl 10 mg Q6HP PRN IV 04/20/25 02:00 04/20/25 02:15 10 MG Ceftriaxone Sodium 50 ml @ 100 mls/hr DAILY@09 IV 04/21/25 09:00 04/21/25 08:41 100 MLS/HR objective GENERAL: The patient is an adult -[place] gentleman who appears to be chronically ill. He is in visible pain. HEENT: Unremarkable. Oral mucosa is pale and dry. LUNGS: Diminished air entry at the bases but no crackles. CARDIOVASCULAR: Regular rate, tachycardia, 2/6 systolic murmur. ABDOMEN: Obese, soft, nontender. No organomegaly. EXTREMITIES: No clubbing, cyanosis, or edema. SKIN: The sacral area was not examined. He has a left buttock abscess laboratory and microbiology Laboratory Tests 04/16/25 16:24 04/16/25 10:12 Test 04/16/25 10:12 Range/Units Serum Glucose 109 H 74-106 mg/dL Assessment/Plan ASSESSMENT: End-stage renal disease on Hemodialysis Anemia of renal disease Hypertension. Diabetes. Left buttock abscess s/p drainage. Hyperphosphatemia Secondary hyperparathyroidism Plan: s/p HD Sunday (net UF 2L) Next HD Sunday Continue HD on MWF schedule Pain control Continue Nifedipine ER 60 mg BID, Coreg 25 mg BID, Benazepril 40 mg daily IV antibiotics Wound care/I.D. and surgical evaluation Epogen post HD as needed. goal Hb: 10-11 g/dl Continue Sevelamer TID with meals Dietary Evaluation Review Recommendations by RD: Protein Supplementation Comments: 1) Initiate Isaac @ 1 pk bid 2) Initiate vitamin C @ 500 mg bid and zinc sulfate @ 220 mg qd for 7 days 3) If patient remains NPO > 7 days, consider EN/TPN to meet at least 75% of estimated daily needs 4) Advance to 60g CCHO renal diet when medically feasible 5) Follow-up with cardiology 6) Continue to monitor I&O, labs, and skin integrity Expected Outcomes/Goals: 1) patient to receive nutritional support within 7 days of NPO status 2) labs and wounds to improve 3) diet to advance 4) f/u in 3-5 days Plan discussed with: Patient KERRY FORD MD Apr 21, 2025 18:28
[2025-04-22] VITALS (7 sets, daily range): BP systolic 113–152; BP diastolic 69–94; PULSE 74–88; RESP 16–17; TEMP 97.6–98.3; O2SAT 97–100
[2025-04-22] MEDS ORDERED: SODIUM CHL 0.9% 1000 ML BAG XX ONE (07:00)
[2025-04-22 07:06] LABS: Hematocrit 33.0 % (41.0-53.0); Hemoglobin 10.6 g/dL (13.5-17.5)
--- NOTE | 2025-04-22 12:23 | MEDREC ---
[facility] ASP Intervention Section I [facility] ASP Intervention: Review courses of therapy (PLEASE CONSIDER ADDING ANAEROBIC COVERAGE FOR BACTEROIDE UNIFORMIS FOUND IN THE BUTTOCK CULTURE IF CLINICALLY RELEVANT) KOKO THIBODEAUX PHARMACIST Apr 22, 2025 12:23
--- NOTE | 2025-04-22 15:20 | DVHPN2 ---
Progress Note - Dictate Date Seen: Apr 22, 2025 Has the PT tested + for MRSA If YES, has PT been informed?: No Medical Necessity Reason Pt with a Central, PICC or Fol: No Subjective no new symptoms vital signs Vital Sign Date Time Temp Pulse Resp B/P (MAP) Pulse Ox O2 Delivery O2 Flow Rate FiO2 04/22/25 14:09 123/77 04/22/25 13:00 98.1 74 16 99 98.1 04/21/25 20:00 Room Air* 0 21 Total Intake and Output 04/21/25 04/21/25 04/22/25 15:00 23:00 07:00 Intake Total 100 ml 337 ml Output Total 0 ml Balance 100 ml 337 ml medications Current Medications Medications Dose Ordered Sig/Kevin Route Start Time Stop Time Status Last Admin Dose Admin Acetaminophen/ Hydrocodone Bitart 1 tab Q4HP PRN PO 04/15/25 10:30 04/18/25 12:27 1 TAB Ondansetron HCl 4 mg Q4HP PRN IV 04/15/25 10:30 04/22/25 05:26 4 MG Acetaminophen 650 mg Q6HP PRN PO 04/15/25 10:30 04/15/25 11:53 650 MG Alprazolam 0.25 mg DAILY PRN PO 04/15/25 10:30 04/21/25 17:36 0.25 MG Multivit/Ca Carb/ B Cmplx/FA/Prenat 1 tab DAILY PO 04/16/25 10:00 04/19/25 09:20 1 TAB Sertraline HCl 150 mg DAILY PO 04/16/25 10:00 04/20/25 11:02 150 MG Benazepril HCl 40 mg DAILY PO 04/16/25 10:00 Carvedilol 25 mg BID PO 04/15/25 22:00 04/21/25 21:27 25 MG Clonidine HCl 0.3 mg TID PO 04/15/25 14:00 04/22/25 14:09 0.3 MG Hydralazine HCl 100 mg BID PO 04/15/25 22:00 Nifedipine 60 mg BID PO 04/16/25 10:00 04/21/25 21:28 60 MG Sevelamer HCl 1,600 mg TIDWM PO 04/15/25 18:00 04/22/25 12:48 1,600 MG Furosemide 40 mg DAILY IV 04/16/25 10:00 04/22/25 08:56 40 MG Hydromorphone HCl 0.5 mg Q4HPRN PRN IV 04/18/25 16:00 04/22/25 10:17 0.5 MG Diphenhydramine HCl 25 mg Q8HR IV 04/19/25 14:00 04/22/25 14:09 25 MG Hydralazine HCl 10 mg Q6HP PRN IV 04/20/25 02:00 04/20/25 02:15 10 MG Ceftriaxone Sodium 50 ml @ 100 mls/hr DAILY@09 IV 04/21/25 09:00 04/22/25 08:56 100 MLS/HR objective GENERAL: The patient is an adult -Maltese gentleman who appears to be chronically ill. He is in visible pain. HEENT: Unremarkable. Oral mucosa is pale and dry. LUNGS: Diminished air entry at the bases but no crackles. CARDIOVASCULAR: Regular rate, tachycardia, 2/6 systolic murmur. ABDOMEN: Obese, soft, nontender. No organomegaly. EXTREMITIES: No clubbing, cyanosis, or edema. SKIN: The sacral area was not examined. He has a left buttock abscess laboratory and microbiology Laboratory Tests 04/22/25 06:30 04/16/25 16:24 Test 04/22/25 06:30 Range/Units Serum Glucose Pending Assessment/Plan ASSESSMENT: End-stage renal disease on Hemodialysis Anemia of renal disease Hypertension. Diabetes. Left buttock abscess s/p drainage. Hyperphosphatemia Secondary hyperparathyroidism Plan: Scheduled for HD today (Sunday) s/p HD Sunday (net UF 2L) Continue HD on MWF schedule Pain control Continue Nifedipine ER 60 mg BID, Coreg 25 mg BID, Benazepril 40 mg daily IV antibiotics Wound care/I.D. and surgical evaluation Epogen post HD as needed. goal Hb: 10-11 g/dl Continue Sevelamer TID with meals Dietary Evaluation Review Recommendations by RD: Protein Supplementation Comments: 1) Initiate Isaac @ 1 pk bid 2) Initiate vitamin C @ 500 mg bid and zinc sulfate @ 220 mg qd for 7 days 3) If patient remains NPO > 7 days, consider EN/TPN to meet at least 75% of estimated daily needs 4) Advance to 60g CCHO renal diet when medically feasible 5) Follow-up with cardiology 6) Continue to monitor I&O, labs, and skin integrity Expected Outcomes/Goals: 1) patient to receive nutritional support within 7 days of NPO status 2) labs and wounds to improve 3) diet to advance 4) f/u in 3-5 days Plan discussed with: Patient KERRY FORD MD Apr 22, 2025 15:20
[2025-04-22 15:32] LABS: Alanine Aminotransferase 14 U/L (7-40); Albumin 3.6 g/dL (3.2-4.8); Alkaline Phosphatase 78 U/L (46-116); Anion Gap 15 (5-15); BUN/Creatinine Ratio 4.1 (10.0-20.0); Carbon Dioxide 30 mmol/L (20-31); Potassium 5.0 mmol/L (3.5-5.1); Sodium 143 mmol/L (136-145); Total Protein 7.6 g/dL (5.7-8.2)
[2025-04-22 15:34] LABS: Bilirubin, Total < 0.2 mg/dL (0.2-1.0); Blood Urea Nitrogen 37 mg/dL (9-23); Calcium 8.4 mg/dL (8.7-10.4); Chloride 98 mmol/L (98-107); Glucose 150 mg/dL (74-106)
[2025-04-22] MEDS: EPOETIN ALFA-EPBX 4,000 UNIT/ML VIAL SC ONE (18:58)
--- NOTE | 2025-04-23 07:57 | DVHPN2 ---
Reviewed: Care Plan Changes from previous H/P or p: No Changes Musculoskeletal: back pain Objective Vitals Vital Signs Date Time Temp Pulse Resp B/P (MAP) Pulse Ox O2 Delivery O2 Flow Rate FiO2 04/22/25 19:47 97.6 76 16 98 04/22/25 17:00 151/90 (110) 04/21/25 20:00 Room Air* 0 21 Intake/Output Intake and Output 04/23/25 07:00 Intake Total 330 ml Output Total 0 ml Balance 330 ml Intake Oral 330 ml Output Urine Total 0 ml Laboratory Results Laboratory Tests 04/16/25 16:24 04/22/25 06:30 Microbiology Microbiology Date/Time Source Procedure Growth Status 04/17/25 20:36 Buttock Left Gram Stain - Final Complete 04/17/25 20:36 Anaerobic Culture - Final Bacteroides uniformis Complete 04/17/25 20:36 Buttock Left Aerobic Culture - Final Complete 04/15/25 07:36 Blood Blood Culture - Preliminary Resulted Labs and/or images reviewed: Labs reviewed by me, Image(s) reviewed by me Assessment/Plan Assessment/Plan Late entry Sepsis secondary to left buttock abscess Status post Incision and drainage of the left buttock abscess by Dr. Ferguson on 04-17-25; wound cultures growing E coli: Clindamycin discontinued started on Rocephin Acute hypoxic respiratory failure on oxygen Hyperkalemia CHF Marijuana use Diabetes Hypertension History of right and left toe amputation ESRD on hemodialysis Sunday, consult by Dr. Vasquez appreciated Major depressive disorder: Tele psych consult by Dr. Gorman appreciated, no 5150 advised Zoloft , the patient already on Zoloft Time spent 65 minutes Advanced care planning time 20 minutes Patient is full code Use of THC Patient refused home health for wound care Patient was discharged on 04/21/2025 but refused to leave stating that his apartment is not ready and his dad is cleaning it up. No new complaints Plan discussed with: Patient Date of Service: Apr 22, 2025 Billing Provider: JAMIL JURADO MD Common Visit Codes: [id number] INP/OBS CARE(HIGH) JAMIL JURADO MD Apr 23, 2025 07:57
== END 2025-04-22 20:05 | disposition home or self-care (01) | DRG 720 ==
LOC: ER 04:03 → EDBD 04:03 → OVERFLOW 10:19 → EAST 19:50
PROVIDERS: ADMIT Family Medicine; ATTEND Family Medicine
PROC: 5A1D70Z Performance of Urinary Filtration, Intermittent, Less than 6 Hours Per Day (ICD-10-PCS; 2025-04-15)
PROC: 0H98XZZ Drainage of Buttock Skin, External Approach (ICD-10-PCS; 2025-04-15)
PROC: 0Y910ZZ Drainage of Left Buttock, Open Approach (ICD-10-PCS; principal; 2025-04-17 19:33)
PROC: 5A1D70Z Performance of Urinary Filtration, Intermittent, Less than 6 Hours Per Day (ICD-10-PCS; 2025-04-18)
PROC: 5A1D70Z Performance of Urinary Filtration, Intermittent, Less than 6 Hours Per Day (ICD-10-PCS; 2025-04-20)
PROC: 5A1D70Z Performance of Urinary Filtration, Intermittent, Less than 6 Hours Per Day (ICD-10-PCS; 2025-04-22)
DX: A41.51 Sepsis due to Escherichia coli [E. coli] (principal); I13.2 Hypertensive heart and chronic kidney disease with heart failure and with stage 5 chronic kidney disease, or end stage renal disease; J96.21 Acute and chronic respiratory failure with hypoxia; E83.39 Other disorders of phosphorus metabolism; L98.429 Non-pressure chronic ulcer of back with unspecified severity; D63.1 Anemia in chronic kidney disease; N18.6 End stage renal disease; E11.22 Type 2 diabetes mellitus with diabetic chronic kidney disease; I50.9 Heart failure, unspecified; L02.31 Cutaneous abscess of buttock; F12.90 Cannabis use, unspecified, uncomplicated; E87.5 Hyperkalemia; F32.9 Major depressive disorder, single episode, unspecified; N25.81 Secondary hyperparathyroidism of renal origin; E78.5 Hyperlipidemia, unspecified; Z83.3 Family history of diabetes mellitus; Z91.128 Patient's intentional underdosing of medication regimen for other reason; Z89.422 Acquired absence of other left toe(s); Z89.421 Acquired absence of other right toe(s); Z88.8 Allergy status to other drugs, medicaments and biological substances; Z99.2 Dependence on renal dialysis; Z91.0110 Allergy to milk products, unspecified; Z91.018 Allergy to other foods; Z91.158 Patient's noncompliance with renal dialysis for other reason
CPT/HCPCS: 10060; 36415; 71045; 80053; 82962; 83605; 83880; 85014; 85018; 85025; 86850; 86900; 86901; 87040; 87070; 87075; 87076; 87077; 87081; 87186; 87205; 87340; 90935; 93005; 96365; G0378; J2003; J2250; J2405; J2543; J2704; J3490

== ENCOUNTER 2025-05-03 14:14 | Inpatient (IN) | payer MEDICAID ==
[2025-05-03] VITALS (8 sets, daily range): BP systolic 85–163; BP diastolic 24–86; PULSE 88–101; RESP 14; O2SAT 98–99
[~2025-05-03] VITALS: Ht 182.9 cm; Wt 67.7 kg
[~2025-05-03 14:14] MED LIST changes: +CIPR-173 PO; +HYDR-4902 PO
[2025-05-03 15:10] LABS: Hematocrit 30.4 % (41.0-53.0); Hemoglobin 9.8 g/dL (13.5-17.5); Mean Corpuscular Hemoglobin 24.0 pg (28.0-32.0); Mean Corpuscular Volume 74.6 fL (80.0-100.0); Nucleated Red Blood Cells % 0.1 %
[2025-05-03 15:23] LABS: Alanine Aminotransferase 19 U/L (7-40); Albumin 3.6 g/dL (3.2-4.8); Alkaline Phosphatase 87 U/L (46-116); Anion Gap 21 (5-15); BUN/Creatinine Ratio 6.7 (10.0-20.0); Total Protein 7.4 g/dL (5.7-8.2)
[2025-05-03 15:24] LABS: Bilirubin, Total 0.3 mg/dL (0.2-1.0)
--- NOTE | 2025-05-03 15:26 | ED.PDOC ---
SOB-HPI HPI Comments 34 y.o male with PMHx of ESRD, dialysis M, W,F, and HTN, presents to the ED for a chief complaint of SOB associated with body pain. Patient reports missing dialysis for a week and last session was done on 04/24/25. Patient denies any chest pain, abdominal pain, fever, chills, nausea, vomiting. He reports quit smoking tobacco 3-4 months ago. Chief Complaint: Shortness of Breath Time Seen by MD: 14:33 Primary Care Provider: BRITTANY Reviewed notes: Nurses Notes, Microbiology Lab Technician Notes, Medications, Allergies Information Source: Patient Mode of Arrival: Wheelchair Severity: Moderate Timing: Weeks Duration: Since onset Context: At Rest History of: Other Associated Signs and Symptoms: Other Past Medical History PAST MEDICAL HISTORY: DM, ESRD, HTN Surgical History (Other): right upper arm fistual. Family History Family History: No family hx of Cancer, No family hx of Heart thompson, Family hx of DM Social History Smoker: Non-Smoker Alcohol: Denies ETOH Use Drugs: Denies Drug Use Lives In: Home Constitutional: denies: chills, diaphoresis, fatigue, fever, malaise, sweats, weakness, others EENTM: denies: blurred vision, double vision, ear bleeding, ear discharge, ear drainage, ear pain, ear ringing, eye pain, eye redness, hearing loss, mouth pain, mouth swelling, nasal discharge, nose bleeding, nose congestion, nose pain, photophobia, tearing, throat pain, throat swelling, voice changes, others Respiratory: reports: SOB at rest, shortness of breath, SOB with excertion; denies: cough, hemoptysis, orthopnea, stridor, wheezing, others Cardiovascular: denies: chest pain, dizzy spells, diaphoresis, Dyspnea on exertion, edema, irregular heart beat, left arm pain, lightheadedness, palpitations, PND, syncope, others Gastrointestinal: denies: abdomen distended, abdominal pain, blood streaked bowels, constipated, diarrhea, dysphagia, difficulty swallowing, hematemesis, melena, nausea, poor appetite, poor fluid intake, rectal bleeding, rectal pain, vomiting, others Genitourinary: denies: burning, dysuria, flank pain, frequency, hematuria, incontinence, penile discharge, penile sore, pain, testicle pain, testicle swelling, urgency, others Neurological: denies: dizziness, fainting, headache, left sided numbness, left sided weakness, numbness, paresthesia, pre-existing deficit, right sided numbness, right sided weakness, seizure, speech problems, tingling, tremors, weakness, others Musculoskeletal: reports: muscle pain; denies: back pain, gout, joint pain, joint swelling, muscle stiffness, neck pain, others Integumetry: denies: bruises, change in color, change in hair/nails, dryness, laceration, lesions, lumps, rash, wounds, others Allergic/Immunocompromised: denies: Difficulty Healing, Frequent Infections, Hives, Itching, others Hematologic/Lymphatic: denies: anemia, blood clots, easy bleeding, easy bruising, swollen glands, others Endocrine: denies: excessive hunger, excessive sweating, excessive thirst, excessive urination, flushing, intolerance to cold, intolerance to heat, unexplained weight gain, unexplained weight loss, others Psychiatric: denies: anxiety, bipolar disorder, depression, hopeless, panic disorder, schizophrenia, sleepless, suicidal, others All Other Systems: Reviewed and Negative Physical Exam General Appearance: Severe Distress HEENT: Normal ENT Inspection, Pharynx Normal, TMs Normal Neck: Full Range of Motion, Non-Tender, Normal, Normal Inspection Respiratory: Chest Non-Tender, Lungs Clear, No Accessory Muscle Use, No Respiratory Distress, Normal Breath Sounds Cardiovascular: Tachycardia Breast Exam: Deferred Gastrointestinal: No Organomegaly, Non Tender, No Pulsatile Mass, Normal Bowel Sounds, Soft Genitalia: Deferred Pelvic: Deferred Rectal: Deferred Extremities: No calf tenderness, Pedal edema Musculoskeletal : Apperance: Normal Neurologic: Alert Cerebellar Function: NOT DONE Reflexes: NOT DONE Skin: Normal Color Peripheral Pulses: 3+ Radial (R), 3+ Radial (L) Lymphatic: No Adenopathy Was a procedure done? Was a procedure done?: No Differential Dx Differential Diagnosis: Anxiety, Asthma, Bronchitis, CHF, COPD, Dysrhythmia, Pneumonia, Pulmonary Embolism, Respiratory Distress, URI Comments hyperkalemia, uremic pericarditis, cardiac tamponade, sepsis, metabolic acidosis X-Ray, Labs, Meds, VS Vital Signs Date Time Temp Pulse Resp B/P (MAP) Pulse Ox O2 Delivery O2 Flow Rate FiO2 05/03/25 15:27 88 171/104 05/03/25 14:48 98.9 88 14 171/104 (126) 99 98.9 05/03/25 14:48 88 14 99 Room Air* 0 21 05/03/25 14:20 91 05/03/25 14:17 98.7 90 20 142/95 97 98.7 Lab Test 05/03/25 14:59 Range/Units White Blood Count 4.2 L 4.4-10.8 10^3/uL Red Blood Count 4.07 L 4.5-5.90 10^6/uL Hemoglobin 9.8 L 13.5-17.5 g/dL Hematocrit 30.4 L 41.0-53.0 % Mean Corpuscular Volume 74.6 L 80.0-100.0 fL Mean Corpuscular Hemoglobin 24.0 L 28.0-32.0 pg Mean Corpuscular Hemoglobin Concent 32.2 32.0-36.0 g/dL Red Cell Distribution Width 21.4 H 11.8-14.3 % Platelet Count 140 140-450 10^3/uL Mean Platelet Volume 8.6 6.9-10.8 fL Neutrophils (%) (Auto) 68.9 37.0-80.0 % Lymphocytes (%) (Auto) 14.1 10.0-50.0 % Monocytes (%) (Auto) 15.0 H 0.0-12.0 % Eosinophils (%) (Auto) 1.6 0.0-7.0 % Basophils (%) (Auto) 0.4 0.0-2.0 % Neutrophils # (Auto) 2.9 1.6-8.6 10 ^3/uL Lymphocytes # (Auto) 0.6 0.4-5.4 10 ^3/uL Monocytes # (Auto) 0.6 0-1.3 10 ^3/uL Eosinophils # (Auto) 0.1 0-0.8 10 ^3/uL Basophils # (Auto) 0 0-0.2 10 ^3/uL Nucleated Red Blood Cells 0.1 % Platelet Estimate Adequate Hypochromasia (manual) Slight Anisocytosis (manual) Slight Microcytosis Moderate Ovalocytes Few Schistocytes Few Sodium Level 132 L 136-145 mmol/L Potassium Level 7.3 *H 3.5-5.1 mmol/L Chloride Level 92 L 98-107 mmol/L Carbon Dioxide Level 19 L 20-31 mmol/L Anion Gap 21 H 5-15 Blood Urea Nitrogen 122 *H 9-23 mg/dL Creatinine 18.18 *H 0.700-1.30 mg/dL Glomerular Filtration Rate Calc 3 >90 mL/min BUN/Creatinine Ratio 6.7 L 10.0-20.0 Serum Glucose 73 L 74-106 mg/dL Calcium Level 8.5 L 8.7-10.4 mg/dL Total Bilirubin 0.3 0.2-1.0 mg/dL Aspartate Amino Transferase (AST) 18 13-40 U/L Alanine Aminotransferase (ALT) 19 7-40 U/L Alkaline Phosphatase 87 46-116 U/L Troponin I High Sensitivity 22 </=54 ng/L B-Type Natriuretic Peptide 989.83 0-100 pg/mL Total Protein 7.4 5.7-8.2 g/dL Albumin 3.6 3.2-4.8 g/dL Current Medications Medications (Trade) Dose Ordered Sig/Kevin Route Start Time Stop Time Status Last Admin Labetalol HCl (Labetalol HCl) 10 mg ONCE ONCE IV 05/03/25 15:30 05/03/25 15:31 DC 05/03/25 15:27 Patient alert pain Has not had dialysis for many days. Potassium elevated. BUN creatinine elevated. BNP elevated. Blood pressure elevated. Was given labetalol. Nephrology consultation. Hyperkalemia. Hyperkalemia treatment. Dialysis. Continue to monitor. Time of 1ST Reevaluation: 15:16 Reevaluation 1ST: Unchanged Patient Education/Counseling: Diagnosis, Treatment, Prognosis Family Education/Counseling: No Family Present SEPSIS Sepsis Screen Date sepsis recognized/suspect: May 03, 2025 Time Sepsis recognized/suspect: 1400 Recent Procedure: Yes On Antibiotic Therapy: No Respiratory Rate >20: No Heart Rate >90: No Temp<36 C (96.8 F) or >38.3 C: No SBP <90 or MAP <65 mmHG: No New Acute Mental Status Change: No Is the patient on CPAP, BIPAP,: No Physician Orders Electrocardigram (05/03/25 14:41) Urinalysis (05/03/25 14:53) Chest Portable (05/03/25 15:00) *[facility] (05/03/25 15:00) Potassium (05/03/25 19:56) Insulin R 10units Iv X One (05/03/25 16:00) Dextrose 50% 1amp=50ml (05/03/25 16:00) Albuterol 20mg Medneb X One (05/03/25 16:00) Sod Bicarb 50ml=1amp (05/03/25 16:00) Lasix 20mg Iv X One (05/03/25 16:00) Calcium Gluc 1 Amp Ivpb (05/03/25 16:00) Lokelma 10gm Po X One (05/03/25 16:00) Vital Signs Date Time Temp Pulse Resp B/P (MAP) Pulse Ox O2 Delivery O2 Flow Rate FiO2 05/03/25 15:27 88 171/104 05/03/25 14:48 98.9 88 14 171/104 (126) 99 98.9 05/03/25 14:48 88 14 99 Room Air* 0 21 05/03/25 14:20 91 05/03/25 14:17 98.7 90 20 142/95 97 98.7 Laboratory Tests Test 05/03/25 14:59 White Blood Count 4.2 10^3/uL (4.4-10.8) L Medications Medications Dose Ordered Sig/Kevin Route Start Time Stop Time Status Last Admin Dose Admin Labetalol HCl 10 mg ONCE ONCE IV 05/03/25 15:30 05/03/25 15:31 DC 05/03/25 15:27 Departure 1 Departure Time of Disposition: 15:59 Impression: Primary Impression: ESRD needing dialysis Additional Impressions: Hyperkalemia CHF (congestive heart failure) Qualified Codes: I50.43 - Acute on chronic combined systolic (congestive) and diastolic (congestive) heart failure Disposition: ADMITTED INPATIENT Admit to: Med Surg Condition: Guarded Critical Care Note Critical Care Time?: Yes (90 min-critical care time only) Stability Stability form required: No I personally scribed for SARAH VILLANUEVA MD ([email or web address]) on 05/03/25 at 15:26. Electronically submitted by Sravani Mehta ([facility]). SARAH VILLANUEVA MD May 03, 2025 15:26
[2025-05-03] MEDS: LABETALOL HCL 20 MG/4 ML VL IV ONE (15:27)
[2025-05-03 15:30] LABS: Carbon Dioxide 19 mmol/L (20-31); Chloride 92 mmol/L (98-107); Glucose 73 mg/dL (74-106); Sodium 132 mmol/L (136-145)
[2025-05-03 15:31] LABS: Blood Urea Nitrogen 122 mg/dL (9-23); Calcium 8.5 mg/dL (8.7-10.4); Potassium 7.3 mmol/L (3.5-5.1)
--- NOTE | 2025-05-03 15:41 | DVH ---
CHEST RADIOGRAPH Indication: sob Technique: Single frontal view of the chest was obtained Comparison: XY CHEST XRAY 1 VIEW on DOS: 04/15/25, XY CHEST PORTABLE on DOS: 04/15/25, XY CHEST PORTABL E on DOS: 03/13/25 FINDINGS: Lines and Tubes: None Lungs: Areas of increased tissue density in both lungs most likely due to overlying soft skin fold pn eumothorax is of clinical concern specifically in the left recommend expiratory chest x-ray or CT [facility] for further evaluation. Pleura: No effusion. No pneumothorax. Cardiomediastinal contours: Unremarkable Bones: No acute osseous abnormality. IMPRESSION: 1. No acute cardiopulmonary disease.
[2025-05-03 15:46] LABS: Anisocytosis Slight; Ovalocytes FEW
[2025-05-03] MEDS: CALCIUM GLUC 1,000mg/50ml-NS 50 ML IV ONE (16:00)
[2025-05-03] MEDS: SODIUM ZIRCONIUM CYCL 10 GM PAK PO ONE (16:00)
[2025-05-03] MEDS: DEXTROSE (50%) 50ML SYRG IV ONE (16:00)
[2025-05-03] MEDS: FUROSEMIDE 20 MG/2 ML VIAL IV ONE (16:00)
[2025-05-03] MEDS: SODIUM BICARB 8.4% 50Meq/50ml SYR INJ IV ONE (16:00)
[2025-05-03] MEDS: InsuLIN REG 1unit/0.01ml Soln (100units/ml) IV ONE (16:00)
[2025-05-03] MEDS: ALBUTEROL SULF 2.5 MG/0.5ML(0.5%) NEB SOLN NEB ONE (16:12)
[2025-05-03] MEDS: HYDROmorphone HCL 2 MG/ML VL/or syr IV ONE (17:04)
--- NOTE | 2025-05-03 18:56 | DVHINCON2 ---
Date of service: May 03, 2025 Allergies: Coded Allergies: Lactose Intolerance (GI) (Verified Allergy, Unknown, 01/17/25) Tramadol (Verified Allergy, Unknown, 07/26/21) Uncoded Allergies: peaches (Allergy, Intermediate, rash, 04/13/21) Home Meds Active Scripts Hydrocodone-Acetaminophen (Hydrocodone Bitartrate/AC 5-325 mg) 1 Tab Tab, 1 TAB PO QID PRN, #30 TAB Prov:JAMIL JURADO MD 04/21/25 Ciprofloxacin Hcl (Cipro) 500 Mg Tab, 1 TAB PO BID, #20 TAB Prov:JAMIL JURADO MD 04/21/25 Cephalexin Monohydrate (Cephalexin) 500 Mg Cap, 1 CAP PO BID for 10 Days, #20 CAP Prov:VESTA GOODRICH 01/18/25 Reported Medications Clonidine Hydrochloride (Clonidine Hcl) 0.3 Mg Tab, 1 TAB PO TID 09/06/23 Sevelamer Carbonate (Sevelamer Carbonate) 800 Mg Tab, 2 TAB PO TID 09/06/23 Nifedipine (Nifedipine Er) 60 Mg Tab, 60 MG PO BID 09/06/23 Hydralazine Hcl (Hydralazine Hcl) 100 Mg Tab, 1 TAB PO BID 09/06/23 Benazepril Hcl (Benazepril Hcl) 40 Mg Tab, 1 TAB PO DAILY 09/06/23 Carvedilol (Carvedilol) 25 Mg Tab, 1 TAB PO BID 09/06/23 B-Complex W/ C & Folic Acid ([facility] Rx) Tab, 1 TAB PO DAILY 09/06/23 Hydrocodone-Acetaminophen (Hydrocodone/Acetaminophen 10-325 mg) 1 Tab Tab, 1 TAB PO Q6HPRN PRN for PAIN SCALE 1 THRU 6, TAB 04/13/21 Alprazolam (Xanax) 0.25 Mg Tb, 1 TAB PO DAILY PRN for ANXIETY, #30 TAB 04/13/21 Sertraline Hcl (Sertraline Hcl) 50 Mg Tab, 150 MG PO DAILY for 30 Days, MG 04/13/21 Gabapentin (Neurontin) 800 Mg Tab 03/12/10 Insulin (Insulin Human) Human Pow 03/12/10 Family History: Diabetes mellitus G8 MOTHER G8 FATHER G8 BROTHER Hypertension G8 MOTHER H&P Exam Vital Signs/I&O Vital Sign Date Time Temp Pulse Resp B/P (MAP) Pulse Ox O2 Delivery O2 Flow Rate FiO2 05/03/25 18:36 84 05/03/25 18:00 98.8 14 128/83 (98) 99 98.8 05/03/25 16:12 Nasal Cannula* 2 28 Labs/Diagnostic Data Labs/Diagnostic Data Laboratory Tests Test 05/03/25 16:52 05/03/25 14:59 Range/Units POC Glucose 84 70-106 mg/dl White Blood Count 4.2 L 4.4-10.8 10^3/uL Red Blood Count 4.07 L 4.5-5.90 10^6/uL Hemoglobin 9.8 L 13.5-17.5 g/dL Hematocrit 30.4 L 41.0-53.0 % Mean Corpuscular Volume 74.6 L 80.0-100.0 fL Mean Corpuscular Hemoglobin 24.0 L 28.0-32.0 pg Mean Corpuscular Hemoglobin Concent 32.2 32.0-36.0 g/dL Red Cell Distribution Width 21.4 H 11.8-14.3 % Platelet Count 140 140-450 10^3/uL Mean Platelet Volume 8.6 6.9-10.8 fL Neutrophils (%) (Auto) 68.9 37.0-80.0 % Lymphocytes (%) (Auto) 14.1 10.0-50.0 % Monocytes (%) (Auto) 15.0 H 0.0-12.0 % Eosinophils (%) (Auto) 1.6 0.0-7.0 % Basophils (%) (Auto) 0.4 0.0-2.0 % Neutrophils # (Auto) 2.9 1.6-8.6 10 ^3/uL Lymphocytes # (Auto) 0.6 0.4-5.4 10 ^3/uL Monocytes # (Auto) 0.6 0-1.3 10 ^3/uL Eosinophils # (Auto) 0.1 0-0.8 10 ^3/uL Basophils # (Auto) 0 0-0.2 10 ^3/uL Nucleated Red Blood Cells 0.1 % Platelet Estimate Adequate Hypochromasia (manual) Slight Anisocytosis (manual) Slight Microcytosis Moderate Ovalocytes Few Schistocytes Few Sodium Level 132 L 136-145 mmol/L Potassium Level 7.3 *H 3.5-5.1 mmol/L Chloride Level 92 L 98-107 mmol/L Carbon Dioxide Level 19 L 20-31 mmol/L Anion Gap 21 H 5-15 Blood Urea Nitrogen 122 *H 9-23 mg/dL Creatinine 18.18 *H 0.700-1.30 mg/dL Glomerular Filtration Rate Calc 3 >90 mL/min BUN/Creatinine Ratio 6.7 L 10.0-20.0 Serum Glucose 73 L 74-106 mg/dL Calcium Level 8.5 L 8.7-10.4 mg/dL Total Bilirubin 0.3 0.2-1.0 mg/dL Aspartate Amino Transferase (AST) 18 13-40 U/L Alanine Aminotransferase (ALT) 19 7-40 U/L Alkaline Phosphatase 87 46-116 U/L Troponin I High Sensitivity 22 </=54 ng/L B-Type Natriuretic Peptide 989.83 0-100 pg/mL Total Protein 7.4 5.7-8.2 g/dL Albumin 3.6 3.2-4.8 g/dL Assessment I was contacted about patient in ED around 6 pm. I called back NI Farooq over the phone and we discussed vitals, history and labs. Plan: Hyperkalemia treatment including calcium gluconate, D50W, Insulin IV, albuterol nebulized. STAT HD ordered. [facility] dialysis contacted and made aware of STAT nature of the treatment. Full consult to follow. Plan discussed with: Other (RN) BLAKE FLAHERTY MD May 03, 2025 18:56
[2025-05-03] MEDS: SODIUM CHL 0.9% 1000 ML BAG XX ONE (19:00)
[2025-05-03] MEDS ORDERED: ONDANSETRON HCL 4 MG/2 ML VIAL IV PRN (19:45)
[2025-05-03] MEDS ORDERED: NITROGLYCERIN 0.4 MG SL TAB SL PRN (19:45)
[2025-05-03] MEDS ORDERED: MORPHINE SULFATE INJ 2 MG/ml SYRG IV PRN (19:45)
[2025-05-03] MEDS ORDERED: DEXTROSE (50%) 50ML SYRG IV PRN (19:45)
--- NOTE | 2025-05-03 21:09 | DVHHP2 ---
History of Present Illness Reason for Visit: Shortness for breath History of Present Illness 34-year-old male presents for evaluation of shortness for breath. Patient reports missing his dialysis session for the past one-week. Today he developed shortness for breath with chest tightness and generalized weakness. No nausea or vomiting. No fever or chills. Past Medical History Hypertension, end-stage renal disease, diabetes mellitus Past Surgical History Fistula Family History Noncontributory Smoke: No ALCOHOL: none Drugs: None Lives: with Family Review of Systems Review of Systems Review of systems are currently negative otherwise addressed in HPI. Allergies: Coded Allergies: Lactose Intolerance (GI) (Verified Allergy, Unknown, 01/17/25) Tramadol (Verified Allergy, Unknown, 07/26/21) Uncoded Allergies: peaches (Allergy, Intermediate, rash, 04/13/21) Medications Current Medications Medications Dose Ordered Sig/Kevin Route Start Time Stop Time Status Last Admin Dose Admin Carvedilol 25 mg Q12HR PO 05/03/25 22:00 Clonidine HCl 0.2 mg TID PO 05/03/25 22:00 Gabapentin 600 mg BID PO 05/03/25 22:00 UNV Hydralazine HCl 50 mg Q12HR PO 05/03/25 22:00 Nifedipine 60 mg DAILY PO 05/04/25 10:00 Diagnostic Test (Pha) 1 strip ACHS 05/03/25 22:00 Insulin Human Regular ACHS SC 05/03/25 22:00 Dextrose 50 ml UD PRN IV 05/03/25 19:45 Ondansetron HCl 4 mg Q4HP PRN IV 05/03/25 19:45 Nitroglycerin 0.4 mg Q5MINP PRN SL 05/03/25 19:45 Morphine Sulfate 2 mg Q30M PRN IV 05/03/25 19:45 Gabapentin 300 mg DAILY@2200 PO 05/03/25 22:00 Exam Vital Signs Vital Signs Date Time Temp Pulse Resp B/P (MAP) Pulse Ox O2 Delivery O2 Flow Rate FiO2 05/03/25 20:15 90 13 154/68 (96) 99 05/03/25 18:00 98.8 98.8 05/03/25 16:12 Nasal Cannula* 2 28 Exam Gen: 34-year-old male in mild distress Skin: Warm, dry, normal color and texture, no rash. HEENT: Normocephalic atraumatic, mucous membranes moist and pink. Neck: Cervical and supraclavicular nodes normal without enlargement, trachea is midline, thyroid gland is normal without masses. Pulmonary: Clear to auscultation and percussion bilaterally. Cardiac: Regular rate and rhythm. No murmur Abdomen: Soft, nontender, nondistended, bowel sounds present all 4 quadrants, no guarding, no rigidity, no organomegaly. Extremities: No cyanosis, clubbing, no edema Neuro: Cranial nerves II through XII grossly intact, normal affect and speech, no focal motor deficits. Labs/Xrays ORDERING PHYSICIAN: SARAH VILLANUEVA MD PROCEDURE(s): CXRP - CHEST PORTABLE REASON: sob ORDER NUMBER(s): [id number], ACCESSION NUMBER(s): [id number] CHEST RADIOGRAPH Indication: sob Technique: Single frontal view of the chest was obtained Comparison: XY CHEST XRAY 1 VIEW on DOS: 04/15/25, XY CHEST PORTABLE on DOS: 04/15, XY CHEST PORTABLE on DOS: 03/13/25 FINDINGS: Lines and Tubes: None Lungs: Areas of increased tissue density in both lungs most likely due to overlying soft skin fold pneumothorax is of clinical concern specifically in the left recommend expiratory chest x-ray or CT chest for further evaluation. Pleura: No effusion. No pneumothorax. Cardiomediastinal contours: Unremarkable Bones: No acute osseous abnormality. IMPRESSION: 1. No acute cardiopulmonary disease. Labs Test 05/03/25 16:52 05/03/25 14:59 Range/Units POC Glucose 84 70-106 mg/dl White Blood Count 4.2 L 4.4-10.8 10^3/uL Red Blood Count 4.07 L 4.5-5.90 10^6/uL Hemoglobin 9.8 L 13.5-17.5 g/dL Hematocrit 30.4 L 41.0-53.0 % Mean Corpuscular Volume 74.6 L 80.0-100.0 fL Mean Corpuscular Hemoglobin 24.0 L 28.0-32.0 pg Mean Corpuscular Hemoglobin Concent 32.2 32.0-36.0 g/dL Red Cell Distribution Width 21.4 H 11.8-14.3 % Platelet Count 140 140-450 10^3/uL Mean Platelet Volume 8.6 6.9-10.8 fL Neutrophils (%) (Auto) 68.9 37.0-80.0 % Lymphocytes (%) (Auto) 14.1 10.0-50.0 % Monocytes (%) (Auto) 15.0 H 0.0-12.0 % Eosinophils (%) (Auto) 1.6 0.0-7.0 % Basophils (%) (Auto) 0.4 0.0-2.0 % Neutrophils # (Auto) 2.9 1.6-8.6 10 ^3/uL Lymphocytes # (Auto) 0.6 0.4-5.4 10 ^3/uL Monocytes # (Auto) 0.6 0-1.3 10 ^3/uL Eosinophils # (Auto) 0.1 0-0.8 10 ^3/uL Basophils # (Auto) 0 0-0.2 10 ^3/uL Nucleated Red Blood Cells 0.1 % Platelet Estimate Adequate Hypochromasia (manual) Slight Anisocytosis (manual) Slight Microcytosis Moderate Ovalocytes Few Schistocytes Few Sodium Level 132 L 136-145 mmol/L Potassium Level 7.3 *H 3.5-5.1 mmol/L Chloride Level 92 L 98-107 mmol/L Carbon Dioxide Level 19 L 20-31 mmol/L Anion Gap 21 H 5-15 Blood Urea Nitrogen 122 *H 9-23 mg/dL Creatinine 18.18 *H 0.700-1.30 mg/dL Glomerular Filtration Rate Calc 3 >90 mL/min BUN/Creatinine Ratio 6.7 L 10.0-20.0 Serum Glucose 73 L 74-106 mg/dL Calcium Level 8.5 L 8.7-10.4 mg/dL Total Bilirubin 0.3 0.2-1.0 mg/dL Aspartate Amino Transferase (AST) 18 13-40 U/L Alanine Aminotransferase (ALT) 19 7-40 U/L Alkaline Phosphatase 87 46-116 U/L Troponin I High Sensitivity 22 </=54 ng/L B-Type Natriuretic Peptide 989.83 0-100 pg/mL Total Protein 7.4 5.7-8.2 g/dL Albumin 3.6 3.2-4.8 g/dL SEPSIS Sepsis Screen Date sepsis recognized/suspect: May 03, 2025 Time Sepsis recognized/suspect: 1400 Recent Procedure: Yes On Antibiotic Therapy: No Respiratory Rate >20: No Heart Rate >90: No Temp<36 C (96.8 F) or >38.3 C: No SBP <90 or MAP <65 mmHG: No New Acute Mental Status Change: No Is the patient on CPAP, BIPAP,: No Physician Orders Electrocardigram (05/03/25 14:41) Urinalysis (05/03/25 14:53) Chest Portable (05/03/25 15:00) *[facility] (05/03/25 15:00) Potassium (05/03/25 19:56) Dialysis Nursing Message (05/03/25 18:47) Document Fluid Input And Outpu (05/03/25 18:47) Hemodialysis Orders (05/03/25 18:49) Hemodialysis Orders (05/04/25 07:00) Dialysis Nursing Message (05/04/25 07:00) Sodium Chloride 0.9% (05/04/25 07:00) Document Fluid Input And Outpu (05/04/25 07:00) Carvedilol Tablet (Coreg Tablet) (05/03/25 22:00) Clonidine Hcl Tablet (Catapres Tablet) (05/03/25 22:00) Hydralazine Hcl Tablet (Apresoline Table (05/03/25 22:00) Nifedipine Er (Procardia Xl (Time-Releas (05/04/25 10:00) Basic Metabolic Panel (05/04/25 04:00) Glucose Blood (Accu-Chek Comfort Curve T (05/03/25 22:00) Insulin R (Human) (Insulin R) (05/03/25 22:00) Dextrose 50% Syringe (05/03/25 19:45) Admit (05/03/25 19:41) Renal Standard(2gna,3gk,Lopho) (05/04/25 Breakfast) Ondansetron Hcl (Zofran) (05/03/25 19:45) Complete Blood Count (05/04/25 04:00) Condition: Serious (05/03/25 19:41) Bedrest With Bathroom Privileg (05/03/25 19:41) Nitroglycerin Sublingual (Ntrostat Subli (05/03/25 19:45) Morphine Sulfate Injection (05/03/25 19:45) Stat Ekg For Chest Pain (05/03/25 19:41) Notify Of Changes From Base (05/03/25 19:41) Sponge Press Operator For 24 Hours (05/03/25 19:41) Emergency Dysrhythmia Protocol (05/03/25 19:41) Rhythm Strips Once Every Shift (05/03/25 19:41) Oxygen By Nasal Cannula (05/03/25 19:41) Gabapentin Capsule (Neurontin Capsule) (05/03/25 22:00) Vital Signs Date Time Temp Pulse Resp B/P (MAP) Pulse Ox O2 Delivery O2 Flow Rate FiO2 05/03/25 20:15 90 13 154/68 (96) 99 05/03/25 20:00 90 05/03/25 20:00 90 14 154/68 (96) 99 05/03/25 18:36 84 05/03/25 18:00 98.8 82 14 128/83 (98) 99 98.8 05/03/25 17:04 95 18 195/91 05/03/25 16:12 12 100 Nasal Cannula* 2 28 05/03/25 16:00 195/91 05/03/25 16:00 163 05/03/25 16:00 98.9 81 14 137/60 (85) 99 98.9 05/03/25 15:27 88 171/104 05/03/25 14:48 98.9 88 14 171/104 (126) 99 98.9 05/03/25 14:48 88 14 99 Room Air* 0 21 05/03/25 14:34 172 05/03/25 14:20 91 05/03/25 14:17 98.7 90 20 142/95 97 98.7 Laboratory Tests Test 05/03/25 14:59 White Blood Count 4.2 10^3/uL (4.4-10.8) L Medications Medications Dose Ordered Sig/Kevin Route Start Time Stop Time Status Last Admin Dose Admin Albuterol 20 mg ONCE ONCE NEB 05/03/25 16:00 05/03/25 16:01 DC 05/03/25 16:12 20 MG Calcium Gluconate/ Sodium Chloride 50 ml @ 120 mls/hr ONCE ONCE IV 05/03/25 16:00 05/03/25 16:24 DC 05/03/25 16:00 120 MLS/HR Dextrose 50 ml ONCE ONCE IV 05/03/25 16:00 05/03/25 16:01 DC 05/03/25 16:00 50 ML Furosemide 20 mg ONCE ONCE IV 05/03/25 16:00 05/03/25 16:01 DC 05/03/25 16:00 20 MG Hydromorphone HCl 1 mg ONCE ONCE IV 05/03/25 17:00 05/03/25 17:01 DC 05/03/25 17:04 1 MG Labetalol HCl 10 mg ONCE ONCE IV 05/03/25 15:30 05/03/25 15:31 DC 05/03/25 15:27 10 MG Sodium Bicarbonate 50 ml ONCE ONCE IV 05/03/25 16:00 05/03/25 16:01 DC 05/03/25 16:00 50 ML Zirconium Oxide 10 gm ONCE ONCE PO 05/03/25 16:00 05/03/25 16:01 DC 05/03/25 16:00 10 GM Assessment/Plan Assessment/Plan Assessment End-stage renal disease with hyperkalemia Fluid overload Diabetes mellitus Hypertension Noncompliant Plan Admit the patient to [facility] to the hospitalist Nephrology consultation for emergent dialysis Hyperkalemia protocol Resume home medications Continue treatment per orders. Plan discussed with: Patient My Orders Orders - SPRING GILBERTCNBryan Procedure Category Date Status Time Carvedilol Tablet PHA 05/03/25 In Process (Coreg Tablet) 22:00 Clonidine Hcl Tablet PHA 05/03/25 In Process (Catapres Tablet) 22:00 Hydralazine Hcl PHA 05/03/25 In Process Tablet (Apresoline 22:00 Nifedipine Er PHA 05/04/25 In Process (Procardia Xl 10:00 Basic Metabolic Panel LAB 05/04/25 Verified 04:00 Glucose Blood PHA 05/03/25 In Process (Accu-Chek Comfort 22:00 Insulin R (Human) PHA 05/03/25 In Process (Insulin R) 22:00 Dextrose 50% Syringe PHA 05/03/25 In Process 19:45 Admit ADMIT 05/03/25 Transmitted 19:41 Renal DIET 05/04/25 Transmitted Standard(2gna,3gk,Lopho) Breakfast Ondansetron Hcl PHA 05/03/25 In Process (Zofran) 19:45 Complete Blood Count LAB 05/04/25 Verified 04:00 Condition: Serious NEEL 05/03/25 In Process 19:41 Bedrest With Bathroom NEEL 05/03/25 In Process Privileg 19:41 Nitroglycerin [facility] 05/03/25 In Process Sublingual (Ntrostat 19:45 Morphine Sulfate PHA 05/03/25 In Process Injection 19:45 Stat Ekg For Chest NEEL 05/03/25 In Process Pain 19:41 Notify Md Of Changes [facility] 05/03/25 In Process From Base 19:41 Sponge Press Operator For [facility] 05/03/25 In Process 24 Hours 19:41 Emergency Dysrhythmia [facility] 05/03/25 In Process Protocol 19:41 Rhythm Strips Once [facility] 05/03/25 In Process Every Shift 19:41 Oxygen By Nasal RT 05/03/25 Transmitted Cannula 19:41 Gabapentin Capsule [facility] 05/03/25 In Process (Neurontin Capsule) 22:00 Date of Service: May 03, 2025 Billing Provider: SPRING GILBERT Common Visit Codes: [id number] CARE 30-74 MIN SPRING GILBERT May 03, 2025 21:09
[2025-05-03] MEDS ORDERED: GABAPENTIN 300 MG CAP PO SCH (22:00)
[2025-05-03] MEDS: InsuLIN REG 1unit/0.01ml Soln (100units/ml) SC SCH (22:00)
[2025-05-03] MEDS: GABAPENTIN 300 MG CAP PO SCH (22:27)
[2025-05-03] MEDS: CARVEDILOL 12.5 MG TAB PO SCH (22:27)
[2025-05-03] MEDS: ACCU-CHEK COMFORT CURVE STRIP VI SCH (22:31)
[2025-05-03] MEDS: EPOETIN ALFA-EPBX 10,000 UNIT/1ML VIAL SC ONE (23:02)
[2025-05-03] MEDS: HYDROcodone-ACET 5/325MG TAB PO ONE (23:28)
[2025-05-04] VITALS (19 sets, daily range): BP systolic 101–177; BP diastolic 38–86; PULSE 70–88; RESP 10–16; TEMP 97.8–98.7; O2SAT 97–100
[2025-05-04] MEDS: KETOROLAC TROMETH 30 MG/ML 1ML VIAL IV ONE (03:31)
[2025-05-04 06:17] LABS: Potassium 4.3 mmol/L (3.5-5.1); Sodium 137 mmol/L (136-145)
[2025-05-04 06:18] LABS: Anion Gap 16 (5-15); Calcium 8.9 mg/dL (8.7-10.4); Carbon Dioxide 26 mmol/L (20-31)
[2025-05-04 06:22] LABS: Hematocrit 27.4 % (41.0-53.0); Hemoglobin 8.9 g/dL (13.5-17.5); Mean Corpuscular Hemoglobin 24.2 pg (28.0-32.0); Mean Corpuscular Volume 74.8 fL (80.0-100.0); Nucleated Red Blood Cells % 0.1 %
[2025-05-04 06:23] LABS: BUN/Creatinine Ratio 4.7 (10.0-20.0)
[2025-05-04 06:26] LABS: Blood Urea Nitrogen 52 mg/dL (9-23); Chloride 95 mmol/L (98-107); Glucose 118 mg/dL (74-106)
--- NOTE | 2025-05-04 06:56 | DVH ---
CLINICAL INDICATION: pain TECHNIQUE: XY L SHOULDER 2+ VIEW XRAY Comparison: None FINDINGS/IMPRESSION: : There is no evidence of acute fracture or dislocation. Soft tissues are unremarkable. Moderate degenerative changes.
[2025-05-04] MEDS ORDERED: SODIUM CHL 0.9% 1000 ML BAG XX ONE (07:00)
[2025-05-04] MEDS ORDERED: ALBUMIN 25% 100 ML IV ONE (12:20)
--- NOTE | 2025-05-04 14:18 | DVHDS2 ---
Discharge Summary Date of Admission May 03, 2025 at 19:41 Date of Discharge: May 04, 2025 Labs/Diagnostic Data: Laboratory Results Test 05/04/25 11:59 05/04/25 05:39 05/03/25 14:59 POC Glucose 98 mg/dl (70-106) White Blood Count 3.7 10^3/uL (4.4-10.8) Red Blood Count 3.66 10^6/uL (4.5-5.90) Hemoglobin 8.9 g/dL (13.5-17.5) Hematocrit 27.4 % (41.0-53.0) Mean Corpuscular Volume 74.8 fL (80.0-100.0) Mean Corpuscular Hemoglobin 24.2 pg (28.0-32.0) Mean Corpuscular Hemoglobin Concent 32.4 g/dL (32.0-36.0) Red Cell Distribution Width 21.3 % (11.8-14.3) Platelet Count 108 10^3/uL (140-450) Mean Platelet Volume 8.3 fL (6.9-10.8) Neutrophils (%) (Auto) 70.0 % (37.0-80.0) Lymphocytes (%) (Auto) 12.8 % (10.0-50.0) Monocytes (%) (Auto) 14.2 % (0.0-12.0) Eosinophils (%) (Auto) 1.9 % (0.0-7.0) Basophils (%) (Auto) 1.1 % (0.0-2.0) Neutrophils # (Auto) 2.6 10 ^3/uL (1.6-8.6) Lymphocytes # (Auto) 0.5 10 ^3/uL (0.4-5.4) Monocytes # (Auto) 0.5 10 ^3/uL (0-1.3) Eosinophils # (Auto) 0.1 10 ^3/uL (0-0.8) Basophils # (Auto) 0 10 ^3/uL (0-0.2) Nucleated Red Blood Cells 0.1 % Sodium Level 137 mmol/L (136-145) Potassium Level 4.3 mmol/L (3.5-5.1) Chloride Level 95 mmol/L (98-107) Carbon Dioxide Level 26 mmol/L (20-31) Anion Gap 16 (5-15) Blood Urea Nitrogen 52 mg/dL (9-23) Creatinine 11.10 mg/dL (0.700-1.30) Glomerular Filtration Rate Calc 6 mL/min (>90) BUN/Creatinine Ratio 4.7 (10.0-20.0) Serum Glucose 118 mg/dL (74-106) Calcium Level 8.9 mg/dL (8.7-10.4) Platelet Estimate Adequate Hypochromasia (manual) Slight Anisocytosis (manual) Slight Microcytosis Moderate Ovalocytes Few Schistocytes Few Total Bilirubin 0.3 mg/dL (0.2-1.0) Aspartate Amino Transferase (AST) 18 U/L (13-40) Alanine Aminotransferase (ALT) 19 U/L (7-40) Alkaline Phosphatase 87 U/L (46-116) Troponin I High Sensitivity 22 ng/L (</=54) B-Type Natriuretic Peptide 989.83 pg/mL (0-100) Total Protein 7.4 g/dL (5.7-8.2) Albumin 3.6 g/dL (3.2-4.8) Other Laboratory Tests 05/04/25 05:39 Final Diagnosis/Problems List hyper K ESRD missed HD HTN Discharge Disposition: Home Discharge Instruct/Medications Diet: Renal Activity: No Restrictions, As Tolerated Follow Up/Referral: dc clin 05/08 dr cuellar Scheduled B-Complex W/ C & Folic Acid (Maricruz-Meena Rx), 1 TAB PO DAILY, (Reported) Benazepril Hcl (Benazepril Hcl), 1 TAB PO DAILY, (Reported) Carvedilol (Carvedilol), 1 TAB PO BID, (Reported) Cephalexin Monohydrate (Cephalexin), 1 CAP PO BID Ciprofloxacin Hcl (Cipro), 1 TAB PO BID Clonidine Hydrochloride (Clonidine Hcl), 1 TAB PO TID, (Reported) Hydralazine Hcl (Hydralazine Hcl), 1 TAB PO BID, (Reported) Nifedipine (Nifedipine Er), 60 MG PO BID, (Reported) Sertraline Hcl (Sertraline Hcl), 150 MG PO DAILY, (Reported) Sevelamer Carbonate (Sevelamer Carbonate), 2 TAB PO TID, (Reported) Scheduled PRN Alprazolam (Xanax), 1 TAB PO DAILY PRN for ANXIETY, (Reported) Hydrocodone-Acetaminophen (Hydrocodone/Acetaminophen 10-325 mg), 1 TAB PO Q6HPRN PRN for PAIN SCALE 1 THRU 6, (Reported) Hydrocodone-Acetaminophen (Hydrocodone Bitartrate/AC 5-325 mg), 1 TAB PO QID PRN Miscellaneous Medications Gabapentin (Neurontin), (Reported) Insulin (Insulin Human), (Reported) Discharge Statement: "Patient was advised to return to the ER or call 911 if any headaches, dizziness, shortness of breath, chest pain, abdominal pain, bleeding, fevers, or worsening of medical condition. Patient was counseled about treatment plan, medications, possible side effects, patientverbalized understanding. All questions were answered to the best of my ability. This discharge took greater then 30 minutes in planning, reviewing documentation, counseling the patient, and discussing with other team members." ASSESSMENT ASSESSMENT Assessment hyper K ESRD missed HD HTN Date of Service: May 04, 2025 Billing Provider: DANYELL HARO MD Common Visit Codes: [id number] DISCH DAY >30min DANYELL HARO MD May 04, 2025 14:18
--- NOTE | 2025-05-05 00:23 | ECG ---
[facility] Test Date: 2025-05-03 Test Time: 14:20:53 Pat Name: RUPAL GALVEZ Department: ED Room: [address] [place] [address] Gender: M Psychology Department Chair: orlin : 1990 Requested By: EMERGENCY EMERGENCY Order Number: [id number] Reading MD: Measurements Intervals [place] Rate: 91 P: 89 WI: 185 QRS: 88 QRSD: 104 T: 12 QT: 381 QTc: 469 Interpretive Statements Sinus rhythm Ventricular premature complex Probable lateral infarct, old Please click the below link to view image of tracing.
== END 2025-05-04 16:10 | disposition home or self-care (01) | DRG 425 ==
LOC: ER 14:14 → OVERFLOW 19:41 → DOU 23:57
PROVIDERS: ADMIT Student in an Organized Health Care Education/Training Program; ATTEND Student in an Organized Health Care Education/Training Program
PROC: 5A1D70Z Performance of Urinary Filtration, Intermittent, Less than 6 Hours Per Day (ICD-10-PCS; principal; 2025-05-03)
PROC: 5A1D70Z Performance of Urinary Filtration, Intermittent, Less than 6 Hours Per Day (ICD-10-PCS; 2025-05-04)
DX: E87.70 Fluid overload, unspecified (principal); I12.0 Hypertensive chronic kidney disease with stage 5 chronic kidney disease or end stage renal disease; N18.6 End stage renal disease; E87.5 Hyperkalemia; Z99.2 Dependence on renal dialysis; E11.22 Type 2 diabetes mellitus with diabetic chronic kidney disease; Z91.199 Patient's noncompliance with other medical treatment and regimen due to unspecified reason; Z88.8 Allergy status to other drugs, medicaments and biological substances; Z79.2 Long term (current) use of antibiotics; Z79.899 Other long term (current) drug therapy; Z83.3 Family history of diabetes mellitus; Z82.49 Family history of ischemic heart disease and other diseases of the circulatory system; I50.32 Chronic diastolic (congestive) heart failure
CPT/HCPCS: 36415; 71045; 73030; 80048; 80053; 82962; 83880; 84132; 84484; 85025; 87081; 90935; 93005; 94640; 96374; 96375; 99291; 99292; G0378; J1885

== ENCOUNTER 2025-05-08 04:30 | Inpatient (IN) | payer MEDICAID ==
[2025-05-08] VITALS (7 sets, daily range): BP systolic 127–180; BP diastolic 76–107; PULSE 85–97; RESP 14–18; TEMP 97.6–97.9; O2SAT 95–100
[~2025-05-08] VITALS: Ht 172.7 cm; Wt 74.6 kg
--- NOTE | 2025-05-08 04:40 | ED.PDOC ---
History of Present Illness HPI Comments 34 year old male came to ER via EMS for abdominal pain nausea, vomiting, shortness of breath. Patient has history of hypertension, diabetes, ESRD, on dialysis every Mon, Wed, Sun. Was just discharged here last May 04, 2025 and was diagnosed with 1. hyperkalemia, 2. ESRD missed HD x 1week, 3. Hypertension. Alla ent once again missed his dialysis session last Sunday, and few hours ago, he started having abdominal pain with bouts of nausea and vomiting. ROS As stated in HPI PHYSICAL EXAM: General: Awake, alert and oriented. Ill-appearing Skin: Skin in warm, dry and intact. Appropriate color for ethnicity. HEENT: The head is normocephalic and atraumatic. Conjunctivae are clear without exudates or hemorrhage. Sclera is non-icteric. EOM are intact. No signs of nystagmus. Eyelids are normal in appearance without swelling or lesions. Oral mucosa is pink and moist Neck: The neck is supple with normal range of motion. No JVD. Cardiac: Heart rate and rhythm are normal. No murmurs, gallops, or rubs are auscultated. Respiratory: No signs of respiratory distress. Lung sounds are clear in all lobes bilaterally without rales, rhonchi, or wheezes. Abdominal: Abdomen is soft, generally tender-tender without distention, guarding or rigidity. Bowel sounds are present and normoactive in all four quadrants. Extremities: Upper and lower extremities are atraumatic in appearance without deformity or edema. Neurological: The patient is awake, alert and oriented to person, place, and time with normal speech. Speech is clear. There is no facial asymmetry. 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 Allergies: Coded Allergies: Lactose Intolerance (GI) (Verified Allergy, Unknown, 01/17/25) Tramadol (Verified Allergy, Unknown, 07/26/21) Uncoded Allergies: peaches (Allergy, Intermediate, rash, 04/13/21) Home Meds Active Scripts Hydrocodone-Acetaminophen (Hydrocodone Bitartrate/AC 5-325 mg) 1 Tab Tab, 1 TAB PO QID PRN, #30 TAB Prov:JAMIL JURADO MD 04/21/25 Ciprofloxacin Hcl (Cipro) 500 Mg Tab, 1 TAB PO BID, #20 TAB Prov:JAMIL JURADO MD 04/21/25 Cephalexin Monohydrate (Cephalexin) 500 Mg Cap, 1 CAP PO BID for 10 Days, #20 CAP Prov:VESTA GOODRICH 01/18/25 Reported Medications Clonidine Hydrochloride (Clonidine Hcl) 0.3 Mg Tab, 1 TAB PO TID 09/06/23 Sevelamer Carbonate (Sevelamer Carbonate) 800 Mg Tab, 2 TAB PO TID 09/06/23 Nifedipine (Nifedipine Er) 60 Mg Tab, 60 MG PO BID 09/06/23 Hydralazine Hcl (Hydralazine Hcl) 100 Mg Tab, 1 TAB PO BID 09/06/23 Benazepril Hcl (Benazepril Hcl) 40 Mg Tab, 1 TAB PO DAILY 09/06/23 Carvedilol (Carvedilol) 25 Mg Tab, 1 TAB PO BID 09/06/23 B-Complex W/ C & Folic Acid (Maricruz-Meena Rx) Tab, 1 TAB PO DAILY 09/06/23 Hydrocodone-Acetaminophen (Hydrocodone/Acetaminophen 10-325 mg) 1 Tab Tab, 1 TAB PO Q6HPRN PRN for PAIN SCALE 1 THRU 6, TAB 04/13/21 Alprazolam (Xanax) 0.25 Mg Tb, 1 TAB PO DAILY PRN for ANXIETY, #30 TAB 04/13/21 Sertraline Hcl (Sertraline Hcl) 50 Mg Tab, 150 MG PO DAILY for 30 Days, MG 04/13/21 Gabapentin (Neurontin) 800 Mg Tab 03/12/10 Insulin (Insulin Human) Human Pow 03/12/10 Information Source: Patient, Emergency Med Personnel Mode of Arrival: EMS Past Medical History PAST MEDICAL HISTORY: DM, ESRD, HTN Surgical History (Other): Dialysis MWF Family History Family History: No family hx of Cancer, No family hx of Heart thompson, Family hx of DM Social History Smoker: Non-Smoker Alcohol: Denies ETOH Use Drugs: Denies Drug Use Lives In: Home Was a procedure done? Was a procedure done?: No Differential Dx Considerations may include: anemia, electrolyte imbalance, ESRD Differential diagnoses considered include: Abdominal aortic aneurysm, NH, esophageal rupture, intestinal obstruction, mesenteric ischemia, perforated viscus or solid organ rupture, CHF with hepatomegaly, pneumonia, abscess, appendicitis, biliary disease, diverticulitis, gastritis, gastroenteritis, hepatitis, hernia, inflammatory bowel disease, pancreatitis, peptic ulcer disease, urinary tract infection, ureteral colic, constipation, GERD, irritable syndrome, abdominal wall pain, nonspecific abdominal pain, herpes zoster, nephrolithiasis. X-Ray, Labs, Meds, VS Vital Signs Date Time Temp Pulse Resp B/P (MAP) Pulse Ox O2 Delivery O2 Flow Rate FiO2 05/08/25 06:00 88 15 138/83 (101) 96 05/08/25 05:04 98.4 96 14 149/94 (112) 98 98.4 05/08/25 05:04 Nasal Cannula* 2 28 05/08/25 04:48 102 05/08/25 04:35 98.1 110 24 145/82 98 98.1 Lab Test 05/08/25 05:39 05/08/25 05:36 Range/Units Lactic Acid Level 0.8 0.4-2.0 mmol/L Sodium Level 143 # 136-145 mmol/L Potassium Level 8.2 #*H 3.5-5.1 mmol/L Chloride Level 104 98-107 mmol/L Carbon Dioxide Level 23 20-31 mmol/L Anion Gap 16 H 5-15 Blood Urea Nitrogen 87 *H 9-23 mg/dL Creatinine 11.26 *H 0.700-1.30 mg/dL Glomerular Filtration Rate Calc 5 >90 mL/min BUN/Creatinine Ratio 7.7 L 10.0-20.0 Serum Glucose 81 74-106 mg/dL Calcium Level 8.8 8.7-10.4 mg/dL Magnesium Level 3.0 H 1.6-2.6 mg/dL Total Bilirubin 0.2 0.2-1.0 mg/dL Aspartate Amino Transferase (AST) 43 H 13-40 U/L Alanine Aminotransferase (ALT) 25 7-40 U/L Alkaline Phosphatase 85 46-116 U/L Troponin I High Sensitivity 37 </=54 ng/L Total Protein 7.0 5.7-8.2 g/dL Albumin 3.3 3.2-4.8 g/dL Lipase 40 12-53 U/L Patient alert. Has been here for similar symptom last week. He did not have his dialysis since he left this hospital. Vitals stable. Potassium elevated. Hyperkalemia treatment. Nephrology consultation for dialysis. Explained to the patient. Continue monitoring. Time of 1ST Reevaluation: 05:24 Reevaluation 1ST: Unchanged Patient Education/Counseling: Other Family Education/Counseling: No Family Present Change of Shift?: Yes (Signed out to Dr. Villanueva @0600 pending lab & imaging results.) SEPSIS Sepsis Screen Physician Orders Chest Xray 1 View (05/08/25 04:39) Ct Ab Pel Wo Con-No Oral Or Iv (05/08/25 04:39) Saline Lock (05/08/25 04:39) Electrocardigram (05/08/25 05:24) Vital Signs Date Time Temp Pulse Resp B/P (MAP) Pulse Ox O2 Delivery O2 Flow Rate FiO2 05/08/25 06:00 88 15 138/83 (101) 96 05/08/25 05:04 98.4 96 14 149/94 (112) 98 98.4 05/08/25 05:04 Nasal Cannula* 2 28 05/08/25 04:48 102 05/08/25 04:35 98.1 110 24 145/82 98 98.1 Laboratory Tests Test 05/08/25 05:39 Lactic Acid Level 0.8 mmol/L (0.4-2.0) Departure 1 Departure Time of Disposition: 07:39 Impression: Primary Impression: Hyperkalemia Additional Impressions: End-stage renal disease on hemodialysis CHF (congestive heart failure) Qualified Codes: I50.43 - Acute on chronic combined systolic (congestive) and diastolic (congestive) heart failure Disposition: ADMITTED INPATIENT Admit to: ICU Condition: Guarded Critical Care Note Critical Care Time?: Yes (90 min-critical care time only) Stability Stability form required: No Heart Score Heart Score: Heart Score Response (Comments) Value History N/A 0 EKG N/A 0 Age N/A 0 Risk Factors N/A 0 Troponin N/A 0 Total 0 I personally scribed for FRANK JACKSON MD ([email or web address]) on 05/08/25 at 04:40. Electronically submitted by Sukhwinder Law ([facility]). FRANK JACKSON MD May 08, 2025 04:40 SARAH VILLANUEVA MD May 08, 2025 07:40
[2025-05-08] MEDS: ONDANSETRON HCL 4 MG/2 ML VIAL IM ONE (04:45)
[2025-05-08] MEDS: HYDROmorphone HCL 2 MG/ML VL/or syr IV ONE (04:45)
[2025-05-08 06:30] LABS: Alanine Aminotransferase 25 U/L (7-40); Alkaline Phosphatase 85 U/L (46-116); Anion Gap 16 (5-15); BUN/Creatinine Ratio 7.7 (10.0-20.0); Calcium 8.8 mg/dL (8.7-10.4); Carbon Dioxide 23 mmol/L (20-31); Chloride 104 mmol/L (98-107); Glucose 81 mg/dL (74-106); Lipase 40 U/L (12-53); Sodium 143 mmol/L (136-145); Total Protein 7.0 g/dL (5.7-8.2)
[2025-05-08 06:31] LABS: Albumin 3.3 g/dL (3.2-4.8)
[2025-05-08 06:32] LABS: Bilirubin, Total 0.2 mg/dL (0.2-1.0); Magnesium 3.0 mg/dL (1.6-2.6)
[2025-05-08 06:34] LABS: Potassium 8.2 mmol/L (3.5-5.1)
[2025-05-08 06:35] LABS: Blood Urea Nitrogen 87 mg/dL (9-23)
--- NOTE | 2025-05-08 06:45 | DVH ---
CHEST RADIOGRAPH Indication: Shortness of breath Technique: Single frontal view of the chest was obtained Comparison: XY CHEST PORTABLE on DOS: 05/03/25 FINDINGS: Lines and Tubes: None Lungs: Hazy bilateral opacities noted. Pleura: No effusion. No pneumothorax. Cardiomediastinal contours: Unremarkable Bones: No acute osseous abnormality. IMPRESSION: 1. Hazy bilateral pulmonary opacities.
--- NOTE | 2025-05-08 06:45 | DVH ---
Exam: CT CT AB PEL WO CON-NO ORAL OR IV History: Abdominal pain, nausea, vomiting. Comparison Study: CT CT AB PEL WO CON-NO ORAL OR IV on DOS: 01/14/25 Technique: Multidetector spiral CT of the abdomen and pelvis was performed from lung bases to pubic s ymphysis. Imaging was performed without intravenous contrast. Coronal and sagittal multiplanar reform ats were obtained from the axial data set by the technologist. Radiation Dose : 1. Abdomen/Pelvis: CTDIvol 15.03 mGy, DLP 3.92 mGy*cm. Findings: Evaluation of vasculature and solid organs is limited due to lack of intravenous contrast use. Lung Bases: Bilateral lower lobe ground-glass opacities. Visualized portions of the heart and pericar dium are unremarkable. Liver: The liver is normal in size. No focal lesions. Gallbladder and Biliary Tree: The gallbladder is unremarkable. No intrahepatic or extrahepatic biliar y ductal dilatation. Spleen: Unremarkable Pancreas: The pancreas is grossly unremarkable. Adrenal Glands: Unremarkable Kidneys: Kidneys are unremarkable without calculi or hydronephrosis. Bilateral renal cysts. Bilatera l renal vascular calcifications. GI tract: The stomach is grossly normal in appearance. No evidence of small bowel wall thickening or abnormal dilatation to suggest bowel obstruction. The colon is unremarkable. The appendix is not visu alized, however no inflammatory changes in the right lower quadrant to suggest acute appendicitis. Peritoneum/mesentery/retroperitoneum. No evidence of free intraperitoneal air. No ascites. No evidenc e of suspicious lymphadenopathy. Abdominal Wall: Unremarkable. Vasculature: The visualized abdominal aorta is normal in size and caliber. Evaluation of abdominal a nd pelvic vessels is limited due to lack of intravenous contrast. There are atherosclerotic calcifica tions in the aorta. Urinary Bladder: Grossly unremarkable for degree of distention. Pelvic Organs: Unremarkable Musculoskeletal: No aggressive focal bony lesions, acute fractures or dislocation. Diffuse heterogene ous appearance of the bones compatible with sequelae of renal osteodystrophy. Cortical destruction in the sacrum. Soft tissues: Body wall anasarca. IMPRESSION: 1. No acute abdominal or pelvic findings. 2. Renal osteodystrophy. Cortical destruction in the sacrum. This could reflect pathologic fracture, bone resorption or infection. 3. Bilateral lower lobe ground-glass opacities may represent pulmonary edema or atypical infection. 4. Body wall anasarca.
[2025-05-08] MEDS ORDERED: ACETAMINOPHEN 325 MG TAB PO PRN (07:00)
[2025-05-08] MEDS ORDERED: HYDROcodone-ACET 5/325MG TAB PO PRN (07:00)
--- NOTE | 2025-05-08 07:30 | DVHHP2 ---
History of Present Illness Reason for Visit: Abdominal pain with nausea and vomiting History of Present Illness Kahlil Da Silva is a 34-year-old male with past medical history of hypertension, diabetes, ESRD on HD (M/W/F), right toes amputation, left toe amputation, cigar use, marijuana use who presents to the ED with abdominal pain, nausea, vomiting, and shortness of breaths that started today. Patient also reports that he does not use home oxygen. Patient reports that it was due to transportation issues where he was missing his dialysis. Patient reports that he is compliant with his medications. Patient reports that he ambulates with a front wheel walker and lives alone. Patient also reports that he has a left buttocks spider bite that happened years ago, has a covered with a Band-Aid currently. Patient was recently here and discharged. Patient denies any recent trauma or injury, recent sick contacts, recent travels, recent ingestion of spoiled food, chest pain, fever, chills, lightheadedness, weakness, dizziness, diarrhea, or urinary symptoms. Cardiovascular: HTN Renal/: Chronic renal failure Endocrine: Diabetes Past Surgical History: Other (Right and left toe amputation) Family History: DM, Other (Mom and dad with diabetes.) Smoke: # pack years (Cigar use) ALCOHOL: none Drugs: Marijuana Lives: Alone Domestic Violence: Neg Review of Systems Respiratory: Shortness of breath Gastrointestinal: Nausea, Vomiting, Abdominal Pain Allergies: Coded Allergies: Lactose Intolerance (GI) (Verified Allergy, Unknown, 01/17/25) Tramadol (Verified Allergy, Unknown, 07/26/21) Uncoded Allergies: peaches (Allergy, Intermediate, rash, 04/13/21) Exam Vital Signs Vital Signs Date Time Temp Pulse Resp B/P (MAP) Pulse Ox O2 Delivery O2 Flow Rate FiO2 05/08/25 05:04 98.4 96 14 149/94 (112) 98 98.4 05/08/25 05:04 Nasal Cannula* 2 28 General Appearance: Alert, Oriented X3, Cooperative, No acute distress HEENT: Atraumatic, PERRLA, EOMI Respiratory: Normal air movement Cardiovascular: Normal S1, Normal S2 Abdominal: Normal bowel sounds, Soft Neuro: Normal speech, Normal tone, Sensation intact Psych/Mental Status: Mental status NL, Mood NL Labs/Xrays Labs Test 05/08/25 05:39 05/08/25 05:36 Range/Units Lactic Acid Level 0.8 0.4-2.0 mmol/L Sodium Level 143 # 136-145 mmol/L Potassium Level 8.2 #*H 3.5-5.1 mmol/L Chloride Level 104 98-107 mmol/L Carbon Dioxide Level 23 20-31 mmol/L Anion Gap 16 H 5-15 Blood Urea Nitrogen 87 *H 9-23 mg/dL Creatinine 11.26 *H 0.700-1.30 mg/dL Glomerular Filtration Rate Calc 5 >90 mL/min BUN/Creatinine Ratio 7.7 L 10.0-20.0 Serum Glucose 81 74-106 mg/dL Calcium Level 8.8 8.7-10.4 mg/dL Magnesium Level 3.0 H 1.6-2.6 mg/dL Total Bilirubin 0.2 0.2-1.0 mg/dL Aspartate Amino Transferase (AST) 43 H 13-40 U/L Alanine Aminotransferase (ALT) 25 7-40 U/L Alkaline Phosphatase 85 46-116 U/L Troponin I High Sensitivity 37 </=54 ng/L Total Protein 7.0 5.7-8.2 g/dL Albumin 3.3 3.2-4.8 g/dL Lipase 40 12-53 U/L CHEST RADIOGRAPH Indication: Shortness of breath Technique: Single frontal view of the chest was obtained Comparison: XY CHEST PORTABLE on DOS: 05/03/25 FINDINGS: Lines and Tubes: None Lungs: Hazy bilateral opacities noted. Pleura: No effusion. No pneumothorax. Cardiomediastinal contours: Unremarkable Bones: No acute osseous abnormality. IMPRESSION: 1. Hazy bilateral pulmonary opacities. Exam: CT CT AB PEL WO CON-NO ORAL OR IV History: Abdominal pain, nausea, vomiting. Comparison Study: CT CT AB PEL WO CON-NO ORAL OR IV on DOS: 01/14/25 Technique: Multidetector spiral CT of the abdomen and pelvis was performed from lung bases to pubic symphysis. Imaging was performed without intravenous contrast. Coronal and sagittal multiplanar reformats were obtained from the axial data set by the technologist. Radiation Dose : 1. Abdomen/Pelvis: CTDIvol 15.03 mGy, DLP 3.92 mGy*cm. Findings: Evaluation of vasculature and solid organs is limited due to lack of intravenous contrast use. Lung Bases: Bilateral lower lobe ground-glass opacities. Visualized portions of the heart and pericardium are unremarkable. Liver: The liver is normal in size. No focal lesions. Gallbladder and Biliary Tree: The gallbladder is unremarkable. No intrahepatic or extrahepatic biliary ductal dilatation. Spleen: Unremarkable Pancreas: The pancreas is grossly unremarkable. Adrenal Glands: Unremarkable Kidneys: Kidneys are unremarkable without calculi or hydronephrosis. Bilateral renal cysts. Bilateral renal vascular calcifications. GI tract: The stomach is grossly normal in appearance. No evidence of small bowel wall thickening or abnormal dilatation to suggest bowel obstruction. The colon is unremarkable. The appendix is not visualized, however no inflammatory changes in the right lower quadrant to suggest acute appendicitis. Peritoneum/mesentery/retroperitoneum. No evidence of free intraperitoneal air. No ascites. No evidence of suspicious lymphadenopathy. Abdominal Wall: Unremarkable. Vasculature: The visualized abdominal aorta is normal in size and caliber. Anupama luation of abdominal and pelvic vessels is limited due to lack of intravenous contrast. There are atherosclerotic calcifications in the aorta. Urinary Bladder: Grossly unremarkable for degree of distention. Pelvic Organs: Unremarkable Musculoskeletal: No aggressive focal bony lesions, acute fractures or dislocation. Diffuse heterogeneous appearance of the bones compatible with s equelae of renal osteodystrophy. Cortical destruction in the sacrum. Soft tissues: Body wall anasarca. IMPRESSION: 1. No acute abdominal or pelvic findings. 2. Renal osteodystrophy. Cortical destruction in the sacrum. This could reflect pathologic fracture, bone resorption or infection. 3. Bilateral lower lobe ground-glass opacities may represent pulmonary edema or atypical infection. 4. Body wall anasarca. SEPSIS Sepsis Screen Date sepsis recognized/suspect: May 08, 2025 Time Sepsis recognized/suspect: 0504 Recent Procedure: No On Antibiotic Therapy: No Respiratory Rate >20: No Heart Rate >90: No Temp<36 C (96.8 F) or >38.3 C: No SBP <90 or MAP <65 mmHG: No New Acute Mental Status Change: No Is the patient on CPAP, BIPAP,: No Physician Orders Complete Blood Count (05/08/25 04:39) Chest Xray 1 View (05/08/25 04:39) Ct Ab Pel Wo Con-No Oral Or Iv (05/08/25 04:39) Troponin-I Hs (05/08/25 05:39) Troponin-I Hs (05/08/25 07:39) Saline Lock (05/08/25 04:39) Electrocardigram (05/08/25 05:24) *[facility] (05/08/25 06:27) Vital Signs Date Time Temp Pulse Resp B/P (MAP) Pulse Ox O2 Delivery O2 Flow Rate FiO2 05/08/25 05:04 98.4 96 14 149/94 (112) 98 98.4 05/08/25 05:04 Nasal Cannula* 2 28 05/08/25 04:48 102 05/08/25 04:35 98.1 110 24 145/82 98 98.1 Laboratory Tests Test 05/08/25 05:36 05/08/25 05:39 White Blood Count Pending Lactic Acid Level 0.8 mmol/L (0.4-2.0) Assessment/Plan Assessment/Plan Assessment Intractable abdominal pain with nausea and vomiting Dyspnea ESRD on HD with severe hyperkalemia due to noncompliance Hazy bilateral pulmonary opacities likely PNA Renal osteodystrophy Body wall anasarca Cigar use Marijuana use Hypermagnesemia Acute hypoxic respiratory failure on oxygen Left buttock wound due to spider bite per patient has been ongoing for the last several years History of right toe amputation History of left toe amputation History of hypertension History of diabetes Plan Admit to med surge Supplemental oxygen Antiemetics Pain management Hemoglobin A1c ISS and Accu-Cheks EKG Troponin noted Mag level CT abdomen and pelvis noted Chest x-ray Lactic noted Lipase noted Wound culture with Gram stain Diet Medications reconciled DVT prophylaxis-SCDs PUD prophylaxis-PPIs Discussed plan of care with patient and nurse Nephrology consult for dialysis Wound consult Counseled patient on cessation of cigar and marijuana use Counseled patient on compliance of dialysis and medications 10212 Behavior change smoking greater than 10 minutes about use of other options also gave option of nicotine patch [id number] Preventive counseling healthy eating habits, physical activity, and regular checkups Plan discussed with: Patient Date of Service: May 08, 2025 Billing Provider: MARIMAR PALAFOX Common Visit Codes: 50001-[id number] INP/OBS CARE (HIGH) Secondary Visit Codes: [id number] COUNSELING IND, [id number]-KAFVX CHNG SMOKING >10MIN MARIMAR PALAFOX May 08, 2025 07:30
[2025-05-08] MEDS: ALBUTEROL SULF 2.5 MG/0.5ML(0.5%) NEB SOLN NEB ONE (07:50)
[2025-05-08] MEDS: CALCIUM GLUC 1,000mg/50ml-NS 50 ML IV ONE (07:51)
[2025-05-08] MEDS: SEVELAMER 800 MG TAB PO SCH (08:21)
[2025-05-08] MEDS: SODIUM BICARB 8.4% 50Meq/50ml SYR INJ IV ONE (08:21)
[2025-05-08] MEDS: DEXTROSE (50%) 50ML SYRG IV ONE (08:21)
[2025-05-08] MEDS: SODIUM ZIRCONIUM CYCL 10 GM PAK PO ONE (08:22)
[2025-05-08] MEDS: FUROSEMIDE 20 MG/2 ML VIAL IV ONE (08:22)
[2025-05-08] MEDS: InsuLIN REG 1unit/0.01ml Soln (100units/ml) IV ONE (08:23)
[2025-05-08 09:27] LABS: Hematocrit 26.8 % (41.0-53.0); Hemoglobin 8.3 g/dL (13.5-17.5); Mean Corpuscular Hemoglobin 23.8 pg (28.0-32.0); Mean Corpuscular Volume 76.6 fL (80.0-100.0); Nucleated Red Blood Cells % 0.3 %
[2025-05-08] MEDS ORDERED: PATIENTS OWN MEDICATION (Nifedipine (Nifedipine Er) 60 MG) PO SCH (10:00)
[2025-05-08] MEDS ORDERED: PATIENTS OWN MEDICATION (Hydralazine Hcl 1 TAB) PO SCH (10:00)
[2025-05-08] MEDS ORDERED: PATIENTS OWN MEDICATION (Benazepril Hcl 1 TAB) PO SCH (10:00)
[2025-05-08] MEDS ORDERED: BENAZEPRIL HCL 10 MG TAB PO SCH (10:00)
[2025-05-08] MEDS ORDERED: SODIUM CHL 0.9% 1000 ML BAG XX ONE (10:30)
--- NOTE | 2025-05-08 10:44 | DVHINCON2 ---
Date of service: May 08, [address] Ruth Reason for Consultation ESKD on HD , Hyperkalemia History of Present Illness This is a 34-year-old male with history of end-stage kidney disease on hemodialysis presenting to the emergency room because of nausea, vomiting, a bdominal pain and shortness of breath. History is mainly obtained from the medical records. Patient was hospitalized recently and was just discharged from the hospital on Sunday after receiving dialysis on Sunday and Sunday. Initial evaluation in the emergency room noted that the patient's potassium was 8.2. Medical management of hyperkalemia has been done. Patient is scheduled for dialysis today. Extensive history of noncompliance with the dialysis treatments. Past Medical History End-stage kidney disease on hemodialysis Hypertension Noncompliance Past Surgical History Dialysis access Family History: Diabetes mellitus G8 MOTHER G8 FATHER G8 BROTHER Hypertension G8 MOTHER Social History no active history of smoking,alcohol or tobacco abuse Allergies: Coded Allergies: Lactose Intolerance (GI) (Verified Allergy, Unknown, 01/17/25) Tramadol (Verified Allergy, Unknown, 07/26/21) Uncoded Allergies: peaches (Allergy, Intermediate, rash, 04/13/21) Home Meds Active Scripts Hydrocodone-Acetaminophen (Hydrocodone Bitartrate/AC 5-325 mg) 1 Tab Tab, 1 TAB PO QID PRN, #30 TAB Prov:JAMIL JURADO MD 04/21/25 Ciprofloxacin Hcl (Cipro) 500 Mg Tab, 1 TAB PO BID, #20 TAB Prov:JAMIL JURADO MD 04/21/25 Cephalexin Monohydrate (Cephalexin) 500 Mg Cap, 1 CAP PO BID for 10 Days, #20 CAP Prov:VESTA GOODRICH 01/18/25 Reported Medications Clonidine Hydrochloride (Clonidine Hcl) 0.3 Mg Tab, 1 TAB PO TID 09/06/23 Sevelamer Carbonate (Sevelamer Carbonate) 800 Mg Tab, 2 TAB PO TID 09/06/23 Nifedipine (Nifedipine Er) 60 Mg Tab, 60 MG PO BID 09/06/23 Hydralazine Hcl (Hydralazine Hcl) 100 Mg Tab, 1 TAB PO BID 09/06/23 Benazepril Hcl (Benazepril Hcl) 40 Mg Tab, 1 TAB PO DAILY 09/06/23 Carvedilol (Carvedilol) 25 Mg Tab, 1 TAB PO BID 09/06/23 B-Complex W/ C & Folic Acid (Maricruz-Meena Rx) Tab, 1 TAB PO DAILY 09/06/23 Hydrocodone-Acetaminophen (Hydrocodone/Acetaminophen 10-325 mg) 1 Tab Tab, 1 TAB PO Q6HPRN PRN for PAIN SCALE 1 THRU 6, TAB 04/13/21 Alprazolam (Xanax) 0.25 Mg Tb, 1 TAB PO DAILY PRN for ANXIETY, #30 TAB 04/13/21 Sertraline Hcl (Sertraline Hcl) 50 Mg Tab, 150 MG PO DAILY for 30 Days, MG 04/13/21 Gabapentin (Neurontin) 800 Mg Tab 03/12/10 Insulin (Insulin Human) Human Pow 03/12/10 Current Medications Current Medications Medications (Trade) Dose Ordered Sig/Kevin Route PRN Reason Start Time Stop Time Status Last Admin Acetaminophen/ Hydrocodone Bitart ([place] 5/325MG Tab) 1 tab Q4HP PRN PO MODERATE PAIN (4-6 PAIN SCALE) 05/08/25 07:00 05/08/25 07:26 DC Ondansetron HCl (Zofran) 4 mg Q4HP PRN IV NAUSEA / VOMITING 05/08/25 07:00 Acetaminophen (Tylenol Tablet) 650 mg Q6HP PRN PO PAIN SCALE 1-3 OR TEMP>100.4 05/08/25 07:00 Morphine Sulfate 2 mg Q4HPRN PRN IV SEVERE PAIN (7-10 PAIN SCALE) 05/08/25 07:00 Acetaminophen/ Hydrocodone Bitart ([place] 5/325MG Tab) 1 tab Q4HP PRN PO MODERATE PAIN (4-6 PAIN SCALE) 05/08/25 07:30 Multivit/Ca Carb/ B Cmplx/FA/Prenat (Nephro-Meena Tablet) 1 tab DAILY PO 05/08/25 10:00 Sertraline HCl (Zoloft) 150 mg DAILY PO 05/08/25 10:00 Patient Own Medication 1 tab DAILY PO 05/08/25 10:00 UNV Patient Own Medication 1 tab TID PO 05/08/25 14:00 UNV Patient Own Medication 1 tab BID PO 05/08/25 10:00 UNV Patient Own Medication 60 mg BID PO 05/08/25 10:00 UNV Patient Own Medication 2 tab TID PO 05/08/25 14:00 UNV Benazepril HCl (Lotensin Tablet) 40 mg DAILY PO 05/08/25 10:00 05/08/25 09:45 DC Clonidine HCl (Catapres Tablet) 0.3 mg TID PO 05/08/25 14:00 Hydralazine HCl (Apresoline Tablet) 100 mg BID PO 05/08/25 10:00 05/08/25 09:45 DC Nifedipine (Procardia Xl (Time-Release)) 60 mg BID PO 05/08/25 10:00 Sevelamer HCl (Renagel) 1,600 mg TIDWM PO 05/08/25 08:00 05/08/25 08:21 Hydralazine HCl (Apresoline Tablet) 100 mg TID PO 05/08/25 14:00 UNV Review of Systems 12 point ROS negative except as in HPI Vital Signs Vital Signs Date Time Temp Pulse Resp B/P (MAP) Pulse Ox O2 Delivery O2 Flow Rate FiO2 05/08/25 08:22 141/78 05/08/25 07:55 97.8 86 14 99 97.8 05/08/25 07:55 Nasal Cannula* 2 28 Physical Exam Arousable HEENT: No JVD Lungs: Bilateral good air entry CVS : S1,S2 RRR Abd: Soft ,BS+ 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: No 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 Labs/Diagnostic Data Labs Test 05/08/25 09:13 05/08/25 08:02 05/08/25 05:39 05/08/25 05:36 Range/Units White Blood Count 5.5 # 4.4-10.8 10^3/uL Red Blood Count 3.50 L 4.5-5.90 10^6/uL Hemoglobin 8.3 L 13.5-17.5 g/dL Hematocrit 26.8 L 41.0-53.0 % Mean Corpuscular Volume 76.6 L 80.0-100.0 fL Mean Corpuscular Hemoglobin 23.8 L 28.0-32.0 pg Mean Corpuscular Hemoglobin Concent 31.1 L 32.0-36.0 g/dL Red Cell Distribution Width 21.1 H 11.8-14.3 % Platelet Count 163 # 140-450 10^3/uL Mean Platelet Volume 7.9 6.9-10.8 fL Neutrophils (%) (Auto) 74.8 37.0-80.0 % Lymphocytes (%) (Auto) 11.5 10.0-50.0 % Monocytes (%) (Auto) 7.2 0.0-12.0 % Eosinophils (%) (Auto) 5.0 0.0-7.0 % Basophils (%) (Auto) 1.5 0.0-2.0 % Neutrophils # (Auto) 4.1 1.6-8.6 10 ^3/uL Lymphocytes # (Auto) 0.6 0.4-5.4 10 ^3/uL Monocytes # (Auto) 0.4 0-1.3 10 ^3/uL Eosinophils # (Auto) 0.3 0-0.8 10 ^3/uL Basophils # (Auto) 0.1 0-0.2 10 ^3/uL Nucleated Red Blood Cells 0.3 % Troponin I High Sensitivity 53 </=54 ng/L POC Glucose 87 70-106 mg/dl Lactic Acid Level 0.8 0.4-2.0 mmol/L Sodium Level 143 # 136-145 mmol/L Potassium Level 8.2 #*H 3.5-5.1 mmol/L Chloride Level 104 98-107 mmol/L Carbon Dioxide Level 23 20-31 mmol/L Anion Gap 16 H 5-15 Blood Urea Nitrogen 87 *H 9-23 mg/dL Creatinine 11.26 *H 0.700-1.30 mg/dL Glomerular Filtration Rate Calc 5 >90 mL/min BUN/Creatinine Ratio 7.7 L 10.0-20.0 Serum Glucose 81 74-106 mg/dL Calcium Level 8.8 8.7-10.4 mg/dL Magnesium Level 3.0 H 1.6-2.6 mg/dL Total Bilirubin 0.2 0.2-1.0 mg/dL Aspartate Amino Transferase (AST) 43 H 13-40 U/L Alanine Aminotransferase (ALT) 25 7-40 U/L Alkaline Phosphatase 85 46-116 U/L Total Protein 7.0 5.7-8.2 g/dL Albumin 3.3 3.2-4.8 g/dL Lipase 40 12-53 U/L Assessment ESKD on HD Hyperkalemia HTN Anemia in CKD Non compliance Plan/Recommendation HD today with 1 K bath Epogen with HD Labs post dialysis Plan discussed with: Patient AMELIA SAENZ MD May 08, 2025 10:44
[2025-05-08] MEDS: DEXTROSE 50% SYRINGE 50 ML IV ONE (10:49)
[2025-05-08] MEDS: DEXTROSE (50%) 50ML SYRG IV PRN (10:49)
[2025-05-08] MEDS: B-COMPLEX W/ C & FOLIC ACID(NEPHROVITE TAB) PO SCH (11:13)
[2025-05-08] MEDS: SERTRALINE HCL 50 MG TAB PO SCH (11:14)
[2025-05-08] MEDS: InsuLIN REG 1unit/0.01ml Soln (100units/ml) SC SCH (11:30)
[2025-05-08] MEDS: ACCU-CHEK COMFORT CURVE STRIP VI SCH (11:51)
[2025-05-08] MEDS: ONDANSETRON HCL 4 MG/2 ML VIAL IV PRN (13:33)
[2025-05-08] MEDS: MORPHINE SULFATE INJ 2 MG/ml SYRG IV PRN (13:39)
[2025-05-08] MEDS ORDERED: PATIENTS OWN MEDICATION (Clonidine Hydrochloride (Clonidine Hcl) 1 TAB) PO SCH (14:00)
[2025-05-08] MEDS ORDERED: PATIENTS OWN MEDICATION (Sevelamer Carbonate 2 TAB) PO SCH (14:00)
[2025-05-09] VITALS (8 sets, daily range): BP systolic 92–149; BP diastolic 44–99; PULSE 75–92; RESP 16–18; TEMP 96.5–98; O2SAT 97–100
[2025-05-09] MEDS: EPOETIN ALFA-EPBX 10,000 UNIT/1ML VIAL SC ONE ×2 (00:03→22:26)
[2025-05-09] MEDS: diphenhydrAMINE HCL 50 MG/1 ML VL IV PRN (03:02)
[2025-05-09] MEDS: PANTOPRAZOLE 40 MG/10 ML VIAL INJ IV SCH (09:23)
[2025-05-09 14:00] LABS: Hematocrit 25.3 % (41.0-53.0); Nucleated Red Blood Cells % 0.0 %
[2025-05-09 14:01] LABS: Hemoglobin 8.0 g/dL (13.5-17.5); Mean Corpuscular Hemoglobin 24.0 pg (28.0-32.0); Mean Corpuscular Volume 76.0 fL (80.0-100.0)
[2025-05-09] MEDS: HYDROcodone-ACET 5/325MG TAB PO PRN (14:02)
[2025-05-09 14:17] LABS: Alanine Aminotransferase 18 U/L (7-40); Albumin 3.4 g/dL (3.2-4.8); Alkaline Phosphatase 79 U/L (46-116); Anion Gap 14 (5-15); BUN/Creatinine Ratio 4.9 (10.0-20.0); Bilirubin, Total 0.4 mg/dL (0.2-1.0); Carbon Dioxide 30 mmol/L (20-31); Potassium 4.8 mmol/L (3.5-5.1); Sodium 141 mmol/L (136-145); Total Protein 7.2 g/dL (5.7-8.2)
[2025-05-09 14:19] LABS: Blood Urea Nitrogen 48 mg/dL (9-23); Calcium 8.5 mg/dL (8.7-10.4); Chloride 97 mmol/L (98-107); Glucose 147 mg/dL (74-106)
--- NOTE | 2025-05-09 16:58 | DVHPN2 ---
Progress Note - Dictate Date Seen: May 09, 2025 Medical Necessity Reason Pt with a Central, PICC or Fol: No Subjective underwent HD yesterday . Scheduled for HD today vital signs Vital Sign Date Time Temp Pulse Resp B/P (MAP) Pulse Ox O2 Delivery O2 Flow Rate FiO2 05/09/25 15:56 80 16 118/69 05/09/25 12:53 97.5 99 97.5 05/09/25 08:00 Nasal Cannula* 2 28 Total Intake and Output 05/08/25 05/08/25 05/09/25 15:00 23:00 07:00 Intake Total 100 ml 400 ml Balance 100 ml 400 ml medications Current Medications Medications Dose Ordered Sig/Kevin Route Start Time Stop Time Status Last Admin Dose Admin Ondansetron HCl 4 mg Q4HP PRN IV 05/08/25 07:00 05/08/25 13:33 4 MG Acetaminophen 650 mg Q6HP PRN PO 05/08/25 07:00 Morphine Sulfate 2 mg Q4HPRN PRN IV 05/08/25 07:00 05/09/25 15:26 2 MG Acetaminophen/ Hydrocodone Bitart 1 tab Q4HP PRN PO 05/08/25 07:30 05/09/25 14:02 1 TAB Multivit/Ca Carb/ B Cmplx/FA/Prenat 1 tab DAILY PO 05/08/25 10:00 05/09/25 09:23 1 TAB Sertraline HCl 150 mg DAILY PO 05/08/25 10:00 05/09/25 09:23 150 MG Patient Own Medication 1 tab DAILY PO 05/08/25 10:00 UNV Patient Own Medication 1 tab TID PO 05/08/25 14:00 UNV Patient Own Medication 1 tab BID PO 05/08/25 10:00 UNV Patient Own Medication 60 mg BID PO 05/08/25 10:00 UNV Patient Own Medication 2 tab TID PO 05/08/25 14:00 UNV Clonidine HCl 0.3 mg TID PO 05/08/25 14:00 05/09/25 06:39 0.3 MG Nifedipine 60 mg BID PO 05/08/25 10:00 05/09/25 09:26 60 MG Sevelamer HCl 1,600 mg TIDWM PO 05/08/25 08:00 05/09/25 11:51 1,600 MG Hydralazine HCl 100 mg TID PO 05/08/25 14:00 05/09/25 06:39 100 MG Diagnostic Test (Pha) 1 strip ACHS 05/08/25 11:30 05/09/25 11:41 1 STRIP Insulin Human Regular ACHS SC 05/08/25 11:30 Dextrose 50 ml UD PRN IV 05/08/25 10:45 05/08/25 10:49 50 ML Pantoprazole Sodium 40 mg DAILY IV 05/09/25 10:00 05/09/25 09:23 40 MG Diphenhydramine HCl 25 mg Q4HP PRN IV 05/09/25 02:30 05/09/25 03:02 25 MG objective Awake and alert HEENT: No JVD Lungs: Bilateral good air entry CVS : S1,S2 RRR Abd: Soft ,BS+ 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 Cleared for dc from renal standpoint Dietary Evaluation Review Recommendations by RD: Protein Supplementation Comments: 1) Add 60g CCHO restriction to renal diet 2) Initiate Nepro CarbSteady qd 3) Encourage optimal PO intake 4) Follow-up with nephrology 5) Continue to monitor I&O, labs, and skin integrity Expected Outcomes/Goals: 1) appetite and labs to improve 2) wounds to improve 3) f/u in 3-5 days Plan discussed with: AMELIA Maldonado MD May 09, 2025 16:58
--- NOTE | 2025-05-09 18:03 | DVHPN2 ---
Subjective I am assuming the care of the patient from today onwards. 34-year-old male with a known history of end-stage renal disease on hemodialysis is here for abdominal pain nausea vomiting with missing hemodialysis. Changes from previous H/P or p: No Changes Respiratory: Shortness of breath Gastrointestinal: Nausea, Vomiting, Abdominal Pain Objective Vitals Vital Signs Date Time Temp Pulse Resp B/P (MAP) Pulse Ox O2 Delivery O2 Flow Rate FiO2 05/09/25 17:00 97.9 87 16 123/80 (94) 100 97.9 05/09/25 08:00 Nasal Cannula* 2 28 Intake/Output Intake and Output 05/09/25 07:00 Intake Total 500 ml Balance 500 ml Intake Oral 500 ml # Voids 1 # Bowel Movements 1 Exam HEENT pupils are reactive Neck is supple CV is S1-S2 regular rate and rhythm Respiratory person patient has no GI positive bowel sound Extremity trace edema 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 Medications Current Medications Medications Dose Ordered Sig/Kevin Route Start Time Stop Time Status Last Admin Dose Admin Ondansetron HCl 4 mg Q4HP PRN IV 05/08/25 07:00 05/08/25 13:33 4 MG Acetaminophen 650 mg Q6HP PRN PO 05/08/25 07:00 Morphine Sulfate 2 mg Q4HPRN PRN IV 05/08/25 07:00 05/09/25 15:26 2 MG Acetaminophen/ Hydrocodone Bitart 1 tab Q4HP PRN PO 05/08/25 07:30 05/09/25 14:02 1 TAB Multivit/Ca Carb/ B Cmplx/FA/Prenat 1 tab DAILY PO 05/08/25 10:00 05/09/25 09:23 1 TAB Sertraline HCl 150 mg DAILY PO 05/08/25 10:00 05/09/25 09:23 150 MG Patient Own Medication 1 tab DAILY PO 05/08/25 10:00 UNV Patient Own Medication 1 tab TID PO 05/08/25 14:00 UNV Patient Own Medication 1 tab BID PO 05/08/25 10:00 UNV Patient Own Medication 60 mg BID PO 05/08/25 10:00 UNV Patient Own Medication 2 tab TID PO 05/08/25 14:00 UNV Clonidine HCl 0.3 mg TID PO 05/08/25 14:00 05/09/25 06:39 0.3 MG Nifedipine 60 mg BID PO 05/08/25 10:00 05/09/25 09:26 60 MG Sevelamer HCl 1,600 mg TIDWM PO 05/08/25 08:00 05/09/25 11:51 1,600 MG Hydralazine HCl 100 mg TID PO 05/08/25 14:00 05/09/25 06:39 100 MG Diagnostic Test (Pha) 1 strip ACHS 05/08/25 11:30 05/09/25 11:41 1 STRIP Insulin Human Regular ACHS SC 05/08/25 11:30 Dextrose 50 ml UD PRN IV 05/08/25 10:45 05/08/25 10:49 50 ML Pantoprazole Sodium 40 mg DAILY IV 05/09/25 10:00 05/09/25 09:23 40 MG Diphenhydramine HCl 25 mg Q4HP PRN IV 05/09/25 02:30 05/09/25 03:02 25 MG Laboratory Results Laboratory Tests 05/09/25 13:45 Chemistry Test 05/09/25 13:45 Albumin 3.4 g/dL (3.2-4.8) Calcium Level 8.5 mg/dL (8.7-10.4) L Total Protein 7.2 g/dL (5.7-8.2) LFT Test 05/09/25 13:45 Alanine Aminotransferase (ALT) 18 U/L (7-40) Alkaline Phosphatase 79 U/L (46-116) Aspartate Amino Transferase (AST) 16 U/L (13-40) Total Bilirubin 0.4 mg/dL (0.2-1.0) Microbiology Microbiology Date/Time Source Procedure Growth Status 05/08/25 13:25 Nose MRSA Screen - Final Complete Assessment/Plan Assessment/Plan 34-year-old male with known history of hypertension, end-stage renal disease on hemodialysis, chronic marijuana use, chronic cigar use, presented to the hospital intractable abdominal pain nausea vomiting and missing two sessions of hemodialysis found to have 1. Acute hypoxic respiratory failure with bilateral lower lobe opacities suspected fluid overload because of missing hemodialysis 2. Hyperkalemia next 3. End-stage renal disease on hemodialysis 4. Intractable abdominal pain nausea vomiting suspected secondary to uremia, currently resolved 5. Hypertension 6. Chronic marijuana use 7. Anemia likely iron-deficiency anemia with underlying anemia of chronic disease -hemodialysis per renal, physical therapy evaluation treatment, home health home safety evaluation upon discharge, possible discharge plan in next 24-48 hours. 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
[2025-05-09] MEDS: ALBUMIN 25% 100 ML IV PRN (19:49)
[2025-05-10] VITALS (9 sets, daily range): BP systolic 113–153; BP diastolic 64–89; PULSE 85–95; RESP 16–18; TEMP 97.8–98.2; O2SAT 93–99
--- NOTE | 2025-05-10 11:55 | DVHPN2 ---
Progress Note - Dictate Date Seen: May 10, 2025 Medical Necessity Reason Pt with a Central, PICC or Fol: No Subjective underwent HD yesterday . Minimal UF because of hypotension Complaining of abdominal pain and nausea vital signs Vital Sign Date Time Temp Pulse Resp B/P (MAP) Pulse Ox O2 Delivery O2 Flow Rate FiO2 05/10/25 09:48 89 16 134/86 05/10/25 09:00 97.9 95 97.9 05/09/25 20:00 Nasal Cannula* 2 28 Total Intake and Output 05/09/25 05/09/25 05/10/25 15:00 23:00 07:00 Intake Total 336 ml 400 ml Balance 336 ml 400 ml medications Current Medications Medications Dose Ordered Sig/Kevin Route Start Time Stop Time Status Last Admin Dose Admin Ondansetron HCl 4 mg Q4HP PRN IV 05/08/25 07:00 05/10/25 10:49 4 MG Acetaminophen 650 mg Q6HP PRN PO 05/08/25 07:00 Morphine Sulfate 2 mg Q4HPRN PRN IV 05/08/25 07:00 05/10/25 09:48 2 MG Acetaminophen/ Hydrocodone Bitart 1 tab Q4HP PRN PO 05/08/25 07:30 05/09/25 14:02 1 TAB Multivit/Ca Carb/ B Cmplx/FA/Prenat 1 tab DAILY PO 05/08/25 10:00 05/10/25 09:27 1 TAB Sertraline HCl 150 mg DAILY PO 05/08/25 10:00 05/10/25 09:27 150 MG Patient Own Medication 1 tab DAILY PO 05/08/25 10:00 UNV Patient Own Medication 1 tab TID PO 05/08/25 14:00 UNV Patient Own Medication 1 tab BID PO 05/08/25 10:00 UNV Patient Own Medication 60 mg BID PO 05/08/25 10:00 UNV Patient Own Medication 2 tab TID PO 05/08/25 14:00 UNV Clonidine HCl 0.3 mg TID PO 05/08/25 14:00 05/09/25 06:39 0.3 MG Nifedipine 60 mg BID PO 05/08/25 10:00 05/10/25 09:27 60 MG Sevelamer HCl 1,600 mg TIDWM PO 05/08/25 08:00 05/09/25 18:34 1,600 MG Hydralazine HCl 100 mg TID PO 05/08/25 14:00 05/09/25 06:39 100 MG Diagnostic Test (Pha) 1 strip ACHS 05/08/25 11:30 05/10/25 10:57 1 STRIP Insulin Human Regular ACHS SC 05/08/25 11:30 05/09/25 17:00 4 UNITS Dextrose 50 ml UD PRN IV 05/08/25 10:45 05/08/25 10:49 50 ML Pantoprazole Sodium 40 mg DAILY IV 05/09/25 10:00 05/10/25 09:27 40 MG Diphenhydramine HCl 25 mg Q4HP PRN IV 05/09/25 02:30 05/10/25 10:52 25 MG objective Awake and alert HEENT: No JVD Lungs: Bilateral good air entry CVS : S1,S2 RRR Abd: Soft ,BS+ 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 Awaiting PT evaluation. Cleared for discharge from renal standpoint Dietary Evaluation Review Recommendations by RD: Protein Supplementation Comments: 1) Add 60g CCHO restriction to renal diet 2) Initiate Nepro CarbSteady qd 3) Encourage optimal PO intake 4) Follow-up with nephrology 5) Continue to monitor I&O, labs, and skin integrity Expected Outcomes/Goals: 1) appetite and labs to improve 2) wounds to improve 3) f/u in 3-5 days Plan discussed with: Patient AMELIA SAENZ MD May 10, 2025 11:55
--- NOTE | 2025-05-10 17:01 | DVHPN2 ---
Subjective I am assuming the care of the patient from today onwards. 34-year-old male with a known history of end-stage renal disease on hemodialysis is here for abdominal pain nausea vomiting with missing hemodialysis. 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 Medications Current Medications Medications Dose Ordered Sig/Kevin Route Start Time Stop Time Status Last Admin Dose Admin Ondansetron HCl 4 mg Q4HP PRN IV 05/08/25 07:00 05/10/25 10:49 4 MG Acetaminophen 650 mg Q6HP PRN PO 05/08/25 07:00 Morphine Sulfate 2 mg Q4HPRN PRN IV 05/08/25 07:00 05/10/25 09:48 2 MG Acetaminophen/ Hydrocodone Bitart 1 tab Q4HP PRN PO 05/08/25 07:30 05/09/25 14:02 1 TAB Multivit/Ca Carb/ B Cmplx/FA/Prenat 1 tab DAILY PO 05/08/25 10:00 05/10/25 09:27 1 TAB Sertraline HCl 150 mg DAILY PO 05/08/25 10:00 05/10/25 09:27 150 MG Patient Own Medication 1 tab DAILY PO 05/08/25 10:00 UNV Patient Own Medication 1 tab TID PO 05/08/25 14:00 UNV Patient Own Medication 1 tab BID PO 05/08/25 10:00 UNV Patient Own Medication 60 mg BID PO 05/08/25 10:00 UNV Patient Own Medication 2 tab TID PO 05/08/25 14:00 UNV Clonidine HCl 0.3 mg TID PO 05/08/25 14:00 05/09/25 06:39 0.3 MG Nifedipine 60 mg BID PO 05/08/25 10:00 05/10/25 09:27 60 MG Sevelamer HCl 1,600 mg TIDWM PO 05/08/25 08:00 05/09/25 18:34 1,600 MG Hydralazine HCl 100 mg TID PO 05/08/25 14:00 05/09/25 06:39 100 MG Diagnostic Test (Pha) 1 strip ACHS 05/08/25 11:30 05/10/25 10:57 1 STRIP Insulin Human Regular ACHS SC 05/08/25 11:30 05/09/25 17:00 4 UNITS Dextrose 50 ml UD PRN IV 05/08/25 10:45 05/08/25 10:49 50 ML Pantoprazole Sodium 40 mg DAILY IV 05/09/25 10:00 05/10/25 09:27 40 MG Diphenhydramine HCl 25 mg Q4HP PRN IV 05/09/25 02:30 05/10/25 10:52 25 MG Laboratory Results Laboratory Tests 05/09/25 13:45 Microbiology Microbiology Date/Time Source Procedure Growth Status 05/08/25 13:25 Nose MRSA Screen - Final Complete Assessment/Plan Assessment/Plan 34-year-old male with known history of hypertension, end-stage renal disease on hemodialysis, chronic marijuana use, chronic cigar use, presented to the hospital intractable abdominal pain nausea vomiting and missing two sessions of hemodialysis found to have 1. Acute hypoxic respiratory failure with bilateral lower lobe opacities suspected fluid overload because of missing hemodialysis 2. Hyperkalemia next 3. End-stage renal disease on hemodialysis 4. Intractable abdominal pain nausea vomiting suspected secondary to uremia, currently resolved 5. Hypertension 6. Chronic marijuana use 7. Anemia likely iron-deficiency anemia with underlying anemia of chronic disease -hemodialysis per renal, physical therapy evaluation treatment, home health home safety evaluation upon discharge, possible discharge plan in next 24-48 hours. 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
[2025-05-11] VITALS (8 sets, daily range): BP systolic 119–161; BP diastolic 46–96; PULSE 76–91; RESP 16–18; TEMP 97.5–98.4; O2SAT 93–99
[2025-05-11 11:13] LABS: Hepatitis B Surface Antigen Negative (Negative); Hepatitis C Antibody Negative (Negative)
--- NOTE | 2025-05-11 13:47 | DVHPN2 ---
Progress Note - Dictate Date Seen: May 11, 2025 Medical Necessity Reason Pt with a Central, PICC or Fol: No Subjective Feels better vital signs Vital Sign Date Time Temp Pulse Resp B/P (MAP) Pulse Ox O2 Delivery O2 Flow Rate FiO2 05/11/25 10:54 80 17 132/88 05/11/25 09:32 97.5 96 97.5 05/10/25 20:00 Nasal Cannula* 2 28 Total Intake and Output 05/10/25 05/10/25 05/11/25 15:00 23:00 07:00 Intake Total 500 ml 2100 ml Balance 500 ml 2100 ml medications Current Medications Medications Dose Ordered Sig/Kevin Route Start Time Stop Time Status Last Admin Dose Admin Ondansetron HCl 4 mg Q4HP PRN IV 05/08/25 07:00 05/11/25 10:45 4 MG Acetaminophen 650 mg Q6HP PRN PO 05/08/25 07:00 Morphine Sulfate 2 mg Q4HPRN PRN IV 05/08/25 07:00 05/11/25 10:54 2 MG Acetaminophen/ Hydrocodone Bitart 1 tab Q4HP PRN PO 05/08/25 07:30 05/09/25 14:02 1 TAB Multivit/Ca Carb/ B Cmplx/FA/Prenat 1 tab DAILY PO 05/08/25 10:00 05/11/25 09:28 1 TAB Sertraline HCl 150 mg DAILY PO 05/08/25 10:00 05/11/25 09:29 150 MG Patient Own Medication 1 tab DAILY PO 05/08/25 10:00 UNV Patient Own Medication 1 tab TID PO 05/08/25 14:00 UNV Patient Own Medication 1 tab BID PO 05/08/25 10:00 UNV Patient Own Medication 60 mg BID PO 05/08/25 10:00 UNV Patient Own Medication 2 tab TID PO 05/08/25 14:00 UNV Clonidine HCl 0.3 mg TID PO 05/08/25 14:00 05/10/25 21:44 0.3 MG Nifedipine 60 mg BID PO 05/08/25 10:00 05/10/25 09:27 60 MG Sevelamer HCl 1,600 mg TIDWM PO 05/08/25 08:00 05/11/25 09:28 1,600 MG Hydralazine HCl 100 mg TID PO 05/08/25 14:00 05/09/25 06:39 100 MG Diagnostic Test (Pha) 1 strip ACHS 05/08/25 11:30 05/11/25 06:25 1 STRIP Insulin Human Regular ACHS SC 05/08/25 11:30 05/09/25 17:00 4 UNITS Dextrose 50 ml UD PRN IV 05/08/25 10:45 05/08/25 10:49 50 ML Pantoprazole Sodium 40 mg DAILY IV 05/09/25 10:00 05/11/25 09:28 40 MG Diphenhydramine HCl 25 mg Q4HP PRN IV 05/09/25 02:30 05/11/25 12:39 25 MG objective Awake and alert HEENT: No JVD Lungs: Bilateral good air entry CVS : S1,S2 RRR Abd: Soft ,BS+ 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 Cleared for discharge from renal standpoint Dietary Evaluation Review Recommendations by RD: Protein Supplementation Comments: 1) Add 60g CCHO restriction to renal diet 2) Initiate Nepro CarbSteady qd 3) Encourage optimal PO intake 4) Follow-up with nephrology 5) Continue to monitor I&O, labs, and skin integrity Expected Outcomes/Goals: 1) appetite and labs to improve 2) wounds to improve 3) f/u in 3-5 days Plan discussed with: Other ELLE COON MD May 11, 2025 13:47
--- NOTE | 2025-05-11 16:18 | DVHPN2 ---
Subjective Patient is going to get hemodialysis today, complaining of nausea vomiting. 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 Medications Current Medications Medications Dose Ordered Sig/Kevin Route Start Time Stop Time Status Last Admin Dose Admin Ondansetron HCl 4 mg Q4HP PRN IV 05/08/25 07:00 05/11/25 10:45 4 MG Acetaminophen 650 mg Q6HP PRN PO 05/08/25 07:00 Morphine Sulfate 2 mg Q4HPRN PRN IV 05/08/25 07:00 05/11/25 10:54 2 MG Acetaminophen/ Hydrocodone Bitart 1 tab Q4HP PRN PO 05/08/25 07:30 05/09/25 14:02 1 TAB Multivit/Ca Carb/ B Cmplx/FA/Prenat 1 tab DAILY PO 05/08/25 10:00 05/11/25 09:28 1 TAB Sertraline HCl 150 mg DAILY PO 05/08/25 10:00 05/11/25 09:29 150 MG Patient Own Medication 1 tab DAILY PO 05/08/25 10:00 UNV Patient Own Medication 1 tab TID PO 05/08/25 14:00 UNV Patient Own Medication 1 tab BID PO 05/08/25 10:00 UNV Patient Own Medication 60 mg BID PO 05/08/25 10:00 UNV Patient Own Medication 2 tab TID PO 05/08/25 14:00 UNV Clonidine HCl 0.3 mg TID PO 05/08/25 14:00 05/10/25 21:44 0.3 MG Nifedipine 60 mg BID PO 05/08/25 10:00 05/10/25 09:27 60 MG Sevelamer HCl 1,600 mg TIDWM PO 05/08/25 08:00 05/11/25 09:28 1,600 MG Hydralazine HCl 100 mg TID PO 05/08/25 14:00 05/09/25 06:39 100 MG Diagnostic Test (Pha) 1 strip ACHS 05/08/25 11:30 05/11/25 06:25 1 STRIP Insulin Human Regular ACHS SC 05/08/25 11:30 05/09/25 17:00 4 UNITS Dextrose 50 ml UD PRN IV 05/08/25 10:45 05/08/25 10:49 50 ML Pantoprazole Sodium 40 mg DAILY IV 05/09/25 10:00 05/11/25 09:28 40 MG Diphenhydramine HCl 25 mg Q4HP PRN IV 05/09/25 02:30 05/11/25 12:39 25 MG Laboratory Results Laboratory Tests 05/09/25 13:45 Microbiology Microbiology Date/Time Source Procedure Growth Status 05/08/25 13:25 Nose MRSA Screen - Final Complete Assessment/Plan Assessment/Plan 34-year-old male with known history of hypertension, end-stage renal disease on hemodialysis, chronic marijuana use, chronic cigar use, presented to the hospital intractable abdominal pain nausea vomiting and missing two sessions of hemodialysis found to have 1. Acute hypoxic respiratory failure with bilateral lower lobe opacities suspected fluid overload because of missing hemodialysis 2. Hyperkalemia 3. End-stage renal disease on hemodialysis 4. Intractable abdominal pain nausea vomiting suspected secondary to uremia, currently resolved 5. Hypertension 6. Chronic marijuana use 7. Anemia likely iron-deficiency anemia with underlying anemia of chronic disease -hemodialysis per renal, physical therapy evaluation treatment, home health home safety evaluation upon discharge, - possible discharge plan in next 24-48 hours. n History of diabetes Plan discussed with: Patient Date of Service: May 11, 2025 Billing Provider: OJHN CHAND MD Common Visit Codes: [id number] INP/OBS CARE(HIGH) JOHN CHAND MD May 11, 2025 16:17
[2025-05-11] MEDS: ERTAPENEM SOD INJ 0.5 GM in SODIUM CHL 0.9% 50 ML IV SCH (19:10)
[2025-05-12] VITALS (8 sets, daily range): BP systolic 120–164; BP diastolic 65–92; PULSE 75–85; RESP 17–18; TEMP 97.2–98.6; O2SAT 92–98
--- NOTE | 2025-05-12 13:35 | DVHPN2 ---
Progress Note - Dictate Date Seen: May 12, 2025 Medical Necessity Reason Pt with a Central, PICC or Fol: No Subjective No new complaints vital signs Vital Sign Date Time Temp Pulse Resp B/P (MAP) Pulse Ox O2 Delivery O2 Flow Rate FiO2 05/12/25 12:46 97.2 78 18 120/65 (83) 93 97.2 05/12/25 07:49 Nasal Cannula* 2 28 Total Intake and Output 05/11/25 05/11/25 05/12/25 15:00 23:00 07:00 Intake Total 475 ml 400 ml Balance 475 ml 400 ml medications Current Medications Medications Dose Ordered Sig/Kevin Route Start Time Stop Time Status Last Admin Dose Admin Ondansetron HCl 4 mg Q4HP PRN IV 05/08/25 07:00 05/12/25 07:59 4 MG Acetaminophen 650 mg Q6HP PRN PO 05/08/25 07:00 Morphine Sulfate 2 mg Q4HPRN PRN IV 05/08/25 07:00 05/12/25 10:00 2 MG Acetaminophen/ Hydrocodone Bitart 1 tab Q4HP PRN PO 05/08/25 07:30 05/09/25 14:02 1 TAB Multivit/Ca Carb/ B Cmplx/FA/Prenat 1 tab DAILY PO 05/08/25 10:00 05/12/25 09:42 1 TAB Sertraline HCl 150 mg DAILY PO 05/08/25 10:00 05/12/25 09:42 150 MG Patient Own Medication 1 tab DAILY PO 05/08/25 10:00 UNV Patient Own Medication 1 tab TID PO 05/08/25 14:00 UNV Patient Own Medication 1 tab BID PO 05/08/25 10:00 UNV Patient Own Medication 60 mg BID PO 05/08/25 10:00 UNV Patient Own Medication 2 tab TID PO 05/08/25 14:00 UNV Clonidine HCl 0.3 mg TID PO 05/08/25 14:00 05/11/25 21:01 0.3 MG Nifedipine 60 mg BID PO 05/08/25 10:00 05/10/25 09:27 60 MG Sevelamer HCl 1,600 mg TIDWM PO 05/08/25 08:00 05/11/25 16:53 1,600 MG Hydralazine HCl 100 mg TID PO 05/08/25 14:00 05/09/25 06:39 100 MG Diagnostic Test (Pha) 1 strip ACHS 05/08/25 11:30 05/12/25 11:11 1 STRIP Insulin Human Regular ACHS SC 05/08/25 11:30 05/09/25 17:00 4 UNITS Dextrose 50 ml UD PRN IV 05/08/25 10:45 05/08/25 10:49 50 ML Pantoprazole Sodium 40 mg DAILY IV 05/09/25 10:00 05/12/25 09:42 40 MG Diphenhydramine HCl 25 mg Q4HP PRN IV 05/09/25 02:30 05/12/25 10:10 25 MG Ertapenem 0.5 gm/ Sodium Chloride 50 ml @ 100 mls/hr DAILY@1800 IV 05/11/25 18:00 05/11/25 19:10 100 MLS/HR objective Awake and alert HEENT: No JVD Lungs: Bilateral good air entry CVS : S1,S2 RRR Abd: Soft ,BS+ 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 Cleared for discharge from renal standpoint Dietary Evaluation Review Recommendations by RD: Protein Supplementation Comments: 1) Add 60g CCHO restriction to renal diet 2) Initiate Nepro CarbSteady qd 3) Encourage optimal PO intake 4) Follow-up with nephrology 5) Continue to monitor I&O, labs, and skin integrity Expected Outcomes/Goals: 1) appetite and labs to improve 2) wounds to improve 3) f/u in 3-5 days Plan discussed with: Patient ELLE COON MD May 12, 2025 13:35
--- NOTE | 2025-05-12 14:17 | DVHPN2 ---
Reviewed: H&P Changes from previous H/P or p: No Changes General: Per HPI Respiratory: Shortness of breath Gastrointestinal: Nausea, Vomiting, Abdominal Pain Objective Vitals Vital Signs Date Time Temp Pulse Resp B/P (MAP) Pulse Ox O2 Delivery O2 Flow Rate FiO2 05/12/25 12:46 97.2 78 18 120/65 (83) 93 97.2 05/12/25 07:49 Nasal Cannula* 2 28 Intake/Output Intake and Output 05/12/25 07:00 Intake Total 875 ml Balance 875 ml Intake Oral 825 ml IV Total 50 ml Exam HEENT pupils are reactive Neck is supple CV is S1-S2 regular rate and rhythm Respiratory person patient has no GI positive bowel sound Extremity trace edema 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 Medications Current Medications Medications Dose Ordered Sig/Kevin Route Start Time Stop Time Status Last Admin Dose Admin Ondansetron HCl 4 mg Q4HP PRN IV 05/08/25 07:00 05/12/25 07:59 4 MG Acetaminophen 650 mg Q6HP PRN PO 05/08/25 07:00 Morphine Sulfate 2 mg Q4HPRN PRN IV 05/08/25 07:00 05/12/25 10:00 2 MG Acetaminophen/ Hydrocodone Bitart 1 tab Q4HP PRN PO 05/08/25 07:30 05/09/25 14:02 1 TAB Multivit/Ca Carb/ B Cmplx/FA/Prenat 1 tab DAILY PO 05/08/25 10:00 05/12/25 09:42 1 TAB Sertraline HCl 150 mg DAILY PO 05/08/25 10:00 05/12/25 09:42 150 MG Patient Own Medication 1 tab DAILY PO 05/08/25 10:00 UNV Patient Own Medication 1 tab TID PO 05/08/25 14:00 UNV Patient Own Medication 1 tab BID PO 05/08/25 10:00 UNV Patient Own Medication 60 mg BID PO 05/08/25 10:00 UNV Patient Own Medication 2 tab TID PO 05/08/25 14:00 UNV Clonidine HCl 0.3 mg TID PO 05/08/25 14:00 05/11/25 21:01 0.3 MG Nifedipine 60 mg BID PO 05/08/25 10:00 05/10/25 09:27 60 MG Sevelamer HCl 1,600 mg TIDWM PO 05/08/25 08:00 05/11/25 16:53 1,600 MG Hydralazine HCl 100 mg TID PO 05/08/25 14:00 05/09/25 06:39 100 MG Diagnostic Test (Pha) 1 strip ACHS 05/08/25 11:30 05/12/25 11:11 1 STRIP Insulin Human Regular ACHS SC 05/08/25 11:30 05/09/25 17:00 4 UNITS Dextrose 50 ml UD PRN IV 05/08/25 10:45 05/08/25 10:49 50 ML Pantoprazole Sodium 40 mg DAILY IV 05/09/25 10:00 05/12/25 09:42 40 MG Diphenhydramine HCl 25 mg Q4HP PRN IV 05/09/25 02:30 05/12/25 14:08 25 MG Ertapenem 0.5 gm/ Sodium Chloride 50 ml @ 100 mls/hr DAILY@1800 IV 05/11/25 18:00 05/11/25 19:10 100 MLS/HR Laboratory Results Laboratory Tests 05/09/25 13:45 Microbiology Microbiology Date/Time Source Procedure Growth Status 05/08/25 13:25 Nose MRSA Screen - Final Complete Labs and/or images reviewed: Labs reviewed by me, Image(s) reviewed by me Assessment/Plan Assessment/Plan 34-year-old male with known history of hypertension, end-stage renal disease on hemodialysis, chronic marijuana use, chronic cigar use, presented to the hospital intractable abdominal pain nausea vomiting and missing two sessions of hemodialysis found to have : diagnosis: 1. Acute hypoxic respiratory failure with bilateral lower lobe opacities suspected fluid overload because of missing hemodialysis 2. Hyperkalemia 3. End-stage renal disease on hemodialysis 4. Intractable abdominal pain nausea vomiting suspected secondary to uremia, currently resolved 5. Hypertension 6. Chronic marijuana use 7. Anemia likely iron-deficiency anemia with underlying anemia of chronic disease 05/11: hemodialysis per renal, physical therapy evaluation treatment, home health home safety evaluation upon discharge, possible discharge plan in next 24-48 hours. left buttock wound which came back ESBL positive, start invanz 05/12: Patient has poor care at home, we will need Invanz at least 10 days. We will start social order to see if we can get SNF antibiotics plus wound care plus PT rehab. Plan: B complex with folic acid Clonidine 0.3 p.o. t.i.d. Benadryl PRN for itching Ertapenem 0.5 g daily Hydralazine 100 p.o. t.i.d. Mild a.c. HS sliding scale insulin Procardia ER 60 mg p.o. b.i.d. Protonix 40 IV daily Sertraline 150 mg daily Sevelamer Retacrit with dialysis Tele Full code Plan discussed with: Patient My Orders Orders - UMU PUGA MD Procedure Category Date Status Time * Boat Buffer Plastic CONS 05/12/25 Verified Consult Insert Midline ORDERS 05/12/25 Verified 14:07 Date of Service: May 12, 2025 Billing Provider: UMU PUGA MD Common Visit Codes: [id number] INP/OBS CARE(HIGH) UMU PUGA MD May 12, 2025 14:17
[2025-05-12 22:47] LABS: Hematocrit 21.6 % (41.0-53.0); Mean Corpuscular Hemoglobin 24.5 pg (28.0-32.0); Mean Corpuscular Volume 76.5 fL (80.0-100.0); Nucleated Red Blood Cells % 0.1 %
[2025-05-12 23:02] LABS: Hemoglobin 6.9 g/dL (13.5-17.5)
[2025-05-12] MEDS: EPOETIN ALFA-EPBX 10,000 UNIT/1ML VIAL SC ONE (23:25)
[2025-05-13] VITALS (10 sets, daily range): BP systolic 138–205; BP diastolic 56–91; PULSE 71–84; RESP 13–18; TEMP 97.2–98.3; O2SAT 91–100
[2025-05-13 01:53] LABS: Hematocrit 22.0 % (41.0-53.0)
[2025-05-13 01:55] LABS: Mean Corpuscular Hemoglobin 24.5 pg (28.0-32.0); Mean Corpuscular Volume 77.8 fL (80.0-100.0); Nucleated Red Blood Cells % 0.0 %
[2025-05-13 02:03] LABS: Hemoglobin 6.9 g/dL (13.5-17.5)
[2025-05-13 02:12] LABS: Albumin 3.5 g/dL (3.2-4.8); Alkaline Phosphatase 75 U/L (46-116); Anion Gap 11 (5-15); BUN/Creatinine Ratio 3.7 (10.0-20.0); Bilirubin, Total 0.5 mg/dL (0.2-1.0); Calcium 8.8 mg/dL (8.7-10.4); Potassium 4.6 mmol/L (3.5-5.1); Sodium 139 mmol/L (136-145); Total Protein 7.0 g/dL (5.7-8.2)
[2025-05-13 02:13] LABS: Alanine Aminotransferase 9 U/L (7-40); Blood Urea Nitrogen 23 mg/dL (9-23); Carbon Dioxide 32 mmol/L (20-31); Chloride 96 mmol/L (98-107); Glucose 150 mg/dL (74-106)
--- NOTE | 2025-05-13 08:25 | DVHDS2 ---
Discharge Summary Date of Admission May 08, 2025 at 06:57 Date of Discharge: May 13, 2025 Labs/Diagnostic Data: Laboratory Results Test 05/13/25 06:29 05/13/25 01:42 05/08/25 16:33 05/08/25 11:33 POC Glucose 132 mg/dl (70-106) White Blood Count 4.0 10^3/uL (4.4-10.8) Red Blood Count 2.83 10^6/uL (4.5-5.90) Hemoglobin 6.9 g/dL (13.5-17.5) Hematocrit 22.0 % (41.0-53.0) Mean Corpuscular Volume 77.8 fL (80.0-100.0) Mean Corpuscular Hemoglobin 24.5 pg (28.0-32.0) Mean Corpuscular Hemoglobin Concent 31.5 g/dL (32.0-36.0) Red Cell Distribution Width 21.3 % (11.8-14.3) Platelet Count 103 10^3/uL (140-450) Mean Platelet Volume 7.7 fL (6.9-10.8) Neutrophils (%) (Auto) 69.3 % (37.0-80.0) Lymphocytes (%) (Auto) 11.2 % (10.0-50.0) Monocytes (%) (Auto) 12.0 % (0.0-12.0) Eosinophils (%) (Auto) 6.1 % (0.0-7.0) Basophils (%) (Auto) 1.4 % (0.0-2.0) Neutrophils # (Auto) 2.8 10 ^3/uL (1.6-8.6) Lymphocytes # (Auto) 0.4 10 ^3/uL (0.4-5.4) Monocytes # (Auto) 0.5 10 ^3/uL (0-1.3) Eosinophils # (Auto) 0.2 10 ^3/uL (0-0.8) Basophils # (Auto) 0.1 10 ^3/uL (0-0.2) Nucleated Red Blood Cells 0.0 % Sodium Level 139 mmol/L (136-145) Potassium Level 4.6 mmol/L (3.5-5.1) Chloride Level 96 mmol/L (98-107) Carbon Dioxide Level 32 mmol/L (20-31) Anion Gap 11 (5-15) Blood Urea Nitrogen 23 mg/dL (9-23) Creatinine 6.19 mg/dL (0.700-1.30) Glomerular Filtration Rate Calc 11 mL/min (>90) BUN/Creatinine Ratio 3.7 (10.0-20.0) Serum Glucose 150 mg/dL (74-106) Calcium Level 8.8 mg/dL (8.7-10.4) Total Bilirubin 0.5 mg/dL (0.2-1.0) Aspartate Amino Transferase (AST) 8 U/L (13-40) Alanine Aminotransferase (ALT) 9 U/L (7-40) Alkaline Phosphatase 75 U/L (46-116) Total Protein 7.0 g/dL (5.7-8.2) Albumin 3.5 g/dL (3.2-4.8) Hepatitis B Surface Antigen Negative (Negative) Hepatitis C Antibody Negative (Negative) Troponin I High Sensitivity 58 ng/L (</=54) Test 05/08/25 09:13 05/08/25 05:39 05/08/25 05:36 Hemoglobin A1c 6.2 % A1C (<5.7) Lactic Acid Level 0.8 mmol/L (0.4-2.0) Magnesium Level 3.0 mg/dL (1.6-2.6) Lipase 40 U/L (12-53) Other Laboratory Tests 05/13/25 01:42 Brief Hx & Hospital Course: 34-year-old male with known history of hypertension, end-stage renal disease on hemodialysis, chronic marijuana use, chronic cigar use, presented to the hospital intractable abdominal pain nausea vomiting and missing two sessions of hemodialysis found to be in volume overload. Patient was missing dialysis. 05/11: hemodialysis per renal, physical therapy evaluation treatment, home health home safety evaluation upon discharge, possible discharge plan in next 24-48 hours. left buttock wound which came back ESBL positive, start invanz 05/12: Patient has poor care at home, we will need Invanz at least 10 days. We will start social order to see if we can get SNF antibiotics plus wound care plus PT rehab. 05/13: Patient in good spirits, taking p.o. analgesia for back pain, patient needs to be more mobile and is discussed with that. Yesterday plan was changed, patient wants to go home. Discharge home with home health for IV antibiotics, PT, wound care. Patient has sacral ulcerating wound, needs wound care. Wound care referral outpatient to local wound care center. Follow up with PCP to review discharge. Continue other home medications not mentioned above. Very poor prognosis as patient continues to skip dialysis appointments diagnosis: Acute hypoxic respiratory failure with bilateral lower lobe opacities suspected fluid overload because of missing hemodialysis Hyperkalemia deep tissue pressure ulcer, sacrum, stage 3 possible End-stage renal disease on hemodialysis Intractable abdominal pain nausea vomiting suspected secondary to uremia, currently resolved Hypertension Chronic marijuana use Anemia likely iron-deficiency anemia with underlying anemia of chronic disease Discharge plan: -Discharge home with home health for IV antibiotics, PT, wound care. -IV antibiotic Invanz 0.5 g daily needed for 10 days -Continue regular dialysis, consult on straightening to make it to dialysis appointments -Patient has sacral ulcerating wound, needs wound care. -Wound care referral outpatient to local wound care center. -Follow up with PCP to review discharge. -Continue other home medications not mentioned above Condition at Discharge: Fair Final Diagnosis/Problems List Acute hypoxic respiratory failure with bilateral lower lobe opacities suspected fluid overload because of missing hemodialysis Hyperkalemia deep tissue pressure ulcer, sacrum, stage 3 possible End-stage renal disease on hemodialysis Intractable abdominal pain nausea vomiting suspected secondary to uremia, currently resolved Hypertension Chronic marijuana use Anemia likely iron-deficiency anemia with underlying anemia of chronic disease Discharge Disposition: Home with Health Services Discharge Instruct/Medications Scheduled B-Complex W/ C & Folic Acid ([facility] Rx), 1 TAB PO DAILY, (Reported) Benazepril Hcl (Benazepril Hcl), 1 TAB PO DAILY, (Reported) Carvedilol (Carvedilol), 1 TAB PO BID, (Reported) Cephalexin Monohydrate (Cephalexin), 1 CAP PO BID Ciprofloxacin Hcl (Cipro), 1 TAB PO BID Clonidine Hydrochloride (Clonidine Hcl), 1 TAB PO TID, (Reported) Hydralazine Hcl (Hydralazine Hcl), 1 TAB PO BID, (Reported) Nifedipine (Nifedipine Er), 60 MG PO BID, (Reported) Sertraline Hcl (Sertraline Hcl), 150 MG PO DAILY, (Reported) Sevelamer Carbonate (Sevelamer Carbonate), 2 TAB PO TID, (Reported) Scheduled PRN Alprazolam (Xanax), 1 TAB PO DAILY PRN for ANXIETY, (Reported) Hydrocodone-Acetaminophen (Hydrocodone/Acetaminophen 10-325 mg), 1 TAB PO Q6HPRN PRN for PAIN SCALE 1 THRU 6, (Reported) Hydrocodone-Acetaminophen (Hydrocodone Bitartrate/AC 5-325 mg), 1 TAB PO QID PRN Miscellaneous Medications Gabapentin (Neurontin), (Reported) Insulin (Insulin Human), (Reported) Discharge Statement: "Patient was advised to return to the ER or call 911 if any headaches, dizziness, shortness of breath, chest pain, abdominal pain, bleeding, fevers, or worsening of medical condition. Patient was counseled about treatment plan, medications, possible side effects, patientverbalized understanding. All questions were answered to the best of my ability. This discharge took greater then 30 minutes in planning, reviewing documentation, counseling the patient, and discussing with other team members." ASSESSMENT ASSESSMENT Assessment Date of Service: May 13, 2025 Billing Provider: UMU PUGA MD Common Visit Codes: [id number] DISCH DAY >30min UMU PUGA MD May 13, 2025 08:25
--- NOTE | 2025-05-13 10:49 | ECG ---
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
[2025-05-13] MEDS: LACTULOSE 20Gm/30ML SOLN PO SCH (11:28)
--- NOTE | 2025-05-13 17:19 | DVHPN2 ---
Progress Note - Dictate Date Seen: May 13, 2025 Medical Necessity Reason Pt with a Central, PICC or Fol: No Subjective No new complaints vital signs Vital Sign Date Time Temp Pulse Resp B/P (MAP) Pulse Ox O2 Delivery O2 Flow Rate FiO2 05/13/25 14:00 117/67 05/13/25 12:49 97.7 74 16 99 97.7 05/13/25 08:00 Nasal Cannula* 2 28 Total Intake and Output 05/12/25 05/12/25 05/13/25 15:00 23:00 07:00 Intake Total 375 ml 600 ml Balance 375 ml 600 ml medications Current Medications Medications Dose Ordered Sig/Kevin Route Start Time Stop Time Status Last Admin Dose Admin Ondansetron HCl 4 mg Q4HP PRN IV 05/08/25 07:00 05/12/25 07:59 4 MG Acetaminophen 650 mg Q6HP PRN PO 05/08/25 07:00 Morphine Sulfate 2 mg Q4HPRN PRN IV 05/08/25 07:00 05/13/25 11:55 2 MG Acetaminophen/ Hydrocodone Bitart 1 tab Q4HP PRN PO 05/08/25 07:30 05/09/25 14:02 1 TAB Multivit/Ca Carb/ B Cmplx/FA/Prenat 1 tab DAILY PO 05/08/25 10:00 05/13/25 08:29 1 TAB Sertraline HCl 150 mg DAILY PO 05/08/25 10:00 05/13/25 08:29 150 MG Patient Own Medication 1 tab DAILY PO 05/08/25 10:00 UNV Patient Own Medication 1 tab TID PO 05/08/25 14:00 UNV Patient Own Medication 1 tab BID PO 05/08/25 10:00 UNV Patient Own Medication 60 mg BID PO 05/08/25 10:00 UNV Patient Own Medication 2 tab TID PO 05/08/25 14:00 UNV Clonidine HCl 0.3 mg TID PO 05/08/25 14:00 05/13/25 06:18 0.3 MG Nifedipine 60 mg BID PO 05/08/25 10:00 05/13/25 08:29 60 MG Sevelamer HCl 1,600 mg TIDWM PO 05/08/25 08:00 05/13/25 12:29 1,600 MG Hydralazine HCl 100 mg TID PO 05/08/25 14:00 05/13/25 06:18 100 MG Diagnostic Test (Pha) 1 strip ACHS 05/08/25 11:30 05/13/25 11:28 1 STRIP Insulin Human Regular ACHS SC 05/08/25 11:30 05/09/25 17:00 4 UNITS Dextrose 50 ml UD PRN IV 05/08/25 10:45 05/08/25 10:49 50 ML Pantoprazole Sodium 40 mg DAILY IV 05/09/25 10:00 05/13/25 08:29 40 MG Diphenhydramine HCl 25 mg Q4HP PRN IV 05/09/25 02:30 05/13/25 11:29 25 MG Ertapenem 0.5 gm/ Sodium Chloride 50 ml @ 100 mls/hr DAILY@1800 IV 05/11/25 18:00 05/12/25 18:04 100 MLS/HR Lactulose 15 ml DAILY PO 05/13/25 10:00 05/13/25 11:28 15 ML objective Awake and alert HEENT: No JVD Lungs: Bilateral good air entry CVS : S1,S2 RRR Abd: Soft ,BS+ 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 Cleared for discharge from renal standpoint Dietary Evaluation Review Recommendations by RD: Protein Supplementation Comments: 1) Add 60g CCHO restriction to renal diet 2) Initiate Nepro CarbSteady qd 3) Encourage optimal PO intake 4) Follow-up with nephrology 5) Continue to monitor I&O, labs, and skin integrity Expected Outcomes/Goals: 1) appetite and labs to improve 2) wounds to improve 3) f/u in 3-5 days Plan discussed with: ELLE Hernandez MD May 13, 2025 17:19
[2025-05-14] MEDS ORDERED: SODIUM CHL 0.9% 1000 ML BAG XX ONE (07:00)
[2025-05-14] MEDS ORDERED: EPOETIN ALFA-EPBX 10,000 UNIT/1ML VIAL SC ONE (21:00)
== END 2025-05-13 16:35 | disposition home health service (06) | DRG 133 ==
LOC: ER 04:30 → EDBD 04:30 → OVERFLOW 06:57 → TELE-CENTR 13:10
PROVIDERS: ADMIT Student in an Organized Health Care Education/Training Program; ATTEND Student in an Organized Health Care Education/Training Program
PROC: 5A1D70Z Performance of Urinary Filtration, Intermittent, Less than 6 Hours Per Day (ICD-10-PCS; 2025-05-08)
PROC: 5A1D70Z Performance of Urinary Filtration, Intermittent, Less than 6 Hours Per Day (ICD-10-PCS; 2025-05-09)
PROC: 5A1D70Z Performance of Urinary Filtration, Intermittent, Less than 6 Hours Per Day (ICD-10-PCS; 2025-05-12)
PROC: 30233N1 Transfusion of Nonautologous Red Blood Cells into Peripheral Vein, Percutaneous Approach (ICD-10-PCS; principal; 2025-05-13)
DX: J96.01 Acute respiratory failure with hypoxia (principal); I13.2 Hypertensive heart and chronic kidney disease with heart failure and with stage 5 chronic kidney disease, or end stage renal disease; L89.153 Pressure ulcer of sacral region, stage 3; I21.A1 Myocardial infarction type 2; J18.9 Pneumonia, unspecified organism; N18.6 End stage renal disease; E83.41 Hypermagnesemia; D63.1 Anemia in chronic kidney disease; Z99.2 Dependence on renal dialysis; E11.22 Type 2 diabetes mellitus with diabetic chronic kidney disease; I50.9 Heart failure, unspecified; E87.5 Hyperkalemia; N25.0 Renal osteodystrophy; D50.9 Iron deficiency anemia, unspecified; T63.301A Toxic effect of unspecified spider venom, accidental (unintentional), initial encounter; F12.90 Cannabis use, unspecified, uncomplicated; Z91.199 Patient's noncompliance with other medical treatment and regimen due to unspecified reason; Z89.422 Acquired absence of other left toe(s); Z89.421 Acquired absence of other right toe(s); Z83.3 Family history of diabetes mellitus; Z82.49 Family history of ischemic heart disease and other diseases of the circulatory system; Z79.4 Long term (current) use of insulin; Y92.89 Other specified places as the place of occurrence of the external cause; Z88.5 Allergy status to narcotic agent; Z59.82 Transportation insecurity; E87.70 Fluid overload, unspecified
CPT/HCPCS: 36415; 71045; 74176; 80053; 82962; 83036; 83605; 83690; 83735; 84132; 84484; 85025; 86803; 86850; 86900; 86901; 86920; 87077; 87081; 87186; 87205; 87340; 90935; 93005; 94640; 96365; 97110; 97116; 97163; 97530; 99291; 99292; G0378; J1335; J1642; J1815; J2405; J2470; P9047